=== PATIENT | female | born 1950 | race Caucasian/White ===

== ENCOUNTER 2016-10-07 15:02 | Inpatient (IN) | payer OTHER ==
[~2016-10-07] VITALS: Ht 144.8 cm; Wt 70.7 kg
[~2016-10-07 15:02] MED LIST: ACET-1256 PO; ASPI-589 PO; ATOR-26 PO; B-COCAP2 PO; B-COTAB18 PO; INSDGI SC; IPRA1AER2 INH; ISOS30TA35 PO; LACT10SO17 PO; METO25TA3 PO; NITR0.4S UT; NRN/300 PO; NVLG SC; OXGN; OXYC-57 PO; SNG10 PO; TRAM-10 PO; WARF2TAB8 PO; XOPENEX INH
--- NOTE | 2016-10-07 15:59 | DIAGNOSTIC IMAGING REPORT ---
CT SCAN OF THE BRAIN WITHOUT IV CONTRAST CLINICAL HISTORY: Fall with head injury. COMPARISON STUDY: CT of the brain dated 03/24/2016. TECHNIQUE: Unenhanced axial CT scan of the brain is performed from the vertex to the skull base. CT DOSE: 1074.96 mGy.cm FINDINGS: Brain parenchyma: There are age-related involutional changes noting [id number] patchy subcortical and periventricular microangiopathic change. Chronic lacunar infarcts are identified in the left coronal radiata in the left cerebellar hemisphere. There is no hemorrhage, mass effect, or evidence of acute territorial ischemia by CT criteria. Reardon-white matter is preserved. No extra-axial fluid collection is seen. Ventricles, sulci, cisterns: Prominent secondary to involutional change. Intracranial vasculature: There is atherosclerotic calcification of the cavernous carotid and vertebral arteries. Calvarium: The skeletal structures are osteopenic. No depressed calvarial fracture is seen. Sinuses and mastoids: The visualized paranasal sinuses are clear. The mastoid air cells are well pneumatized. Orbits: The bony orbits are grossly intact. There is evidence of bilateral ocular lens surgery. IMPRESSION: Chronic changes as above with no hemorrhage, mass effect, or evidence of acute territorial ischemia by CT criteria. Electronically signed by: Iván Browne M.D. 10/07/2016 3:57 PM Dictated Date/Time: 10/07/2016 3:54 PM
[2016-10-07] MEDS ORDERED: ESCI1TAB6 PO (16:10)
[2016-10-07] MEDS ORDERED: XPNINS125 INH (16:10)
[2016-10-07] MEDS ORDERED: OXYC-57 PO (16:10)
[2016-10-07] MEDS ORDERED: OMEP40CA41 PO (16:10)
[2016-10-07] MEDS ORDERED: AMOX500C3 PO (16:10)
[2016-10-07] MEDS ORDERED: ULT/50 PO (16:10)
[2016-10-07] MEDS ORDERED: BXN500 PO (16:10)
[2016-10-07] MEDS ORDERED: CMD/1 PO (16:10)
--- NOTE | 2016-10-07 16:21 | DIAGNOSTIC IMAGING REPORT ---
RIGHT SHOULDER 3 VIEWS CLINICAL HISTORY: Fall with right shoulder pain. FINDINGS: 3 views of the right shoulder are obtained. No prior studies are available for comparison at the time of dictation. The skeletal structures are osteopenic. No fracture or dislocation is seen. The glenohumeral and acromioclavicular joints are well-maintained. Minimal arthritic change is noted in the greater tuberosity of the humeral head. The overlying soft tissues are within normal limits. Midline sternotomy wires and pacemaker leads are observed. A right-sided central venous catheter is in place. The heart is enlarged. IMPRESSION: No acute bony abnormality is identified in the right shoulder. Electronically signed by: Iván Browne M.D. 10/07/2016 4:19 PM Dictated Date/Time: 10/07/2016 4:19 PM
--- NOTE | 2016-10-07 16:40 | EMERGENCY ROOM VISIT NOTE ---
ED Visit Note First contact with patient: 15:19 The patient was seen and examined with John Nolasco PA-C. I agree with the history, physical and findings. Please see the note for disposition and details. The patient had a syncopal episode in the emergency department. She did not suffer any trauma. I did evaluate her probably after this occurred. She had some mild confusion but came around quite quickly. She was answering questions in about 1 minute from the event. The patient did not bite her tongue. There is no incontinence. ECG showed a paced rhythm. The patient was not orthostatic. Her blood work was rather unremarkable. Her urinalysis appeared to be dirty and a catheter specimen was ordered after consultation with internal medicine. Consultation was made with the hospitalist service patient was evaluated in the Emergency Room for further treatment.
[2016-10-07] MEDS ORDERED: OXYCODONE HCL IR 5 MG TAB (IMMEDIATE RELEASE) PO STA (16:49)
[2016-10-07 17:19] LABS: BASO % 0.2 %; BASO ABS # 0.02 K/uL (0-0.2); COMPLETE YES; EOS % 1.8 %; HEMATOCRIT 28.7 % (37-47); IG% 0.2 %; LYMPH % 9.9 %; LYMPH ABS # 0.81 K/uL (1.2-3.4); MEAN CELL VOLUME 98.6 fL (80-100); MEAN CORPUSCULAR HGB CONC 32.4 g/dl (32-36); MEAN PLATELET VOLUME 9.5 fL (7.4-10.4); NEUT % 78.9 %; PLATELET COUNT 204 K/uL (130-400); RED BLOOD COUNT 2.91 M/uL (4.2-5.4); WHITE BLOOD COUNT 8.18 K/uL (4.8-10.8)
[2016-10-07 17:28] LABS: INR 2.5 (0.9-1.1); PARTIAL THROMBOPLASTIN RATIO 1.4; PROTHROMBIN TIME (PATIENT) 28.1 SECONDS (9.0-12.0)
[2016-10-07 17:48] LABS: BUN/CREATININE RATIO 7.5 (10-20); CALCIUM 8.4 mg/dl (8.5-10.1); MAGNESIUM 2.8 mg/dl (1.8-2.4); POTASSIUM 5.6 mmol/L (3.5-5.1); THYROID STIMULATING HORMONE 1.44 uIu/ml (0.300-4.500)
--- NOTE | 2016-10-07 17:53 | DIAGNOSTIC IMAGING REPORT ---
CHEST ONE VIEW PORTABLE HISTORY: EVALUATE ALTERED MENTAL STATUS/WEAKNESS COMPARISON: Chest 03/31/2016. FINDINGS: No pneumothorax. Mild interstitial pulmonary edema has improved. Trace bilateral pleural effusions persists. The heart remains enlarged. There are poststernotomy changes with an aortic valve prosthesis. Left dual-chamber pacemaker. Right jugular catheter terminates in the right atrium. IMPRESSION: Improvement in the mild interstitial pulmonary edema and trace bilateral pleural effusions. Cardiomegaly persists. The right jugular catheter terminates in the right atrium. This has advanced in the interval. Electronically signed by: Julio César Huggins M.D. 10/07/2016 5:51 PM Dictated Date/Time: 10/07/2016 5:49 PM
--- NOTE | 2016-10-07 18:12 | EMERGENCY ROOM VISIT NOTE ---
History First contact with patient: 15:19 Chief Complaint: FALL Stated Complaint: FALL, HEAD INJURY History of Present Illness The patient is a 66 year old female who presents to the Emergency Room with complaints of injuries from a fall after tripping on a curb while walking into her doctor's office. The patient reports falling onto the back of her head. Staff reported that she had an approximate 1-2 minute loss of consciousness. She had vomiting 3 upon regaining consciousness. The patient reports a posterior headache. She denies any neck or back pain. She also complains of right shoulder pain that has been ongoing for some time. She does not know if she re-exacerbated her pain from this fall she does not know if she fell onto her shoulder.. She denies paresthesias or numbness of the right upper extremity. She rates her discomfort an 8 out of 10. The patient refuses any analgesics. Tetanus immunization is up-to-date. Review of Systems 10 system review was performed and was negative except for pertinent positives and negatives as indicated in history of present illness Past Medical/Surgical History Medical Problems: (1) Asthma (2) CAD (coronary artery disease) (3) CHF (congestive heart failure) (4) Cirrhosis of liver (5) CKD (chronic kidney disease), stage III (6) Depression (7) Diabetes mellitus (8) Dyslipidemia (9) History of stroke (10) HTN (hypertension) (11) Osteoarthritis (12) Pacemaker (13) Sleep apnea Surgical Problems: (1) Aortic valve replaced (2) S/P CABG x 2 (3) S/P placement of cardiac pacemaker (4) S/P tonsillectomy (5) Status post left heart catheterization Family History Asthma FATHER FH: cancer MOTHER (pancreatic) Heart disease BROTHER ( of [place] age 43) SISTER (CAD age 60) SISTER (CAD age 57) Social History Smoking Status: Never Smoker Alcohol Use: none Drug Use: none Marital Status: Housing Status: lives with family, lives with significant other Occupation Status: disabled Current/Historical Medications Scheduled Acetaminophen (Tylenol), 1,000 MG PO HS Amoxicillin (Amoxil), 1,000 MG PO BID Aspirin (Aspirin Adult Low Dose), 81 MG PO QPM Atorvastatin (Lipitor), 80 MG PO HS B-Complex Vitamins (Vitamin B Complex), 1 TAB PO QAM Clarithromycin (Clarithromycin), 500 MG PO BID Escitalopram Oxalate (Lexapro), 5 MG PO GMG Gabapentin (Neurontin), 300 MG PO HS Insulin Aspart (Novolog), SC UD Insulin Glargine (Lantus), 30 UNITS SC HS Isosorbide Mononitrate Ext Rel (Imdur Ext Rel), 1 TAB PO QAM Lactulose (Chronulac), 30 ML PO QID Levalbuterol (Levalbuterol HCl), 3 ML INH Q8 Metoprolol Succinate (Toprol Xl), 25 MG PO QAM Montelukast Sod (Montelukast Sodium), 10 MG PO HS Omeprazole (Prilosec), 40 MG PO DAILY Trazodone Hcl (Trazodone), 50 MG PO HS Vitamin B Cmplx/Vitc/Folic Ac (Nephrocaps), 1 CAP PO QPM Warfarin Sod (Warfarin Sodium), PO UD Scheduled PRN Ipratropium-Albuterol (Combivent Respimat), 1 PUFFS INH QID PRN for SOB,OR PRIOR TO EXERTION Nitroglycerin (Nitrostat), 0.4 MG UT PRN PRN for Chest Pain Oxycodone/Acetaminophen 5MG/325MG (Percocet 5MG/325MG), 1 TABLET PO Q4 PRN for Pain Tramadol Hcl (Ultram), 25 MG PO Q8 PRN for Pain Allergies Coded Allergies: Lisinopril (Verified Adverse Reaction, Unknown, COUGH, 09/18/16) Physical Exam Vital Signs Date Time Temp Pulse Resp B/P Pulse Ox O2 Delivery O2 Flow Rate FiO2 10/07/16 18:02 75 20 10/07/16 17:54 113/76 10/07/16 17:48 99 Nasal Cannula 2.0 10/07/16 17:47 76 100/64 73 99/69 70 109/63 10/07/16 17:44 109/63 10/07/16 17:42 100/64 10/07/16 17:32 69 19 10/07/16 17:11 95/59 10/07/16 15:32 72 19 10/07/16 15:20 73 10/07/16 15:04 36.5 75 18 94/56 99 Nasal Cannula 2.0 10/07/16 15:02 94/56 Physical Exam CONSTITUTIONAL: Healthy and well nourished. Alert and oriented X 3 with positive affect. GCS 15. HEENT: Normocephalic, atraumatic. No scalp laceration or hematoma formation. Pupils equal, round and reactive. No subconjunctival hemorrhage, epistaxis, hemotympanum, raccoon's eyes or Beard sign. NECK: Full active range of motion without discomfort. RESPIRATORY: Clear to auscultation bilaterally with no wheezing, crackles, rhonchi or stridor. CARDIOVASCULAR: Regular rate and rhythm with no murmurs, rubs or gallops. GASTROINTESTINAL: Bowel sounds present in all quadrants. Soft and nontender to palpation. MUSCULOSKELETAL: Examination shows generalized tenderness to palpation about the right shoulder. No obvious deformity. Distal pulses are intact. INTEGUMENTARY: No rash or other significant dermatologic conditions noted. NEUROLOGIC: No focal neurologic deficits noted. Right hand and fingers are sensory intact. Medical Decision & Procedures ER Provider Diagnostic Interpretation: My interpretation of right shoulder x-rays does not show any acute fractures or dislocations. Radiologist report is as follows: RIGHT SHOULDER 3 VIEWS CLINICAL HISTORY: Fall with right shoulder pain. FINDINGS: 3 views of the right shoulder are obtained. No prior studies are available for comparison at the time of dictation. The skeletal structures are osteopenic. No fracture or dislocation is seen. The glenohumeral and acromioclavicular joints are well-maintained. Minimal arthritic change is noted in the greater tuberosity of the humeral head. The overlying soft tissues are within normal limits. Midline sternotomy wires and pacemaker leads are observed. A right-sided central venous catheter is in place. The heart is enlarged. IMPRESSION: No acute bony abnormality is identified in the right shoulder. Noncontrast CT of the head does not show any evidence for fracture or intracranial bleed. Radiologist report is as follows: CT SCAN OF THE BRAIN WITHOUT IV CONTRAST CLINICAL HISTORY: Fall with head injury. COMPARISON STUDY: CT of the brain dated 03/24/2016. TECHNIQUE: Unenhanced axial CT scan of the brain is performed from the vertex to the skull base. CT DOSE: 1074.96 mGy.cm FINDINGS: Brain parenchyma: There are age-related involutional changes noting [id number] patchy subcortical and periventricular microangiopathic change. Chronic lacunar infarcts are identified in the left coronal radiata in the left cerebellar hemisphere. There is no hemorrhage, mass effect, or evidence of acute territorial ischemia by CT criteria. Reardon-white matter is preserved. No extra-axial fluid collection is seen. Ventricles, sulci, cisterns: Prominent secondary to involutional change. Intracranial vasculature: There is atherosclerotic calcification of the cavernous carotid and vertebral arteries. Calvarium: The skeletal structures are osteopenic. No depressed calvarial fracture is seen. Sinuses and mastoids: The visualized paranasal sinuses are clear. The mastoid air cells are well pneumatized. Orbits: The bony orbits are grossly intact. There is evidence of bilateral ocular lens surgery. IMPRESSION: Chronic changes as above with no hemorrhage, mass effect, or evidence of acute territorial ischemia by CT criteria. My interpretation of an ECG shows a ventricular paced rhythm of 70 bpm. My interpretation of a portable chest x-ray shows cardiomegaly without any significant consolidations. Radiologist report is as follows: CHEST ONE VIEW PORTABLE HISTORY: EVALUATE ALTERED MENTAL STATUS/WEAKNESS COMPARISON: Chest 03/31/2016. FINDINGS: No pneumothorax. Mild interstitial pulmonary edema has improved. Trace bilateral pleural effusions persists. The heart remains enlarged. There are poststernotomy changes with an aortic valve prosthesis. Left dual-chamber pacemaker. Right jugular catheter terminates in the right atrium. IMPRESSION: Improvement in the mild interstitial pulmonary edema and trace bilateral pleural effusions. Cardiomegaly persists. The right jugular catheter terminates in the right atrium. This has advanced in the interval. Laboratory Results 10/07/16 17:05 Red Blood Count 2.91, Mean Corpuscular Volume 98.6, Mean Corpuscular Hemoglobin 32.0, Mean Corpuscular Hemoglobin Concent 32.4, Mean Platelet Volume 9.5, Neutrophils (%) (Auto) 78.9, Lymphocytes (%) (Auto) 9.9, Monocytes (%) (Auto) 9.0, Eosinophils (%) (Auto) 1.8, Basophils (%) (Auto) 0.2, Neutrophils # (Auto) 6.44, Lymphocytes # (Auto) 0.81, Monocytes # (Auto) 0.74, Eosinophils # (Auto) 0.15, Basophils # (Auto) 0.02 10/07/16 17:05 Test 10/07/16 17:05 10/07/16 17:59 White Blood Count 8.18 K/uL (4.8-10.8) Red Blood Count 2.91 M/uL (4.2-5.4) Hemoglobin 9.3 g/dL (12.0-16.0) Hematocrit 28.7 % (37-47) Mean Corpuscular Volume 98.6 fL (80-100) Mean Corpuscular Hemoglobin 32.0 pg (25-34) Mean Corpuscular Hemoglobin Concent 32.4 g/dl (32-36) Platelet Count 204 K/uL (130-400) Mean Platelet Volume 9.5 fL (7.4-10.4) Neutrophils (%) (Auto) 78.9 % Lymphocytes (%) (Auto) 9.9 % Monocytes (%) (Auto) 9.0 % Eosinophils (%) (Auto) 1.8 % Basophils (%) (Auto) 0.2 % Neutrophils # (Auto) 6.44 K/uL (1.4-6.5) Lymphocytes # (Auto) 0.81 K/uL (1.2-3.4) Monocytes # (Auto) 0.74 K/uL (0.11-0.59) Eosinophils # (Auto) 0.15 K/uL (0-0.5) Basophils # (Auto) 0.02 K/uL (0-0.2) RDW Standard Deviation 57.5 fL (36.4-46.3) RDW Coefficient of Variation 15.9 % (11.5-14.5) Immature Granulocyte % (Auto) 0.2 % Immature Granulocyte # (Auto) 0.02 K/uL (0.00-0.02) Prothrombin Time 28.1 SECONDS (9.0-12.0) Prothromb Time International Ratio 2.5 (0.9-1.1) Activated Partial Thromboplast Time 36.8 SECONDS (21.0-31.0) Partial Thromboplastin Ratio 1.4 Anion Gap 9.0 mmol/L (3-11) Est Creatinine Clear Calc Drug Dose 7.6 ml/min Estimated GFR () 7.8 Estimated GFR (Non- 6.8 BUN/Creatinine Ratio 7.5 (10-20) Calcium Level 8.4 mg/dl (8.5-10.1) Phosphorus Level 6.0 mg/dl (2.5-4.9) Magnesium Level 2.8 mg/dl (1.8-2.4) Total Bilirubin 0.7 mg/dl (0.2-1) Direct Bilirubin 0.4 mg/dl (0-0.2) Aspartate Amino Transf (AST/SGOT) 34 U/L (15-37) Alanine Aminotransferase (ALT/SGPT) 22 U/L (12-78) Alkaline Phosphatase 115 U/L (45-117) Total Creatine Kinase 95 U/L (26-192) Total Protein 9.1 gm/dl (6.4-8.2) Albumin 3.1 gm/dl (3.4-5.0) Thyroid Stimulating Hormone (TSH) 1.440 uIu/ml (0.300-4.500) The above labs were reviewed. Hemoglobin 9.3, hematocrit 28.7. INR is 2.5. The patient is also hyponatremic. LFTs and TSH are normal. Glucose is 220. Medications Administered Medications (Trade) Dose Ordered Sig/Dalton Route Start Time Stop Time Status Last Admin Dose Admin Oxycodone HCl (Roxicodone Immediate Rel Tab) 5 mg NOW STAT PO 10/07/16 16:49 10/07/16 16:50 DC 10/07/16 16:49 5 MG ED Course Patient history and physical exam were performed. Nurse's notes were reviewed. The patient refused any analgesics on initial exam. Noncontrast CT of the head was normal. X-rays of the right shoulder also does not show any acute fractures. Upon return to discuss results with the patient, the was present. He reports that the patient has been feeling weak over the past few days. He also reports that she had a bloody nose yesterday, and had a syncopal episode yesterday and today while walking into her doctor's office. Last INR rechecked was approximately one week ago and was a little high. The reports that he only gave her half of her usual Coumadin dose today in case it was still high. The patient was also seen and examined by Dr. Blum, ED attending physician, who suggested performing some additional workup given this additional history that was not revealed on the patient. IV access was established, and labs were drawn. An ECG was normal. Chest x-ray shows cardiomegaly without any significant consolidations. Labs were reviewed to show multiple abnormalities. As nursing staff were attempting to perform an ECG and orthostatic vital signs, the patient requested to go to the bathroom. As she was ambulating to the bathroom, she had a syncopal episode. She was immediately carried back to the bed. She had quick resolution of her symptoms, therefore seizure activity was not suspected. The patient was also immediately reexamined by Dr. Blum. At this point, Dr. Blum took over care of the patient, and consultation was placed with the [facility] service for further admission. Please see their dictation for further treatment and final disposition. Medical Decision Patient presents to the emergency department for evaluation of injuries after she fell walking into her doctor's office today. reports that he is concerned that she is having syncopal episodes. The patient has multiple lab abnormalities today, and is a dialysis patient. The exact cause of the patient' s syncopal episode is uncertain. The patient will likely require cardiology and neurology consultation. Impression Primary Impression: Syncope Additional Impressions: Anemia, Hyponatremia, Dialysis patient Departure Information Referrals Nato Mayorga D.O. (PCP) Patient Instructions A Signature Page, My [facility]
[2016-10-07 18:24] LABS: URINE APPEARANCE TURBID (CLEAR); URINE COLOR DK YELLOW; URINE EPITHELIAL CELL AUTO >30 /lpf (0-5); URINE NITRITE NEG (NEG); URINE SPECIFIC GRAVITY 1.023 (1.000-1.030); UROBILINOGEN NEG (NEG)
[2016-10-07 18:37] LABS: MANUAL MICROSCOPIC REQUIRED? NO; REVIEW REQ? YES; URINE BILIRUBIN NEG (NEG)
[2016-10-07] MEDS ORDERED: POLYETHYLENE (MIRALAX) 17 GM PACK PO PRN (20:30)
[2016-10-07] MEDS ORDERED: MAGNESIUM HYDROXIDE SUSP 30 ML UDC PO PRN (20:30)
[2016-10-07] MEDS ORDERED: ONDANSETRON INJ 2 MG/ML 2 ML VIAL IV PRN (20:30)
[2016-10-07] MEDS ORDERED: ALUMINUM/MAGNESIUM/SIMETH (MAALOX MAX) 30 ML UDC PO PRN (20:30)
[2016-10-07] MEDS ORDERED: NITROGLYCERIN 0.4 MG SL PER TAB CHARGE SL PRN (20:30)
[2016-10-07] MEDS ORDERED: CEFTRIAXONE SOD INJ 1 GM in DEXTROSE 5% ADD-VANTAGE 50ML 50 ML IV STA (20:35)
[2016-10-07] MEDS ORDERED: IPRATROPIUM BROMIDE/ALBUTEROL respimat INH INH PRN (20:45)
[2016-10-07 20:50] LABS: MANUAL MICROSCOPIC REQUIRED? YES; URINE APPEARANCE CLOUDY (CLEAR); URINE COLOR YELLOW; URINE NITRITE NEG (NEG); URINE PH 5.5 (4.5-7.5); URINE SPECIFIC GRAVITY >= 1.030 (1.000-1.030); UROBILINOGEN NEG (NEG)
[2016-10-07 20:57] LABS: REVIEW REQ? NO; URINE BILIRUBIN NEG (NEG)
[2016-10-07 20:59] LABS: URINE BACTERIA 1+ (NEG); URINE WBC >30 /hpf (0-5)
[2016-10-07] MEDS ORDERED: CEFTRIAXONE SOD INJ 1 GM ADDVIAL ONE (21:04)
[2016-10-07] MEDS ORDERED: LORAZEPAM 2 MG/ML 1 ML VIAL IV PRN ×2 (22:15→23:00)
[2016-10-07 22:21] VITALS: PULSE 70; TEMP 37; O2SAT 94; BMI 33.7
[2016-10-07 22:37] VITALS: PULSE 79; O2SAT 98
[2016-10-07] MEDS: LEVALBUTEROL 1.25MG/3ML NEB INH SCH (22:37)
[2016-10-07 22:38] VITALS: BP 108/68; PULSE 72; TEMP 37; O2SAT 96
--- NOTE | 2016-10-07 22:42 | History and Physical ---
History & Physical Date & Time of Service: Oct 07, 2016 at 21:54 Chief Complaint: Fall, Head Injury Primary Care Physician: Nato Mayorga D.O. History of Present Illness This is a 66 year old female with a complex past medical history, which includes the following: CAD s/p CABG x 2, bioprosthetic aortic valve replacement on long-term anticoagulation, subsequent high-degree AV block s/p pacemaker implantation, paroxysmal atrial fibrillation, chronic systolic CHF with EF ~45%, hx. of post-operative CVA, ESRD on HD through tunneled catheter on Tuesdays, , Saturdays; persistent asthma and chronic respiratory failure on continuous oxygen therapy at home, obstructive sleep apnea with CPAP use nocturnally, non-alcoholic fatty liver disease with likely cirrhosis, with complications including hyperammonemia, insulin dependent DM2, HTN, HLD. She has a long-history of syncopal type episodes - usually cardiac related. She presented here today due to multiple falls and syncopal episodes - some of these were witnessed by her who states that they were on their way to Dr. Tenorio's office for a visit regarding AV fistula placement. As per , the patient lost consciousness and fell and hit the back of her head on the car tire in the parking lot; she was unresponsive for a short amount of time. There was concern by the due to possible tongue biting and eyes rolling in the back of her head. This episode repeated at least twice more, including once here in the ER - witnessed by a nurse, who stated that it looked possible like seizure-like activity. Patient cannot recall the events, currently resting comfortably in no distress. She has a history of confusion and mild altered mental status due to elevated ammonia - states that he thinks she has been more confused recently. Past Medical/Surgical History Medical Problems: (1) Asthma Status: Chronic (2) CAD (coronary artery disease) Status: Chronic (3) CHF (congestive heart failure) Status: Chronic (4) Cirrhosis of liver Status: Chronic (5) CKD (chronic kidney disease), stage III Status: Chronic (6) Depression Status: Chronic (7) Diabetes mellitus Status: Chronic (8) Dyslipidemia Status: Chronic (9) History of stroke Permanent Comment: 2004, no residual deficit Status: Chronic (10) HTN (hypertension) Status: Chronic (11) Osteoarthritis Status: Chronic (12) Pacemaker Status: Chronic (13) Sleep apnea Permanent Comment: on CPAP Status: Chronic Surgical Problems: (1) Aortic valve replaced Status: Chronic (2) S/P CABG x 2 Status: Chronic (3) S/P placement of cardiac pacemaker Permanent Comment: 2009 Status: Chronic (4) S/P tonsillectomy Status: Chronic (5) Status post left heart catheterization Permanent Comment: 10/21/2013 GM Status: Chronic Family History Asthma FATHER FH: cancer MOTHER (pancreatic) Heart disease BROTHER ( of [place] age 43) SISTER (CAD age 60) SISTER (CAD age 57) Social History Smoking Status: Never Smoker Drug Use: none Marital Status: Housing status: lives with family Occupational Status: disabled Immunizations History of Influenza Vaccine: Yes Influenza Vaccine Date: Jun 28, 2015 History of Tetanus Vaccine?: Yes Tetanus Immunization Date: Oct 15, 2010 History of Pneumococcal: Yes Pneumococcal Date: Dec 20, 2014 History of Hepatitis B Vaccine: Unknown Allergies Coded Allergies: Lisinopril (Verified Adverse Reaction, Unknown, COUGH, 09/18/16) Home Medications Scheduled Acetaminophen (Tylenol), 1,000 MG PO HS Amoxicillin (Amoxil), 1,000 MG PO BID Aspirin (Aspirin Adult Low Dose), 81 MG PO QPM Atorvastatin (Lipitor), 80 MG PO HS B-Complex Vitamins (Vitamin B Complex), 1 TAB PO QAM Clarithromycin (Clarithromycin), 500 MG PO BID Escitalopram Oxalate (Lexapro), 5 MG PO GMG Gabapentin (Neurontin), 300 MG PO HS Insulin Aspart (Novolog), SC UD Insulin Glargine (Lantus), 30 UNITS SC HS Isosorbide Mononitrate Ext Rel (Imdur Ext Rel), 1 TAB PO QAM Lactulose (Chronulac), 30 ML PO QID Levalbuterol (Levalbuterol HCl), 3 ML INH Q8 Metoprolol Succinate (Toprol Xl), 25 MG PO QAM Montelukast Sod (Montelukast Sodium), 10 MG PO HS Omeprazole (Prilosec), 40 MG PO DAILY Trazodone Hcl (Trazodone), 50 MG PO HS Vitamin B Cmplx/Vitc/Folic Ac (Nephrocaps), 1 CAP PO QPM Warfarin Sod (Warfarin Sodium), PO UD Scheduled PRN Ipratropium-Albuterol (Combivent Respimat), 1 PUFFS INH QID PRN for SOB,OR PRIOR TO EXERTION Nitroglycerin (Nitrostat), 0.4 MG UT PRN PRN for Chest Pain Oxycodone/Acetaminophen 5MG/325MG (Percocet 5MG/325MG), 1 TABLET PO Q4 PRN for Pain Tramadol Hcl (Ultram), 25 MG PO Q8 PRN for Pain Review of Systems Constitutional: No chills, No fever, No sweats, No weakness Respiratory: No cough, No dyspnea on exertion, No shortness of breath, No sputum Cardiovascular: No chest pain, No edema, No orthopnea, No palpitations Abdomen: + problem reported (distention noted by patient), No diarrhea, No nausea, No pain, No vomiting Genitourinary - Female: + problem reported (produces minimal urine at baseline) Neurologic: + balance problems, + memory loss (cannot recall events), + vertigo , + weakness, No numbness/tingling, No paralysis Psychiatric: No anxiety, No depression symptoms, No insomnia Endocrine: No fatigue Hematologic / Lymphatic: No abnormal bleeding/bruising Integumentary: No itch, No rash Allergic / Immunologic: No environmental allergies, No seasonal allergies Physical Exam Vital Signs Date Time Temp Pulse Resp B/P Pulse Ox O2 Delivery O2 Flow Rate FiO2 10/07/16 20:23 70 16 95/68 Room Air 10/07/16 19:30 70 10/07/16 18:02 75 20 10/07/16 17:54 113/76 10/07/16 17:48 99 Nasal Cannula 2.0 10/07/16 17:47 76 100/64 73 99/69 70 109/63 10/07/16 17:44 109/63 10/07/16 17:42 100/64 10/07/16 17:32 69 19 10/07/16 17:11 95/59 10/07/16 15:32 72 19 10/07/16 15:20 73 10/07/16 15:04 36.5 75 18 94/56 99 Nasal Cannula 2.0 10/07/16 15:02 94/56 General Appearance: no apparent distress, + obese Head: normocephalic, atraumatic Eyes: normal inspection ENT: normal ENT inspection, hearing grossly normal Neck: supple Respiratory/Chest: lungs clear, normal breath sounds, no respiratory distress, no accessory muscle use Cardiovascular: regular rate, rhythm, no edema (no lower extremity edema), no JVD, normal peripheral pulses, + systolic murmur Abdomen/GI: normal bowel sounds, non tender, soft, + distended (mild distention , though soft, non tender) Extremities/Musculoskelatal: normal inspection, no calf tenderness, normal capillary refill, no pedal edema 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, no motor/sensory deficits, alert, normal mood/affect, + pertinent finding (loss of consciousness during syncopal episode) Skin: normal color Lymphatic: no adenopathy Diagnostics Laboratory Results Results Past 24 Hours Test 10/07/16 17:05 10/07/16 18:07 10/07/16 19:05 10/07/16 20:30 Range/Units White Blood Count 8.18 4.8-10.8 K/uL Red Blood Count 2.91 4.2-5.4 M/uL Hemoglobin 9.3 12.0-16.0 g/dL Hematocrit 28.7 37-47 % Mean Corpuscular Volume 98.6 80-100 fL Mean Corpuscular Hemoglobin 32.0 25-34 pg Mean Corpuscular Hemoglobin Concent 32.4 32-36 g/dl Platelet Count 204 130-400 K/uL Mean Platelet Volume 9.5 7.4-10.4 fL Neutrophils (%) (Auto) 78.9 % Lymphocytes (%) (Auto) 9.9 % Monocytes (%) (Auto) 9.0 % Eosinophils (%) (Auto) 1.8 % Basophils (%) (Auto) 0.2 % Neutrophils # (Auto) 6.44 1.4-6.5 K/uL Lymphocytes # (Auto) 0.81 1.2-3.4 K/uL Monocytes # (Auto) 0.74 0.11-0.59 K/uL Eosinophils # (Auto) 0.15 0-0.5 K/uL Basophils # (Auto) 0.02 0-0.2 K/uL RDW Standard Deviation 57.5 36.4-46.3 fL RDW Coefficient of Variation 15.9 11.5-14.5 % Immature Granulocyte % (Auto) 0.2 % Immature Granulocyte # (Auto) 0.02 0.00-0.02 K/uL Prothrombin Time 28.1 9.0-12.0 SECONDS Prothromb Time International Ratio 2.5 0.9-1.1 Activated Partial Thromboplast Time 36.8 21.0-31.0 SECONDS Partial Thromboplastin Ratio 1.4 Sodium Level 127 136-145 mmol/L Potassium Level 5.6 3.5-5.1 mmol/L Chloride Level 90 98-107 mmol/L Carbon Dioxide Level 28 21-32 mmol/L Anion Gap 9.0 3-11 mmol/L Blood Urea Nitrogen 45 7-18 mg/dl Creatinine 6.00 0.60-1.20 mg/dl Est Creatinine Clear Calc Drug Dose 7.6 ml/min Estimated GFR () 7.8 Estimated GFR (Non- 6.8 BUN/Creatinine Ratio 7.5 10-20 Random Glucose 220 70-99 mg/dl Calcium Level 8.4 8.5-10.1 mg/dl Phosphorus Level 6.0 2.5-4.9 mg/dl Magnesium Level 2.8 1.8-2.4 mg/dl Total Bilirubin 0.7 0.2-1 mg/dl Direct Bilirubin 0.4 0-0.2 mg/dl Aspartate Amino Transf (AST/SGOT) 34 15-37 U/L Alanine Aminotransferase (ALT/SGPT) 22 12-78 U/L Alkaline Phosphatase 115 45-117 U/L Total Creatine Kinase 95 26-192 U/L Creatine Kinase MB 0.6 0.5-3.6 ng/ml Creatine Kinase MB Ratio 0-3.0 Troponin I < 0.015 0-0.045 ng/ml Total Protein 9.1 6.4-8.2 gm/dl Albumin 3.1 3.4-5.0 gm/dl Thyroid Stimulating Hormone (TSH) 1.440 0.300-4.500 uIu/ml Urine Color DK YELLOW YELLOW Urine Appearance TURBID CLOUDY CLEAR Urine pH 5.0 5.5 4.5-7.5 Urine Specific Paige 1.023 >= 1.030 1.000-1.030 Urine Protein 1+ 1+ NEG Urine Glucose (UA) NEG TRACE NEG Urine Ketones TRACE TRACE NEG Urine Occult Blood 3+ 2+ NEG Urine Nitrite NEG NEG NEG Urine Bilirubin NEG NEG NEG Urine Urobilinogen NEG NEG NEG Urine Leukocyte Esterase LARGE MODERATE NEG Urine WBC (Auto) >30 0-5 /hpf Urine RBC (Auto) >30 0-4 /hpf Urine Hyaline Casts (Auto) 1-5 0-5 /lpf Urine Epithelial Cells (Auto) >30 0-5 /lpf Urine Bacteria (Auto) NEG NEG Urine Pathogenic Casts 0 /lpf Urine Yeast (Auto) BUD W/ HYPHAE NONE PRSENT Ammonia 63.0 11-32 umol/L Urine RBC 5-10 0-4 /hpf Urine WBC >30 0-5 /hpf Urine Epithelial Cells >30 0-5 /lpf Urine Bacteria 1+ NEG Microbiology Results 10/07/16 Urine Culture, Received Pending Diagnostic Radiology CHEST ONE VIEW PORTABLE HISTORY: EVALUATE ALTERED MENTAL STATUS/WEAKNESS COMPARISON: Chest 03/31/2016. FINDINGS: No pneumothorax. Mild interstitial pulmonary edema has improved. Trace bilateral pleural effusions persists. The heart remains enlarged. There are poststernotomy changes with an aortic valve prosthesis. Left dual-chamber pacemaker. Right jugular catheter terminates in the right atrium. IMPRESSION: Improvement in the mild interstitial pulmonary edema and trace bilateral pleural effusions. Cardiomegaly persists. The right jugular catheter terminates in the right atrium. This has advanced in the interval. RIGHT SHOULDER 3 VIEWS CLINICAL HISTORY: Fall with right shoulder pain. FINDINGS: 3 views of the right shoulder are obtained. No prior studies are available for comparison at the time of dictation. The skeletal structures are osteopenic. No fracture or dislocation is seen. The glenohumeral and acromioclavicular joints are well-maintained. Minimal arthritic change is noted in the greater tuberosity of the humeral head. The overlying soft tissues are within normal limits. Midline sternotomy wires and pacemaker leads are observed. A right-sided central venous catheter is in place. The heart is enlarged. IMPRESSION: No acute bony abnormality is identified in the right shoulder. CT SCAN OF THE BRAIN WITHOUT IV CONTRAST CLINICAL HISTORY: Fall with head injury. COMPARISON STUDY: CT of the brain dated 03/24/2016. TECHNIQUE: Unenhanced axial CT scan of the brain is performed from the vertex to the skull base. CT DOSE: 1074.96 mGy.cm FINDINGS: Brain parenchyma: There are age-related involutional changes noting [id number] patchy subcortical and periventricular microangiopathic change. Chronic lacunar infarcts are identified in the left coronal radiata in the left cerebellar hemisphere. There is no hemorrhage, mass effect, or evidence of acute territorial ischemia by CT criteria. Reardon-white matter is preserved. No extra-axial fluid collection is seen. Ventricles, sulci, cisterns: Prominent secondary to involutional change. Intracranial vasculature: There is atherosclerotic calcification of the cavernous carotid and vertebral arteries. Calvarium: The skeletal structures are osteopenic. No depressed calvarial fracture is seen. Sinuses and mastoids: The visualized paranasal sinuses are clear. The mastoid air cells are well pneumatized. Orbits: The bony orbits are grossly intact. There is evidence of bilateral ocular lens surgery. IMPRESSION: Chronic changes as above with no hemorrhage, mass effect, or evidence of acute territorial ischemia by CT criteria. EKG Atrial-sensed ventricular-paced rhythm with prolonged AV conduction Impression Assessment and Plan PMH: This is a 66 year old female with a complex past medical history, which includes the following: CAD s/p CABG x 2, bioprosthetic aortic valve replacement on long-term anticoagulation, subsequent high-degree AV block s/p pacemaker implantation, paroxysmal atrial fibrillation, chronic systolic CHF with EF ~45%, hx. of post-operative CVA, ESRD on HD through tunneled catheter on Tuesdays, , Saturdays; persistent asthma and chronic respiratory failure on continuous oxygen therapy at home, obstructive sleep apnea with CPAP use nocturnally, non-alcoholic fatty liver disease with likely cirrhosis, with complications including hyperammonemia, insulin dependent DM2, HTN, HLD CC: Syncope vs. seizure activity Syncope/Fall -->patient presents with syncopal episode/fall -->as per , she hit the back of her head on the car tire, as well as her right shoulder -->Head CT = negative for acute issues -->right shoulder radiograph negative for fractures -->multiple issues may be causing this: bioprosthetic AVR, CAD, s/p PPM, infectious, electrolyte abnormality -->will monitor the patient in tele for any arrhythmias -->pacemaker interrogation in AM - This was done last month as per patient -->cycle cardiac enzymes -->repeat EKG in AM -->obtain echocardiogram -->repeat head CT in AM to rule out bleed -->obtain orthostatic vitals -->monitor blood sugars, monitor electrolytes (see below) -->EEG ordered and pending -->Ativan PRN for any seizure like activities -->neurology input -->cardiology input Hyponatremia/Hyperkalemia in the setting of ESRD on HD -->patient with hemodialysis on Friday, and Friday -->patient producing very little urine -->seems to have more of a weight gain as per -->likely dilutional hyponatremia - will hold off on Lasix since she does not produce much urine -->obtain nephrology consultation for dialysis in AM -->will give insulin tonight to correct potassium/sugars -->has a tunneled cath -->may need vascular input for AV fistula placement Urinary Tract Infection -->UA obtained, and a second urinalysis via cath obtained -->both seem dirty, possibly contributing to syncopal episode -->started Rocephin -->urine culture pending Liver cirrhosis secondary to ALLEN Elevated Ammonia Level -->as per , patient is more confused recently -->she is alert and oriented during my exam, but does not recall syncopal episodes -->ammonia level obtained here elevated > 60 -->recently seen by GI and were trying to wean off Lactulose -->will restart lactulose, check ammonia in AM; monitor BMs -->may need gastro eval if patient's mental status is altered Insulin Dependent DM2 -->last A1c = 6.4% in July 2016, well controlled -->insulin sliding scale -->Lantus 10 units BID -->glycemic control consult S/P aortic valve replacement -->currently on Coumadin -->INR = 2.5, stable, continue Coumadin and monitor INR CAD s/p CABG -->patient seems to be at baseline, with no acute issues -->will continue current cardiac medications -->cycle cardiac enzymes, EKG in AM, echo pending High Degree AV block s/p PPM -->patient with dual chamber pacemaker -->interrogation complete, possibly last month? as per patient's -->will obtain repeat pacemaker interrogation Mild Systolic CHF -->last EF ~ 45% -->repeat echo pending -->patient on dialysis Chronic Respiratory Failure Obstructive Sleep Apnea -->continue home O2, uses 3L continuously -->nocturnal CPAP for LIZZ -->denies SOB, O2 saturation > 90% HTN -->stable, monitor BP -->continue imdur and b-mauricio for now DVT ppx -->Coumadin, with INR = 2.5 FULL CODE VTE Prophylaxis VTE Risk Assessment Done? Y/N: Yes Risk Level: High
[2016-10-07] MEDS ORDERED: DEXTROSE 50% 50 ML SYR IV PRN (22:45)
[2016-10-07] MEDS ORDERED: GLUCAGON FOR INJ 1 MG VIAL SQ PRN (22:45)
[2016-10-07] MEDS ORDERED: GLUCOSE 40% GEL 15 GM TUBE PO PRN (22:45)
[2016-10-07] MEDS ORDERED: GLUCOSE 10 TABS/TUBE PO PRN (22:45)
[2016-10-07] MEDS ORDERED: LORAZEPAM IV PRN (23:00)
[2016-10-07] MEDS ORDERED: INSULIN GLARGINE SOLOSTAR 100 UNITS/ML 3 ML PEN SC STA (23:19)
[2016-10-07] MEDS ORDERED: TRAZ50TA35 PO (23:23)
[2016-10-07] MEDS ORDERED: INSULIN ASPART 100 UNITS/ML 3 ML PEN SC STA (23:24)
[2016-10-07] MEDS: LACTULOSE SYRUP 20 GM/30 ML UDC PO SCH (23:49)
[2016-10-07] MEDS: ESCITALOPRAM OXALATE 10 MG TAB PO SCH (23:50)
[2016-10-07] MEDS: MONTELUKAST SOD 10 MG TAB PO SCH (23:52)
[2016-10-07] MEDS: ATORVASTATIN 40 MG TAB PO SCH (23:53)
[2016-10-07] MEDS: GABAPENTIN 300 MG CAP PO SCH (23:53)
[2016-10-07] MEDS: ASPIRIN 81 MG ECTAB PO SCH (23:54)
[2016-10-07] MEDS: NEPHROCAPS PO SCH (23:54)
[2016-10-07] MEDS: TRAZODONE HCL 50 MG TAB PO SCH (23:54)
[2016-10-08] VITALS (27 sets, daily range): BP systolic 81–123; BP diastolic 48–77; PULSE 71–87; TEMP 36.5–37.7; O2SAT 90–98
[2016-10-08] MEDS ORDERED: INSULIN ASPART 100 UNITS/ML 3 ML PEN SC SCH (02:00)
[2016-10-08 03:57] LABS: CKMB/CK RATIO 0.6 (0-3.0)
[2016-10-08] MEDS: TRAMADOL HCL 50 MG TAB PO PRN ×3 (06:42→21:16)
[2016-10-08 06:53] LABS: HEMATOCRIT 28.5 % (37-47); MEAN CELL VOLUME 96.3 fL (80-100); MEAN CORPUSCULAR HEMOGLOBIN 31.1 pg (25-34); MEAN CORPUSCULAR HGB CONC 32.3 g/dl (32-36); MEAN PLATELET VOLUME 9.6 fL (7.4-10.4); PLATELET COUNT 192 K/uL (130-400); RED BLOOD COUNT 2.96 M/uL (4.2-5.4); WHITE BLOOD COUNT 8.43 K/uL (4.8-10.8)
[2016-10-08 07:00] LABS: INR 2.4 (0.9-1.1); PROTHROMBIN TIME (PATIENT) 26.8 SECONDS (9.0-12.0)
[2016-10-08] MEDS: LEVALBUTEROL 1.25MG/3ML NEB INH SCH ×3 (07:15→23:21)
[2016-10-08 07:33] LABS: BUN/CREATININE RATIO 8.7 (10-20); CALCIUM 8.9 mg/dl (8.5-10.1); CREATININE 6.3 mg/dl (0.60-1.20); POTASSIUM 5.6 mmol/L (3.5-5.1)
[2016-10-08] MEDS ORDERED: PERFLUTREN LIPID MICROSPHERE (DEFINITY) IV ONE (07:51)
[2016-10-08] MEDS: LACTULOSE SYRUP 20 GM/30 ML UDC PO SCH ×4 (08:29→20:03)
[2016-10-08] MEDS: METOPROLOL SUCC 25MG EXT REL TAB PO SCH (08:30)
[2016-10-08] MEDS: PANTOprazole SOD 40 MG TAB PO SCH (08:31)
[2016-10-08] MEDS: INSULIN ASPART 100 UNITS/ML 3 ML PEN SC SCH ×4 (08:39→20:48)
[2016-10-08] MEDS: INSULIN GLARGINE SOLOSTAR 100 UNITS/ML 3 ML PEN SC SCH ×2 (08:40→20:48)
[2016-10-08] MEDS ORDERED: CEFTRIAXONE SOD INJ 1 GM in DEXTROSE 5% ADD-VANTAGE 50ML 50 ML IV SCH (09:00)
[2016-10-08] MEDS ORDERED: WARFARIN SOD 1 MG TAB PO SCH (09:00)
[2016-10-08] MEDS ORDERED: ISOSORBIDE MONONITRATE 30 MG TABCR PO SCH (09:00)
[2016-10-08] MEDS ORDERED: PHARMACY GLYCEMIC MGMT CONSULT PRN (09:00)
--- NOTE | 2016-10-08 09:01 | DIAGNOSTIC IMAGING REPORT ---
CT HEAD WITHOUT CONTRAST (CT) CLINICAL HISTORY: Head pain. Trauma. COMPARISON STUDY: No previous studies for comparison. TECHNIQUE: Axial CT of the brain is performed from the vertex to the skull base. IV contrast was not administered for this examination. CT DOSE: 537.48 mGy.cm FINDINGS: No intra or extra-axial mass lesions are visualized. There is no CT evidence of acute cortical infarction. There is no evidence of midline shift. There is no acute hemorrhage. No calvarial fractures are visualized. There are patchy white matter hypodensities likely on a small vessel basis. There is a lacunar infarct in the left basal ganglia. There is an old lacunar infarct in the left cerebellar hemisphere. There is mild ventricular prominence in proportion to the degree of volume loss. There is no evidence of acute sinusitis IMPRESSION: No acute intracranial findings Electronically signed by: Evens Marinelli M.D. 10/08/2016 8:59 AM Dictated Date/Time: 10/08/2016 8:55 AM
[2016-10-08 09:05] LABS: ESTIMATED AVERAGE GLUCOSE 140 mg/dl; HA1C FLAG Normal (Normal)
--- NOTE | 2016-10-08 09:12 | Nephrology Consultation ---
Nephrology Consultation Date of Consultation: Oct 08, 2016. Attending Physician: Dr Dhaliwal Requesting Physician: Dr Cardoso Reason for Consultation: ESRD, hyponatremia History of Present Illness 66 year old female on HD TRSat admitted last evening after falling and hitting her head in a parking lot earlier in the day with transient loss of consciousness and at least 3 episodes of possible seizure activity w/ pt's eyes rolling back in her head and concern for tongue biting. One such episode happened in ER and described by nurse who witnessed it as seizure like per H&P. PMH includes CAD s/p 2V CABG and bioprosthetic aortic valve, systolic HF w/ EF 45%, post operative stroke, PAF on coumadin, AV block s/p pacer, recurrent syncope, asthma/chronic respiratory failure on home 02, LIZZ on CPAP, IDDM, NAFLD w/ liver cirrhosis, HTN, HL. Admission labs remarkable for K 5.6, Na 127 , creatinine 6, ammonia 63. K 5.6 again today w/ sNa 130. Head CT negative, urine specimen contaminated. For EEG today; no events on monitor overnight. she is still somewhat unreliable about details of her hx today. she states she has been on dialysis since about April and was started at "[facility]. " Dialyzes in [facility]. Past Medical/Surgical History Medical Problems: (1) Acute renal failure Status: Acute (2) Anemia Status: Acute (3) Change in mental status Status: Acute (4) CHF (congestive heart failure) Status: Acute (5) CHF (congestive heart failure) Status: Chronic (6) Chronic kidney disease Status: Acute (7) Congestive heart failure Status: Acute (8) Dehydration Status: Acute (9) Dialysis patient Status: Acute (10) Hyperglycemia Status: Acute (11) Hyperglycemia Status: Acute (12) Hypoglycemia Status: Acute (13) Hyponatremia Status: Acute (14) Hyponatremia Status: Acute (15) Noncompliance with medication regimen Status: Acute (16) Shortness of breath Status: Acute (17) Syncope Status: Acute (18) Traumatic hematoma of head Status: Acute Family History Asthma FATHER FH: cancer MOTHER (pancreatic) Heart disease BROTHER ( of [place] age 43) SISTER (CAD age 60) SISTER (CAD age 57) Social History Smoking Status: Never Smoker Alcohol Use: none Drug Use: none Marital Status: Housing Status: lives with family, lives with significant other Occupation Status: disabled Allergies Coded Allergies: Lisinopril (Verified Adverse Reaction, Unknown, COUGH, 09/18/16) Medications Current Inpatient Medications Medications (Trade) Dose Ordered Sig/Dalton Route Start Time Stop Time Status Last Admin Dose Admin Al Hydrox/Mg Hydrox/Simethicone (Maalox Max Susp) 15 ml Q4H PRN PO 10/07/16 20:30 11/06/16 20:29 Magnesium Hydroxide (Milk Of Magnesia Susp) 30 ml Q12H PRN PO 10/07/16 20:30 11/06/16 20:29 Ondansetron HCl (Zofran Inj) 4 mg Q6H PRN IV 10/07/16 20:30 11/06/16 20:29 Nitroglycerin (Nitrostat Tab) 0.4 mg UD PRN SL 10/07/16 20:30 11/06/16 20:29 Polyethylene 17 gm 17 gm DAILY PRN PO 10/07/16 20:30 11/06/16 20:29 Ceftriaxone Sodium/Dextrose (Rocephin Inj/ Dextrose Add-Hornell 50ML) 50 ml @ 100 mls/hr DAILY@0900 IV 10/08/16 09:00 10/18/16 08:59 Aspirin (Ecotrin Tab) 81 mg QPM PO 10/07/16 21:00 11/06/16 20:59 10/07/16 23:54 81 MG Atorvastatin Calcium (Lipitor Tab) 80 mg HS PO 10/07/16 21:00 11/06/16 20:59 10/07/16 23:53 80 MG Escitalopram Oxalate (Lexapro Tab) 5 mg HS PO 10/07/16 21:00 11/06/16 20:59 10/07/16 23:50 5 MG Gabapentin (Neurontin Cap) 300 mg HS PO 10/07/16 21:00 11/06/16 20:59 10/07/16 23:53 300 MG Albuterol/ Ipratropium (Combivent Respimat Inh) 1 puffs QID PRN INH 10/07/16 20:45 11/06/16 20:44 Isosorbide Mononitrate (Imdur Ext Rel Tab) 30 mg QAM PO 10/08/16 09:00 11/07/16 08:59 Lactulose (Chronulac Syrup) 20 gm QID PO 10/07/16 21:00 11/06/16 20:59 10/07/16 23:49 20 GM Levalbuterol (Xopenex 1.25MG/ 3ML Neb) 1.25 mg Q8R INH 10/08/16 00:00 11/07/16 00:00 10/08/16 07:15 1.25 MG Metoprolol Succinate (Toprol Xl Tab) 25 mg QAM PO 10/08/16 09:00 11/07/16 08:59 Montelukast Sodium (Singulair Tab) 10 mg HS PO 10/07/16 21:00 11/06/16 20:59 10/07/16 23:52 10 MG Tramadol HCl (Ultram Tab) 25 mg Q8 PRN PO 10/07/16 20:45 11/06/16 20:44 10/08/16 06:42 25 MG Trazodone HCl (Desyrel Tab) 50 mg HS PO 10/07/16 21:00 11/06/16 20:59 10/07/16 23:54 50 MG Vitamin B Complex/ Vit C/Folic Acid (Nephrocaps) 1 cap QPM PO 10/07/16 21:00 11/06/16 20:59 10/07/16 23:54 1 CAP Pantoprazole Sodium (Protonix Tab) 40 mg DAILY PO 10/08/16 09:00 11/07/16 08:59 Insulin Glargine (Lantus Solostar Pen) 10 unit Q12 SC 10/08/16 09:00 11/07/16 08:59 Insulin Aspart (novoLOG ASPART) SLIDING SCALE If C... ACHS SC 10/08/16 07:00 11/07/16 06:59 Glucose (Glucose 40% Gel) 15-30 GRAMS 15 GRAMS... UD PRN PO 10/07/16 22:45 11/06/16 22:44 Glucose (Glucose Chew Tab) 4-8 Tablets 4 Tabl... UD PRN PO 10/07/16 22:45 11/06/16 22:44 Dextrose (Dextrose 50% 50ML Syringe) 25-50ML OF 50% DW IV FOR... UD PRN IV 10/07/16 22:45 11/06/16 22:44 Glucagon (Glucagon Inj) 1 mg UD PRN SQ 10/07/16 22:45 11/06/16 22:44 Miscellaneous Information 1 ea 1 ea DAILY PRN N/A 10/08/16 09:00 11/07/16 08:59 Lorazepam/Syringe (Ativan Inj/ Syringe) 3 ml @ 1 mls/min ONE PRN IV 10/07/16 23:00 11/06/16 22:59 Lorazepam (Ativan Inj) 4 mg ONE PRN IV 10/07/16 23:00 11/06/16 22:59 Home Meds and Scripts Medications Dose Route/Sig Max Daily Dose Days Date Category Dose Instructions Percocet 5MG/325MG (Oxycodone/Acetaminophen) Tab 1 Tablet PO Q4 PRN 10/07/16 Reported PAIN Levalbuterol HCl (Levalbuterol) 1.25 Mg/3 Ml Nebu 3 Ml INH Q8 10/07/16 Reported Warfarin Sodium (Warfarin Sod) 1 Mg Tab PO UD 10/07/16 Reported UD BY [facility]ULATION [facility] Ultram (Tramadol Hcl) 50 Mg Tab 25 Mg PO Q8 PRN 10/07/16 Reported Lexapro (Escitalopram Oxalate) 5 Mg Tab 5 Mg PO GMG 10/07/16 Reported Clarithromycin 500 Mg Tab 500 Mg PO BID 10/07/16 Reported ORDERED 10/01/2016 Amoxil (Amoxicillin) 500 Mg Cap 1,000 Mg PO BID 10/07/16 Reported ORDERED 10/01/2016 Prilosec (Omeprazole) 40 Mg Cap 40 Mg PO DAILY 10/07/16 Reported Novolog (Insulin Aspart) 100 Units/Ml Inj SC UD 09/05/16 Reported PER SLIDING SCALE Nephrocaps (Vitamin B Complex/Vit C/Folic Acid) 1 Cap Cap 1 Cap PO QPM 09/05/16 Reported Tylenol (Acetaminophen) 500 Mg Tab 1,000 Mg PO HS 08/16/16 Reported Vitamin B Complex (B-Complex Vitamins) 1 Tab Tab 1 Tab PO QAM 08/16/16 Reported Lantus (Insulin Glargine) 100 Unit/Ml Inj 30 Units SC HS 08/15/16 Reported Toprol Xl (Metoprolol Succinate) 25 Mg Tabcr 25 Mg PO QAM 08/15/16 Reported Chronulac (Lactulose) 10 Gm/15 Ml Syrp 30 Ml PO QID 08/15/16 Reported Imdur Ext Rel (Isosorbide Mononitrate) 30 Mg Tabcr 1 Tab PO QAM 08/15/16 Reported Neurontin (Gabapentin) 300 Mg Cap 300 Mg PO HS 08/15/16 Reported Trazodone (Trazodone HCl) 50 Mg Tab 50 Mg PO HS 03/05/16 Reported Aspirin Adult Low Dose (Aspirin) 81 Mg Tab 81 Mg PO QPM 02/09/15 Reported Montelukast Sodium (Montelukast Sod) 10 Mg Tab 10 Mg PO HS 02/09/15 Reported Nitrostat (Nitroglycerin) 0.4 Mg Sub 0.4 Mg UT PRN PRN 02/09/15 Reported Combivent Respimat (Ipratropium-Albuterol) 1 Aer Aer 1 Puffs INH QID PRN 02/09/15 Reported Lipitor (Atorvastatin Calcium) 80 Mg Tab 80 Mg PO HS 02/09/15 Reported Review of Systems Constitutional: + fatigue, + weakness, No chills, No fever Eyes: No worsening of vision ENT: No hearing loss Respiratory: + shortness of breath (chronic/ stable), No cough Cardiac: No chest pain, No edema, No palpitations Abdomen: No constipation, No diarrhea, No nausea, No pain, No vomiting Musculoskeletal: + joint pain (R shoulder) Female : + problem reported (voids daily but small amount and w/ effort; no change in voiding habits; no dysuria/gross hematuria) Neuro: + balance problems, + memory loss, + weakness, No numbness/tingling Psych: No anxiety, No depression symptoms Heme: No abnormal bleeding/bruising Skin: + rash Physical Exam Date Time Temp Pulse Resp B/P Pulse Ox O2 Delivery O2 Flow Rate FiO2 10/08/16 07:35 36.5 75 18 123/72 90 Nasal Cannula 3.0 10/08/16 07:15 75 16 97 3.0 10/08/16 04:00 CPAP 10/08/16 03:55 36.5 73 20 103/72 96 CPAP 10/08/16 00:30 71 96 3.0 10/07/16 23:59 CPAP 10/07/16 22:38 37.0 72 16 108/68 96 Nasal Cannula 3.0 10/07/16 22:37 79 16 98 3.0 1/9/17 22:21 37.0 70 18 94 Nasal Cannula 3.0 10/07/16 22:09 72 16 103/59 98 10/07/16 20:23 70 16 95/68 Room Air 10/07/16 19:30 70 10/07/16 18:02 75 20 10/07/16 17:54 113/76 10/07/16 17:48 99 Nasal Cannula 2.0 10/07/16 17:47 76 100/64 73 99/69 70 109/63 10/07/16 17:44 109/63 10/07/16 17:42 100/64 10/07/16 17:32 69 19 10/07/16 17:11 95/59 10/07/16 15:32 72 19 10/07/16 15:20 73 10/07/16 15:04 36.5 75 18 94/56 99 Nasal Cannula 2.0 10/07/16 15:02 94/56 24-Hour Column 10/08/16 07:59 Intake Total 200 ml Balance 200 ml General Appearance: WD/WN, no apparent distress, + obese, + pertinent finding ( on 02nc 3L) Eyes: EOMI ENT: hearing grossly normal Neck: supple Respiratory/Chest: no respiratory distress, + decreased breath sounds Cardiovascular: regular rate, rhythm, + pertinent finding (at most trace edema) Abdomen: normal bowel sounds, non tender, soft (no terrazas) Extremities: + pertinent finding (AVF R a-c + t/b) Neurologic/Psych: alert, normal mood/affect, oriented x 3 Skin: no jaundice, warm/dry, no rash Diagnostics Last 24 Hours Test 10/07/16 17:05 10/07/16 18:07 10/07/16 19:05 10/07/16 20:30 White Blood Count 8.18 K/uL Red Blood Count 2.91 M/uL Hemoglobin 9.3 g/dL Hematocrit 28.7 % Mean Corpuscular Volume 98.6 fL Mean Corpuscular Hemoglobin 32.0 pg Mean Corpuscular Hemoglobin Concent 32.4 g/dl Platelet Count 204 K/uL Mean Platelet Volume 9.5 fL Neutrophils (%) (Auto) 78.9 % Lymphocytes (%) (Auto) 9.9 % Monocytes (%) (Auto) 9.0 % Eosinophils (%) (Auto) 1.8 % Basophils (%) (Auto) 0.2 % Neutrophils # (Auto) 6.44 K/uL Lymphocytes # (Auto) 0.81 K/uL Monocytes # (Auto) 0.74 K/uL Eosinophils # (Auto) 0.15 K/uL Basophils # (Auto) 0.02 K/uL RDW Standard Deviation 57.5 fL RDW Coefficient of Variation 15.9 % Immature Granulocyte % (Auto) 0.2 % Immature Granulocyte # (Auto) 0.02 K/uL Prothrombin Time 28.1 SECONDS Prothromb Time International Ratio 2.5 Activated Partial Thromboplast Time 36.8 SECONDS Partial Thromboplastin Ratio 1.4 Sodium Level 127 mmol/L Potassium Level 5.6 mmol/L Chloride Level 90 mmol/L Carbon Dioxide Level 28 mmol/L Anion Gap 9.0 mmol/L Blood Urea Nitrogen 45 mg/dl Creatinine 6.00 mg/dl Est Creatinine Clear Calc Drug Dose 7.6 ml/min Estimated GFR () 7.8 Estimated GFR (Non- 6.8 BUN/Creatinine Ratio 7.5 Random Glucose 220 mg/dl Calcium Level 8.4 mg/dl Phosphorus Level 6.0 mg/dl Magnesium Level 2.8 mg/dl Total Bilirubin 0.7 mg/dl Direct Bilirubin 0.4 mg/dl Aspartate Amino Transf (AST/SGOT) 34 U/L Alanine Aminotransferase (ALT/SGPT) 22 U/L Alkaline Phosphatase 115 U/L Total Creatine Kinase 95 U/L Creatine Kinase MB 0.6 ng/ml Creatine Kinase MB Ratio Troponin I < 0.015 ng/ml Total Protein 9.1 gm/dl Albumin 3.1 gm/dl Thyroid Stimulating Hormone (TSH) 1.440 uIu/ml Urine Color DK YELLOW YELLOW Urine Appearance TURBID CLOUDY Urine pH 5.0 5.5 Urine Specific [place] 1.023 >= 1.030 Urine Protein 1+ 1+ Urine Glucose (UA) NEG TRACE Urine Ketones TRACE TRACE Urine Occult Blood 3+ 2+ Urine Nitrite NEG NEG Urine Bilirubin NEG NEG Urine Urobilinogen NEG NEG Urine Leukocyte Esterase LARGE MODERATE Urine WBC (Auto) >30 /hpf Urine RBC (Auto) >30 /hpf Urine Hyaline Casts (Auto) 1-5 /lpf Urine Epithelial Cells (Auto) >30 /lpf Urine Bacteria (Auto) NEG Urine Pathogenic Casts /lpf Urine Yeast (Auto) BUD W/ HYPHAE Ammonia 63.0 umol/L Urine RBC 5-10 /hpf Urine WBC >30 /hpf Urine Epithelial Cells >30 /lpf Urine Bacteria 1+ Test 10/07/16 22:44 10/08/16 01:58 10/08/16 02:46 10/08/16 06:39 Bedside Glucose 261 mg/dl 242 mg/dl Total Creatine Kinase 97 U/L Creatine Kinase MB 0.6 ng/ml Creatine Kinase MB Ratio 0.6 Troponin I < 0.015 ng/ml White Blood Count 8.43 K/uL Red Blood Count 2.96 M/uL Hemoglobin 9.2 g/dL Hematocrit 28.5 % Mean Corpuscular Volume 96.3 fL Mean Corpuscular Hemoglobin 31.1 pg Mean Corpuscular Hemoglobin Concent 32.3 g/dl RDW Standard Deviation 55.4 fL RDW Coefficient of Variation 15.8 % Platelet Count 192 K/uL Mean Platelet Volume 9.6 fL Prothrombin Time 26.8 SECONDS Prothromb Time International Ratio 2.4 Sodium Level 130 mmol/L Potassium Level 5.6 mmol/L Chloride Level 92 mmol/L Carbon Dioxide Level 22 mmol/L Anion Gap 16.0 mmol/L Blood Urea Nitrogen 55 mg/dl Creatinine 6.30 mg/dl Est Creatinine Clear Calc Drug Dose 7.2 ml/min Estimated GFR () 7.4 Estimated GFR (Non- 6.4 BUN/Creatinine Ratio 8.7 Random Glucose 135 mg/dl Calcium Level 8.9 mg/dl Magnesium Level 3.0 mg/dl Ammonia 60.0 umol/L Lipase 494 U/L Test 10/08/16 06:40 10/08/16 08:35 Bedside Glucose 138 mg/dl Creatine Kinase MB Ratio Diagnostic Radiology: head CT no acute process CXR mild pulmonary edema shoulder XR no acute pathology Assessment & Plan 66 y/o F w/ ESRD, HF EF 45%, NAFLD/ cirrhosis, a fib/ pacer on coumadin, recurrent syncope admitted after syncope with a fall w/ concern for seizure like activity. No sequelae of fall seen so far. Had hyperammonemia on presentation-on lactulose. infectious work up pending. ESRD and hyperkalemia -for HD today bedside via TDC w/ gentle UF, no heparin, and 2K bath -next HD tentatively for 10/10 or as clinical course dictates Anemia of chronic disease -epo w/ HD syncope, cause unclear; concern for seizure v cardiac source no events on secured entrance monitor overnight -HD bedside today -ordered blood cultures for completeness, given that she had syncope and is dialyzing w/ TDC -on ceftriaxone; urine cx pending; admission urine specimens x 2 contaminated and w/ inflammation Appreciate consult; will follow with you
[2016-10-08] MEDS ORDERED: EPOETIN ALFA 10,000 UNITS/ML VIAL IV. ONE (10:00)
[2016-10-08 10:32] LABS: CKMB/CK RATIO 0.6 (0-3.0)
--- NOTE | 2016-10-08 10:56 | Cardiology Consultation ---
Cardiology Consultation Date of Consultation: Oct 08, 2016 Requesting Physician: Walker Attending Natural Resource Economist: Yousuf (Severiano Thomas PA-C) History of Present Illness Reason(s) for Consultation: Syncope. Hx AVR. Pacemaker. History of Present Illness: Mrs. Salcedo is a complex 66 year old female who presented to the [facility] ER with a chief complaint of fall. The patient has experienced multiple falls, most witnessed. She does not recollect most of the details regarding the episodes though notes dizziness with positional changes preceding some of the spells. Her noted possible tongue biting as well as her eyes rolling back in her head. Possible seizure type activity noted in the ER. She denies bowel or bladder incontinence associated with the syncope episodes. No new or worsening chest pain. Chronic stable chest discomfort, reproducible with palpation of the chest. No tachypalpitations. Increased abdominal bloating/distention. Stable peripheral edema, nonexistent in AM, accumulating throughout the day. No orthopnea or PND. Supplemental Oxygen therapy is used along with CPAP. No fevers. No rigors, always cold. No rash. ESRD on hemodialysis via a tunneled catheter in [place] on Friday's, 's , and Friday's. Pending AV fistula anticipating at [facility] with Dr. Tenorio NAFLD versus congestive hepatopathy versus cirrhosis. Lactulose discontinued by GI on 10/04/2016. Recent EGD with a gastric ulcer, + H pylori, on triple therapy. (Severiano Thomas PA-C) History Past Medical/Surgical History: Aortic valve disease s/p mechanical [employer] AVR with postoperative CVA circa 2004. Chest pain and increased dyspnea, NSTEMI. Catheterization revealed significant disease involving the LCX and the LAD diagonal as well as severe aortic valve stenosis/insufficiency and pulmonary hypertension. Stats post January 22, 2010 CABG x 2 (SVG to obtuse marginal and diagonal) and AVR with a #21 [place] II bioprosthesis. High degree heart block status post dual-chamber pacemaker ([employer] model Identity [id number]) Paroxysmal atrial fibrillation. CHADS2 Score 5/6 Prior CVA. Hypoxemia, using oxygen throughout the day. LIZZ, CPAP and supplemental oxygen QHS. Hypertension. Hyperlipidemia. Type II diabetes mellitus. Chart history of asthma. Hiatal hernia. Diverticulosis Colonic polyp Status post left cataract extraction. Family History: Strong family history of CAD. Mother with pancreatic cancer. Social History: Nonsmoker. No alcohol. No illegal drugs. . Lives with in [place]. (Severiano Thomas PA-C) Review Of Systems General: No fevers. Always cold. No rigors. Head: + Headache. + Head trauma. Cardiovascular: See above. Pulmonary: See above. No hemoptysis. On supplemental oxygen and CPAP Gastrointestinal: See above. Musculoskeletal: Arthritis. Neurological: History of CVA. ? Seizure Complete Review of Systems is as stated above, negative, or noncontributory. (Severiano Thomas PA-C) Allergies Coded Allergies: Lisinopril (Verified Adverse Reaction, Unknown, COUGH, 09/18/16) Medications Reported Home Medications Medications Dose Route/Sig Max Daily Dose Days Date Category Dose Instructions Percocet 5MG/325MG (Oxycodone/Acetaminophen) Tab 1 Tablet PO Q4 PRN 10/07/16 Reported PAIN Levalbuterol HCl (Levalbuterol) 1.25 Mg/3 Ml Nebu 3 Ml INH Q8 10/07/16 Reported Warfarin Sodium (Warfarin Sod) 1 Mg Tab PO UD 10/07/16 Reported UD BY [facility]ULATION [facility] Ultram (Tramadol Hcl) 50 Mg Tab 25 Mg PO Q8 PRN 10/07/16 Reported Lexapro (Escitalopram Oxalate) 5 Mg Tab 5 Mg PO GMG 10/07/16 Reported Clarithromycin 500 Mg Tab 500 Mg PO BID 10/07/16 Reported ORDERED 10/01/2016 Amoxil (Amoxicillin) 500 Mg Cap 1,000 Mg PO BID 10/07/16 Reported ORDERED 10/01/2016 Prilosec (Omeprazole) 40 Mg Cap 40 Mg PO DAILY 10/07/16 Reported Novolog (Insulin Aspart) 100 Units/Ml Inj SC UD 09/05/16 Reported PER SLIDING SCALE Nephrocaps (Vitamin B Complex/Vit C/Folic Acid) 1 Cap Cap 1 Cap PO QPM 09/05/16 Reported Tylenol (Acetaminophen) 500 Mg Tab 1,000 Mg PO HS 08/16/16 Reported Vitamin B Complex (B-Complex Vitamins) 1 Tab Tab 1 Tab PO QAM 08/16/16 Reported Lantus (Insulin Glargine) 100 Unit/Ml Inj 30 Units SC HS 08/15/16 Reported Toprol Xl (Metoprolol Succinate) 25 Mg Tabcr 25 Mg PO QAM 08/15/16 Reported Chronulac (Lactulose) 10 Gm/15 Ml Syrp 30 Ml PO QID 08/15/16 Reported Imdur Ext Rel (Isosorbide Mononitrate) 30 Mg Tabcr 1 Tab PO QAM 08/15/16 Reported Neurontin (Gabapentin) 300 Mg Cap 300 Mg PO HS 08/15/16 Reported Trazodone (Trazodone HCl) 50 Mg Tab 50 Mg PO HS 03/05/16 Reported Aspirin Adult Low Dose (Aspirin) 81 Mg Tab 81 Mg PO QPM 02/09/15 Reported Montelukast Sodium (Montelukast Sod) 10 Mg Tab 10 Mg PO HS 02/09/15 Reported Nitrostat (Nitroglycerin) 0.4 Mg Sub 0.4 Mg UT PRN PRN 02/09/15 Reported Combivent Respimat (Ipratropium-Albuterol) 1 Aer Aer 1 Puffs INH QID PRN 02/09/15 Reported Lipitor (Atorvastatin Calcium) 80 Mg Tab 80 Mg PO HS 02/09/15 Reported (Severiano Thomas PA-C) Physical Exam Vital Signs (Last 8hrs): Last 8 Hrs Date Time Temp Pulse Resp B/P Pulse Ox O2 Delivery O2 Flow Rate FiO2 10/08/16 08:00 Nasal Cannula 10/08/16 07:35 36.5 75 18 123/72 90 Nasal Cannula 3.0 10/08/16 07:15 75 16 97 3.0 10/08/16 04:00 CPAP 10/08/16 03:55 36.5 73 20 103/72 96 CPAP General: A&Ox3. NAD. HEENT: Normocephalic Atraumatic. PER. EOMI. Neck: No carotid bruits. Normal JVP Chest: There is reproducible left lateral sternal discomfort with palpation. Heart: Regular. Grade I-II/ systolic ejection murmur. No diastolic murmur appreciated. Lungs: Decreased breath sounds but clear to auscultation. Abdomen: Obese. +BS. Somewhat firm. Distended. No No masses. Extremities: Trace to 1+ chronic indurated edema. No clubbing. No cyanosis. Limited neurological examination is without focal deficits. Pulses: radial=2/4, dorsalis pedis pulses are 2/4. Psych: Normal affect Neuro: Grossly intact. (Severiano Thomas PA-C) Data Last 24 Hours Test 10/07/16 17:05 10/07/16 18:07 10/07/16 19:05 10/07/16 20:30 White Blood Count 8.18 K/uL Red Blood Count 2.91 M/uL Hemoglobin 9.3 g/dL Hematocrit 28.7 % Mean Corpuscular Volume 98.6 fL Mean Corpuscular Hemoglobin 32.0 pg Mean Corpuscular Hemoglobin Concent 32.4 g/dl Platelet Count 204 K/uL Mean Platelet Volume 9.5 fL Neutrophils (%) (Auto) 78.9 % Lymphocytes (%) (Auto) 9.9 % Monocytes (%) (Auto) 9.0 % Eosinophils (%) (Auto) 1.8 % Basophils (%) (Auto) 0.2 % Neutrophils # (Auto) 6.44 K/uL Lymphocytes # (Auto) 0.81 K/uL Monocytes # (Auto) 0.74 K/uL Eosinophils # (Auto) 0.15 K/uL Basophils # (Auto) 0.02 K/uL RDW Standard Deviation 57.5 fL RDW Coefficient of Variation 15.9 % Immature Granulocyte % (Auto) 0.2 % Immature Granulocyte # (Auto) 0.02 K/uL Prothrombin Time 28.1 SECONDS Prothromb Time International Ratio 2.5 Activated Partial Thromboplast Time 36.8 SECONDS Partial Thromboplastin Ratio 1.4 Sodium Level 127 mmol/L Potassium Level 5.6 mmol/L Chloride Level 90 mmol/L Carbon Dioxide Level 28 mmol/L Anion Gap 9.0 mmol/L Blood Urea Nitrogen 45 mg/dl Creatinine 6.00 mg/dl Est Creatinine Clear Calc Drug Dose 7.6 ml/min Estimated GFR () 7.8 Estimated GFR (Non- 6.8 BUN/Creatinine Ratio 7.5 Random Glucose 220 mg/dl Calcium Level 8.4 mg/dl Phosphorus Level 6.0 mg/dl Magnesium Level 2.8 mg/dl Total Bilirubin 0.7 mg/dl Direct Bilirubin 0.4 mg/dl Aspartate Amino Transf (AST/SGOT) 34 U/L Alanine Aminotransferase (ALT/SGPT) 22 U/L Alkaline Phosphatase 115 U/L Total Creatine Kinase 95 U/L Creatine Kinase MB 0.6 ng/ml Creatine Kinase MB Ratio Troponin I < 0.015 ng/ml Total Protein 9.1 gm/dl Albumin 3.1 gm/dl Thyroid Stimulating Hormone (TSH) 1.440 uIu/ml Urine Color DK YELLOW YELLOW Urine Appearance TURBID CLOUDY Urine pH 5.0 5.5 Urine Specific [place] 1.023 >= 1.030 Urine Protein 1+ 1+ Urine Glucose (UA) NEG TRACE Urine Ketones TRACE TRACE Urine Occult Blood 3+ 2+ Urine Nitrite NEG NEG Urine Bilirubin NEG NEG Urine Urobilinogen NEG NEG Urine Leukocyte Esterase LARGE MODERATE Urine WBC (Auto) >30 /hpf Urine RBC (Auto) >30 /hpf Urine Hyaline Casts (Auto) 1-5 /lpf Urine Epithelial Cells (Auto) >30 /lpf Urine Bacteria (Auto) NEG Urine Pathogenic Casts /lpf Urine Yeast (Auto) BUD W/ HYPHAE Ammonia 63.0 umol/L Urine RBC 5-10 /hpf Urine WBC >30 /hpf Urine Epithelial Cells >30 /lpf Urine Bacteria 1+ Test 10/07/16 22:44 10/08/16 01:58 10/08/16 02:46 10/08/16 06:39 Bedside Glucose 261 mg/dl 242 mg/dl Total Creatine Kinase 97 U/L Creatine Kinase MB 0.6 ng/ml Creatine Kinase MB Ratio 0.6 Troponin I < 0.015 ng/ml White Blood Count 8.43 K/uL Red Blood Count 2.96 M/uL Hemoglobin 9.2 g/dL Hematocrit 28.5 % Mean Corpuscular Volume 96.3 fL Mean Corpuscular Hemoglobin 31.1 pg Mean Corpuscular Hemoglobin Concent 32.3 g/dl RDW Standard Deviation 55.4 fL RDW Coefficient of Variation 15.8 % Platelet Count 192 K/uL Mean Platelet Volume 9.6 fL Prothrombin Time 26.8 SECONDS Prothromb Time International Ratio 2.4 Sodium Level 130 mmol/L Potassium Level 5.6 mmol/L Chloride Level 92 mmol/L Carbon Dioxide Level 22 mmol/L Anion Gap 16.0 mmol/L Blood Urea Nitrogen 55 mg/dl Creatinine 6.30 mg/dl Est Creatinine Clear Calc Drug Dose 7.2 ml/min Estimated GFR () 7.4 Estimated GFR (Non- 6.4 BUN/Creatinine Ratio 8.7 Random Glucose 135 mg/dl Estimated Average Glucose 140 mg/dl Hemoglobin A1c 6.5 % Calcium Level 8.9 mg/dl Magnesium Level 3.0 mg/dl Ammonia 60.0 umol/L Lipase 494 U/L Test 10/08/16 06:40 10/08/16 09:05 Bedside Glucose 138 mg/dl Total Creatine Kinase 109 U/L Creatine Kinase MB 0.6 ng/ml Creatine Kinase MB Ratio 0.6 Troponin I < 0.015 ng/ml Diagnostic cardiac catheterization performed at [facility] on October 21, 2013 demonstrated diffuse moderate irregularities of the coronary arteries (No LM disease. No disease in the LAD. Medium sized D2 with a 40% lesion in the superior branch. LCX with a 30% proximal lesion and a 70% OM1 lesion. Luminal irregularities of the RCA) and a totally occluded sequential SVG to the D1 and the OM1. Left ventricular and diastolic pressure was moderately elevated. Systemic blood pressure was normal. The aortic root appeared normal by aortography. August 06, 2016 TTE Interpretation Summary (as per Dr. Timmons): Compared to last available study, there has been no interval change. Normal LV chamber size with mild concentric LVH. Mildly reduced LV systolic function with abnormal septal wall motion consistent with RV pacing. Calculated LV ejection Fraction = 46% (bi-plane method of discs). There is an aortic valve bioprosthetic present. The aortic valve prosthesis systolic gradients are normal for this type prosthesis. Significant aortic valve prosthesis regurgitation is absent. There is moderate mitral annular calcification. The mitral valve leaflets thickness is mildly increased. Mitral stenosis is absent. Mild mitral regurgitation is present. Mild tricuspid regurgitation. Severe left atrial enlargement. Mild right atrial enlargement. Pulmonary hypertension is present. The PA systolic pressure is > 39 mm Hg. Indeterminate IVC size and collapsibility. Right atrial pressure estimated at 8 mmHg. The estimated pulmonary artery systolic pressure is 50mm Hg. Admission CXR Impression: Improvement (when compared to the film on 03/31/2016) in the mild interstitial pulmonary edema and trace bilateral pleural effusions. Cardiomegaly persists. The right jugular catheter terminates in the right atrium. This has advanced in the interval. As per Dr. Julio César Huggins M.D. Admission EKG with intermittent atrial pacing, predominately atrial sensed ventricular paced rhythm. EKG dated and timed at 06:48:22 reveals a ventricular paced rhythm at 74 bpm. Telemetry: Predominately ventricular paced. Occasional atrial pacing. No arrhythmias. Pacemaker interrogation today demonstrates appropriate function with adequate battery reserve. Mode was DDD. Lower rate 70 bpm. Minimal atrial fibrillation. No ventricular arrhythmias. Echo this admission is pending. Head CT x 2 with no acute intracranial findings as per radiological interpretation. (Severiano Thomas PA-C) Assessment & Plan Complex 66 year old female admitted post fall, for evaluation of syncope. History suggests episodes may be secondary to symptomatic hypotension though concern raised for seizure as well There are no historical or cardiac enzyme findings to suggest an acute coronary syndrome Auscultation does not suggest significant/acute valvular issues (Echo completed , pending interpretation) Device interrogation shows no pacemaker malfunction or ventricular arrhythmias RECOMMENDATIONS/PLAN: Serial cardiac enzymes Await TTE interpretation Discontinue Imdur Discontinue Coumadin. Risks/benefits discussed with patient. Despite the high CHADS2 Score (5/6) the risks appear to be greater than the benefit and she requests discontinuation. Continue ASA Continue low dose Toprol XL Evaluate for infectious etiology Evaluate for seizure DVT prophylaxis heparin when INR < 2.0 (Severiano Thomas PA-C) CARDIOLOGY ATTENDING ADDENDUM: The patient was seen and personally examined. Agree with Severiano Thomas PA-C's findings and plans as documented above. Questionable seizure activity. Could be orthostatic from dialysis. Autonomic dysfunction. Was on an antibiotic recently, consider arrhythmias. (Raghu To, DO)
--- NOTE | 2016-10-08 13:37 | ECHOCARDIOGRAM REPORT ---
*NOTICE TO RECEIVING REPUBLICAN AGENCY This information is strictly Confidential and protected under [place] law. [place] law prohibits you from making any further disclosure of this information unless further disclosure is expressly permitted by the written consent of the person to whom it pertains or is authorized by law. A general authorization for the release of medical or other information is not sufficient for this purpose. Hospital accepts no responsibility if the information is made available to any other person, INCLUDING THE PATIENT. Interpretation Summary * Name: YING HANSON Study Date: 10/08/2016 07:26 AM BP: 103/72 mmHg * Patient Location: C.2T\S\E217\S\1 HR: 75 * : 1950 (M/d/yyyy) Gender: Female Height: 57 in * Age: 66 yrs Ethnicity: CA Weight: 154 lb * Ordering Physician: Tanvir Cardoso * Referring Physician: Self, Referred * Performed By: Brice Beaver RCS * * Reason For Study: Syncope * BSA: 1.6 m2 * The study was technically limited. * -- Conclusions -- * The study was technically limited. * The left ventricle is grossly normal size. * Left ventricular systolic function is mildly reduced. * Ejection Fraction = 45-50%. * The right ventricle is not well visualized. * The prosthetic aortic valve is not well visualized. * The prosthetic aortic valve appears to open well. * The gradient is normal for this prosthetic aortic valve. * There is moderate mitral regurgitation. Procedure Details * A complete two-dimensional transthoracic echocardiogram was performed (2D, M-mode, Doppler and color flow Doppler). * A contrast injection of Definity was performed to improve assessment of LV function. * Contrast was injected into an intravenous site in the left arm. * One vial of Definity ultrasound contrast was diluted in normal saline to a total volume of 10 ml. A total of '2' ml of solution was administered during imaging. * Lot # [id number] of Definity utilized for procedure. * Expiration date . * The attending nurse who injected the contrast agent was Salvador Suarez RN. Left Ventricle * The left ventricle is grossly normal size. * Ejection Fraction = 45-50%. * Left ventricular systolic function is mildly reduced. Right Ventricle * The right ventricle is not well visualized. Atria * The left atrium is not well visualized. * Right atrium not well visualized. Mitral Valve * There is severe mitral annular calcification. * There is moderate mitral regurgitation. Tricuspid Valve * The tricuspid valve is not well visualized. Aortic Valve * The prosthetic aortic valve is not well visualized. * The prosthetic aortic valve appears to open well. * The gradient is normal for this prosthetic aortic valve. Pulmonic Valve * The pulmonic valve is not well visualized. Pericardium/Pleural * There is no pericardial effusion. MMode 2D Measurements and Calculations Ao root diam 3.2 cm Ao root area 7.9 cm\S\2 ACS 1.3 cm LA dimension 4.0 cm LA/Ao 1.3 LVAd ap4 28.5 cm\S\2 LVLd ap4 7.5 cm EDV(MOD-sp4) 89.0 ml LVAs ap4 19.3 cm\S\2 LVLs ap4 6.6 cm ESV(MOD-sp4) 47.0 ml EF(MOD-sp4) 47.2 % LVAd ap2 31.5 cm\S\2 LVLd ap2 7.6 cm EDV(MOD-sp2) 107.0 ml LVAs ap2 22.8 cm\S\2 LVLs ap2 7.1 cm ESV(MOD-sp2) 59.0 ml EF(MOD-sp2) 44.9 % CO(MOD-sp4) 3.2 l/min CI(MOD-sp4) 2.0 l/min/m\S\2 SV(MOD-sp4) 42.0 ml SI(MOD-sp4) 26.1 ml/m\S\2 CO(MOD-sp2) 3.6 l/min CI(MOD-sp2) 2.3 l/min/m\S\2 SV(MOD-sp2) 48.0 ml SI(MOD-sp2) 29.8 ml/m\S\2 Doppler Measurements and Calculations MV E max neptali 200.5 cm/sec MV A max neptali 168.9 cm/sec MV E/A 1.2 MV V2 max 243.4 cm/sec MV max PG 23.7 mmHg MV V2 mean 140.1 cm/sec MV mean PG 9.5 mmHg MV V2 VTI 45.1 cm MV P1/2t max neptali 228.8 cm/sec MV P1/2t 80.1 msec MVA(P1/2t) 2.7 cm\S\2 MV dec slope 837.0 cm/sec\S\2 MV dec time 0.28 sec Ao V2 max 194.8 cm/sec Ao max PG 15.2 mmHg Ao max PG (full) 12.0 mmHg Ao V2 mean 137.7 cm/sec Ao mean PG 8.5 mmHg Ao mean PG (full) 6.9 mmHg Ao V2 VTI 39.7 cm LV V1 max PG 3.2 mmHg LV V1 mean PG 1.6 mmHg LV V1 max 89.2 cm/sec LV V1 mean 58.3 cm/sec LV V1 VTI 15.8 cm SV(Ao) 313.5 ml SI(Ao) 194.8 ml/m\S\2 PA V2 max 57.2 cm/sec PA max PG 1.3 mmHg TR max neptali 219.8 cm/sec
--- NOTE | 2016-10-08 14:22 | Neurology Consultation ---
Neurology Consultation Date of Consultation: Oct 08, 2016. Attending Physician: Stefani Dhaliwal M.D. Primary Care Physician: Nato Mayorga D.O. Reason for Consultation: syncope vs seizure mild AMS History of Present Illness Source: patient, spouse Marcia is a 66 year old female with a PMH: CAD s/p CABG x 2, bioprosthetic aortic valve replacement on long-term anticoagulation, subsequent high-degree AV block s/p pacemaker implantation, paroxysmal atrial fibrillation, chronic systolic CHF with EF ~45%, hx. of post-operative CVA, ESRD on HD through tunneled catheter on Tuesdays, , Saturdays; persistent asthma and chronic respiratory failure on continuous oxygen therapy at home, obstructive sleep apnea with CPAP use nocturnally, non-alcoholic fatty liver disease with likely cirrhosis, with complications including hyperammonemia, insulin dependent DM2, HTN, HLD. According to her she has had 3 episodes of syncope in the past 3 days. She has an episode in sikh, one yesterday when walking to her doctors office and then one in the ED when walking to the bathroom. She doesn't really remember the episodes. Her states the episodes always occur when she is walking, she usually states she doesn't feel good, she gnaws on her tongue and has some abnormal movement and her tongue and lips turn blue. Once she is down she is aware 2-3 minutes after the episode. She has previous episodes that were attributed to cardiac issues. When she goes to dialysis she is told her blood pressure is always low. denies CP, SOB, abdominal pain, N, V, incontinence, vision changes, weight loss or gain +multiple falls, right shoulder pain. Past Medical/Surgical History Medical Problems: (1) Acute renal failure Status: Acute (2) Anemia Status: Acute (3) Change in mental status Status: Acute (4) CHF (congestive heart failure) Status: Acute (5) CHF (congestive heart failure) Status: Chronic (6) Chronic kidney disease Status: Acute (7) Congestive heart failure Status: Acute (8) Dehydration Status: Acute (9) Dialysis patient Status: Acute (10) Hyperglycemia Status: Acute (11) Hyperglycemia Status: Acute (12) Hypoglycemia Status: Acute (13) Hyponatremia Status: Acute (14) Hyponatremia Status: Acute (15) Noncompliance with medication regimen Status: Acute (16) Shortness of breath Status: Acute (17) Syncope Status: Acute (18) Traumatic hematoma of head Status: Acute Social History Smoking Status: Never smoker Drug Use: none Marital Status: Housing Status: lives with family, lives with significant other Occupation Status: disabled Allergies Coded Allergies: Lisinopril (Verified Adverse Reaction, Unknown, COUGH, 09/18/16) Current Inpatient Medications Current Inpatient Medications Medications (Trade) Dose Ordered Sig/Dalton Route Start Time Stop Time Status Last Admin Dose Admin Al Hydrox/Mg Hydrox/Simethicone (Maalox Max Susp) 15 ml Q4H PRN PO 10/07/16 20:30 11/06/16 20:29 Magnesium Hydroxide (Milk Of Magnesia Susp) 30 ml Q12H PRN PO 10/07/16 20:30 11/06/16 20:29 Ondansetron HCl (Zofran Inj) 4 mg Q6H PRN IV 10/07/16 20:30 11/06/16 20:29 Nitroglycerin (Nitrostat Tab) 0.4 mg UD PRN SL 10/07/16 20:30 11/06/16 20:29 Polyethylene 17 gm 17 gm DAILY PRN PO 10/07/16 20:30 11/06/16 20:29 Ceftriaxone Sodium/Dextrose (Rocephin Inj/ Dextrose Add-[place] 50ML) 50 ml @ 100 mls/hr DAILY@0900 IV 10/08/16 09:00 10/18/16 08:59 10/08/16 08:40 100 MLS/HR Aspirin (Ecotrin Tab) 81 mg QPM PO 10/07/16 21:00 11/06/16 20:59 10/07/16 23:54 81 MG Atorvastatin Calcium (Lipitor Tab) 80 mg HS PO 10/07/16 21:00 11/06/16 20:59 10/07/16 23:53 80 MG Escitalopram Oxalate (Lexapro Tab) 5 mg HS PO 10/07/16 21:00 11/06/16 20:59 10/07/16 23:50 5 MG Gabapentin (Neurontin Cap) 300 mg HS PO 10/07/16 21:00 11/06/16 20:59 10/07/16 23:53 300 MG Albuterol/ Ipratropium (Combivent Respimat Inh) 1 puffs QID PRN INH 10/07/16 20:45 11/06/16 20:44 Lactulose (Chronulac Syrup) 20 gm QID PO 10/07/16 21:00 11/06/16 20:59 10/08/16 08:29 20 GM Levalbuterol (Xopenex 1.25MG/ 3ML Neb) 1.25 mg Q8R INH 10/08/16 00:00 11/07/16 00:00 10/08/16 07:15 1.25 MG Metoprolol Succinate (Toprol Xl Tab) 25 mg QAM PO 10/08/16 09:00 11/07/16 08:59 10/08/16 08:30 25 MG Montelukast Sodium (Singulair Tab) 10 mg HS PO 10/07/16 21:00 11/06/16 20:59 10/07/16 23:52 10 MG Tramadol HCl (Ultram Tab) 25 mg Q8 PRN PO 10/07/16 20:45 11/06/16 20:44 10/08/16 06:42 25 MG Trazodone HCl (Desyrel Tab) 50 mg HS PO 10/07/16 21:00 11/06/16 20:59 10/07/16 23:54 50 MG Vitamin B Complex/ Vit C/Folic Acid (Nephrocaps) 1 cap QPM PO 10/07/16 21:00 11/06/16 20:59 10/07/16 23:54 1 CAP Pantoprazole Sodium (Protonix Tab) 40 mg DAILY PO 10/08/16 09:00 11/07/16 08:59 10/08/16 08:31 40 MG Insulin Glargine (Lantus Solostar Pen) 10 unit Q12 SC 10/08/16 09:00 11/07/16 08:59 10/08/16 08:40 10 UNIT Insulin Aspart (novoLOG ASPART) SLIDING SCALE If C... ACHS SC 10/08/16 07:00 11/07/16 06:59 10/08/16 08:39 4 UNITS Glucose (Glucose 40% Gel) 15-30 GRAMS 15 GRAMS... UD PRN PO 10/07/16 22:45 11/06/16 22:44 Glucose (Glucose Chew Tab) 4-8 Tablets 4 Tabl... UD PRN PO 10/07/16 22:45 11/06/16 22:44 Dextrose (Dextrose 50% 50ML Syringe) 25-50ML OF 50% DW IV FOR... UD PRN IV 10/07/16 22:45 11/06/16 22:44 Glucagon (Glucagon Inj) 1 mg UD PRN SQ 10/07/16 22:45 11/06/16 22:44 Miscellaneous Information 1 ea 1 ea DAILY PRN N/A 10/08/16 09:00 11/07/16 08:59 Lorazepam/Syringe (Ativan Inj/ Syringe) 3 ml @ 1 mls/min ONE PRN IV 10/07/16 23:00 11/06/16 22:59 Lorazepam (Ativan Inj) 4 mg ONE PRN IV 10/07/16 23:00 11/06/16 22:59 Physical Exam Vital Signs (Past 24 Hrs): Date Time Temp Pulse Resp B/P Pulse Ox O2 Delivery O2 Flow Rate FiO2 10/08/16 13:45 80 102/70 10/08/16 13:30 82 100/67 10/08/16 13:15 81 103/66 10/08/16 13:00 81 106/61 10/08/16 12:45 80 98/63 10/08/16 12:30 81 91/48 10/08/16 12:15 79 91/62 10/08/16 12:00 Nasal Cannula 10/08/16 12:00 77 91/59 10/08/16 11:45 75 94/53 10/08/16 11:34 36.7 79 18 104/76 94 3.0 10/08/16 11:30 79 99/59 10/08/16 11:15 80 91/61 10/08/16 11:00 77 104/76 10/08/16 10:45 77 99/67 10/08/16 10:30 75 103/70 10/08/16 10:22 36.6 76 81/60 10/08/16 08:00 Nasal Cannula 10/08/16 07:35 36.5 75 18 123/72 90 Nasal Cannula 3.0 10/08/16 07:15 75 16 97 3.0 10/08/16 04:00 CPAP 10/08/16 03:55 36.5 73 20 103/72 96 CPAP 10/08/16 00:30 71 96 3.0 10/07/16 23:59 CPAP 10/07/16 22:38 37.0 72 16 108/68 96 Nasal Cannula 3.0 10/07/16 22:37 79 16 98 3.0 10/07/16 22:21 37.0 70 18 94 Nasal Cannula 3.0 10/07/16 22:09 72 16 103/59 98 10/07/16 20:23 70 16 95/68 Room Air 10/07/16 19:30 70 10/07/16 18:02 75 20 10/07/16 17:54 113/76 10/07/16 17:48 99 Nasal Cannula 2.0 10/07/16 17:47 76 100/64 73 99/69 70 109/63 10/07/16 17:44 109/63 10/07/16 17:42 100/64 10/07/16 17:32 69 19 10/07/16 17:11 95/59 10/07/16 15:32 72 19 10/07/16 15:20 73 10/07/16 15:04 36.5 75 18 94/56 99 Nasal Cannula 2.0 10/07/16 15:02 94/56 Physical Exam: Constitutional: appearance nourished, ill appearing Ears, Nose, Mouth and Throat: mucous membranes moist, no injection and skin normal, eyes normal Cardiovascular: systolic murmur Respiratory: clear to auscultation (CTA) and no rales, ronchi or wheeze Musculoskeletal: no peripheral edema and good distal pulses Skin: no stigmata of neurocutaneous disease noted and normal and intact Eyes: extraocular muscles intact (EOMI) and pupils equal, round and reactive to light (PERRL) NEUROLOGIC EXAMINATION: Mental status: Alert and interactive Oriented to full date and location Oriented to person Speech fluent with no evidence of aphasia Cranial Nerves smile and eye brow raise symmetric Reflexes: Deep tendon reflexes were symmetrical and graded 2/5. Plantar responses were flexor. Sensory: vibration and cool touch in tact, GT proprioception decreased Gait/Stance: lying in bed currently receiving dialysis, right chest wall port Strength: hand client care manager biceps triceps 4/5 hip flex against gravity Laboratory Results Past 24 Hours: 10/08/16 06:39 10/08/16 06:39 Test 10/07/16 17:05 10/07/16 18:07 10/07/16 20:30 10/08/16 06:39 Immature Granulocyte % (Auto) 0.2 % White Blood Count 8.18 K/uL (4.8-10.8) Red Blood Count 2.91 M/uL (4.2-5.4) 2.96 M/uL (4.2-5.4) Hemoglobin 9.3 g/dL (12.0-16.0) Hematocrit 28.7 % (37-47) Mean Corpuscular Volume 98.6 fL (80-100) 96.3 fL (80-100) Mean Corpuscular Hemoglobin 32.0 pg (25-34) 31.1 pg (25-34) Mean Corpuscular Hemoglobin Concent 32.4 g/dl (32-36) 32.3 g/dl (32-36) Platelet Count 204 K/uL (130-400) Mean Platelet Volume 9.5 fL (7.4-10.4) 9.6 fL (7.4-10.4) Neutrophils (%) (Auto) 78.9 % Lymphocytes (%) (Auto) 9.9 % Monocytes (%) (Auto) 9.0 % Eosinophils (%) (Auto) 1.8 % Basophils (%) (Auto) 0.2 % Neutrophils # (Auto) 6.44 K/uL (1.4-6.5) Lymphocytes # (Auto) 0.81 K/uL (1.2-3.4) Monocytes # (Auto) 0.74 K/uL (0.11-0.59) Eosinophils # (Auto) 0.15 K/uL (0-0.5) Basophils # (Auto) 0.02 K/uL (0-0.2) Immature Granulocyte # (Auto) 0.02 K/uL (0.00-0.02) Activated Partial Thromboplast Time 36.8 SECONDS (21.0-31.0) Partial Thromboplastin Ratio 1.4 Phosphorus Level 6.0 mg/dl (2.5-4.9) Total Bilirubin 0.7 mg/dl (0.2-1) Direct Bilirubin 0.4 mg/dl (0-0.2) Aspartate Amino Transf (AST/SGOT) 34 U/L (15-37) Alanine Aminotransferase (ALT/SGPT) 22 U/L (12-78) Alkaline Phosphatase 115 U/L (45-117) Total Protein 9.1 gm/dl (6.4-8.2) Albumin 3.1 gm/dl (3.4-5.0) Thyroid Stimulating Hormone (TSH) 1.440 uIu/ml (0.300-4.500) Urine WBC (Auto) >30 /hpf (0-5) Urine RBC (Auto) >30 /hpf (0-4) Urine Hyaline Casts (Auto) 1-5 /lpf (0-5) Urine Epithelial Cells (Auto) >30 /lpf (0-5) Urine Bacteria (Auto) NEG (NEG) Urine Pathogenic Casts /lpf (0) Urine Yeast (Auto) BUD W/ HYPHAE (NONE PRSENT) Urine Color YELLOW Urine Appearance CLOUDY (CLEAR) Urine pH 5.5 (4.5-7.5) Urine Specific Peculiar >= 1.030 (1.000-1.030) Urine Protein 1+ (NEG) Urine Glucose (UA) TRACE (NEG) Urine Ketones TRACE (NEG) Urine Occult Blood 2+ (NEG) Urine Nitrite NEG (NEG) Urine Bilirubin NEG (NEG) Urine Urobilinogen NEG (NEG) Urine Leukocyte Esterase MODERATE (NEG) Urine RBC 5-10 /hpf (0-4) Urine WBC >30 /hpf (0-5) Urine Epithelial Cells >30 /lpf (0-5) Urine Bacteria 1+ (NEG) RDW Standard Deviation 55.4 fL (36.4-46.3) RDW Coefficient of Variation 15.8 % (11.5-14.5) Prothrombin Time 26.8 SECONDS (9.0-12.0) Prothromb Time International Ratio 2.4 (0.9-1.1) Anion Gap 16.0 mmol/L (3-11) Est Creatinine Clear Calc Drug Dose 7.2 ml/min Estimated GFR () 7.4 Estimated GFR (Non- 6.4 BUN/Creatinine Ratio 8.7 (10-20) Estimated Average Glucose 140 mg/dl Hemoglobin A1c 6.5 % (4.5-5.6) Calcium Level 8.9 mg/dl (8.5-10.1) Magnesium Level 3.0 mg/dl (1.8-2.4) Ammonia 60.0 umol/L (11-32) Lipase 494 U/L (73-393) Test 10/08/16 09:05 10/08/16 11:14 Total Creatine Kinase 109 U/L (26-192) Creatine Kinase MB 0.6 ng/ml (0.5-3.6) Creatine Kinase MB Ratio 0.6 (0-3.0) Troponin I < 0.015 ng/ml (0-0.045) Bedside Glucose 122 mg/dl (70-90) Imaging TTE The left ventricle is grossly normal size. * Left ventricular systolic function is mildly reduced. * Ejection Fraction = 45-50%. * The right ventricle is not well visualized. * The prosthetic aortic valve is not well visualized. * The prosthetic aortic valve appears to open well. * The gradient is normal for this prosthetic aortic valve. * There is moderate mitral regurgitation. CT head- Chronic changes as above with no hemorrhage, mass effect, or evidence of acute territorial ischemia by CT criteria. right shoulder x ray-no fracture Impression 66 year old female s/p syncope episodes x 3. Plan 1. EEG pending read 2. orthostatic blood pressures ordered 3. cardiology for recommendations and adjustments of medications 4. was on Coumadin but AMANDA score 5/6 risk benefit will likely d/c per patient request 5. currently on heparin prophy for DVT 6. episodes do not seem seizure like but would do outpatient EEG 72 hours to record events if needed 7. interrogate pace maker 8. electrolyte correction with dialysis Tues Thurs Sat 9. walking O2 monitor may be helpful with PT 10. PT/OT for discharge needs 11. further recommendations to follow. 12. MRI unable due to pace maker I have seen and discussed above patient with Dr Freddie aLra, neurology I have seen this woman and gone over her history and images and heave read her eeg ( normal ) The history to me suggests cerebral hypoperfusion likely due to intermittent hypotension and the event described in the er was likely convulsive syncope rather than a seizure Exam shows only a polyneuropathy and there are no focal signs to suggest a cortical lesion and imaging reveals only old changes so at this point the recommendations outlined above by Shyla Parker will remain and I have nothing to add we will sign off the case but can see her again obviously if seizure like activity not correlating with bp changes or arrythmias occurs. Again an outpatient ambulatory eeg may be ovf value as well if the events continue Freddie Lara MD
--- NOTE | 2016-10-08 15:11 | Pharmacy Progress Note ---
Glycemic Control Intl Consult Date of Service Oct 08, 2016. Scope Glycemic Pharmacist consulted by Dr Cardoso on 10/07/16 for glycemic control and to write orders per [facility] inpatient glycemic control protocol Objective Weight (Kilograms): 71.200 Accuchecks BSG (last 24hrs): Test 10/07/16 17:05 10/07/16 22:44 10/08/16 01:58 10/08/16 06:39 Random Glucose 220 mg/dl (70-99) 135 mg/dl (70-99) Bedside Glucose 261 mg/dl (70-90) 242 mg/dl (70-90) Test 10/08/16 06:40 10/08/16 11:14 Bedside Glucose 138 mg/dl (70-90) 122 mg/dl (70-90) Laboratory Data (last 24hrs) Test 10/07/16 17:05 10/08/16 06:39 Anion Gap 9.0 mmol/L 16.0 mmol/L BUN/Creatinine Ratio 7.5 8.7 Blood Urea Nitrogen 45 mg/dl 55 mg/dl Creatinine 6.00 mg/dl 6.30 mg/dl Potassium Level 5.6 mmol/L 5.6 mmol/L Sodium Level 127 mmol/L 130 mmol/L White Blood Count 8.18 K/uL 8.43 K/uL Red Blood Count 2.91 M/uL Hemoglobin 9.3 g/dL Hematocrit 28.7 % Mean Corpuscular Volume 98.6 fL Mean Corpuscular Hemoglobin 32.0 pg Mean Corpuscular Hemoglobin Concent 32.4 g/dl Platelet Count 204 K/uL Mean Platelet Volume 9.5 fL Neutrophils (%) (Auto) 78.9 % Lymphocytes (%) (Auto) 9.9 % Monocytes (%) (Auto) 9.0 % Eosinophils (%) (Auto) 1.8 % Basophils (%) (Auto) 0.2 % Neutrophils # (Auto) 6.44 K/uL Lymphocytes # (Auto) 0.81 K/uL Monocytes # (Auto) 0.74 K/uL Eosinophils # (Auto) 0.15 K/uL Basophils # (Auto) 0.02 K/uL Hemoglobin A1c 6.5 % HbA1c Test 10/08/16 06:39 Hemoglobin A1c 6.5 % (4.5-5.6) H Recent Pertinent Medications Outpatient Anti-diabetic Regimen: * Lantus 30 units hs, Novolog SSI * A1c = unlikely to be reliable in ESRD/dialysis The patient is currently receiving: * Basal insulin: Lantus 10 units every 12 hours * Correctional Insulin: Novolog Correction per scale ACHS Goal Range: Low 100 mg/dL - High 160 mg/dL Correction Factor: 20 mg/dL/unit * Prandial insulin: Per carb ratio of 1 unit per 10 grams CHO consumed * Oral Agents: none Risk Factors for Insulin Resistance: * Steroids: no * Infection: possible UTI, on Rocephin * Pressors: no * IVF: no * Recent Surgery: no * Diet: renal AHA * Mechanical Ventilation: no Assessment & Plan ASSESSMENT: * ADA & AACE recommend a goal blood sugar range 140-180 mg/dl for the majority of critically ill & non-critically ill patients. However, more stringent targets may be selected in individual cases. * 66 yo type 2 diabetic with ESRD. Hemodialysis today. Received Lantus 12 units last evening, then decreased home basal insulin by 30% and used Novolog correction from previous admission. Will reassess in am. PLAN FOR INPATIENT GLYCEMIC CONTROL: * Continuing Lantus 10 units SQ BID, give 1/2 dose if BSG is less than 120 * Changing correction factor to 25 mg/dl/unit * Changing carb ratio to 1 unit per 8 grams CHO consumed * Changing goal range to Low 120 mg/dL - High 160 mg/dL, a bit higher in patient with history of hypoglycemic episodes * Please note that the plan above was derived based on current level of insulin resistance and hospital stress. These recommendations are appropriate for inpatient admission only. Plan of care upon discharge will need to be reassessed to avoid potential outpatient hypo/hyperglycemia. Thank you.
--- NOTE | 2016-10-08 15:32 | ELECTROENCEPHALOGRAPH REPORT ---
REFERRING PHYSICIAN: Dr. Cardoso. CLINICAL DIAGNOSES: Recurrent syncope, question seizures. EEG DIAGNOSIS: Essentially normal during wakefulness. DESCRIPTION OF TRACING: This EEG was done as a bedside recording with simultaneous video analysis of patient movement and behavior. Photic stimulation was performed. Hyperventilation was not done and drowsiness and light sleep are not clearly recorded. Under these conditions, there were initially some muscle movement artifacts that straightened out later in the tracing and at this point, there is clear evidence for normal background rhythm in the alpha range of up to 10 Hz of maximum frequency and of up to 30 microvolts of maximum amplitude. This is maximum posterior head regions bilaterally symmetrical. Polymorphic mid to slightly lower frequency theta activity is seen overall head regions without clear focal or regional predominance. Anterior head region maximum bilaterally symmetrical low voltage fast activity in the beta range is present. Photic stimulation provoked some modest driving response in posterior head regions without photomyogenic or photoparoxysmal component. At no time during the waking tracing is there evidence for potentially epileptogenic activity in the form of polyspike or spike wave bursts, focal sharp waves or focal spikes. INTERPRETATION: This EEG is essentially normal during wakefulness without evidence for focal or generalized encephalopathy or potentially epileptogenic activity. [facility]
--- NOTE | 2016-10-08 16:34 | Progress Note ---
Internal Med Progress Note Date of Service: Oct 08, 2016. Provider Documentation: SUBJECTIVE: feels much better now, no complain of dizzy spell or lightheadedness does not recall the event lead to the fall no complain of headache or blurred vision tele shows paced rhythm no arrhythmia OBJECTIVE: Vital Signs-as noted below Exam: General-no sign of distress Eyes-sclera non icteric , PERRLA/EOMI ENT-dry oral mucosa, no congestion or erythema noted in Pharynx Neck-trachea midline, no thyromegaly Lungs-CTA, no wheeze or rales Heart-regular S1/S2.no lower ext edema Abdomen-soft, non tender Extremities-no rash or deformity Neuro-no focal neurological deficit Lab data as noted below. 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 of post-operative CVA, ESRD on HD through tunneled catheter on Tuesdays, , Saturdays; persistent asthma and chronic respiratory failure on continuous oxygen therapy at home, obstructive sleep apnea with CPAP use nocturnally, non-alcoholic fatty liver disease with likely cirrhosis, with complications including hyperammonemia, insulin dependent DM2, HTN, HLD presented with syncope Syncope/Fall -->patient presents with syncopal episode/fall -->as per , she hit the back of her head on the car tire, as well as her right shoulder -->Head CT = negative for acute issues -->right shoulder radiograph negative for fractures -->Tele monitor shows no arrhythmias - -->Echocardiogram : Left ventricular systolic function is mildly reduced. Ejection Fraction = 45-50%. The right ventricle is not well visualized. The prosthetic aortic valve is not well visualized. The prosthetic aortic valve appears to open well. The gradient is normal for this prosthetic aortic valve. There is moderate mitral regurgitation. PACE MAKER INTERROGATION -normal function , no adjustment required -->repeat head CT in AM : IMPRESSION: No acute intracranial findings -->EEG -shows no Seizure activity -->Ativan PRN for any seizure like activities -->neurology input-appreciated -syncope possible due to low perfusion / hypotension , no Seizure activity no neurological cause of syncope identified MRI of brain could not be done due to Pacemaker -->cardiology consulted appreciate input recommend : Discontinue Imdur to prevent hypotension on chronic anticoagulation for paroxysmal Afib /Has Bioprosthetic AVR Discontinue Coumadin -repeated fall /hitting head while on Coumadin with therapeutic INR Risks/benefits discussed with patient by Cardiology . Despite the high CHADS2 Score (5/6) the risks appear to be greater than the benefit and pt requests discontinuation. Pt will continue ASA Continue low dose Toprol XL for BP control Hyponatremia/Hyperkalemia in the setting of ESRD on HD -->on hemodialysis on Friday, and Friday by tunnel catheter -appreciate input form Nephrology -pt will be continued with schedule HD -->out pt follow up with vascular surgery for AV fistula placement Recent H Pylori infection : EGD on 09/06/[address] Rivera 1.chronic active gastritis , moderate to marked 2.moderate acute activity 3. Immunohistochemical stain for H pylori positive no intestinal metaplasia seen Negative for dysplasia and malignancy Pt started on treatment for H Pylori -Amoxicillin 1 gm PO BID ( started on 10/01 ) /Clarithromycin 500 mg PO BID ( started on 10/01/16 ) will need total 10 days of tx ( last day of treatment 10/11/16 ) cont PPI Urinary Tract Infection -->UA obtained, and a second urinalysis via cath obtained -->both seem dirty, possibly contributing to syncopal episode -->started Rocephin -->urine culture -valentin species -ordered for Diflucan 50mg X1 dose -D/c Rocephin Liver cirrhosis secondary to ALLEN Elevated Ammonia Level -mental status at baseline , no confusion noted -->ammonia level obtained here elevated > 60 --started on Lactulose -- check ammonia in AM; Insulin Dependent DM2 -->last A1c = 6.4% in July 2016, well controlled -->insulin sliding scale -->Lantus 10 units BID -->pharmacy glycemic control consult requested S/P Bioprosthetic aortic valve replacement --ECHO -shows normal gradient at Bioprosthetic valve CAD s/p CABG --no active issue --ECHO as above High Degree AV block s/p PPM -->patient with dual chamber pacemaker Mild Systolic CHF -->last EF ~ 45% -->patient on dialysisX3 week Chronic Respiratory Failure Obstructive Sleep Apnea -respiratory status at baseline -->continue home O2, uses 3L continuously -->nocturnal CPAP for LIZZ -->denies SOB, O2 saturation > 90% HTN -->stable, monitor BP -->Imdur D/dionte for hypotension cont Beta mauricio DVT ppx -->Coumadin D/dionte Sub q heparin , when INr < 2 FULL CODE DISPOSITION PT /OT EVAL REQUESTED -recurrent fall Social service consulted for discharge planning Medicine follow up with Dr Nato Mayorga Vital Signs: Date Time Temp Pulse Resp B/P Pulse Ox O2 Delivery O2 Flow Rate FiO2 10/09/16 15:43 36.6 79 18 91/67 97 Nasal Cannula 3.0 10/09/16 12:00 Nasal Cannula 3.0 10/09/16 11:50 36.4 80 20 95/63 100 Nasal Cannula 3.0 10/09/16 08:09 36.5 86 20 108/72 98 Nasal Cannula 3.0 10/09/16 08:00 Nasal Cannula 3.0 10/09/16 06:55 78 16 98 Nasal Cannula 3.0 10/09/16 04:00 97 CPAP 10/09/16 03:19 36.9 85 18 98/63 97 CPAP 3.5 10/09/16 00:01 95 CPAP 10/08/16 23:28 37.1 85 18 94/59 95 CPAP 10/08/16 23:21 75 16 98 3.0 10/08/16 20:00 98 Nasal Cannula 3.0 10/08/16 19:55 37.7 87 20 112/65 98 Nasal Cannula 2.0 10/08/16 16:10 37.0 86 18 98/57 97 Nasal Cannula 2.0 10/08/16 16:00 Nasal Cannula Lab Results: Results Past 24 Hours Test 10/08/16 15:53 10/08/16 20:17 10/09/16 06:15 10/09/16 06:37 Range/Units Bedside Glucose 158 159 84 70-90 mg/dl White Blood Count 8.25 4.8-10.8 K/uL Red Blood Count 2.71 4.2-5.4 M/uL Hemoglobin 8.5 12.0-16.0 g/dL Hematocrit 26.7 37-47 % Mean Corpuscular Volume 98.5 80-100 fL Mean Corpuscular Hemoglobin 31.4 25-34 pg Mean Corpuscular Hemoglobin Concent 31.8 32-36 g/dl RDW Standard Deviation 58.6 36.4-46.3 fL RDW Coefficient of Variation 16.3 11.5-14.5 % Platelet Count 171 130-400 K/uL Mean Platelet Volume 9.5 7.4-10.4 fL Prothrombin Time 21.4 9.0-12.0 SECONDS Prothromb Time International Ratio 1.9 0.9-1.1 Sodium Level 134 136-145 mmol/L Potassium Level 4.2 3.5-5.1 mmol/L Chloride Level 95 98-107 mmol/L Carbon Dioxide Level 31 21-32 mmol/L Anion Gap 8.0 3-11 mmol/L Blood Urea Nitrogen 22 7-18 mg/dl Creatinine 4.20 0.60-1.20 mg/dl Est Creatinine Clear Calc Drug Dose 10.8 ml/min Estimated GFR () 12.1 Estimated GFR (Non- 10.4 BUN/Creatinine Ratio 5.2 10-20 Random Glucose 81 70-99 mg/dl Calcium Level 8.5 8.5-10.1 mg/dl Magnesium Level 2.6 1.8-2.4 mg/dl Ammonia 34.0 11-32 umol/L Hepatitis B Surface Antigen NEG NEG Hepatitis B Surface Antibody NEG Test 10/09/16 11:24 Range/Units Bedside Glucose 211 70-90 mg/dl
[2016-10-08 16:38] LABS: CKMB/CK RATIO 0.6 (0-3.0)
[2016-10-08] MEDS ORDERED: FLUCONAZOLE 50 MG TAB PO ONE (17:00)
[2016-10-08] MEDS ORDERED: PATIENT'S ALLERGY INFO NEEDS ENTERED SCH (17:00)
[2016-10-08] MEDS: NEPHROCAPS PO SCH (20:01)
[2016-10-08] MEDS: ASPIRIN 81 MG ECTAB PO SCH (20:01)
[2016-10-08] MEDS: MONTELUKAST SOD 10 MG TAB PO SCH (20:01)
[2016-10-08] MEDS: TRAZODONE HCL 50 MG TAB PO SCH (20:01)
[2016-10-08] MEDS: GABAPENTIN 300 MG CAP PO SCH (20:01)
[2016-10-08] MEDS: ATORVASTATIN 40 MG TAB PO SCH (20:01)
[2016-10-08] MEDS: ESCITALOPRAM OXALATE 10 MG TAB PO SCH (20:01)
[2016-10-08] MEDS: MICONAZOLE NITRATE POWDER 43 GM EXT SCH (20:02)
[2016-10-08] MEDS ORDERED: NURSING VERBAL MED ORDER ONE (21:00)
[2016-10-09] VITALS (9 sets, daily range): BP systolic 91–108; BP diastolic 63–72; PULSE 70–86; TEMP 36.4–36.9; O2SAT 95–100
[2016-10-09 06:45] LABS: HEMATOCRIT 26.7 % (37-47); MEAN CELL VOLUME 98.5 fL (80-100); MEAN CORPUSCULAR HEMOGLOBIN 31.4 pg (25-34); MEAN CORPUSCULAR HGB CONC 31.8 g/dl (32-36); MEAN PLATELET VOLUME 9.5 fL (7.4-10.4); PLATELET COUNT 171 K/uL (130-400); RED BLOOD COUNT 2.71 M/uL (4.2-5.4); WHITE BLOOD COUNT 8.25 K/uL (4.8-10.8)
[2016-10-09 06:49] LABS: INR 1.9 (0.9-1.1); PROTHROMBIN TIME (PATIENT) 21.4 SECONDS (9.0-12.0)
[2016-10-09] MEDS: LEVALBUTEROL 1.25MG/3ML NEB INH SCH ×3 (06:55→23:16)
[2016-10-09 07:13] LABS: BUN/CREATININE RATIO 5.2 (10-20); CALCIUM 8.5 mg/dl (8.5-10.1); CREATININE 4.2 mg/dl (0.60-1.20); MAGNESIUM 2.6 mg/dl (1.8-2.4); POTASSIUM 4.2 mmol/L (3.5-5.1)
[2016-10-09] MEDS: MICONAZOLE NITRATE POWDER 43 GM EXT SCH ×3 (07:58→20:15)
[2016-10-09] MEDS: LACTULOSE SYRUP 20 GM/30 ML UDC PO SCH ×3 (07:58→20:09)
[2016-10-09] MEDS: PANTOprazole SOD 40 MG TAB PO SCH (07:59)
[2016-10-09] MEDS: METOPROLOL SUCC 25MG EXT REL TAB PO SCH (07:59)
[2016-10-09] MEDS: INSULIN GLARGINE SOLOSTAR 100 UNITS/ML 3 ML PEN SC SCH (08:06)
[2016-10-09] MEDS: INSULIN ASPART 100 UNITS/ML 3 ML PEN SC SCH ×4 (08:06→20:11)
[2016-10-09 08:52] LABS: HEPATITIS B AB NEG
--- NOTE | 2016-10-09 10:49 | Cardiology Follow-Up ---
Subjective General Date of Service: Oct 09, 2016. Chief Complaint: Syncope Pt evaluation today including: conversation w/ patient, physical exam, chart review, lab review, review of studies, review of inpatient medication list History of Present Illness Seen and examined. Feels and looks considerably better. No chest pain, dyspnea, palpitations, orthopnea, or PND. Overnight telemetry benign, ventricular paced predominately. No ventricular arrhythmias. October 08, 2016 TTE Interpretation Summary ([facility], Dr. To): The study was technically limited. The left ventricle is grossly normal size. Left ventricular systolic function is mildly reduced. Ejection Fraction = 45-50%. The right ventricle is not well visualized. The prosthetic aortic valve is not well visualized. The prosthetic aortic valve appears to open well. The gradient is normal for this prosthetic aortic valve. There is moderate mitral regurgitation. October 08, 2016 device interrogation revealed appropriate function with adequate battery reserve. Mode: DDD. Base rate 70 bpm. Estimated remaining longevity was 4.75 to 6.50 years. Mode Switch: < 1% of the time. AMS Episodes: 5. Rhythm -CLOTH SPONGER 55%, -VS 1.8%, AP-CLOTH SPONGER 42%, and AP-VS <1%. Allergies Coded Allergies: Lisinopril (Verified Adverse Reaction, Unknown, COUGH, 09/18/16) Social History Smoking Status: Never Smoker Hx Tobacco Use In Past Year?: No Hx Alcohol Use - Type And Amou: No Hx Substance Use - Type And Am: No Problem List Medical Problems: (1) Acute renal failure Status: Acute (2) Anemia Status: Acute (3) Change in mental status Status: Acute (4) CHF (congestive heart failure) Status: Acute (5) CHF (congestive heart failure) Status: Chronic (6) Chronic kidney disease Status: Acute (7) Congestive heart failure Status: Acute (8) Dehydration Status: Acute (9) Dialysis patient Status: Acute (10) Hyperglycemia Status: Acute (11) Hyperglycemia Status: Acute (12) Hypoglycemia Status: Acute (13) Hyponatremia Status: Acute (14) Hyponatremia Status: Acute (15) Noncompliance with medication regimen Status: Acute (16) Shortness of breath Status: Acute (17) Syncope Status: Acute (18) Traumatic hematoma of head Status: Acute Physical Exam Vital Signs Last Vital Signs Documentation Date Time Temp Pulse Resp B/P Pulse Ox O2 Delivery O2 Flow Rate FiO2 10/09/16 08:09 36.5 86 20 108/72 98 Nasal Cannula 3.0 Physical Exam Constitutional: Level of Distress: NAD, chronically ill Psychiatric: Mental Status: active & alert Orientation: to time, to place, to person Memory: recent memory normal, remote memory normal Head: normocephalic, atraumatic Eyes: Pupils: PERRLA Neck: pertinent finding (Normal JVP) Lungs: Respiratory effort: no dyspnea Auscultation: breath sounds normal, no wheezing, no rales/crackles, no rhonchi Cardiovascular: Heart Auscultation: RRR, no rubs, II/ PETER Abdomen: Bowel Sounds: normal Extremities: no cyanosis, no clubbing, edema Neurologic: Cranial Nerves: grossly intact Assessment and Plan Assessment and Plan Complex 66 year old female admitted post fall, for evaluation of syncope likely secondary to hypotension, decreased cerebral perfusion. No historical or cardiac enzyme findings to suggest an acute coronary syndrome Auscultation and limited TTE without significant/acute valvular issues Device interrogation benign. RECOMMENDATIONS/PLAN: Imdur discontinued secondary to hypotension. Coumadin anticoagulation discontinued; current risks felt to be greater than the benefit despite the high CHADS2 Score (5/6) Continue ASA Attempt to continue evidence based beta-mauricio therapy, Toprol XL DVT prophylaxis with subcutaneous heparin Increase activity as tolerated. Outpatient cardiology follow-up. CARDIOLOGY ATTENDING ADDENDUM: The patient was seen and personally examined. Agree with Severiano Thomas PA-C's findings and plans as documented above. At this point I believe the patient may be followed up as outpatient. Syncope most likely due to hypotension following dialysis Laboratory Results Last 24 Hours Test 10/08/16 11:14 10/08/16 15:25 10/08/16 15:53 10/08/16 20:17 Bedside Glucose 122 mg/dl 158 mg/dl 159 mg/dl Total Creatine Kinase 97 U/L Creatine Kinase MB 0.6 ng/ml Creatine Kinase MB Ratio 0.6 Troponin I 0.017 ng/ml Test 10/09/16 06:15 10/09/16 06:37 White Blood Count 8.25 K/uL Red Blood Count 2.71 M/uL Hemoglobin 8.5 g/dL Hematocrit 26.7 % Mean Corpuscular Volume 98.5 fL Mean Corpuscular Hemoglobin 31.4 pg Mean Corpuscular Hemoglobin Concent 31.8 g/dl RDW Standard Deviation 58.6 fL RDW Coefficient of Variation 16.3 % Platelet Count 171 K/uL Mean Platelet Volume 9.5 fL Prothrombin Time 21.4 SECONDS Prothromb Time International Ratio 1.9 Sodium Level 134 mmol/L Potassium Level 4.2 mmol/L Chloride Level 95 mmol/L Carbon Dioxide Level 31 mmol/L Anion Gap 8.0 mmol/L Blood Urea Nitrogen 22 mg/dl Creatinine 4.20 mg/dl Est Creatinine Clear Calc Drug Dose 10.8 ml/min Estimated GFR () 12.1 Estimated GFR (Non- 10.4 BUN/Creatinine Ratio 5.2 Random Glucose 81 mg/dl Calcium Level 8.5 mg/dl Magnesium Level 2.6 mg/dl Ammonia 34.0 umol/L Hepatitis B Surface Antigen NEG Hepatitis B Surface Antibody NEG Bedside Glucose 84 mg/dl
[2016-10-09] MEDS: TRAMADOL HCL 50 MG TAB PO PRN (14:02)
--- NOTE | 2016-10-09 14:24 | Neurology Progress Notes ---
Neurology Progress Note Date of Service Oct 09, 2016. 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 of post-operative CVA, ESRD on HD through tunneled catheter on Tuesdays, , Saturdays; persistent asthma and chronic respiratory failure on continuous oxygen therapy at home, obstructive sleep apnea with CPAP use nocturnally, non-alcoholic fatty liver disease with likely cirrhosis, with complications including hyperammonemia, insulin dependent DM2, HTN, HLD. According to her she has had 3 episodes of syncope in the past 3 days. She has an episode in [facility], one yesterday when walking to her doctors office and then one in the ED when walking to the bathroom. She doesn't really remember the episodes. Her states the episodes always occur when she is walking, she usually states she doesn't feel good, she gnaws on her tongue and has some abnormal movement and her tongue and lips turn blue. Once she is down she is aware 2-3 minutes after the episode. She has previous episodes that were attributed to cardiac issues. When she goes to dialysis she is told her blood pressure is always low. Today she states she is doing well other than the spasms in her hands and feet. She states she gets these a lot after dialysis. She states she was up walking with PT and did well no recommendations for out patient physical therapy. denies CP, SOB, abdominal pain, weakness, numbness tingling, N, V. Objective Date Time Temp Pulse Resp B/P Pulse Ox O2 Delivery O2 Flow Rate FiO2 10/09/16 11:50 36.4 80 20 95/63 100 Nasal Cannula 3.0 10/09/16 08:09 36.5 86 20 108/72 98 Nasal Cannula 3.0 10/09/16 08:00 Nasal Cannula 3.0 10/09/16 06:55 78 16 98 Nasal Cannula 3.0 10/09/16 04:00 97 CPAP 10/09/16 03:19 36.9 85 18 98/63 97 CPAP 3.5 10/09/16 00:01 95 CPAP 10/08/16 23:28 37.1 85 18 94/59 95 CPAP 10/08/16 23:21 75 16 98 3.0 10/08/16 20:00 98 Nasal Cannula 3.0 10/08/16 19:55 37.7 87 20 112/65 98 Nasal Cannula 2.0 10/08/16 16:10 37.0 86 18 98/57 97 Nasal Cannula 2.0 10/08/16 16:00 Nasal Cannula 10/08/16 15:35 80 16 94 3.0 10/08/16 14:32 36.7 81 114/77 Last 24 Hours Test 10/08/16 15:25 10/08/16 15:53 10/08/16 20:17 10/09/16 06:15 Total Creatine Kinase 97 U/L Creatine Kinase MB 0.6 ng/ml Creatine Kinase MB Ratio 0.6 Troponin I 0.017 ng/ml Bedside Glucose 158 mg/dl 159 mg/dl White Blood Count 8.25 K/uL Red Blood Count 2.71 M/uL Hemoglobin 8.5 g/dL Hematocrit 26.7 % Mean Corpuscular Volume 98.5 fL Mean Corpuscular Hemoglobin 31.4 pg Mean Corpuscular Hemoglobin Concent 31.8 g/dl RDW Standard Deviation 58.6 fL RDW Coefficient of Variation 16.3 % Platelet Count 171 K/uL Mean Platelet Volume 9.5 fL Prothrombin Time 21.4 SECONDS Prothromb Time International Ratio 1.9 Sodium Level 134 mmol/L Potassium Level 4.2 mmol/L Chloride Level 95 mmol/L Carbon Dioxide Level 31 mmol/L Anion Gap 8.0 mmol/L Blood Urea Nitrogen 22 mg/dl Creatinine 4.20 mg/dl Est Creatinine Clear Calc Drug Dose 10.8 ml/min Estimated GFR () 12.1 Estimated GFR (Non- 10.4 BUN/Creatinine Ratio 5.2 Random Glucose 81 mg/dl Calcium Level 8.5 mg/dl Magnesium Level 2.6 mg/dl Ammonia 34.0 umol/L Hepatitis B Surface Antigen NEG Hepatitis B Surface Antibody NEG Test 10/09/16 06:37 10/09/16 11:24 Bedside Glucose 84 mg/dl 211 mg/dl Imaging: EEG- This EEG is essentially normal during wakefulness without evidence for focal or generalized encephalopathy or potentially epileptogenic activity. Exam: Physical Exam: Constitutional: appearance nourished, healthy, obese Ears, Nose, Mouth and Throat: mucous membranes moist, no injection and skin normal, eyes normal Cardiovascular: normal S-1 and S-2 and regular rate and rhythm Respiratory: clear to auscultation (CTA) and no rales, rhonchi or wheeze Musculoskeletal: no peripheral edema, spontaneous muscle contraction in fingers , no stiffening of fingers Skin: no stigmata of neurocutaneous disease noted and normal and intact Eyes: extraocular muscles intact (EOMI) and pupils equal, round and reactive to light (PERRL) NEUROLOGIC EXAMINATION: Mental status: Alert and interactive Oriented to full date and location Oriented to person Speech fluent with no evidence of aphasia Cranial Nerves smile eye brow raise symmetric, tongue midline Reflexes: Deep tendon reflexes were symmetrical and graded 2/5. Plantar responses were flexor. Sensory: to light touch Gait/Stance: Posture normal. sitting in bed, walked with PT and did well per report Strength: biceps triceps hand as400 administrator 5/5 bilaterally Current Inpatient Medications Medications (Trade) Dose Ordered Sig/Dalton Route Start Time Stop Time Status Last Admin Dose Admin Al Hydrox/Mg Hydrox/Simethicone (Maalox Max Susp) 15 ml Q4H PRN PO 10/07/16 20:30 11/06/16 20:29 Magnesium Hydroxide (Milk Of Magnesia Susp) 30 ml Q12H PRN PO 10/07/16 20:30 11/06/16 20:29 Ondansetron HCl (Zofran Inj) 4 mg Q6H PRN IV 10/07/16 20:30 11/06/16 20:29 Nitroglycerin (Nitrostat Tab) 0.4 mg UD PRN SL 10/07/16 20:30 11/06/16 20:29 Polyethylene (Miralax Powder Packet) 17 gm DAILY PRN PO 10/07/16 20:30 11/06/16 20:29 Aspirin (Ecotrin Tab) 81 mg QPM PO 10/07/16 21:00 11/06/16 20:59 10/08/16 20:01 81 MG Atorvastatin Calcium (Lipitor Tab) 80 mg HS PO 10/07/16 21:00 11/06/16 20:59 10/08/16 20:01 80 MG Escitalopram Oxalate (Lexapro Tab) 5 mg HS PO 10/07/16 21:00 11/06/16 20:59 10/08/16 20:01 5 MG Gabapentin (Neurontin Cap) 300 mg HS PO 10/07/16 21:00 11/06/16 20:59 10/08/16 20:01 300 MG Albuterol/ Ipratropium (Combivent Respimat Inh) 1 puffs QID PRN INH 10/07/16 20:45 11/06/16 20:44 Levalbuterol (Xopenex 1.25MG/ 3ML Neb) 1.25 mg Q8R INH 10/08/16 00:00 11/07/16 00:00 10/09/16 06:55 1.25 MG Metoprolol Succinate (Toprol Xl Tab) 25 mg QAM PO 10/08/16 09:00 11/07/16 08:59 10/09/16 07:59 25 MG Montelukast Sodium (Singulair Tab) 10 mg HS PO 10/07/16 21:00 11/06/16 20:59 10/08/16 20:01 10 MG Trazodone HCl (Desyrel Tab) 50 mg HS PO 10/07/16 21:00 11/06/16 20:59 10/08/16 20:01 50 MG Vitamin B Complex/ Vit C/Folic Acid (Nephrocaps) 1 cap QPM PO 10/07/16 21:00 11/06/16 20:59 10/08/16 20:01 1 CAP Pantoprazole Sodium (Protonix Tab) 40 mg DAILY PO 10/08/16 09:00 11/07/16 08:59 10/09/16 07:59 40 MG Insulin Glargine (Lantus Solostar Pen) 10 unit Q12 SC 10/08/16 09:00 11/07/16 08:59 Future Hold 10/09/16 08:06 10 UNIT Insulin Aspart (novoLOG ASPART) SLIDING SCALE If C... ACHS SC 10/08/16 07:00 11/07/16 06:59 10/09/16 12:36 14 UNITS Glucose (Glucose 40% Gel) 15-30 GRAMS 15 GRAMS... UD PRN PO 10/07/16 22:45 11/06/16 22:44 Glucose (Glucose Chew Tab) 4-8 Tablets 4 Tabl... UD PRN PO 10/07/16 22:45 11/06/16 22:44 Dextrose (Dextrose 50% 50ML Syringe) 25-50ML OF 50% DW IV FOR... UD PRN IV 10/07/16 22:45 11/06/16 22:44 Glucagon (Glucagon Inj) 1 mg UD PRN SQ 10/07/16 22:45 11/06/16 22:44 Miscellaneous Information 1 ea 1 ea DAILY PRN N/A 10/08/16 09:00 11/07/16 08:59 Lorazepam/Syringe (Ativan Inj/ Syringe) 3 ml @ 1 mls/min ONE PRN IV 10/07/16 23:00 11/06/16 22:59 Lorazepam (Ativan Inj) 4 mg ONE PRN IV 10/07/16 23:00 11/06/16 22:59 Miconazole Nitrate (Desenex Powder) 1 appln TID EXT 10/08/16 21:00 11/07/16 20:59 10/09/16 14:03 1 APPLN Lactulose (Chronulac Syrup) 20 gm TID PO 10/08/16 21:00 11/07/16 20:59 10/09/16 14:02 20 GM Tramadol HCl (Ultram Tab) 50 mg Q6H PRN PO 10/08/16 21:15 11/07/16 21:14 10/09/16 14:02 50 MG Heparin Sodium (Porcine) (Heparin Iv Bolus) 1,000 unit TODAY@0800 IV 10/10/16 08:00 10/10/16 18:00 Heparin Sodium (Porcine) (Heparin Iv Bolus) 400 unit Q1H IV 10/10/16 09:00 10/10/16 18:00 Albumin Human 12.5 gm 12.5 gm TODAY@0800,0930 IV 10/10/16 08:00 10/10/16 18:00 Epoetin Renato/ Syringe (Procrit Inj/ Syringe) 0.6 ml @ 1 mls/min TODAY@0800 IV. 10/10/16 08:00 10/10/16 18:00 Impression 66 year old female s/p syncope episodes x 3. Plan 1. EEG no spikes seen 2. orthostatic blood pressures 3. cardiology for recommendations and adjustments of medications 4. was on Coumadin but AMANDA score 5/6 risk benefit will likely d/c per patient request 5. currently on heparin prophy for DVT 6. episodes do not seem seizure like but would do outpatient EEG 72 hours to record events if needed or continued 7. interrogate pace maker- no adjustments in settings 8. electrolyte correction with dialysis Tues Thurs Sat - may be cause of spasms in hands -defer to primary team 9. walking O2 monitor may be helpful with PT would continue O2 10. PT/OT for discharge needs 11. MRI unable due to pace maker I have seen and discussed above patient with Dr Freddie Lara, neurology No further events bp a bit low but no orthostatic changes or symptoms recorded BP meds being adjusted Neurology will sign off for now as events really would be odd for seizure activity If they do recur then an ambulatory 38 hour eeg recording may be of value We can see in return on as as needed basis Hve reviewed the above note with Shyla Parker and agree Freddie Lara MD
--- NOTE | 2016-10-09 15:41 | Discharge Instructions ---
Discharge Instructions Admission Reason for Admission: Dialysis Patient, Syncope Discharge Discharge Diagnosis / Problem: SYNCOPE /HYPOTENSION /ESRD ON DIALYSIS Discharge Goals Goal(s): Improve disease control, Therapeutic intervention Activity Recommendations Activity Limitations: resume your previous activity . Instructions / Follow-Up Instructions / Follow-Up HOSPITAL FOLLOW UP WITH DR Nato Mayorga, ON 10/16/2016 @ 1:30 PM General Internal Medicine [facility] CARDIOLOGY FOLLOW UP ON 11/14/2016 @ 3:00 PM Pacer Clinic [facility] , [facility] COMPLETE ANTIBIOTIC AMOXICILLIN /CLARITHROMYCIN TOTAL 10 DAYS -FOR H PYLORI INFECTION LAST DAY OF TREATMENT 10/11/16 TAKE DIFLUCAN 1/2 TAB ( 100 MG ) BY MOUTH TOMORROW 10/11/15 THEN 1 TABLET ( 100 MG ) BY MOUTH ON Friday10/12/15 AFTER DIALYSIS DO NOT TAKE COUMADIN CARDIOLOGY TEAM WILL EVALUATE IN FUTURE -IF YOUR BALANCE CONTINUES TO IMPROVE, NO FURTHER FALL HAPPENS IN NEXT FEW MONTHS -CARDIOLOGY MAY CONSIDER RE STARTING COUMADIN FOR STOKE PROPHYLAXIS PLEASE FOLLOW WITH CARDIOLOGY FOR FURTHER RECOMMENDATION Current Hospital Diet Patient's current hospital diet: AHA Diet (Heart Healthy), Renal Diet Discharge Diet Recommended Diet: AHA Diet (Heart Healthy), Renal Diet Pending Studies Studies pending at discharge: no Laboratory Results Hemoglobin A1c Test 10/08/16 06:39 Range/Units Estimated Average Glucose 140 mg/dl Hemoglobin A1c 6.5 H 4.5-5.6 % Medical Emergencies . Who to Call and When: Medical Emergencies: If at any time you feel your situation is an emergency, please call 911 immediately. . Non-Emergent Contact Non-Emergency issues call your: Primary Care Provider . . "Provider Documentation" section prepared by Stefani Dhaliwal. VTE Core Measure Inpt VTE Proph given/why not?: Unfractionated heparin SQ
[2016-10-09] MEDS ORDERED: TROLAMINE SALICYLATE 10% CRM 255 APPLN/85 GM TUBE EXT PRN (15:45)
[2016-10-09] MEDS ORDERED: LCTL30 PO (15:46)
[2016-10-09] MEDS ORDERED: CONSULT PHARMACY PRN (16:15)
[2016-10-09] MEDS ORDERED: FLUCONAZOLE CONSULT ACTIVE PRN (16:30)
--- NOTE | 2016-10-09 17:20 | Progress Note ---
Internal Med Progress Note Date of Service: Oct 09, 2016. Provider Documentation: SUBJECTIVE: no episode of dizzy spell or lightheadedness participated in PT eval -able to ambulate with minimum LOB no sob or cough no fever or chills pt found sitting on chair , appears to be more alert , conversing present at bedside OBJECTIVE: Vital Signs-as noted below Exam: General-no sign of distress Eyes-sclera non icteric , PERRLA/EOMI ENT-dry oral mucosa, no congestion or erythema noted in Pharynx Neck-trachea midline, no thyromegaly Lungs-CTA, no wheeze or rales Heart-regular S1/S2.no lower ext edema Abdomen-soft, non tender Extremities-no rash or deformity Neuro-no focal neurological deficit Lab data as noted below. 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 of post-operative CVA, ESRD on HD through tunneled catheter on Tuesdays, , Saturdays; persistent asthma and chronic respiratory failure on continuous oxygen therapy at home, obstructive sleep apnea with CPAP use nocturnally, non-alcoholic fatty liver disease with likely cirrhosis, with complications including hyperammonemia, insulin dependent DM2, HTN, HLD presented with syncope Syncope/Fall -->no further episode since arrival to floor -->Tele monitor shows no arrhythmias - -->Head CT = negative for acute issues -->right shoulder radiograph negative for fractures -->Echocardiogram : Left ventricular systolic function is mildly reduced. Ejection Fraction = 45-50%. The right ventricle is not well visualized. The prosthetic aortic valve is not well visualized. The prosthetic aortic valve appears to open well. The gradient is normal for this prosthetic aortic valve. There is moderate mitral regurgitation. P[employer] INTERROGATION -normal function , no adjustment required -->repeat head CT in AM : IMPRESSION: No acute intracranial findings -->EEG -shows no Seizure activity -->neurology input-appreciated -syncope possible due to low perfusion / hypotension , no Seizure activity no neurological cause of syncope identified MRI of brain could not be done due to Pacemaker -->cardiology consulted appreciate input Imdur to discontinued to prevent hypotension Coumadin D/dionte --repeated fall /hitting head while on Coumadin with therapeutic INR on chronic anticoagulation for paroxysmal Afib /Has Bioprosthetic AVR Risks/benefits discussed with patient by Cardiology . Despite the high CHADS2 Score (5/6) the risks appear to be greater than the benefit and pt requests discontinuation. continue on ASA Continue low dose Toprol XL for BP control Hyponatremia/Hyperkalemia in the setting of ESRD on HD -->on hemodialysis on Friday, and Friday by tunnel catheter in [facility] in [place] -appreciate input form Nephrology -pt will be continued with schedule HD -->out pt follow up with vascular surgery for AV fistula placement Recent H Pylori infection : EGD on 09/06/[address] Rivera 1.chronic active gastritis , moderate to marked 2.moderate acute activity 3. Immunohistochemical stain for H pylori positive no intestinal metaplasia seen Negative for dysplasia and malignancy Pt started on treatment for H Pylori -Amoxicillin 1 gm PO BID ( started on 10/01 ) /Clarithromycin 500 mg PO BID ( started on 10/01/16 ) will need total 10 days of tx ( last day of treatment 10/11/16 ) cont PPI Urinary Tract Infection -->UA obtained, and a second urinalysis via cath obtained -->both seem dirty, possibly contributing to syncopal episode -->started Rocephin -->urine culture -valentin species -ordered for Diflucan 50mg X1 dose -further dosing per Pharmacy -needs to be renally dosed -D/c Rocephin Liver cirrhosis secondary to ALLEN Elevated Ammonia Level -mental status at baseline , no confusion noted -->ammonia level obtained here elevated > 60 --started on Lactulose -- ammonia level 34 , Lactulose dose decreased to 20 gm BID Insulin Dependent DM2 -->last A1c = 6.4% in July 2016, well controlled -->insulin sliding scale -->Lantus 10 units BID -->pharmacy glycemic control consult requested S/P Bioprosthetic aortic valve replacement --ECHO -shows normal gradient at Bioprosthetic valve CAD s/p CABG --no active issue --ECHO as above High Degree AV block s/p PPM -->patient with dual chamber pacemaker Mild Systolic CHF -->last EF ~ 45% -->patient on dialysisX3 week Chronic Respiratory Failure Obstructive Sleep Apnea -respiratory status at baseline -->continue home O2, uses 3L continuously -->nocturnal CPAP for LIZZ -->denies SOB, O2 saturation > 90% HTN -->stable, monitor BP -->Imdur D/dionte for hypotension cont Beta mauricio DVT ppx -->Coumadin D/dionte Sub q heparin , as INR < 2 FULL CODE DISPOSITION stable to transfer to Medical floor D/c home tomorrow -will need home Health , home PT given update at bedside Medicine follow up with Dr Nato Mayorga Vital Signs: Date Time Temp Pulse Resp B/P Pulse Ox O2 Delivery O2 Flow Rate FiO2 10/09/16 16:22 75 16 99 Nasal Cannula 3.0 10/09/16 16:00 Nasal Cannula 3.0 10/09/16 15:43 36.6 79 18 91/67 97 Nasal Cannula 3.0 10/09/16 12:00 Nasal Cannula 3.0 10/09/16 11:50 36.4 80 20 95/63 100 Nasal Cannula 3.0 10/09/16 08:09 36.5 86 20 108/72 98 Nasal Cannula 3.0 10/09/16 08:00 Nasal Cannula 3.0 10/09/16 06:55 78 16 98 Nasal Cannula 3.0 10/09/16 04:00 97 CPAP 10/09/16 03:19 36.9 85 18 98/63 97 CPAP 3.5 10/09/16 00:01 95 CPAP 10/08/16 23:28 37.1 85 18 94/59 95 CPAP 10/08/16 23:21 75 16 98 3.0 10/08/16 20:00 98 Nasal Cannula 3.0 10/08/16 19:55 37.7 87 20 112/65 98 Nasal Cannula 2.0 Lab Results: Results Past 24 Hours Test 10/08/16 20:17 10/09/16 06:15 10/09/16 06:37 10/09/16 11:24 Range/Units Bedside Glucose 159 84 211 70-90 mg/dl White Blood Count 8.25 4.8-10.8 K/uL Red Blood Count 2.71 4.2-5.4 M/uL Hemoglobin 8.5 12.0-16.0 g/dL Hematocrit 26.7 37-47 % Mean Corpuscular Volume 98.5 80-100 fL Mean Corpuscular Hemoglobin 31.4 25-34 pg Mean Corpuscular Hemoglobin Concent 31.8 32-36 g/dl RDW Standard Deviation 58.6 36.4-46.3 fL RDW Coefficient of Variation 16.3 11.5-14.5 % Platelet Count 171 130-400 K/uL Mean Platelet Volume 9.5 7.4-10.4 fL Prothrombin Time 21.4 9.0-12.0 SECONDS Prothromb Time International Ratio 1.9 0.9-1.1 Sodium Level 134 136-145 mmol/L Potassium Level 4.2 3.5-5.1 mmol/L Chloride Level 95 98-107 mmol/L Carbon Dioxide Level 31 21-32 mmol/L Anion Gap 8.0 3-11 mmol/L Blood Urea Nitrogen 22 7-18 mg/dl Creatinine 4.20 0.60-1.20 mg/dl Est Creatinine Clear Calc Drug Dose 10.8 ml/min Estimated GFR () 12.1 Estimated GFR (Non- 10.4 BUN/Creatinine Ratio 5.2 10-20 Random Glucose 81 70-99 mg/dl Calcium Level 8.5 8.5-10.1 mg/dl Magnesium Level 2.6 1.8-2.4 mg/dl Ammonia 34.0 11-32 umol/L Hepatitis B Surface Antigen NEG NEG Hepatitis B Surface Antibody NEG Test 10/09/16 16:18 Range/Units Bedside Glucose 131 70-90 mg/dl
[2016-10-09] MEDS: ASPIRIN 81 MG ECTAB PO SCH (20:10)
[2016-10-09] MEDS: ATORVASTATIN 40 MG TAB PO SCH (20:10)
[2016-10-09] MEDS: NEPHROCAPS PO SCH (20:10)
[2016-10-09] MEDS: ESCITALOPRAM OXALATE 10 MG TAB PO SCH (20:10)
[2016-10-09] MEDS: GABAPENTIN 300 MG CAP PO SCH (20:11)
[2016-10-09] MEDS: MONTELUKAST SOD 10 MG TAB PO SCH (20:11)
[2016-10-09] MEDS: TRAZODONE HCL 50 MG TAB PO SCH (20:13)
[2016-10-09] MEDS: CLARITHROMYCIN 500 MG TAB PO SCH (20:14)
[2016-10-09] MEDS ORDERED: FLUCONAZOLE 50 MG TAB PO SCH (21:00)
[2016-10-09] MEDS ORDERED: INSULIN GLARGINE SOLOSTAR 100 UNITS/ML 3 ML PEN SC SCH (21:00)
[2016-10-09] MEDS ORDERED: CLARITHROMYCIN 250 MG TAB PO SCH (21:00)
[2016-10-09] MEDS ORDERED: AMOXICILLIN 500 MG CAP PO SCH (21:00)
[2016-10-10] VITALS (23 sets, daily range): BP systolic 95–131; BP diastolic 54–76; PULSE 72–88; TEMP 36.4–36.9; O2SAT 92–99; Ht 144.8 cm; Wt 70.7 kg
[2016-10-10] MEDS: LEVALBUTEROL 1.25MG/3ML NEB INH SCH ×2 (07:10→16:03)
[2016-10-10] MEDS: MICONAZOLE NITRATE POWDER 43 GM EXT SCH ×2 (07:47→14:11)
[2016-10-10] MEDS: PANTOprazole SOD 40 MG TAB PO SCH (07:48)
[2016-10-10] MEDS ORDERED: EPOETIN ALFA INJ 12,000 UNITS in SYRINGE 0 ML IV. SCH (08:00)
[2016-10-10] MEDS ORDERED: HEPARIN SOD (PORCINE) 1000 UNIT/ML 10 ML VIAL IV SCH (08:00)
[2016-10-10] MEDS ORDERED: EPOETIN ALFA 10,000 UNITS/ML VIAL IV. ONE (08:00)
[2016-10-10 08:07] LABS: HEMATOCRIT 27.2 % (37-47); MEAN CELL VOLUME 98.6 fL (80-100); MEAN CORPUSCULAR HEMOGLOBIN 31.9 pg (25-34); MEAN CORPUSCULAR HGB CONC 32.4 g/dl (32-36); MEAN PLATELET VOLUME 10.1 fL (7.4-10.4); PLATELET COUNT 174 K/uL (130-400); RED BLOOD COUNT 2.76 M/uL (4.2-5.4); WHITE BLOOD COUNT 8.33 K/uL (4.8-10.8)
[2016-10-10 08:14] LABS: INR 1.6 (0.9-1.1); PROTHROMBIN TIME (PATIENT) 17.9 SECONDS (9.0-12.0)
[2016-10-10] MEDS: CLARITHROMYCIN 500 MG TAB PO SCH (08:29)
[2016-10-10] MEDS: INSULIN ASPART 100 UNITS/ML 3 ML PEN SC SCH ×2 (08:32→14:44)
[2016-10-10 08:49] LABS: BUN/CREATININE RATIO 5.8 (10-20); CALCIUM 9.2 mg/dl (8.5-10.1); CREATININE 5.2 mg/dl (0.60-1.20); MAGNESIUM 2.6 mg/dl (1.8-2.4); POTASSIUM 4.6 mmol/L (3.5-5.1)
[2016-10-10] MEDS: LACTULOSE SYRUP 20 GM/30 ML UDC PO SCH ×2 (09:00→14:27)
[2016-10-10] MEDS ORDERED: AMOXICILLIN 500 MG CAP PO SCH (09:00)
[2016-10-10] MEDS: HEPARIN SOD (PORCINE) 1000 UNIT/ML 10 ML VIAL IV SCH ×7 (09:00→14:23)
--- NOTE | 2016-10-10 09:08 | Nephrology Progress Note ---
Nephrology Progress Note Date of Service: Oct 10, 2016. Subjective moved out of tele yesterday; no concerns about seizure on EEG but for outpt repeat; syncope attributed currently to lower BP>cardiology has adjusted multiple meds; coumadin stopped; no pain this am except w/ BLE w/ palpation; not dyspneic and on baseline 02NC; no n/v and tolerating po; states she ambulated yesterday w/ asst and w/o issue Objective Date Time Temp Pulse Resp B/P Pulse Ox O2 Delivery O2 Flow Rate FiO2 10/10/16 07:51 36.8 86 18 116/75 10/10/16 07:05 88 16 92 Nasal Cannula 3.0 10/10/16 00:19 36.9 83 20 106/65 95 3.0 10/10/16 00:00 Nasal Cannula 3.0 10/09/16 23:16 70 16 98 Nasal Cannula 3.0 10/09/16 16:22 75 16 99 Nasal Cannula 3.0 10/09/16 16:00 Nasal Cannula 3.0 10/09/16 15:43 36.6 79 18 91/67 97 Nasal Cannula 3.0 10/09/16 12:00 Nasal Cannula 3.0 10/09/16 11:50 36.4 80 20 95/63 100 Nasal Cannula 3.0 Physical Exam: General Appearance: WD/WN, no apparent distress, + obese, + pertinent finding ( on 02nc 3L) sitting on side of bed doing sodoku Eyes: EOMI ENT: hearing grossly normal Neck: supple Respiratory/Chest: no respiratory distress, + decreased breath sounds, some R post field crackles Cardiovascular: regular rate, rhythm, + pertinent finding (at most trace edema) Abdomen: normal bowel sounds, non tender, soft (no terrazas) Extremities: + pertinent finding (AVF R a-c + t/b) Neurologic/Psych: alert, normal mood/affect, oriented x 3 Skin: no jaundice, warm/dry, no rash Current Inpatient Medications Medications (Trade) Dose Ordered Sig/Dalton Route Start Time Stop Time Status Last Admin Dose Admin Al Hydrox/Mg Hydrox/Simethicone (Maalox Max Susp) 15 ml Q4H PRN PO 10/07/16 20:30 11/06/16 20:29 Magnesium Hydroxide (Milk Of Magnesia Susp) 30 ml Q12H PRN PO 10/07/16 20:30 11/06/16 20:29 Ondansetron HCl (Zofran Inj) 4 mg Q6H PRN IV 10/07/16 20:30 11/06/16 20:29 Nitroglycerin (Nitrostat Tab) 0.4 mg UD PRN SL 10/07/16 20:30 11/06/16 20:29 Polyethylene (Miralax Powder Packet) 17 gm DAILY PRN PO 10/07/16 20:30 11/06/16 20:29 Aspirin (Ecotrin Tab) 81 mg QPM PO 10/07/16 21:00 11/06/16 20:59 10/09/16 20:10 81 MG Atorvastatin Calcium (Lipitor Tab) 80 mg HS PO 10/07/16 21:00 11/06/16 20:59 10/09/16 20:10 80 MG Escitalopram Oxalate (Lexapro Tab) 5 mg HS PO 10/07/16 21:00 11/06/16 20:59 10/09/16 20:10 5 MG Gabapentin (Neurontin Cap) 300 mg HS PO 10/07/16 21:00 11/06/16 20:59 10/09/16 20:11 300 MG Albuterol/ Ipratropium (Combivent Respimat Inh) 1 puffs QID PRN INH 10/07/16 20:45 11/06/16 20:44 Levalbuterol (Xopenex 1.25MG/ 3ML Neb) 1.25 mg Q8R INH 10/08/16 00:00 11/07/16 00:00 10/10/16 07:10 1.25 MG Metoprolol Succinate (Toprol Xl Tab) 25 mg QAM PO 10/08/16 09:00 11/07/16 08:59 10/09/16 07:59 25 MG Montelukast Sodium (Singulair Tab) 10 mg HS PO 10/07/16 21:00 11/06/16 20:59 10/09/16 20:11 10 MG Trazodone HCl (Desyrel Tab) 50 mg HS PO 10/07/16 21:00 11/06/16 20:59 10/09/16 20:13 50 MG Vitamin B Complex/ Vit C/Folic Acid (Nephrocaps) 1 cap QPM PO 10/07/16 21:00 11/06/16 20:59 10/09/16 20:10 1 CAP Pantoprazole Sodium (Protonix Tab) 40 mg DAILY PO 10/08/16 09:00 11/07/16 08:59 10/10/16 07:48 40 MG Insulin Aspart (novoLOG ASPART) SLIDING SCALE If C... ACHS SC 10/08/16 07:00 11/07/16 06:59 10/10/16 08:32 5 UNITS Glucose (Glucose 40% Gel) 15-30 GRAMS 15 GRAMS... UD PRN PO 10/07/16 22:45 11/06/16 22:44 Glucose (Glucose Chew Tab) 4-8 Tablets 4 Tabl... UD PRN PO 10/07/16 22:45 11/06/16 22:44 Dextrose (Dextrose 50% 50ML Syringe) 25-50ML OF 50% DW IV FOR... UD PRN IV 10/07/16 22:45 11/06/16 22:44 Glucagon (Glucagon Inj) 1 mg UD PRN SQ 10/07/16 22:45 11/06/16 22:44 Miscellaneous Information 1 ea 1 ea DAILY PRN N/A 10/08/16 09:00 11/07/16 08:59 Lorazepam/Syringe (Ativan Inj/ Syringe) 3 ml @ 1 mls/min ONE PRN IV 10/07/16 23:00 11/06/16 22:59 Lorazepam (Ativan Inj) 4 mg ONE PRN IV 10/07/16 23:00 11/06/16 22:59 Miconazole Nitrate (Desenex Powder) 1 appln TID EXT 10/08/16 21:00 11/07/16 20:59 10/10/16 07:47 1 APPLN Tramadol HCl (Ultram Tab) 50 mg Q6H PRN PO 10/08/16 21:15 11/07/16 21:14 10/09/16 14:02 50 MG Heparin Sodium (Porcine) (Heparin Iv Bolus) 1,000 unit TODAY@0800 IV 10/10/16 08:00 10/10/16 18:00 Heparin Sodium (Porcine) (Heparin Iv Bolus) 400 unit Q1H IV 10/10/16 09:00 10/10/16 18:00 Albumin Human 12.5 gm 12.5 gm TODAY@0800,0930 IV 10/10/16 08:00 10/10/16 18:00 Epoetin Renato/ Syringe (Procrit Inj/ Syringe) 0.6 ml @ 1 mls/min TODAY@0800 IV. 10/10/16 08:00 10/10/16 18:00 Trolamine Salicylate (Myoflex Cream) 1 appln Q4 PRN EXT 10/09/16 15:45 11/08/16 15:44 Insulin Glargine (Lantus Solostar Pen) 10 unit HS SC 10/09/16 21:00 11/08/16 20:59 Amoxicillin (Amoxil Cap) 500 mg DAILY@2100 PO 10/09/16 21:00 10/12/16 20:59 10/09/16 20:13 500 MG Lactulose (Chronulac Syrup) 20 gm BID PO 10/09/16 21:00 11/08/16 20:59 Miscellaneous Information (Pharmacy Consult) 1 ea UD PRN N/A 10/09/16 16:15 11/08/16 16:14 Amoxicillin (Amoxil Cap) 500 mg TODAY@0900 PO 10/10/16 09:00 10/10/16 09:01 10/10/16 07:47 500 MG Fluconazole (Consult) 1 ea UD PRN N/A 10/09/16 16:30 11/08/16 16:29 Fluconazole (Diflucan Tab) 50 mg SuWeFr@2100 PO 10/09/16 21:00 10/13/16 21:01 10/09/16 20:14 50 MG Fluconazole (Diflucan Tab) 100 mg ThSa@2100 PO 10/10/16 21:00 10/12/16 21:01 Clarithromycin (Biaxin Tab) 250 mg BID PO 10/09/16 21:00 10/12/16 09:01 10/10/16 08:29 250 MG Last 24 Hours Test 10/09/16 11:24 10/09/16 16:18 10/09/16 20:11 10/09/16 21:38 Bedside Glucose 211 mg/dl 131 mg/dl 57 mg/dl 164 mg/dl Test 10/10/16 03:51 10/10/16 07:19 10/10/16 07:33 Bedside Glucose 95 mg/dl 121 mg/dl White Blood Count 8.33 K/uL Red Blood Count 2.76 M/uL Hemoglobin 8.8 g/dL Hematocrit 27.2 % Mean Corpuscular Volume 98.6 fL Mean Corpuscular Hemoglobin 31.9 pg Mean Corpuscular Hemoglobin Concent 32.4 g/dl RDW Standard Deviation 58.6 fL RDW Coefficient of Variation 16.4 % Platelet Count 174 K/uL Mean Platelet Volume 10.1 fL Prothrombin Time 17.9 SECONDS Prothromb Time International Ratio 1.6 Sodium Level 131 mmol/L Potassium Level 4.6 mmol/L Chloride Level 92 mmol/L Carbon Dioxide Level 25 mmol/L Anion Gap 14.0 mmol/L Blood Urea Nitrogen 30 mg/dl Creatinine 5.20 mg/dl Est Creatinine Clear Calc Drug Dose 8.8 ml/min Estimated GFR () 9.3 Estimated GFR (Non- 8.0 BUN/Creatinine Ratio 5.8 Random Glucose 110 mg/dl Calcium Level 9.2 mg/dl Magnesium Level 2.6 mg/dl Iron Level 48 mcg/dl Total Iron Binding Capacity 223 mcg/dl Transferrin 197 mg/dl Transferrin % Saturation 17 % Assessment & Plan 66 y/o F w/ ESRD, HF EF 45%, NAFLD/ cirrhosis, a fib/ pacer on coumadin, recurrent syncope admitted after syncope with a fall w/ concern for seizure like activity. No sequelae of fall seen so far. Had hyperammonemia on presentation-on lactulose. infectious work up negative to date. ESRD and hyperkalemia -for HD today via TDC w/ albumin and a bit more UF, w/ mini heparin, and 2K bath -next HD tentatively for 10/12 or as clinical course dictates -has maturing AVF -hyponatremia in this dialysis pt reflects chronic mild vol OL > will try to remove a bit more fluid today w/ albumin to optimize vol status but maintain bp Anemia of chronic disease -epo w/ HD syncope, suspect hypotension at this point -imdur stopped; coumadin as well d/t frequent falls -ordered blood cultures for completeness, given that she had syncope and is dialyzing w/ TDC >doubt bacteremia however at this point -no UTI Appreciate consult; will follow with you; will coordinate care w/ Dr. Dhaliwal
[2016-10-10] MEDS: ALBUMIN HUMAN 25% 12.5 GM/50 ML VIAL IV SCH ×2 (09:30→10:00)
[2016-10-10] MEDS: TRAMADOL HCL 50 MG TAB PO PRN ×2 (09:36→15:59)
--- NOTE | 2016-10-10 13:44 | Pharmacy Progress Note ---
Glycemic Control: Progress Nt Date of Service Oct 10, 2016. Scope Glycemic Pharmacist consulted by Dr Cardoso on 10/07/16 for glycemic control and to write orders per [facility] inpatient glycemic control protocol. Objective Accuchecks BSG (last 24hrs): Test 10/09/16 16:18 10/09/16 20:11 10/09/16 21:38 10/10/16 03:51 Bedside Glucose 131 mg/dl (70-90) 57 mg/dl (70-90) 164 mg/dl (70-90) 95 mg/dl (70-90) Test 10/10/16 07:19 10/10/16 07:33 10/10/16 12:04 Bedside Glucose 121 mg/dl (70-90) 148 mg/dl (70-90) Random Glucose 110 mg/dl (70-99) Laboratory Data (last 24hrs) Test 10/10/16 07:33 Anion Gap 14.0 mmol/L BUN/Creatinine Ratio 5.8 Blood Urea Nitrogen 30 mg/dl Creatinine 5.20 mg/dl Potassium Level 4.6 mmol/L Sodium Level 131 mmol/L White Blood Count 8.33 K/uL HbA1c: Test 10/08/16 06:39 Hemoglobin A1c 6.5 % (4.5-5.6) H Unlikely to accurately reflect glycemic control in ESRD. Recent Pertinent Medications Outpatient Anti-diabetic Regimen: * Lantus 30 units hs, Novolog SSI * A1c = unlikely to be reliable in ESRD/dialysis The patient is currently receiving: * Basal insulin: Lantus 10 units every 12 hours * Correctional Insulin: Novolog Correction per scale ACHS Goal Range: Low 120 mg/dL - High 160 mg/dL Correction Factor: 25 mg/dL/unit * Prandial insulin: Per carb ratio of 1 unit per 8 grams CHO consumed * Oral Agents: none Risk Factors for Insulin Resistance: * Infection: possible UTI, on fluconazole po * Diet: renal AHA, variable appetite Assessment & Plan ASSESSMENT: * ADA & AACE recommend a goal blood sugar range 140-180 mg/dl for the majority of critically ill & non-critically ill patients. However, more stringent targets may be selected in individual cases. 10/08/16 * 66 yo type 2 diabetic with ESRD. Hemodialysis today. Received Lantus 12 units last evening, then decreased home basal insulin by 30% and used Novolog correction from previous admission. Will reassess in am. 10/10/16 * Patient received 29 units of insulin on 10/08, 35 units on 10/09. BSG's ranged 57-164 over past 24 hr. Hypoglycemia last evening possibly due to full dose Lantus in am rather than partial dose. Evening Lantus was held. eKren bradford'd yesterday-she is on oral antibiotics now for H. pylori and candiduria. Receiving hemodialysis today. Decreased Lantus to hs only and loosened correction and carb ratio. Will reassess in am. PLAN FOR INPATIENT GLYCEMIC CONTROL: * Changing Lantus to 10 units SQ hs, give 1/2 dose if BSG is less than 120 * Changing correction factor to 30 mg/dl/unit * Changing carb ratio to 1 unit per 10 grams CHO consumed * Continuing goal range Low 120 mg/dL - High 160 mg/dL, a bit higher in patient with history of hypoglycemic episodes * Please note that the plan above was derived based on current level of insulin resistance and hospital stress. These recommendations are appropriate for inpatient admission only. Plan of care upon discharge will need to be reassessed to avoid potential outpatient hypo/hyperglycemia. Thank you.
[2016-10-10] MEDS: METOPROLOL SUCC 25MG EXT REL TAB PO SCH (14:15)
[2016-10-10] MEDS ORDERED: FLUC100T4 PO (16:11)
--- NOTE | 2016-10-10 17:23 | Progress Note ---
Internal Med Progress Note Date of Service: Oct 10, 2016. Provider Documentation: SUBJECTIVE: had dialysis earlier feels much better now , no dizzy spell or lightheadedness did well with Physical therapy today evaluated by Nephrology earlier BP remains stable post dialysis stable to be discharged home today OBJECTIVE: Vital Signs-as noted below Exam: General-no sign of distress Eyes-sclera non icteric , PERRLA/EOMI ENT-dry oral mucosa, no congestion or erythema noted in Pharynx Neck-trachea midline, no thyromegaly Lungs-CTA, no wheeze or rales Heart-regular S1/S2.no lower ext edema Abdomen-soft, non tender Extremities-no rash or deformity Neuro-no focal neurological deficit Lab data as noted below. 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 of post-operative CVA, ESRD on HD through tunneled catheter on Tuesdays, , Saturdays; persistent asthma and chronic respiratory failure on continuous oxygen therapy at home, obstructive sleep apnea with CPAP use nocturnally, non-alcoholic fatty liver disease with likely cirrhosis, with complications including hyperammonemia, insulin dependent DM2, HTN, HLD presented with syncope Syncope/Fall -->no further episode since admission -->Tele monitor shows no arrhythmias -->Head CT = negative for acute issues -->right shoulder radiograph negative for fractures -->Echocardiogram : Left ventricular systolic function is mildly reduced. Ejection Fraction = 45-50%. The right ventricle is not well visualized. The prosthetic aortic valve is not well visualized. The prosthetic aortic valve appears to open well. The gradient is normal for this prosthetic aortic valve. There is moderate mitral regurgitation. PACE MAKER INTERROGATION -normal function , no adjustment required -->repeat head CT in AM : IMPRESSION: No acute intracranial findings -->EEG -shows no Seizure activity -->neurology input-appreciated -syncope possible due to low perfusion / hypotension , no Seizure activity no neurological cause of syncope identified MRI of brain could not be done due to Pacemaker -->cardiology consulted appreciate input Imdur to discontinued to prevent hypotension Coumadin D/dionte --repeated fall /hitting head while on Coumadin with therapeutic INR on chronic anticoagulation for paroxysmal Afib /Has Bioprosthetic AVR Risks/benefits discussed with patient by Cardiology . Despite the high CHADS2 Score (5/6) the risks appear to be greater than the benefit and pt requests discontinuation. continue on ASA Continue low dose Toprol XL BP remains well controlled stable to be discharged home today Hyponatremia/Hyperkalemia in the setting of ESRD on HD electrolyte imbalance resolved after HD -->on hemodialysis on Friday, and Friday by tunnel catheter in [facility] in [place] -appreciate input form Nephrology -pt will be continued with schedule HD -->out pt follow up with vascular surgery for AV fistula placement Recent H Pylori infection : EGD on 09/06/[address] Rivera 1.chronic active gastritis , moderate to marked 2.moderate acute activity 3. Immunohistochemical stain for H pylori positive no intestinal metaplasia seen Negative for dysplasia and malignancy Pt started on treatment for H Pylori -Amoxicillin 1 gm PO BID ( started on 10/01 ) /Clarithromycin 500 mg PO BID ( started on 10/01/16 ) complete total 10 days of tx ( last day of treatment 10/11/16 ) cont PPI Urinary Tract Infection -->UA obtained, and a second urinalysis via cath obtained -->both seem dirty, possibly contributing to syncopal episode -->started Rocephin -->urine culture -valentin species -ordered for Diflucan 50mg X1 dose - appreciate Pharmacy consult for renal dosing pt was given Diflucan 50mg on non dialysis days /100 mg on dialysis days after treatment received # 3 dose so far prescription sent to her Pharmacy for 2 more dose of Diflucan Liver cirrhosis secondary to ALLEN Elevated Ammonia Level -mental status at baseline , no confusion noted -->ammonia level obtained here elevated > 60 --started on Lactulose -- ammonia level 34 , Lactulose dose reduced pt will continue to follow up with GI as out patient Insulin Dependent DM2 -->last A1c = 6.4% in July 2016, well controlled -->insulin sliding scale -->Lantus 10 units BID -->appreciate pharmacy glycemic control consult S/P Bioprosthetic aortic valve replacement --ECHO -shows normal gradient at Bioprosthetic valve CAD s/p CABG --no active issue --ECHO as above High Degree AV block s/p PPM -->patient with dual chamber pacemaker pacemaker interrogation shows appropriate function Mild Systolic CHF -->last EF ~ 45% -->patient on dialysisX3 week Chronic Respiratory Failure Obstructive Sleep Apnea -respiratory status at baseline -->continue home O2, uses 3L continuously -->nocturnal CPAP for LIZZ -->denies SOB, O2 saturation > 90% HTN -->stable, monitor BP -->Imdur D/dionte for hypotension cont Beta mauricio DVT ppx -->Coumadin D/dionte Sub q heparin , as INR < 2 FULL CODE DISPOSITION Had PT/OT eval recommend stable to return home with family support Discharge home today arrangements made for need home Health , home PT Medicine follow up with Dr Nato Mayorga Vital Signs: Date Time Temp Pulse Resp B/P Pulse Ox O2 Delivery O2 Flow Rate FiO2 10/10/16 16:28 36.8 86 16 92 Nasal Cannula 10/10/16 15:30 86 16 92 Nasal Cannula 3.0 10/10/16 15:06 36.8 88 22 114/76 99 Nasal Cannula 3.0 10/10/16 13:52 36.5 82 124/61 10/10/16 13:30 82 109/65 10/10/16 13:15 80 126/59 10/10/16 13:00 76 119/66 10/10/16 12:45 72 125/63 10/10/16 12:30 77 131/65 10/10/16 12:15 77 125/59 10/10/16 12:00 72 118/65 10/10/16 11:45 78 123/57 10/10/16 11:30 81 112/61 10/10/16 11:15 78 122/60 10/10/16 11:00 77 112/56 10/10/16 10:45 79 116/56 10/10/16 10:30 80 110/60 10/10/16 10:15 80 100/57 10/10/16 10:00 81 95/54 10/10/16 09:45 36.4 80 106/61 10/10/16 08:00 Nasal Cannula 3.0 10/10/16 07:51 36.8 86 18 116/75 10/10/16 07:05 88 16 92 Nasal Cannula 3.0 10/10/16 00:19 36.9 83 20 106/65 95 3.0 10/10/16 00:00 Nasal Cannula 3.0 10/09/16 23:16 70 16 98 Nasal Cannula 3.0 Lab Results: Results Past 24 Hours Test 10/09/16 20:11 10/09/16 21:38 10/10/16 03:51 10/10/16 07:19 Range/Units Bedside Glucose 57 164 95 121 70-90 mg/dl Test 10/10/16 07:33 10/10/16 12:04 Range/Units White Blood Count 8.33 4.8-10.8 K/uL Red Blood Count 2.76 4.2-5.4 M/uL Hemoglobin 8.8 12.0-16.0 g/dL Hematocrit 27.2 37-47 % Mean Corpuscular Volume 98.6 80-100 fL Mean Corpuscular Hemoglobin 31.9 25-34 pg Mean Corpuscular Hemoglobin Concent 32.4 32-36 g/dl RDW Standard Deviation 58.6 36.4-46.3 fL RDW Coefficient of Variation 16.4 11.5-14.5 % Platelet Count 174 130-400 K/uL Mean Platelet Volume 10.1 7.4-10.4 fL Prothrombin Time 17.9 9.0-12.0 SECONDS Prothromb Time International Ratio 1.6 0.9-1.1 Sodium Level 131 136-145 mmol/L Potassium Level 4.6 3.5-5.1 mmol/L Chloride Level 92 98-107 mmol/L Carbon Dioxide Level 25 21-32 mmol/L Anion Gap 14.0 3-11 mmol/L Blood Urea Nitrogen 30 7-18 mg/dl Creatinine 5.20 0.60-1.20 mg/dl Est Creatinine Clear Calc Drug Dose 8.8 ml/min Estimated GFR () 9.3 Estimated GFR (Non- 8.0 BUN/Creatinine Ratio 5.8 10-20 Random Glucose 110 70-99 mg/dl Calcium Level 9.2 8.5-10.1 mg/dl Magnesium Level 2.6 1.8-2.4 mg/dl Iron Level 48 35-150 mcg/dl Total Iron Binding Capacity 223 250-450 mcg/dl Transferrin 197 200-360 mg/dl Transferrin % Saturation 17 15-50 % Bedside Glucose 148 70-90 mg/dl
--- NOTE | 2016-10-10 17:25 | Discharge Summary ---
Discharge Summary Admission Date: Oct 07, 2016 at 20:35 Discharge Date: Oct 10, 2016 Discharge Disposition: Home with services Principal Diagnosis: SYNCOPE /HYPOTENSION /ESRD ON DIALYSIS Procedures: Instructions / Follow-Up HOSPITAL FOLLOW UP WITH DR Nato Mayorga, ON 10/16/2016 @ 1:30 PM General Internal Medicine [facility] CARDIOLOGY FOLLOW UP ON 11/14/2016 @ 3:00 PM Pacer Clinic [facility] Cardiology , [facility] COMPLETE ANTIBIOTIC AMOXICILLIN /CLARITHROMYCIN TOTAL 10 DAYS -FOR H PYLORI INFECTION LAST DAY OF TREATMENT 10/11/16 TAKE DIFLUCAN 1/2 TAB ( 100 MG ) BY MOUTH TOMORROW 10/11/15 THEN 1 TABLET ( 100 MG ) BY MOUTH ON Friday10/12/15 AFTER DIALYSIS DO NOT TAKE COUMADIN CARDIOLOGY TEAM WILL EVALUATE IN FUTURE -IF YOUR BALANCE CONTINUES TO IMPROVE, NO FURTHER FALL HAPPENS IN NEXT FEW MONTHS -CARDIOLOGY MAY CONSIDER RE STARTING COUMADIN FOR STOKE PROPHYLAXIS PLEASE FOLLOW WITH CARDIOLOGY FOR FURTHER RECOMMENDATION Consultations: NEPHROLOGY CARDIOLOGY Medication Reconciliation New Medications: Fluconazole (Diflucan) 100 Mg Tab 100 MG PO UD, #2 TAB take 1/2 tab ( 50 mg ) PO tomorrow 10/11/16 then 1 tab ( 100 mg ) PO on sat 10/12/16 after dialysis Lactulose (Lactulose) 20 Gm/30 Ml Syrp 20 GM PO BID for 30 Days, #1800 ML 4 Refills Continued Medications: Acetaminophen (Tylenol) 500 Mg Tab 1000 MG PO HS, TAB Amoxicillin (Amoxil) 500 Mg Cap 1000 MG PO BID ORDERED 10/01/2016 Aspirin (Aspirin Adult Low Dose) 81 Mg Tab 81 MG PO QPM Atorvastatin (Lipitor) 80 Mg Tab 80 MG PO HS, TAB B-Complex Vitamins (Vitamin B Complex) 1 Tab Tab 1 TAB PO QAM Clarithromycin (Clarithromycin) 500 Mg Tab 500 MG PO BID, #20 ORDERED 10/01/2016 Escitalopram Oxalate (Lexapro) 5 Mg Tab 5 MG PO GMG, #90 Gabapentin (Neurontin) 300 Mg Cap 300 MG PO HS Insulin Aspart (Novolog) 100 Units/Ml Inj SC UD PER SLIDING SCALE Insulin Glargine (Lantus) 100 Unit/Ml Inj 30 UNITS SC HS Ipratropium-Albuterol (Combivent Respimat) 1 Aer Aer 1 PUFFS INH QID PRN for SOB,OR PRIOR TO EXERTION Levalbuterol (Levalbuterol HCl) 1.25 Mg/3 Ml Nebu 3 ML INH Q8, #150 Metoprolol Succinate (Toprol Xl) 25 Mg Tabcr 25 MG PO QAM Montelukast Sod (Montelukast Sodium) 10 Mg Tab 10 MG PO HS Nitroglycerin (Nitrostat) 0.4 Mg Sub 0.4 MG UT PRN PRN for Chest Pain, BTL Omeprazole (Prilosec) 40 Mg Cap 40 MG PO DAILY, #60 Oxycodone/Acetaminophen 5MG/325MG (Percocet 5MG/325MG) Tab 1 TABLET PO Q4 PRN for Pain, TAB PAIN Tramadol Hcl (Ultram) 50 Mg Tab 25 MG PO Q8 PRN for Pain, #60 Trazodone Hcl (Trazodone) 50 Mg Tab 50 MG PO HS, TAB Vitamin B Cmplx/Vitc/Folic Ac (Nephrocaps) 1 Cap Cap 1 CAP PO QPM Discontinued Medications: Isosorbide Mononitrate Ext Rel (Imdur Ext Rel) 30 Mg Tabcr 1 TAB PO QAM Lactulose (Chronulac) 10 Gm/15 Ml Syrp 30 ML PO QID Warfarin Sod (Warfarin Sodium) 1 Mg Tab PO UD, #130 UD BY [facility]OAGULATION CLINIC Referrals At Discharge Follow up Referrals: Physician Referral - 10/16/16 with Nato Mayorga D.O. 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 of post-operative CVA, ESRD on HD through tunneled catheter on Tuesdays, , Saturdays; persistent asthma and chronic respiratory failure on continuous oxygen therapy at home, obstructive sleep apnea with CPAP use nocturnally, non-alcoholic fatty liver disease with likely cirrhosis, with complications including hyperammonemia, insulin dependent DM2, HTN, HLD. She has a long-history of syncopal type episodes - usually cardiac related. She presented here today due to multiple falls and syncopal episodes - some of these were witnessed by her who states that they were on their way to Dr. Tenorio's office for a visit regarding AV fistula placement. As per , the patient lost consciousness and fell and hit the back of her head on the car tire in the parking lot; she was unresponsive for a short amount of time. There was concern by the due to possible tongue biting and eyes rolling in the back of her head. This episode repeated at least twice more, including once here in the ER - witnessed by a nurse, who stated that it looked possible like seizure-like activity. Patient cannot recall the events, currently resting comfortably in no distress. She has a history of confusion and mild altered mental status due to elevated ammonia - states that he thinks she has been more confused recently. Physical Exam (per Admitting): General Appearance: no apparent distress, + obese Head: normocephalic, atraumatic Eyes: normal inspection ENT: normal ENT inspection, hearing grossly normal Neck: supple Respiratory/Chest: lungs clear, normal breath sounds, no respiratory distress, no accessory muscle use Cardiovascular: regular rate, rhythm, no edema (no lower extremity edema), no JVD, normal peripheral pulses, + systolic murmur Abdomen/GI: normal bowel sounds, non tender, soft, + distended (mild distention, though soft, non tender) Extremities/Musculoskelatal: normal inspection, no calf tenderness, normal capillary refill, no pedal edema Neurologic/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 of post-operative CVA, ESRD on HD through tunneled catheter on Tuesdays, , Saturdays; persistent asthma and chronic respiratory failure on continuous oxygen therapy at home, obstructive sleep apnea with CPAP use nocturnally, non-alcoholic fatty liver disease with likely cirrhosis, with complications including hyperammonemia, insulin dependent DM2, HTN, HLD presented with syncope Syncope/Fall -->no further episode since admission -->Tele monitor shows no arrhythmias -->Head CT = negative for acute issues -->right shoulder radiograph negative for fractures -->Echocardiogram : Left ventricular systolic function is mildly reduced. Ejection Fraction = 45-50%. The right ventricle is not well visualized. The prosthetic aortic valve is not well visualized. The prosthetic aortic valve appears to open well. The gradient is normal for this prosthetic aortic valve. There is moderate mitral regurgitation. PACE MAKER INTERROGATION -normal function , no adjustment required -->repeat head CT in AM : IMPRESSION: No acute intracranial findings -->EEG -shows no Seizure activity -->neurology input-appreciated -syncope possible due to low perfusion / hypotension , no Seizure activity no neurological cause of syncope identified MRI of brain could not be done due to Pacemaker -->cardiology consulted appreciate input Imdur to discontinued to prevent hypotension Coumadin D/dionte --repeated fall /hitting head while on Coumadin with therapeutic INR on chronic anticoagulation for paroxysmal Afib /Has Bioprosthetic AVR Risks/benefits discussed with patient by Cardiology . Despite the high CHADS2 Score (5/6) the risks appear to be greater than the benefit and pt requests discontinuation. continue on ASA Continue low dose Toprol XL BP remains well controlled stable to be discharged home today Hyponatremia/Hyperkalemia in the setting of ESRD on HD electrolyte imbalance resolved after HD -->on hemodialysis on Friday, and Friday by tunnel catheter in [facility] in [place] -appreciate input form Nephrology -pt will be continued with schedule HD -->out pt follow up with vascular surgery for AV fistula placement Recent H Pylori infection : EGD on 09/06/[address] Rivera 1.chronic active gastritis , moderate to marked 2.moderate acute activity 3. Immunohistochemical stain for H pylori positive no intestinal metaplasia seen Negative for dysplasia and malignancy Pt started on treatment for H Pylori -Amoxicillin 1 gm PO BID ( started on 10/01 ) /Clarithromycin 500 mg PO BID ( started on 10/01/16 ) complete total 10 days of tx ( last day of treatment 10/11/16 ) cont PPI Urinary Tract Infection -->UA obtained, and a second urinalysis via cath obtained -->both seem dirty, possibly contributing to syncopal episode -->started Rocephin -->urine culture -valentin species -ordered for Diflucan 50mg X1 dose - appreciate Pharmacy consult for renal dosing pt was given Diflucan 50mg on non dialysis days /100 mg on dialysis days after treatment received # 3 dose so far prescription sent to her Pharmacy for 2 more dose of Diflucan Liver cirrhosis secondary to ALLEN Elevated Ammonia Level -mental status at baseline , no confusion noted -->ammonia level obtained here elevated > 60 --started on Lactulose -- ammonia level 34 , Lactulose dose reduced pt will continue to follow up with GI as out patient Insulin Dependent DM2 -->last A1c = 6.4% in July 2016, well controlled -->insulin sliding scale -->Lantus 10 units BID -->appreciate pharmacy glycemic control consult S/P Bioprosthetic aortic valve replacement --ECHO -shows normal gradient at Bioprosthetic valve CAD s/p CABG --no active issue --ECHO as above High Degree AV block s/p PPM -->patient with dual chamber pacemaker pacemaker interrogation shows appropriate function Mild Systolic CHF -->last EF ~ 45% -->patient on dialysisX3 week Chronic Respiratory Failure Obstructive Sleep Apnea -respiratory status at baseline -->continue home O2, uses 3L continuously -->nocturnal CPAP for LIZZ -->denies SOB, O2 saturation > 90% HTN -->stable, monitor BP -->Imdur D/dionte for hypotension cont Beta mauricio DVT ppx -->Coumadin D/dionte Sub q heparin , as INR < 2 FULL CODE DISPOSITION Had PT/OT eval recommend stable to return home with family support Discharge home today arrangements made for need home Health , home PT Medicine follow up with Dr Nato Mayorga Total time spent on discharge = 40 MINS This includes examination of the patient, discharge planning, medication reconciliation, and communication with other providers. Discharge Instructions DI: Medical v4 Discharge Instructions Admission Reason for Admission: Dialysis Patient, Syncope Discharge Discharge Diagnosis / Problem: SYNCOPE /HYPOTENSION /ESRD ON DIALYSIS Discharge Goals Goal(s): Improve disease control, Therapeutic intervention Activity Recommendations Activity Limitations: resume your previous activity . Instructions / Follow-Up Instructions / Follow-Up HOSPITAL FOLLOW UP WITH DR Nato Mayorga, ON 10/16/2016 @ 1:30 PM General Internal Medicine [facility] CARDIOLOGY FOLLOW UP ON 11/14/2016 @ 3:00 PM Pacer Clinic [facility] COMPLETE ANTIBIOTIC AMOXICILLIN /CLARITHROMYCIN TOTAL 10 DAYS -FOR H PYLORI INFECTION LAST DAY OF TREATMENT 10/11/16 TAKE DIFLUCAN 1/2 TAB ( 100 MG ) BY MOUTH TOMORROW 10/11/15 THEN 1 TABLET ( 100 MG ) BY MOUTH ON Friday10/12/15 AFTER DIALYSIS DO NOT TAKE COUMADIN CARDIOLOGY TEAM WILL EVALUATE IN FUTURE -IF YOUR BALANCE CONTINUES TO IMPROVE, NO FURTHER FALL HAPPENS IN NEXT FEW MONTHS -CARDIOLOGY MAY CONSIDER RE STARTING COUMADIN FOR STOKE PROPHYLAXIS PLEASE FOLLOW WITH CARDIOLOGY FOR FURTHER RECOMMENDATION Current Hospital Diet Patient's current hospital diet: AHA Diet (Heart Healthy), Renal Diet Discharge Diet Recommended Diet: AHA Diet (Heart Healthy), Renal Diet Pending Studies Studies pending at discharge: no Laboratory Results Hemoglobin A1c Test 10/08/16 06:39 Range/Units Estimated Average Glucose 140 mg/dl Hemoglobin A1c 6.5 H 4.5-5.6 % Medical Emergencies . Who to Call and When: Medical Emergencies: If at any time you feel your situation is an emergency, please call 911 immediately. . Non-Emergent Contact Non-Emergency issues call your: Primary Care Provider . . "Provider Documentation" section prepared by Stefani Dhaliwal. VTE Core Measure Inpt VTE Proph given/why not?: Unfractionated heparin SQ Additional Copies To Nato Mayorga D.O.
[2016-10-10] MEDS ORDERED: FLUCONAZOLE 100 MG TAB PO SCH (21:00)
[2016-10-10] MEDS ORDERED: INSULIN GLARGINE SOLOSTAR 100 UNITS/ML 3 ML PEN SC SCH (21:00)
[2016-10-23] MEDS ORDERED: DXY100 PO (13:44)
[2016-10-23] MEDS ORDERED: LCTX PO (13:44)
[2016-10-28] MEDS ORDERED: ASPCH81X PO (10:01)
[2016-10-28] MEDS ORDERED: LCTX PO (10:01)
[2016-10-28] MEDS ORDERED: INSDGI SC (10:01)
[2016-10-28] MEDS ORDERED: LACT10SO17 PO (10:01)
[2016-10-28] MEDS ORDERED: DOXY-300 PO (10:01)
[2016-10-28] MEDS ORDERED: ESCI5TAB PO (10:01)
[2016-10-28] MEDS ORDERED: NVLG SC (10:01)
[2016-10-28] MEDS ORDERED: B-CO1CAP17 PO (10:01)
[2016-10-28] MEDS ORDERED: TRAM-10 PO (10:02)
[2016-12-13] MEDS ORDERED: NVLGIPEN SC (14:36)
[2016-12-13] MEDS ORDERED: INSDGIPEN SC (14:36)
[2016-12-13] MEDS ORDERED: TRAM-10 PO (14:59)
== END 2016-10-10 16:00 | disposition home or self-care (01) | DRG 312 ==
LOC: ENRESERVTM → ENRESERVDT → EDBD 15:02 → C.EDC 15:04 → C.2T 20:35 → C.MS2W 10-09 19:43
PROVIDERS: ADMIT Family Medicine; ATTEND Hospitalist
DX: R55 Syncope and collapse (principal); N18.6 End stage renal disease; I13.2 Hypertensive heart and chronic kidney disease with heart failure and with stage 5 chronic kidney disease, or end stage renal disease; I50.22 Chronic systolic (congestive) heart failure; J96.10 Chronic respiratory failure, unspecified whether with hypoxia or hypercapnia; E87.1 Hypo-osmolality and hyponatremia; N39.0 Urinary tract infection, site not specified; E72.20 Disorder of urea cycle metabolism, unspecified; J45.909 Unspecified asthma, uncomplicated; E78.5 Hyperlipidemia, unspecified; Z86.73 Personal history of transient ischemic attack (TIA), and cerebral infarction without residual deficits; I48.0 Paroxysmal atrial fibrillation; Z79.01 Long term (current) use of anticoagulants; Z99.81 Dependence on supplemental oxygen; K74.60 Unspecified cirrhosis of liver; Z79.4 Long term (current) use of insulin; Z95.1 Presence of aortocoronary bypass graft; I25.10 Atherosclerotic heart disease of native coronary artery without angina pectoris; D63.8 Anemia in other chronic diseases classified elsewhere; I34.0 Nonrheumatic mitral (valve) insufficiency; E11.9 Type 2 diabetes mellitus without complications; E87.5 Hyperkalemia; K75.81 Nonalcoholic steatohepatitis (NASH); G47.33 Obstructive sleep apnea (adult) (pediatric); Z95.0 Presence of cardiac pacemaker; I95.9 Hypotension, unspecified; Z95.2 Presence of prosthetic heart valve

== ENCOUNTER 2016-10-21 17:30 | Inpatient (IN) | payer OTHER ==
[2016-10-21] VITALS (18 sets, daily range): BP systolic 107–138; BP diastolic 57–88; PULSE 66–93; TEMP 36.7–36.9; O2SAT 97; Ht 144.8 cm; Wt 67.5 kg
[~2016-10-21] VITALS: Ht 144.8 cm; Wt 67.5 kg
[~2016-10-21 17:30] MED LIST changes: +AMOX500C3 PO; +BXN500 PO; +ESCI1TAB6 PO; +FLUC100T4 PO; -ISOS30TA35 PO; -LACT10SO17 PO; +LCTL30 PO; +OMEP40CA41 PO; -OXGN; -TRAM-10 PO; +TRAZ50TA35 PO; +ULT/50 PO; -WARF2TAB8 PO; -XOPENEX INH; +XPNINS125 INH
--- NOTE | 2016-10-21 18:34 | DIAGNOSTIC IMAGING REPORT ---
SINGLE VIEW CHEST CLINICAL HISTORY: Cough. Dyspnea. FINDINGS: An AP, portable, upright chest radiograph is compared to study dated 10/07/2016. The examination is degraded by large body habitus, portable technique, and patient rotation. A 2-lead cardiac pacemaker and a right internal jugular central venous catheter are unchanged from previous. Midline sternotomy wires are again noted there is evidence of aortic valve replacement. The heart is enlarged and there is atherosclerotic calcification of the thoracic aorta. There is evidence of congestive failure with interstitial edema. There are layering pleural effusions with bibasilar consolidation. There is no pneumothorax. The skeletal structures are osteopenic. Degenerative change is noted in the thoracic spine. IMPRESSION: 1. Cardiomegaly and cardiac pacemaker. There is evidence of congestive failure and interstitial edema. 2. Layering pleural effusions and bibasilar consolidation. This likely represents atelectasis. Correlate clinically for evidence of a superimposed infectious or inflammatory pneumonitis. Electronically signed by: Iván Browne M.D. 10/21/2016 6:32 PM Dictated Date/Time: 10/21/2016 6:28 PM
[2016-10-21 18:48] LABS: HEMATOCRIT 30.4 % (37-47); MEAN CELL VOLUME 98.7 fL (80-100); MEAN CORPUSCULAR HEMOGLOBIN 31.8 pg (25-34); MEAN CORPUSCULAR HGB CONC 32.2 g/dl (32-36); MEAN PLATELET VOLUME 10.3 fL (7.4-10.4); PLATELET COUNT 214 K/uL (130-400); RED BLOOD COUNT 3.08 M/uL (4.2-5.4); WHITE BLOOD COUNT 10.13 K/uL (4.8-10.8)
[2016-10-21] MEDS ORDERED: ONDANSETRON INJ 2 MG/ML 2 ML VIAL IV PRN (19:15)
[2016-10-21] MEDS ORDERED: ACETAMINOPHEN 325 MG TAB PO PRN (19:15)
[2016-10-21] MEDS ORDERED: ATOR-26 PO (19:30)
[2016-10-21] MEDS ORDERED: CONSULT PHARMACY STA (19:30)
[2016-10-21 19:39] LABS: CALCIUM 9.1 mg/dl (8.5-10.1); CREATININE 4.6 mg/dl (0.60-1.20)
[2016-10-21] MEDS ORDERED: ALBUT/IPRATROP 3MG/0.5MG NEB 3 ML VIAL INH PRN (19:45)
[2016-10-21] MEDS ORDERED: DEXTROSE 50% 50 ML SYR IV PRN (19:45)
[2016-10-21] MEDS ORDERED: TRAMADOL HCL 50 MG TAB PO PRN (19:45)
[2016-10-21] MEDS ORDERED: GLUCOSE 40% GEL 15 GM TUBE PO PRN (19:45)
[2016-10-21] MEDS ORDERED: GLUCOSE 10 TABS/TUBE PO PRN (19:45)
[2016-10-21] MEDS ORDERED: GLUCAGON FOR INJ 1 MG VIAL SQ PRN (19:45)
[2016-10-21] MEDS ORDERED: PHARMACY GLYCEMIC MGMT CONSULT PRN (20:02)
--- NOTE | 2016-10-21 20:13 | History and Physical ---
History & Physical Date & Time of Service: Oct 21, 2016 at 19:41 Chief Complaint: Shortness of Breath Primary Care Physician: Nato Mayorga D.O. History of Present Illness 66 year old female who presents to the ER with shortness of breath. Patient was recently admitted to [facility] 10/07 - 10/10 for syncope felt to be due to orthostatic hypotension. She had an EEG completed that was negative. At discharge, Imdur was stopped. Coumadin was also stopped due to frequent falls and striking her head. At her hospital follow up, patient was still hypotensive in the 90s so her metoprolol was stopped. Patient reports increasing shortness of breath and cough for the past few days. Cough has been productive for a white sputum. Patient has gained 4 pounds since yesterday. She has increased abdominal distention. Patient is on dialysis [facility]. Last treatment was on Friday. Last evening while trying to get into bed, patient had taken her oxygen off and was exerting herself. reports patient passed out for a few seconds. He reapplied her oxygen and she came to. No further episodes since. Patient reports chronic lightheadedness and dizziness when she wakes up in the morning. Patient denies fever and chills. She reports intermittent nausea but denies abdominal pain, vomiting, or diarrhea. She continues to make a small amount of urine. She denies dysuria. Home health nursing saw the patient today and called her PCP for concerns of shortness of breath and weight gain. Outpatient CXR was obtained that showed pulmonary edema. Patient was referred to the ER for further evaluation. In the ER, patient had hypoxia with exertion on her chronic 3L O2. When resting in bed, she is saturating well. Past Medical/Surgical History Medical Problems: (1) Asthma Status: Chronic (2) CAD (coronary artery disease) Status: Chronic (3) CHF (congestive heart failure) Status: Chronic (4) Cirrhosis of liver Status: Chronic (5) CKD (chronic kidney disease), stage III Status: Chronic (6) Depression Status: Chronic (7) Diabetes mellitus Status: Chronic (8) Dyslipidemia Status: Chronic (9) History of stroke Permanent Comment: 2004, no residual deficit Status: Chronic (10) HTN (hypertension) Status: Chronic (11) Osteoarthritis Status: Chronic (12) Pacemaker Status: Chronic (13) PAF (paroxysmal atrial fibrillation) Status: Chronic (14) Sleep apnea Permanent Comment: on CPAP Status: Chronic Surgical Problems: (1) Aortic valve replaced Status: Chronic (2) S/P CABG x 2 Status: Chronic (3) S/P placement of cardiac pacemaker Permanent Comment: 2009 Status: Chronic (4) S/P tonsillectomy Status: Chronic (5) Status post left heart catheterization Permanent Comment: 10/21/2013 GM Status: Chronic Family History Asthma FATHER FH: cancer MOTHER (pancreatic) Heart disease BROTHER ( of [place] age 43) SISTER (CAD age 60) SISTER (CAD age 57) Social History Smoking Status: Never Smoker Alcohol Use: none Marital Status: Immunizations History of Influenza Vaccine: Yes Influenza Vaccine Date: Jul 06, 2016 History of Tetanus Vaccine?: Yes Tetanus Immunization Date: Oct 15, 2010 History of Pneumococcal: Yes Pneumococcal Date: May 09, 2016 Allergies Coded Allergies: Lisinopril (Verified Adverse Reaction, Unknown, COUGH, 09/18/16) Home Medications Scheduled Acetaminophen (Tylenol), 1,000 MG PO HS Aspirin (Aspirin Adult Low Dose), 81 MG PO QPM Atorvastatin (Lipitor), 1 TAB PO DAILY B-Complex Vitamins (Vitamin B Complex), 1 TAB PO QAM Escitalopram Oxalate (Lexapro), 5 MG PO DAILY Gabapentin (Neurontin), 300 MG PO HS Insulin Aspart (Novolog), SC UD Insulin Glargine (Lantus), 30 UNITS SC HS Lactulose (Lactulose), 20 GM PO BID Levalbuterol (Levalbuterol HCl), 3 ML INH Q8 Montelukast Sod (Montelukast Sodium), 10 MG PO HS Omeprazole (Prilosec), 40 MG PO DAILY Trazodone Hcl (Trazodone), 50 MG PO HS Vitamin B Cmplx/Vitc/Folic Ac (Nephrocaps), 1 CAP PO QPM Scheduled PRN Ipratropium-Albuterol (Combivent Respimat), 1 PUFFS INH QID PRN for SOB,OR PRIOR TO EXERTION Nitroglycerin (Nitrostat), 0.4 MG UT PRN PRN for Chest Pain Tramadol Hcl (Ultram), 25 MG PO Q8 PRN for Pain Review of Systems 10 point review of systems was completed with the pertinent positives and negatives noted per the HPI Physical Exam Vital Signs Date Time Temp Pulse Resp B/P Pulse Ox O2 Delivery O2 Flow Rate FiO2 10/21/16 19:32 82 21 135/81 94 Nasal Cannula 3.0 10/21/16 18:41 70 10/21/16 18:18 93 Nasal Cannula 3.0 10/21/16 17:33 36.4 74 20 113/72 87 Room Air 3.0 General Appearance: + mild distress Head: normocephalic Eyes: normal inspection ENT: hearing grossly normal Neck: supple, no JVD Respiratory/Chest: + decreased breath sounds, + crackles, + pertinent finding ( tachypnea) Cardiovascular: regular rate, rhythm, no edema, normal peripheral pulses Abdomen/GI: normal bowel sounds, non tender, + distended Extremities/Musculoskelatal: normal inspection, no calf tenderness Neurologic/Psych: no motor/sensory deficits, alert, normal mood/affect, oriented x 3 Skin: normal color, warm/dry Diagnostics Laboratory Results Results Past 24 Hours Test 10/21/16 18:36 10/21/16 19:16 Range/Units White Blood Count 10.13 4.8-10.8 K/uL Red Blood Count 3.08 4.2-5.4 M/uL Hemoglobin 9.8 12.0-16.0 g/dL Hematocrit 30.4 37-47 % Mean Corpuscular Volume 98.7 80-100 fL Mean Corpuscular Hemoglobin 31.8 25-34 pg Mean Corpuscular Hemoglobin Concent 32.2 32-36 g/dl RDW Standard Deviation 59.8 36.4-46.3 fL RDW Coefficient of Variation 17.1 11.5-14.5 % Platelet Count 214 130-400 K/uL Mean Platelet Volume 10.3 7.4-10.4 fL Sodium Level 123 136-145 mmol/L Chloride Level 88 98-107 mmol/L Carbon Dioxide Level 19 21-32 mmol/L Anion Gap 17.0 3-11 mmol/L Blood Urea Nitrogen 41 7-18 mg/dl Creatinine 4.60 0.60-1.20 mg/dl Est Creatinine Clear Calc Drug Dose 9.8 ml/min Estimated GFR () 10.8 Estimated GFR (Non- 9.3 Random Glucose 160 70-99 mg/dl Calcium Level 9.1 8.5-10.1 mg/dl Pro-B-Type Natriuretic Peptide 24414 0-900 pg/ml Microbiology Results 10/21/16 Blood Culture, Sarah Batch Pending 10/21/16 Blood Culture, Sarah Batch Pending Diagnostic Radiology CXR IMPRESSION: 1. Cardiomegaly and cardiac pacemaker. There is evidence of congestive failure and interstitial edema. 2. Layering pleural effusions and bibasilar consolidation. This likely represents atelectasis. Correlate clinically for evidence of a superimposed infectious or inflammatory pneumonitis. Impression Assessment and Plan ACUTE ON CHRONIC RESPIRATORY FAILURE DUE TO PULMONARY EDEMA FROM ACUTE ON CHRONIC SYSTOLIC/DIASTOLIC CHF IN THE SETTING OF ESRD ON HD, POSSIBLE PNEUMONIA , HX ASTHMA - admit to tele - patient presenting with increasing shortness of breath, weight gain, and productive cough - CXR showing pulmonary edema and bibasilar consolidations, possible pneumonia - patient with hx of CHF, typically fluid managed with dialysis - case discussed with Dr. Ayala - patient will received dialysis tonight - recent echo - EF 45-50%, moderate mitral regurgitation, functioning bioprosthetic aortic valve - check ABG - for pneumonia, will empirically place on Vanco and and Zosyn due to recent hospitalization; check MRSA nasal swab and if negative can d/c Vanco - blood and sputum cultures - do not suspect sepsis - no wheezing on exam, continue home inhalers for now, PRN nebs SYNCOPAL EVENT - likely due to hypoxia from not wearing oxygen - had recent admission for syncope with extensive work up HYPONATREMIA, HYPERKALEMIA - likely hypervolemic hyponatremia - hyperkalemia due to ESRD - should improve with dialysis - check EKG - follow up electrolytes after dialysis HX CVA - continue ASA PAROXYSMAL AFIB, HEART BLOCK S/P PACEMAKER - metoprolol recently d/c'd due to hypotension - Coumadin recently d/c'd due to fall risk - rate currently controlled HX BIOPROSTHETIC AORTIC VALVE REPLACEMENT DM - continue Lantus and SSI CAD - no reports of chest pain - metoprolol and Imdur recently d/c'd due to syncope from hypotension - continue ASA and beta mauricio LIZZ - CPAP as per home settings ALLEN - continue Lactulose DVT PROPHYLAXIS - SQ heparin CODE STATUS - Patient is a full code as per my discussion with her. DISPO - In my clinical judgment this beneficiary meets acute admission criteria, established by [facility], that includes being hospitalized through two midnights. Attending Note: Patient is a 66 yr old female with multiple comorbidities presents with history of worsening SOB, productive cough, weight gain and abdominal distention. She has ESRD and is on dialysis. CXR findings are suggestive of CHF, layering pleural effusion and bibasilar consolidation. She has oxygen dependency and is on 3L NC at baseline. She was found to be hyperkalemic and is planned for urgent dialysis at the time of admission. Physical Exam: Vitals signs as noted above General Appearance:Chronically ill appearing. mild resp. distress Head: normocephalic, Atraumatic Eyes: normal inspection, EOMI, PERRLA Neck: supple, Trachea midline Respiratory/Chest: Decreased breath sounds, + crackles, No accessory muscle use Cardiovascular: S1, S2, NSR, No murmur Abdomen/GI:Soft, Non tender, BS present, protuberant Extremities/Musculoskeletal:normal inspection, no calf tenderness Neurologic/Psych:AAOX3, grossly no focal neurological deficits Skin:normal color,warm Assessment and Plan: Volume overload: Secondary to CHF exacerbation, ESRD Hyponatremia secondary to volume overload Hyperkalemia secondary to ESRD, check EKG Needs urgent hemodialysis Nephrology consulted Last ECHO: EF:45-50% BNP:23,804 Acute on chronic respiratory failure with hypoxia: Secondary to volume overload as above and HCAP H/O LIZZ Broad spectrum IV antibiotics Blood/Sputum cultures Oxygen support, Bronchodilators PRN HD per Nephrology ABG pending I personally reviewed the record. Patient is interviewed and examined at bedside. Patient's care is coordinated with Joleen Costa [employer]INTENA[employer]. Please refer to the documentation above for details of patient's presentation and for discussion of other issues. VTE Prophylaxis VTE Risk Assessment Done? Y/N: Yes Risk Level: Moderate
[2016-10-21 20:19] LABS: BUN/CREATININE RATIO 8.9 (10-20); POTASSIUM 6.6 mmol/L (3.5-5.1)
[2016-10-21] MEDS ORDERED: VANCOMYCIN CONSULT ACTIVE PRN (20:45)
[2016-10-21] MEDS ORDERED: PIPERACILL/TAZOBAC CONSULT ACTIVE PRN (20:45)
--- NOTE | 2016-10-21 20:58 | Pharmacy Progress Note ---
Pharmacy Antibiotic Consult Date of Service: Oct 21, 2016. Pharmacy Dosing Scope Pharmacy is consulted to initiate VANCOMYCIN / ZOSYN IV dosing therapy, order appropriate labs and adjust drug dose/frequency. Subjective The patient is a 66 year old female admitted on . Objective Height (Feet): 4 Height (Inches): 9.00 Weight (Kilograms): 70.000 Lab Results (24hrs): Laboratory Tests Test 10/21/16 18:36 BUN/Creatinine Ratio 8.9 Blood Urea Nitrogen 41 mg/dl Creatinine 4.60 mg/dl White Blood Count 10.13 K/uL Micro Results: * 10/21/16 -- Blood Cx x 2 -- pending * 10/21/16 -- MRSA Nasal swab -- pending Assessment & Plan 66yo female with CKD on HD // as an outpatient. Ordered ZOSYN / VANCOMYCIN for pneumonia. VANCOMYCIN: * Loading dose: VANCOMYCIN 1250mg (~18mg/kg) IV X 1 dose. * Will check a random level with am labs on 10/22 and redose when appropriate. * Goal trough/random level estimate: between 15 - 20 mcg/mL. Pharmacy will continue to follow and will adjust dose/frequency as necessary. Thank you
[2016-10-21] MEDS ORDERED: PIPERACILL/TAZOBAC IV 2.25 GM in DEXTROSE 5% 100ML 100 ML IV SCH (21:00)
[2016-10-21] MEDS ORDERED: VANCOMYCIN INJ 1,250 MG in SODIUM CHLORIDE 0.9% 250ML 250 ML IV SCH (21:00)
[2016-10-21] MEDS ORDERED: INSULIN GLARGINE SOLOSTAR 100 UNITS/ML 3 ML PEN SC SCH (21:00)
--- NOTE | 2016-10-21 22:01 | Pharmacy Progress Note ---
Glycemic Control Intl Consult Date of Service Oct 21, 2016. Scope Glycemic Pharmacist consulted by Joleen Costa on 10/21/16 for glycemic control and to write orders per [facility] inpatient glycemic control protocol Objective Weight (Kilograms): 70.000 Accuchecks BSG (last 24hrs): Test 10/21/16 18:36 Random Glucose 160 mg/dl (70-99) Laboratory Data (last 24hrs) Test 10/21/16 18:36 Anion Gap 17.0 mmol/L BUN/Creatinine Ratio 8.9 Blood Urea Nitrogen 41 mg/dl Creatinine 4.60 mg/dl Potassium Level 6.6 mmol/L Sodium Level 123 mmol/L White Blood Count 10.13 K/uL Recent Pertinent Medications Outpatient Anti-diabetic Regimen: * NovoLog sliding scale * Lantus 30 units SQ HS The patient is currently receiving: * Basal insulin: Lantus 30 units every 24 hours * Correctional Insulin: NovoLog Correction per scale AC/HS Goal Range: Low 120 mg/dL - High 160 mg/dL Correction Factor: 60 mg/dL/unit * Prandial insulin: Per carb ratio of 1 unit per 21 grams CHO consumed Risk Factors for Insulin Resistance: * Infection: questionable pneumonia - current therapy includes vancomycin and piperacillin/tazobactam * Diet: AHA/RENAL Assessment & Plan ASSESSMENT: * ADA & AACE recommend a goal blood sugar range 140-180 mg/dl for the majority of critically ill & non-critically ill patients. However, more stringent targets may be selected in individual cases. 10/21/16 * Marcia is well known to the glycemic service from past admissions, her most recent being earlier this month. * Generally, Ms Salcedo requires less insulin while admitted compared to her home regimen * Lower blood sugars are sometimes seen the day following dialysis (pt is to dialyze tonight) * HD can make contribute to both insulin sensitivity and resistance * Empirically reduced dose of Lantus until further data is collected. * NovoLog parameters based on last admission. * ESRD makes A1c difficult to determine * opt to not add A1c to discharge instructions. PLAN FOR INPATIENT GLYCEMIC CONTROL: * Decrease Lantus to 10 units SQ q PM * Continue NovoLog AC and HS * Correction factor 30mg/dL/unit * Carb ratio: 1 unit per 10g of CHO consumed * Goal range: 140-180mg/dL per ADA recommendations * Please note that the plan above was derived based on current level of insulin resistance and hospital stress. These recommendations are appropriate for inpatient admission only. Plan of care upon discharge will need to be reassessed to avoid potential outpatient hypo/hyperglycemia. Thank you.
--- NOTE | 2016-10-21 22:30 | EMERGENCY ROOM VISIT NOTE ---
History Report prepared by Kayla: Morales Nelson Under the Supervision of: Dr. Satya Cancino M.D. First contact with patient: 17:40 Chief Complaint: EDEMA TO EXTREMITY Stated Complaint: EDEMA History of Present Illness The patient is a 66 year old female who presents to the Emergency Room with complaints of persistent fluid on her lungs beginning just prior to arrival. She currently rates her discomfort as an 8/10 in severity. The patient states she was seen by Dr. Mayorga, who referred her to the ED after seeing fluid around her lungs. She notes she receives dialysis every other day and has a PermCath on her right chest. The patient states she uses 3 L of oxygen at home. The patient associates a persistent cough, dizziness, nausea, and vomiting with today's symptoms. As per , the patient has seizure-like activity when she is not on oxygen, and was admitted to the hospital three weeks ago for the episode. The patient notes a history of two open heart surgeries. She denies chest pain. Source of History: patient Onset: just prior to arrival Position: other (global) Symptom Intensity: 8/10 Quality: other (fluid on lungs) Timing: other (persistent) Associated Symptoms: + cough, + nausea, + vomiting, No chest pain Note: Associated symptoms: dizziness. Review of Systems See HPI for pertinent positives & negatives. A total of 10 systems reviewed and were otherwise negative. Past Medical & Surgical Medical Problems: (1) Asthma (2) CAD (coronary artery disease) (3) CHF (congestive heart failure) (4) Cirrhosis of liver (5) CKD (chronic kidney disease), stage III (6) Depression (7) Diabetes mellitus (8) Dyslipidemia (9) History of stroke (10) HTN (hypertension) (11) Osteoarthritis (12) Pacemaker (13) PAF (paroxysmal atrial fibrillation) (14) Sleep apnea Surgical Problems: (1) Aortic valve replaced (2) S/P CABG x 2 (3) S/P placement of cardiac pacemaker (4) S/P tonsillectomy (5) Status post left heart catheterization Family History Asthma FATHER FH: cancer MOTHER (pancreatic) Heart disease BROTHER ( of [place] age 43) SISTER (CAD age 60) SISTER (CAD age 57) Social History Smoking Status: Never Smoker Alcohol Use: none Drug Use: none Marital Status: Housing Status: lives with family, lives with significant other Occupation Status: disabled Current/Historical Medications Scheduled Acetaminophen (Tylenol), 1,000 MG PO HS Aspirin (Aspirin Adult Low Dose), 81 MG PO QPM Atorvastatin (Lipitor), 1 TAB PO DAILY B-Complex Vitamins (Vitamin B Complex), 1 TAB PO QAM Escitalopram Oxalate (Lexapro), 5 MG PO DAILY Gabapentin (Neurontin), 300 MG PO HS Insulin Aspart (Novolog), SC UD Insulin Glargine (Lantus), 30 UNITS SC HS Lactulose (Lactulose), 20 GM PO BID Levalbuterol (Levalbuterol HCl), 3 ML INH Q8 Montelukast Sod (Montelukast Sodium), 10 MG PO HS Omeprazole (Prilosec), 40 MG PO DAILY Trazodone Hcl (Trazodone), 50 MG PO HS Vitamin B Cmplx/Vitc/Folic Ac (Nephrocaps), 1 CAP PO QPM Scheduled PRN Ipratropium-Albuterol (Combivent Respimat), 1 PUFFS INH QID PRN for SOB,OR PRIOR TO EXERTION Nitroglycerin (Nitrostat), 0.4 MG UT PRN PRN for Chest Pain Tramadol Hcl (Ultram), 25 MG PO Q8 PRN for Pain Allergies Coded Allergies: Lisinopril (Verified Adverse Reaction, Unknown, COUGH, 09/18/16) Physical Exam Vital Signs Date Time Temp Pulse Resp B/P Pulse Ox O2 Delivery O2 Flow Rate FiO2 10/21/16 22:15 76 124/73 10/21/16 22:00 83 118/72 10/21/16 21:45 84 120/72 10/21/16 21:30 74 118/66 10/21/16 21:15 75 123/75 10/21/16 21:00 82 119/67 10/21/16 20:45 82 119/83 10/21/16 20:30 70 126/88 10/21/16 20:15 70 125/77 10/21/16 20:00 73 138/78 10/21/16 19:40 36.9 68 107/68 10/21/16 19:32 82 21 135/81 94 Nasal Cannula 3.0 10/21/16 18:41 70 10/21/16 18:18 93 Nasal Cannula 3.0 10/21/16 17:33 36.4 74 20 113/72 87 Room Air 3.0 Physical Exam GENERAL: Patient is chronically unwell appearing and in minimal distress. HEENT: No acute trauma, normocephalic atraumatic, mucous membranes moist, no nasal congestion, no scleral icterus. NECK: No stridor, no adenopathy, no meningismus, trachea is midline. LUNGS: Mildly dyspneic. Decreased breath sounds over much of the right lung and left lower lung. No wheeze, no rhonchi. PermCath in right upper chest. HEART: Regular rate and rhythm. No murmurs, rubs, gallops appreciated. ABDOMEN: Soft, nontender, bowel sounds positive, no masses appreciated, no peritonitis. BACK: No midline tenderness, no CVA tenderness EXTREMITIES: Trace edema in bilateral lower extremities. Normal motion all extremities, no cyanosis. NEUROLOGIC: Alert and oriented, no acute motor or sensory deficits, no focal weakness, cranial nerves grossly intact. SKIN: No rash, no jaundice, no diaphoresis. Medical Decision & Procedures ER Provider Diagnostic Interpretation: X ray results are stated below per my interpretation and the radiologist's interpretation. SINGLE VIEW CHEST CLINICAL HISTORY: Cough. Dyspnea. FINDINGS: An AP, portable, upright chest radiograph is compared to study dated 10/07/2016. The examination is degraded by large body habitus, portable technique, and patient rotation. A 2-lead cardiac pacemaker and a right internal jugular central venous catheter are unchanged from previous. Midline sternotomy wires are again noted there is evidence of aortic valve replacement. The heart is enlarged and there is atherosclerotic calcification of the thoracic aorta. There is evidence of congestive failure with interstitial edema. There are layering pleural effusions with bibasilar consolidation. There is no pneumothorax. The skeletal structures are osteopenic. Degenerative change is noted in the thoracic spine. IMPRESSION: 1. Cardiomegaly and cardiac pacemaker. There is evidence of congestive failure and interstitial edema. 2. Layering pleural effusions and bibasilar consolidation. This likely represents atelectasis. Correlate clinically for evidence of a superimposed infectious or inflammatory pneumonitis. Electronically signed by: Iván Browne M.D. 10/21/2016 6:32 PM Laboratory Results 10/21/16 18:36 10/21/16 18:36 Test 10/21/16 18:36 1/23/17 19:16 Red Blood Count 3.08 M/uL (4.2-5.4) Mean Corpuscular Volume 98.7 fL (80-100) Mean Corpuscular Hemoglobin 31.8 pg (25-34) Mean Corpuscular Hemoglobin Concent 32.2 g/dl (32-36) RDW Standard Deviation 59.8 fL (36.4-46.3) RDW Coefficient of Variation 17.1 % (11.5-14.5) Mean Platelet Volume 10.3 fL (7.4-10.4) Anion Gap 17.0 mmol/L (3-11) Est Creatinine Clear Calc Drug Dose 9.8 ml/min Estimated GFR () 10.8 Estimated GFR (Non- 9.3 BUN/Creatinine Ratio 8.9 (10-20) Calcium Level 9.1 mg/dl (8.5-10.1) Pro-B-Type Natriuretic Peptide 27890 pg/ml (0-900) Laboratory results as reviewed by me. ED Course 1740: The patient was evaluated in room C11A. A complete history and physical exam was performed. 1821: I spoke to Joleen Costa PA-C, [facility] (Hospitalist) about the patient's case, and she will follow the patient for further evaluation. Medical Decision 66 yr old female arrives with from home after being contacted by PCP to come to ED for admission. She has new right pleural effusion with worsening SHOB. Chronically unwell on dialysis. She denies other symptoms than her worsening shortness of breath. Hospitalist team contacted on arrival as sent for effusion. She was noted to have abnormal electrolytes though as she is stable will defer treatment to hospitalist team. Consults Time Called: 1819 Consulting Physician: Joleen Costa PA-C, [facility] (Hospitalist) Returned Call: 1821 I spoke to Joleen Costa PA-C, [facility] (Hospitalist) about the patient's case, and she will follow the patient for further evaluation. Impression Primary Impression: Pleural effusion Additional Impression: Hypoxia Scribe Attestation The scribe's documentation has been prepared under my direction and personally reviewed by me in its entirety. I confirm that the note above accurately reflects all work, treatment, procedures, and medical decision making performed by me. Departure Information Dispostion Being Evaluated By Hospitalist (Joleen Costa PA-C, [facility] (Hospitalist)) Referrals Nato Mayorga D.O. (PCP) Problem Qualifiers
[2016-10-22] VITALS (25 sets, daily range): BP systolic 90–117; BP diastolic 55–92; PULSE 72–104; TEMP 36.1–37.3; O2SAT 93–100
[2016-10-22] MEDS: INSULIN ASPART 100 UNITS/ML 3 ML PEN SC SCH ×5 (00:31→20:43)
[2016-10-22] MEDS ORDERED: PIPERACILL/TAZOBAC IV 3.375 GM in DEXTROSE 5% 100ML IV STA (00:44)
[2016-10-22] MEDS: TRAZODONE HCL 50 MG TAB PO SCH ×2 (00:58→20:55)
[2016-10-22] MEDS: ASPIRIN 81 MG ECTAB PO SCH ×2 (00:59→20:54)
[2016-10-22] MEDS: LACTULOSE SYRUP 20 GM/30 ML UDC PO SCH ×3 (00:59→20:54)
[2016-10-22] MEDS: MONTELUKAST SOD 10 MG TAB PO SCH ×2 (00:59→20:54)
[2016-10-22] MEDS: GABAPENTIN 300 MG CAP PO SCH ×2 (01:00→20:54)
[2016-10-22] MEDS: NEPHROCAPS PO SCH ×2 (01:00→20:54)
[2016-10-22 05:41] LABS: ALLEN TEST POS (POS); ARTERIAL BLD GAS O2 SATURATION 97.1 % (90-95); ARTERIAL BLOOD GAS BASE EXCESS 0.4 mEq/L (-9-1.8); ARTERIAL BLOOD GAS HCO3 25 mmol/L (19-24); ARTERIAL BLOOD GAS PO2 141 mm/Hg (80-95); ARTERIAL BLOOD GAS pH 7.43 (7.35-7.45); O2 ADMINISTRATION 3L
[2016-10-22 06:06] LABS: HEMATOCRIT 27.2 % (37-47); MEAN CELL VOLUME 96.5 fL (80-100); MEAN CORPUSCULAR HEMOGLOBIN 30.9 pg (25-34); MEAN PLATELET VOLUME 9.9 fL (7.4-10.4); PLATELET COUNT 161 K/uL (130-400); RED BLOOD COUNT 2.82 M/uL (4.2-5.4); WHITE BLOOD COUNT 7.88 K/uL (4.8-10.8)
[2016-10-22 06:41] LABS: BUN/CREATININE RATIO 7.1 (10-20); CALCIUM 8.5 mg/dl (8.5-10.1)
[2016-10-22 06:59] LABS: POTASSIUM 4.2 mmol/L (3.5-5.1)
[2016-10-22] MEDS ORDERED: EPOETIN ALFA 10,000 UNITS/ML VIAL IV. SCH (07:15)
[2016-10-22] MEDS ORDERED: ALBUMIN HUMAN 25% 12.5 GM/50 ML VIAL IV SCH (07:15)
[2016-10-22] MEDS: LEVALBUTEROL 1.25MG/3ML NEB INH SCH ×2 (07:29→15:21)
[2016-10-22 07:43] LABS: INR 1.2 (0.9-1.1)
[2016-10-22] MEDS: PIPERACILL/TAZOBAC IV 3.375 GM in DEXTROSE 5% 100ML IV SCH ×2 (07:48→20:54)
[2016-10-22] MEDS: ESCITALOPRAM OXALATE 10 MG TAB PO SCH (07:48)
[2016-10-22] MEDS: PANTOprazole SOD 40 MG TAB PO SCH (07:49)
[2016-10-22] MEDS: ATORVASTATIN 40 MG TAB PO SCH (07:49)
[2016-10-22] MEDS ORDERED: NON-FORMULARY MEDICATION (B-Complex Vitamins (Vitamin B Complex) 1 TAB) PO SCH (09:00)
[2016-10-22] MEDS: INSULIN GLARGINE SOLOSTAR 100 UNITS/ML 3 ML PEN SC SCH ×2 (09:00→11:57)
--- NOTE | 2016-10-22 10:00 | NEPHROLOGY CONSULTATION ---
DATE OF CONSULTATION: 10/22/2016 DATE OF CONSULTATION: 10/22/2016. ATTENDING OF RECORD: Dr. Suarez. REASON FOR CONSULTATION: ESRD, hyperkalemia. HISTORY OF PRESENT ILLNESS: This is a 66-year-old female who dialyzes at the [facility] on Tuesdays, , and Saturdays. Last dialysis treatment was Friday. The patient was recently at [facility] from 10/07/2016 to 10/10/2016 with syncope secondary to orthostatic hypotension. The patient has had worsening shortness of breath and cough for the past few days, dry cough with worsening abdominal distention. The patient did pass out for a few seconds off oxygen and does have chronic lightheadedness and dizziness mostly in the morning. Still urinates some. Has a maturing fistula and tunneled dialysis catheter and is on chronic 3 liters oxygen. The patient was found to have hyperkalemia with potassium level of 6.6, low sodium at 123. ProBNP of 23,804. The patient underwent dialysis last night for fluid removal and correction of the high potassium and low sodium. The patient this morning is feeling better, still with a cough. Chest x-ray on admission showed congestive heart failure with pleural effusions and bibasilar consolidation and was started on IV antibiotics as well. PAST MEDICAL HISTORY: Coronary artery disease status post 2 vessel CABG as well as bioprosthetic aortic valve with EF 45%. Has a history of postoperative stroke, paroxysmal Afib who was on Coumadin which was recently stopped on the secondary to orthostatic hypotension and frequent falls, AV block status post pacemaker, recurrent apnea, obstructive sleep apnea on CPAP, asthma/chronic respiratory failure on 3 liters home oxygen, nonalcoholic fatty liver disease with liver cirrhosis, hypertension and hyperlipidemia. PAST SURGICAL HISTORY: Bypass x2 of the heart, bioprosthetic aortic valve, pacemaker, tonsillectomy. FAMILY HISTORY: Mother with pancreatic cancer and sister and brother's all with heart disease. SOCIAL HISTORY: No smoking, no alcohol, no drugs. and lives with family. REVIEW OF SYSTEMS: Positive fatigue, positive weakness, positive chronic shortness of breath, positive abdominal distention. No chest pain. Memory is poor, positive lightheadedness, mostly in the morning with episodes of syncope. No rash or itching. No blurry vision. No dysphagia. All other review of systems otherwise negative. CURRENT MEDICATIONS: Lipitor 80 mg daily, Lexapro 5 mg daily, Protonix 40 mg daily, Zosyn 3.375 IV q. 12, heparin 5000 units subcutaneous q. 12 hours, aspirin 81 mg daily, Neurontin 300 mg at night, Lantus 10 units at night, lactulose 20 grams p.o. b.i.d., Singulair 10 mg p.o. bedtime, trazodone 50 mg at night, Nephrocaps daily, sliding scale insulin. PHYSICAL EXAMINATION: VITAL SIGNS: Temperature 36.7, pulse 90, respiratory rate 18, blood pressure 107/73, satting 100% on 3 liters. GENERAL: Awake, alert, and oriented x3, however memory is not too great. EYES: No scleral icterus. EARS, NOSE, THROAT: Moist mucous membranes. NECK: Supple. PULMONARY: Decreased breath sounds at the bases. CARDIAC: Regular rate and rhythm. ABDOMEN: Bowel sounds positive, soft, mildly distended. EXTREMITIES: Tender legs with mild edema. NEUROLOGICALLY: Does have some neuropathic pain but otherwise nonfocal. DERM: No rash or ulcers noted. LABORATORY DATA: White count 7.8, H\T\H 8.7 and 27.2, platelet count is 161. Sodium level 131, potassium is pending, was 6.6 on admission, chloride 95, bicarbonate is 26, BUN is 21, creatinine is 3, glucose 153, calcium 8.5, ProBNP was close to 25,000 on admission. ABG this morning shows pH of 7.43, pCO2 38, pO2 141, bicarbonate 25. Random vancomycin level 33.8. Blood cultures are pending. Chest x-ray showed the layering pleural effusions and basilar consolidation with atelectasis as well as cardiomegaly and cardiac pacemaker. ASSESSMENT AND PLAN: 1. End stage renal disease. The patient presented with volume overload and hyperkalemia requiring emergent dialysis last night to help remove fluid and correct electrolyte abnormalities. Will plan on dialysis again today because patient likely with potassium rebound and today is also her regularly scheduled day. Will use tunneled dialysis catheter, fistula in right arm is still maturing although feels good. 2. Anemia of renal failure. Hemoglobin levels are decreased and will dose Procrit to help keep the hemoglobin levels up. 3. Renal osteodystrophy. The patient currently not on any phosphate binders. Will follow up with her regarding phosphate binders and restart if appropriate. Appreciate consultation.
--- NOTE | 2016-10-22 11:52 | Pharmacy Progress Note ---
Glycemic: Assessment & Plan Date of Service Oct 22, 2016. Assessment & Plan Assessment * BSG's increased from 100 to 153 mg/dL overnight - OK to schedule further Lantus. Patient received 8 units at ~1200 today (post-HD) * Patient dialyzed today and BSG decreased to 86 mg/dL. Will only provide further Lantus this PM for BSG > 140 mg/dL. * Will loosen carb ratio of Novolog slightly as it is currently slightly tighter than weight-based and patient had a lower BSG at lunch today Plan * Basal insulin: Add Lantus 8 units qAM (1/2 for BSG < 120 mg/dL) and 5 units qPM (hold for BSG < 140 mg/dL) * Correctional Insulin: Novolog Correction per scale ACHS Goal Range: Low 140 mg/dL - High 180 mg/dL Correction Factor: 30 mg/dL/unit * Prandial insulin: Loosen Per carb ratio of 1 unit per 12 grams CHO consumed * Please note that the plan above was derived based on current level of insulin resistance and hospital stress. These recommendations are appropriate for inpatient admission only. Plan of care upon discharge will need to be reassessed to avoid potential outpatient hypo/hyperglycemia.
[2016-10-22] MEDS: HEPARIN SOD 5000 UNIT/0.5 ML CARP SQ SCH ×2 (11:58→20:44)
--- NOTE | 2016-10-22 17:40 | Progress Note ---
Internal Med Progress Note Date of Service: Oct 22, 2016. Provider Documentation: SUBJECTIVE: The patient was seen and examined Admitted with SOB S/P Dialysis and feels better Asking when can she go home OBJECTIVE: Vital Signs-as noted below Exam: General-No distress at rest Eyes-normal ENT-normal Neck-Supple Lungs-Decreased breath sound bilaterally Minimal crackles at the bases Heart-Regular,no murmur appreciated Abdomen-Benifn,no masses,bowel sound present Extremities-No edema Neuro-AAOx3 Lab data as noted below. ASSESSMENT & PLAN: ACUTE ON CHRONIC RESPIRATORY FAILURE Secondary to PULMONARY EDEMA ACUTE ON CHRONIC SYSTOLIC/DIASTOLIC CHF IN THE SETTING OF ESRD ON HD, - patient presenting with increasing shortness of breath, weight gain, and productive cough - CXR showing pulmonary edema and bibasilar consolidations, possible pneumonia - recent echo - EF 45-50%, moderate mitral regurgitation, functioning bioprosthetic aortic valve - check ABG-unremarkable POSSIBLE PNEUMONIA, H/O Asthma CXR showing pulmonary edema and bibasilar consolidations, possible pneumonia Started on IV Vanco and Zosyn D/C Vanco and continue Zosyn Blood and sputum cultures Do not suspect sepsis No wheezing on exam, continue home inhalers for now, PRN nebs SYNCOPAL EVENT - likely due to hypoxia from not wearing oxygen - had recent admission for syncope with extensive work up -no more episodes HYPONATREMIA, HYPERKALEMIA - likely hypervolemic hyponatremia - hyperkalemia due to ESRD - should improve with dialysis - follow up electrolytes after dialysis-improved HX CVA - continue ASA PAROXYSMAL AFIB, HEART BLOCK S/P PACEMAKER HX BIOPROSTHETIC AORTIC VALVE REPLACEMENT CAD - metoprolol recently d/c'd due to hypotension - Coumadin recently d/c'd due to fall risk - rate currently controlled -continue Aspirin and BB DM - continue Lantus and SSI LIZZ - CPAP as per home settings ALLEN - continue Lactulose DVT PROPHYLAXIS - SQ heparin CODE STATUS - Patient is a full code as per my discussion with her. DISPO Awaited Vital Signs: Date Time Temp Pulse Resp B/P Pulse Ox O2 Delivery O2 Flow Rate FiO2 10/22/16 16:00 Nasal Cannula 3.0 10/22/16 15:39 37.3 88 16 101/66 98 Nasal Cannula 3.0 10/22/16 15:21 90 18 98 Nasal Cannula 3.0 10/22/16 12:03 36.4 97 20 117/68 100 Nasal Cannula 3.0 10/22/16 12:00 99 Nasal Cannula 3.0 10/22/16 11:44 36.6 87 103/64 10/22/16 11:30 87 91/57 10/22/16 11:15 87 94/55 10/22/16 11:00 87 93/61 10/22/16 10:45 72 116/92 10/22/16 10:30 88 93/65 10/22/16 10:15 89 102/58 10/22/16 10:00 90 97/58 10/22/16 09:45 104 97/66 10/22/16 09:30 85 90/57 10/22/16 09:15 86 94/64 10/22/16 09:00 87 94/55 10/22/16 08:45 86 109/77 10/22/16 08:42 86 95/63 10/22/16 08:34 36.9 88 102/65 10/22/16 08:00 99 Nasal Cannula 3.0 10/22/16 07:43 36.9 85 18 102/69 99 Nasal Cannula 3.0 10/22/16 07:32 80 18 94 Nasal Cannula 3.0 10/22/16 04:00 36.7 90 18 107/73 100 Nasal Cannula 3.0 10/22/16 04:00 Nasal Cannula 10/22/16 01:54 Nasal Cannula 10/21/16 23:37 36.7 66 121/75 10/21/16 23:30 78 110/57 10/21/16 23:15 79 115/67 10/21/16 23:00 81 109/75 10/21/16 22:45 84 115/78 10/21/16 22:30 81 117/74 10/21/16 22:15 76 124/73 10/21/16 22:09 36.7 93 18 118/77 97 Nasal Cannula 3.0 10/21/16 22:00 83 118/72 10/21/16 21:45 84 120/72 10/21/16 21:30 74 118/66 10/21/16 21:15 75 123/75 10/21/16 21:00 82 119/67 10/21/16 20:45 82 119/83 10/21/16 20:30 70 126/88 10/21/16 20:15 70 125/77 10/21/16 20:00 73 138/78 10/21/16 19:40 36.9 68 107/68 10/21/16 19:32 82 21 135/81 94 Nasal Cannula 3.0 10/21/16 18:41 70 10/21/16 18:18 93 Nasal Cannula 3.0 10/21/16 17:33 36.4 74 20 113/72 87 Room Air 3.0 Lab Results: Results Past 24 Hours Test 10/21/16 18:36 10/22/16 00:12 10/22/16 05:27 10/22/16 05:40 Range/Units White Blood Count 10.13 7.88 4.8-10.8 K/uL Red Blood Count 3.08 2.82 4.2-5.4 M/uL Hemoglobin 9.8 8.7 12.0-16.0 g/dL Hematocrit 30.4 27.2 37-47 % Mean Corpuscular Volume 98.7 96.5 80-100 fL Mean Corpuscular Hemoglobin 31.8 30.9 25-34 pg Mean Corpuscular Hemoglobin Concent 32.2 32.0 32-36 g/dl RDW Standard Deviation 59.8 59.3 36.4-46.3 fL RDW Coefficient of Variation 17.1 17.0 11.5-14.5 % Platelet Count 214 161 130-400 K/uL Mean Platelet Volume 10.3 9.9 7.4-10.4 fL Sodium Level 123 131 136-145 mmol/L Potassium Level 6.6 4.2 3.5-5.1 mmol/L Chloride Level 88 95 98-107 mmol/L Carbon Dioxide Level 19 26 21-32 mmol/L Anion Gap 17.0 10.0 3-11 mmol/L Blood Urea Nitrogen 41 21 7-18 mg/dl Creatinine 4.60 3.00 0.60-1.20 mg/dl Est Creatinine Clear Calc Drug Dose 9.8 15.0 ml/min Estimated GFR () 10.8 18.1 Estimated GFR (Non- 9.3 15.7 BUN/Creatinine Ratio 8.9 7.1 10-20 Random Glucose 160 171 70-99 mg/dl Calcium Level 9.1 8.5 8.5-10.1 mg/dl Pro-B-Type Natriuretic Peptide 79060 0-900 pg/ml Bedside Glucose 100 70-90 mg/dl Arterial Blood pH 7.43 7.35-7.45 Arterial Blood Partial Pressure CO2 38 35-46 mmHg Arterial Blood Partial Pressure O2 141 80-95 mm/Hg Arterial Blood HCO3 25 19-24 mmol/L Arterial Blood Oxygen Saturation 97.1 90-95 % Arterial Blood Base Excess 0.4 -9-1.8 mEq/L Arterial Blood Gas Delivery 3L Conrad Test POS POS Prothrombin Time 13.0 9.0-12.0 SECONDS Prothromb Time International Ratio 1.2 0.9-1.1 Random Vancomycin Level 33.8 mcg/ml Test 10/22/16 06:39 10/22/16 11:54 Range/Units Bedside Glucose 153 86 70-90 mg/dl Microbiology Results 10/22/16 Blood Culture, Received Pending 10/22/16 Blood Culture, Received Pending 10/22/16 MRSA DNA Surveillance Screen - Final, Complete Specimen Negative for MRSA by DNA Probe
[2016-10-22] MEDS ORDERED: INSULIN GLARGINE SOLOSTAR 100 UNITS/ML 3 ML PEN SC SCH (21:00)
--- NOTE | 2016-10-22 21:35 | DIAGNOSTIC IMAGING REPORT ---
CHEST 2 VIEWS ROUTINE CLINICAL HISTORY: Follow-up congestive heart failure. COMPARISON STUDY: Chest radiograph October 21, 2016. FINDINGS: Note is made of a dual lumen right internal jugular catheter, dual lead left subclavian pacemaker, median sternotomy wires and prosthetic aortic valve. Cardiomegaly is unchanged. There are small bilateral pleural effusions. Interstitial thickening persists. There is hazy right lower lung opacity. There is no pneumothorax. IMPRESSION: 1. No significant change in pulmonary edema and small bilateral pleural effusions. 2. Hazy right lower lung opacity. Atelectasis is favored although consolidation could appear similar. Electronically signed by: Javier Ruiz M.D. 10/22/2016 9:33 PM Dictated Date/Time: 10/22/2016 9:31 PM
[2016-10-23] VITALS (8 sets, daily range): BP systolic 94–105; BP diastolic 62–69; PULSE 89–95; TEMP 36.5–36.8; O2SAT 96–99
[2016-10-23] MEDS: LEVALBUTEROL 1.25MG/3ML NEB INH SCH (06:56)
[2016-10-23] MEDS: INSULIN ASPART 100 UNITS/ML 3 ML PEN SC SCH ×2 (07:00→11:00)
[2016-10-23] MEDS: LACTULOSE SYRUP 20 GM/30 ML UDC PO SCH (08:11)
[2016-10-23] MEDS: ATORVASTATIN 40 MG TAB PO SCH (08:11)
[2016-10-23] MEDS: ESCITALOPRAM OXALATE 10 MG TAB PO SCH (08:11)
[2016-10-23] MEDS: PANTOprazole SOD 40 MG TAB PO SCH (08:12)
[2016-10-23] MEDS: PIPERACILL/TAZOBAC IV 3.375 GM in DEXTROSE 5% 100ML IV SCH (08:13)
[2016-10-23] MEDS: HEPARIN SOD 5000 UNIT/0.5 ML CARP SQ SCH (08:25)
[2016-10-23] MEDS ORDERED: INSULIN GLARGINE SOLOSTAR 100 UNITS/ML 3 ML PEN SC SCH (09:00)
--- NOTE | 2016-10-23 09:19 | Progress Note ---
Internal Med Progress Note Date of Service: Oct 23, 2016. Provider Documentation: SUBJECTIVE: The patient was seen and examined Admitted with SOB S/P Dialysis and feels better Asking when can she go home Wants to go home Denies any symptoms Says back to her baseline OBJECTIVE: Vital Signs-as noted below Exam: General-Minimal distress at rest Eyes-normal ENT-normal Neck-Supple Lungs-Decreased breath sound bilaterally Minimal crackles at the bases Heart-Regular,no murmur appreciated Abdomen-Benign,no masses,bowel sound present Extremities-No edema Neuro-AAOx3 Lab data as noted below. ASSESSMENT & PLAN: ACUTE ON CHRONIC RESPIRATORY FAILURE Secondary to PULMONARY EDEMA ACUTE ON CHRONIC SYSTOLIC/DIASTOLIC CHF IN THE SETTING OF ESRD ON HD, - patient presenting with increasing shortness of breath, weight gain, and productive cough - CXR showing pulmonary edema and bibasilar consolidations, possible pneumonia - recent echo - EF 45-50%, moderate mitral regurgitation, functioning bioprosthetic aortic valve - check ABG-unremarkable -clinically much better -says she back to her baseline and wants to go home today POSSIBLE PNEUMONIA, H/O Asthma CXR showing pulmonary edema and bibasilar consolidations, possible pneumonia Started on IV Vanco and Zosyn D/C Vanco and continue Zosyn Blood and sputum cultures Do not suspect sepsis No wheezing on exam, continue home inhalers for now, PRN nebs Repeat CXR- atelectasis /infiltration No increase in WCC/no fever oral Doxy on discharge SYNCOPAL EVENT - likely due to hypoxia from not wearing oxygen - had recent admission for syncope with extensive work up -no more episodes HYPONATREMIA, HYPERKALEMIA - likely hypervolemic hyponatremia - hyperkalemia due to ESRD - should improve with dialysis - follow up electrolytes after dialysis-improved HX CVA - continue ASA PAROXYSMAL AFIB, HEART BLOCK S/P PACEMAKER HX BIOPROSTHETIC AORTIC VALVE REPLACEMENT CAD - metoprolol recently d/c'd due to hypotension - Coumadin recently d/c'd due to fall risk - rate currently controlled -continue Aspirin and BB DM - continue Lantus and SSI LIZZ - CPAP as per home settings ALLEN - continue Lactulose DVT PROPHYLAXIS - SQ heparin CODE STATUS - Patient is a full code as per my discussion with her. DISPO likely discharge today Vital Signs: Date Time Temp Pulse Resp B/P Pulse Ox O2 Delivery O2 Flow Rate FiO2 1/25/17 09:02 99 Nasal Cannula 3.0 10/23/16 08:00 99 Nasal Cannula 3.0 10/23/16 07:43 36.6 94 16 105/69 99 Nasal Cannula 3.0 10/23/16 06:57 93 18 97 Nasal Cannula 3.0 10/23/16 04:00 Nasal Cannula 3.0 10/23/16 03:45 36.8 89 18 94/63 96 Nasal Cannula 3.0 10/23/16 00:01 Nasal Cannula 3.0 10/22/16 23:35 36.1 96 20 105/69 93 Nasal Cannula 3.0 10/22/16 20:00 36.6 95 22 113/74 95 Nasal Cannula 3.0 10/22/16 20:00 Nasal Cannula 3.0 10/22/16 16:00 Nasal Cannula 3.0 10/22/16 15:39 37.3 88 16 101/66 98 Nasal Cannula 3.0 10/22/16 15:21 90 18 98 Nasal Cannula 3.0 10/22/16 12:03 36.4 97 20 117/68 100 Nasal Cannula 3.0 10/22/16 12:00 99 Nasal Cannula 3.0 10/22/16 11:44 36.6 87 103/64 10/22/16 11:30 87 91/57 10/22/16 11:15 87 94/55 10/22/16 11:00 87 93/61 10/22/16 10:45 72 116/92 10/22/16 10:30 88 93/65 10/22/16 10:15 89 102/58 10/22/16 10:00 90 97/58 10/22/16 09:45 104 97/66 10/22/16 09:30 85 90/57 Lab Results: Results Past 24 Hours Test 10/22/16 11:54 10/22/16 16:27 10/22/16 20:14 10/23/16 05:05 Range/Units Bedside Glucose 86 145 127 70-90 mg/dl Pro-B-Type Natriuretic Peptide 80896 0-900 pg/ml Test 10/23/16 08:21 Range/Units Bedside Glucose 161 70-90 mg/dl
[2016-10-23 10:46] LABS: HEMATOCRIT 25.8 % (37-47); MEAN CELL VOLUME 98.5 fL (80-100); MEAN CORPUSCULAR HEMOGLOBIN 31.7 pg (25-34); MEAN CORPUSCULAR HGB CONC 32.2 g/dl (32-36); MEAN PLATELET VOLUME 9.1 fL (7.4-10.4); PLATELET COUNT 160 K/uL (130-400); RED BLOOD COUNT 2.62 M/uL (4.2-5.4); WHITE BLOOD COUNT 5.94 K/uL (4.8-10.8)
[2016-10-23 11:21] LABS: BUN/CREATININE RATIO 6.2 (10-20); CALCIUM 8.9 mg/dl (8.5-10.1); POTASSIUM 3.3 mmol/L (3.5-5.1)
[2016-10-23] MEDS ORDERED: DOXYCYCLINE HYCLATE 100 MG CAP PO STA (13:39)
[2016-10-23] MEDS ORDERED: DXY100 PO (13:44)
[2016-10-23] MEDS ORDERED: LCTX PO (13:44)
--- NOTE | 2016-10-23 13:47 | Discharge Instructions ---
Discharge Instructions Admission Reason for Admission: Pulmonary Edema Discharge Discharge Diagnosis / Problem: Fluid Overload,Pulmonary Edema,Pneumonia,ESRD on HD Discharge Goals Goal(s): Prevent Disease Progression Activity Recommendations Activity Limitations: resume your previous activity . Instructions / Follow-Up Instructions / Follow-Up DR Mayorga on 10/28/16 at 2:50PM.Continue Hemodialysis as an out patient Current Hospital Diet Patient's current hospital diet: Renal Diet, Diabetes Type 2 Diet, AHA Diet ( Heart Healthy) Discharge Diet Recommended Diet: Low Sodium Diet (2gm Na), Diabetes Type 2 Diet, Renal Diet Fluid Restriction: 1500 ml (6 cups) Pending Studies Studies pending at discharge: no Laboratory Results Hemoglobin A1c Test 10/08/16 06:39 Range/Units Estimated Average Glucose 140 mg/dl Hemoglobin A1c 6.5 H 4.5-5.6 % Medical Emergencies . Who to Call and When: Medical Emergencies: If at any time you feel your situation is an emergency, please call 911 immediately. . Non-Emergent Contact Non-Emergency issues call your: Primary Care Provider . . "Provider Documentation" section prepared by Pardeep Suarez. VTE Core Measure Inpt VTE Proph given/why not?: Unfractionated heparin SQ
--- NOTE | 2016-10-23 18:34 | Discharge Summary ---
Discharge Summary Admission Date: Oct 21, 2016 at 19:05 Discharge Date: Oct 23, 2016 Discharge Disposition: Home Principal Diagnosis: Fluid Overload,Pulmonary Edema,Pneumonia,ESRD on HD Secondary Diagnoses/Problems: Please see H&P Consultations: Nephrology Medication Reconciliation New Medications: Lactobacillus Acidophilus (Lactinex) Tab 2 TAB PO BID, #20 TAB Doxycycline Hyclate (Doxycycline Hyclate) 100 Mg Cap 100 MG PO BID for 5 Days, #10 CAP Continued Medications: Acetaminophen (Tylenol) 500 Mg Tab 1000 MG PO HS, TAB Aspirin (Aspirin Adult Low Dose) 81 Mg Tab 81 MG PO QPM Atorvastatin (Lipitor) 80 Mg Tab 1 TAB PO DAILY for 30 Days, #30 TAB 5 Refills B-Complex Vitamins (Vitamin B Complex) 1 Tab Tab 1 TAB PO QAM Escitalopram Oxalate (Lexapro) 5 Mg Tab 5 MG PO DAILY, #90 Gabapentin (Neurontin) 300 Mg Cap 300 MG PO HS Insulin Aspart (Novolog) 100 Units/Ml Inj SC UD PER SLIDING SCALE Insulin Glargine (Lantus) 100 Unit/Ml Inj 30 UNITS SC HS Ipratropium-Albuterol (Combivent Respimat) 1 Aer Aer 1 PUFFS INH QID PRN for SOB,OR PRIOR TO EXERTION Lactulose (Lactulose) 20 Gm/30 Ml Syrp 20 GM PO BID for 30 Days, #1800 ML 4 Refills Levalbuterol (Levalbuterol HCl) 1.25 Mg/3 Ml Nebu 3 ML INH Q8, #150 Montelukast Sod (Montelukast Sodium) 10 Mg Tab 10 MG PO HS Nitroglycerin (Nitrostat) 0.4 Mg Sub 0.4 MG UT PRN PRN for Chest Pain, BTL Omeprazole (Prilosec) 40 Mg Cap 40 MG PO DAILY, #60 Tramadol Hcl (Ultram) 50 Mg Tab 25 MG PO Q8 PRN for Pain, #60 Trazodone Hcl (Trazodone) 50 Mg Tab 50 MG PO HS, TAB Vitamin B Cmplx/Vitc/Folic Ac (Nephrocaps) 1 Cap Cap 1 CAP PO QPM Admission Information HPI (per Admitting provider): 66 year old female who presents to the ER with shortness of breath. Patient was recently admitted to [facility] 10/07 - 10/10 for syncope felt to be due to orthostatic hypotension. She had an EEG completed that was negative. At discharge, Imdur was stopped. Coumadin was also stopped due to frequent falls and striking her head. At her hospital follow up, patient was still hypotensive in the 90s so her metoprolol was stopped. Patient reports increasing shortness of breath and cough for the past few days. Cough has been productive for a white sputum. Patient has gained 4 pounds since yesterday. She has increased abdominal distention. [facility] Last treatment was on Friday. Last evening while trying to get into bed, patient had taken her oxygen off and was exerting herself. reports patient passed out for a few seconds. He reapplied her oxygen and she came to. No further episodes since. Patient reports chronic lightheadedness and dizziness when she wakes up in the morning. Patient denies fever and chills. She reports intermittent nausea but denies abdominal pain, vomiting, or diarrhea. She continues to make a small amount of urine. She denies dysuria. Home health nursing saw the patient today and called her PCP for concerns of shortness of breath and weight gain. Outpatient CXR was obtained that showed pulmonary edema. Patient was referred to the ER for further evaluation. In the ER, patient had hypoxia with exertion on her chronic 3L O2. When resting in bed, she is saturating well. Past Medical/Surgical History Medical Problems: (1) Asthma Status: Chronic (2) CAD (coronary artery disease) Status: Chronic (3) CHF (congestive heart failure) Status: Chronic (4) Cirrhosis of liver Status: Chronic (5) CKD (chronic kidney disease), stage III Status: Chronic (6) Depression Status: Chronic (7) Diabetes mellitus Status: Chronic (8) Dyslipidemia Status: Chronic (9) History of stroke Permanent Comment: 2004, no residual deficit Status: Chronic (10) HTN (hypertension) Status: Chronic (11) Osteoarthritis Status: Chronic (12) Pacemaker Status: Chronic (13) PAF (paroxysmal atrial fibrillation) Status: Chronic (14) Sleep apnea Permanent Comment: on CPAP Status: Chronic Surgical Problems: (1) Aortic valve replaced Status: Chronic (2) S/P CABG x 2 Status: Chronic (3) S/P placement of cardiac pacemaker Permanent Comment: 2009 Status: Chronic (4) S/P tonsillectomy Status: Chronic (5) Status post left heart catheterization Permanent Comment: 10/21/2013 [facility] [place] Status: Chronic Family History Asthma FATHER FH: cancer MOTHER (pancreatic) Heart disease BROTHER ( of [place] age 43) SISTER (CAD age 60) SISTER (CAD age 57) Social History Smoking Status: Never Smoker Alcohol Use: none Marital Status: Immunizations History of Influenza Vaccine: Yes Influenza Vaccine Date: Jul 06, 2016 History of Tetanus Vaccine?: Yes Tetanus Immunization Date: Oct 15, 2010 History of Pneumococcal: Yes Pneumococcal Date: May 09, 2016 Allergies Coded Allergies: Lisinopril (Verified Adverse Reaction, Unknown, COUGH, 09/18/16) Home Medications Scheduled Acetaminophen (Tylenol), 1,000 MG PO HS Aspirin (Aspirin Adult Low Dose), 81 MG PO QPM Atorvastatin (Lipitor), 1 TAB PO DAILY B-Complex Vitamins (Vitamin B Complex), 1 TAB PO QAM Escitalopram Oxalate (Lexapro), 5 MG PO DAILY Gabapentin (Neurontin), 300 MG PO HS Insulin Aspart (Novolog), SC UD Insulin Glargine (Lantus), 30 UNITS SC HS Lactulose (Lactulose), 20 GM PO BID Levalbuterol (Levalbuterol HCl), 3 ML INH Q8 Montelukast Sod (Montelukast Sodium), 10 MG PO HS Omeprazole (Prilosec), 40 MG PO DAILY Trazodone Hcl (Trazodone), 50 MG PO HS Vitamin B Cmplx/Vitc/Folic Ac (Nephrocaps), 1 CAP PO QPM Scheduled PRN Ipratropium-Albuterol (Combivent Respimat), 1 PUFFS INH QID PRN for SOB,OR PRIOR TO EXERTION Nitroglycerin (Nitrostat), 0.4 MG UT PRN PRN for Chest Pain Tramadol Hcl (Ultram), 25 MG PO Q8 PRN for Pain Review of Systems 10 point review of systems was completed with the pertinent positives and negatives noted per the HPI Physical Ex - H&P Physical Exam Vital Signs Date Time Temp Pulse Resp B/P Pulse Ox O2 Delivery O2 Flow Rate FiO2 10/21/16 19:32 82 21 135/81 94 Nasal Cannula 3.0 10/21/16 18:41 70 10/21/16 18:18 93 Nasal Cannula 3.0 10/21/16 17:33 36.4 74 20 113/72 87 Room Air 3.0 General Appearance: + mild distress Head: normocephalic Eyes: normal inspection ENT: hearing grossly normal Neck: supple, no JVD Respiratory/Chest: + decreased breath sounds, + crackles, + pertinent finding ( tachypnea) Cardiovascular: regular rate, rhythm, no edema, normal peripheral pulses Abdomen/GI: normal bowel sounds, non tender, + distended Extremities/Musculoskelatal: normal inspection, no calf tenderness Neurologic/Psych: no motor/sensory deficits, alert, normal mood/affect, oriented x 3 Skin: normal color, warm/dry Diagnostics - H&P Diagnostics Laboratory Results Results Past 24 Hours Test 10/21/16 18:36 10/21/16 19:16 Range/Units White Blood Count 10.13 4.8-10.8 K/uL Red Blood Count 3.08 4.2-5.4 M/uL Hemoglobin 9.8 12.0-16.0 g/dL Hematocrit 30.4 37-47 % Mean Corpuscular Volume 98.7 80-100 fL Mean Corpuscular Hemoglobin 31.8 25-34 pg Mean Corpuscular Hemoglobin Concent 32.2 32-36 g/dl RDW Standard Deviation 59.8 36.4-46.3 fL RDW Coefficient of Variation 17.1 11.5-14.5 % Platelet Count 214 130-400 K/uL Mean Platelet Volume 10.3 7.4-10.4 fL Sodium Level 123 136-145 mmol/L Chloride Level 88 98-107 mmol/L Carbon Dioxide Level 19 21-32 mmol/L Anion Gap 17.0 3-11 mmol/L Blood Urea Nitrogen 41 7-18 mg/dl Creatinine 4.60 0.60-1.20 mg/dl Est Creatinine Clear Calc Drug Dose 9.8 ml/min Estimated GFR () 10.8 Estimated GFR (Non- 9.3 Random Glucose 160 70-99 mg/dl Calcium Level 9.1 8.5-10.1 mg/dl Pro-B-Type Natriuretic Peptide 24067 0-900 pg/ml Microbiology Results 10/21/16 Blood Culture, Sarah Batch Pending 10/21/16 Blood Culture, Sarah Batch Pending Diagnostic Radiology CXR IMPRESSION: 1. Cardiomegaly and cardiac pacemaker. There is evidence of congestive failure and interstitial edema. 2. Layering pleural effusions and bibasilar consolidation. This likely represents atelectasis. Correlate clinically for evidence of a superimposed infectious or inflammatory pneumonitis. Impression - H&P Impression Assessment and Plan ACUTE ON CHRONIC RESPIRATORY FAILURE DUE TO PULMONARY EDEMA FROM ACUTE ON CHRONIC SYSTOLIC/DIASTOLIC CHF IN THE SETTING OF ESRD ON HD, POSSIBLE PNEUMONIA , HX ASTHMA - admit to tele - patient presenting with increasing shortness of breath, weight gain, and productive cough - CXR showing pulmonary edema and bibasilar consolidations, possible pneumonia - patient with hx of CHF, typically fluid managed with dialysis - case discussed with Dr. Ayala - patient will received dialysis tonight - recent echo - EF 45-50%, moderate mitral regurgitation, functioning bioprosthetic aortic valve - check ABG - for pneumonia, will empirically place on Vanco and and Zosyn due to recent hospitalization; check MRSA nasal swab and if negative can d/c Vanco - blood and sputum cultures - do not suspect sepsis - no wheezing on exam, continue home inhalers for now, PRN nebs SYNCOPAL EVENT - likely due to hypoxia from not wearing oxygen - had recent admission for syncope with extensive work up HYPONATREMIA, HYPERKALEMIA - likely hypervolemic hyponatremia - hyperkalemia due to ESRD - should improve with dialysis - check EKG - follow up electrolytes after dialysis HX CVA - continue ASA PAROXYSMAL AFIB, HEART BLOCK S/P PACEMAKER - metoprolol recently d/c'd due to hypotension - Coumadin recently d/c'd due to fall risk - rate currently controlled HX BIOPROSTHETIC AORTIC VALVE REPLACEMENT DM - continue Lantus and SSI CAD - no reports of chest pain - metoprolol and Imdur recently d/c'd due to syncope from hypotension - continue ASA and beta mauricio LIZZ - CPAP as per home settings ALLEN - continue Lactulose DVT PROPHYLAXIS - SQ heparin CODE STATUS - Patient is a full code as per my discussion with her. DISPO - In my clinical judgment this beneficiary meets acute admission criteria, established by [facility], that includes being hospitalized through two midnights. Attending Note: Patient is a 66 yr old female with multiple comorbidities presents with history of worsening SOB, productive cough, weight gain and abdominal distention. She has ESRD and is on dialysis. CXR findings are suggestive of CHF, layering pleural effusion and bibasilar consolidation. She has oxygen dependency and is on 3L NC at baseline. She was found to be hyperkalemic and is planned for urgent dialysis at the time of admission. Physical Exam: Vitals signs as noted above General Appearance:Chronically ill appearing. mild resp. distress Head: normocephalic, Atraumatic Eyes: normal inspection, EOMI, PERRLA Neck: supple, Trachea midline Respiratory/Chest: Decreased breath sounds, + crackles, No accessory muscle use Cardiovascular: S1, S2, NSR, No murmur Abdomen/GI:Soft, Non tender, BS present, protuberant Extremities/Musculoskeletal:normal inspection, no calf tenderness Neurologic/Psych:AAOX3, grossly no focal neurological deficits Skin:normal color,warm Assessment and Plan: Volume overload: Secondary to CHF exacerbation, ESRD Hyponatremia secondary to volume overload Hyperkalemia secondary to ESRD, check EKG Needs urgent hemodialysis Nephrology consulted Last ECHO: EF:45-50% BNP:23,804 Acute on chronic respiratory failure with hypoxia: Secondary to volume overload as above and HCAP H/O LIZZ Broad spectrum IV antibiotics Blood/Sputum cultures Oxygen support, Bronchodilators PRN HD per Nephrology ABG pending I personally reviewed the record. Patient is interviewed and examined at bedside. Patient's care is coordinated with Joleen Costa ELECTRICAL SERVICE TECHNICIAN. Please refer to the documentation above for details of patient's presentation and for discussion of other issues. VTE Prophylaxis VTE Risk Assessment Done? Y/N: Yes Risk Level: Moderate Physical Exam (per Admitting): General Appearance: + mild distress Head: normocephalic Eyes: normal inspection ENT: hearing grossly normal Neck: supple, no JVD Respiratory/Chest: + decreased breath sounds, + crackles, + pertinent finding (tachypnea) Cardiovascular: regular rate, rhythm, no edema, normal peripheral pulses Abdomen/GI: normal bowel sounds, non tender, + distended Extremities/Musculoskelatal: normal inspection, no calf tenderness Neurologic/Psych: no motor/sensory deficits, alert, normal mood/affect, oriented x 3 Skin: normal color, warm/dry Hospital Course ACUTE ON CHRONIC RESPIRATORY FAILURE Secondary to PULMONARY EDEMA ACUTE ON CHRONIC SYSTOLIC/DIASTOLIC CHF IN THE SETTING OF ESRD ON HD, - patient presenting with increasing shortness of breath, weight gain, and productive cough - CXR showing pulmonary edema and bibasilar consolidations, possible pneumonia - recent echo - EF 45-50%, moderate mitral regurgitation, functioning bioprosthetic aortic valve - check ABG-unremarkable -clinically much better -says she back to her baseline and wants to go home today POSSIBLE PNEUMONIA, H/O Asthma CXR showing pulmonary edema and bibasilar consolidations, possible pneumonia Started on IV Vanco and Zosyn D/C Vanco and continue Zosyn Blood and sputum cultures Do not suspect sepsis No wheezing on exam, continue home inhalers for now, PRN nebs Repeat CXR- atelectasis /infiltration No increase in WCC/no fever oral Doxy on discharge SYNCOPAL EVENT - likely due to hypoxia from not wearing oxygen - had recent admission for syncope with extensive work up -no more episodes HYPONATREMIA, HYPERKALEMIA - likely hypervolemic hyponatremia - hyperkalemia due to ESRD - should improve with dialysis - follow up electrolytes after dialysis-improved HX CVA - continue ASA PAROXYSMAL AFIB, HEART BLOCK S/P PACEMAKER HX BIOPROSTHETIC AORTIC VALVE REPLACEMENT CAD - metoprolol recently d/c'd due to hypotension - Coumadin recently d/c'd due to fall risk - rate currently controlled -continue Aspirin and BB DM - continue Lantus and SSI LIZZ - CPAP as per home settings ALLEN - continue Lactulose DVT PROPHYLAXIS - SQ heparin CODE STATUS - Patient is a full code as per my discussion with her. DISPO likely discharge today Total time spent on discharge = 35 minutes This includes examination of the patient, discharge planning, medication reconciliation, and communication with other providers. Discharge Instructions Admission Reason for Admission: Pulmonary Edema Discharge Discharge Diagnosis / Problem: Fluid Overload,Pulmonary Edema,Pneumonia,ESRD on HD Discharge Goals Goal(s): Prevent Disease Progression Activity Recommendations Activity Limitations: resume your previous activity . Instructions / Follow-Up Instructions / Follow-Up DR Mayorga on 10/28/16 at 2:50PM.Continue Hemodialysis as an out patient Current Hospital Diet Patient's current hospital diet: Renal Diet, Diabetes Type 2 Diet, AHA Diet ( Heart Healthy) Discharge Diet Recommended Diet: Low Sodium Diet (2gm Na), Diabetes Type 2 Diet, Renal Diet Fluid Restriction: 1500 ml (6 cups) Pending Studies Studies pending at discharge: no Laboratory Results Hemoglobin A1c Test 10/08/16 06:39 Range/Units Estimated Average Glucose 140 mg/dl Hemoglobin A1c 6.5 H 4.5-5.6 % Medical Emergencies . Who to Call and When: Medical Emergencies: If at any time you feel your situation is an emergency, please call 911 immediately. . Non-Emergent Contact Non-Emergency issues call your: Primary Care Provider . . "Provider Documentation" section prepared by Pardeep Suarez. VTE Core Measure Inpt VTE Proph given/why not?: Unfractionated heparin SQ <Electronically signed by Pardeep Suarez M.D.> Additional Copies To Nato Mayorga D.O.
[2016-10-23] MEDS ORDERED: DOXYCYCLINE HYCLATE 100 MG CAP PO SCH (21:00)
[2016-10-24] MEDS ORDERED: HEPARIN SOD (PORCINE) 1000 UNIT/ML 10 ML VIAL IV SCH ×2 (08:00)
[2016-10-24] MEDS ORDERED: ALBUMIN HUMAN 25% 12.5 GM/50 ML VIAL IV SCH (08:00)
[2016-10-24] MEDS ORDERED: EPOETIN ALFA 10,000 UNITS/ML VIAL IV. SCH (08:00)
[2016-10-28] MEDS ORDERED: INSDGI SC (10:01)
[2016-10-28] MEDS ORDERED: LCTX PO (10:01)
[2016-10-28] MEDS ORDERED: NVLG SC (10:01)
[2016-10-28] MEDS ORDERED: ASPCH81X PO (10:01)
[2016-10-28] MEDS ORDERED: B-CO1CAP17 PO (10:01)
[2016-10-28] MEDS ORDERED: ESCI5TAB PO (10:01)
[2016-10-28] MEDS ORDERED: DOXY-300 PO (10:01)
[2016-10-28] MEDS ORDERED: LACT10SO17 PO (10:01)
[2016-10-28] MEDS ORDERED: TRAM-10 PO (10:02)
[2016-12-13] MEDS ORDERED: INSDGIPEN SC (14:36)
[2016-12-13] MEDS ORDERED: NVLGIPEN SC (14:36)
[2016-12-13] MEDS ORDERED: TRAM-10 PO (14:59)
== END 2016-10-23 14:29 | disposition home health service (06) | DRG 291 ==
LOC: ENRESERVDT → ENRESERVTM → CANRESERV → C.EDB 17:31 → C.2T 19:05
PROVIDERS: ADMIT Internal Medicine; ATTEND Internal Medicine
DX: I13.2 Hypertensive heart and chronic kidney disease with heart failure and with stage 5 chronic kidney disease, or end stage renal disease (principal); J18.9 Pneumonia, unspecified organism; J96.21 Acute and chronic respiratory failure with hypoxia; I50.43 Acute on chronic combined systolic (congestive) and diastolic (congestive) heart failure; N18.6 End stage renal disease; E87.1 Hypo-osmolality and hyponatremia; R55 Syncope and collapse; I95.9 Hypotension, unspecified; E87.5 Hyperkalemia; D63.1 Anemia in chronic kidney disease; N25.0 Renal osteodystrophy; I25.10 Atherosclerotic heart disease of native coronary artery without angina pectoris; I48.0 Paroxysmal atrial fibrillation; I45.9 Conduction disorder, unspecified; J45.909 Unspecified asthma, uncomplicated; K74.60 Unspecified cirrhosis of liver; F32.9 Major depressive disorder, single episode, unspecified; E11.22 Type 2 diabetes mellitus with diabetic chronic kidney disease; E78.5 Hyperlipidemia, unspecified; M19.90 Unspecified osteoarthritis, unspecified site; I34.0 Nonrheumatic mitral (valve) insufficiency; K75.81 Nonalcoholic steatohepatitis (NASH); G47.33 Obstructive sleep apnea (adult) (pediatric); Z99.89 Dependence on other enabling machines and devices; Z99.81 Dependence on supplemental oxygen; Z99.2 Dependence on renal dialysis; Z95.1 Presence of aortocoronary bypass graft; Z95.3 Presence of xenogenic heart valve; Z95.0 Presence of cardiac pacemaker; Z91.81 History of falling; Z86.73 Personal history of transient ischemic attack (TIA), and cerebral infarction without residual deficits; Z79.82 Long term (current) use of aspirin; Z79.4 Long term (current) use of insulin; Z79.891 Long term (current) use of opiate analgesic; Z79.899 Other long term (current) drug therapy

== ENCOUNTER 2016-10-30 09:17 | Inpatient (IN) | payer OTHER ==
[2016-10-28 10:02] VITALS: BMI 32.0
[~2016-10-30] VITALS: Ht 144.8 cm; Wt 68.1 kg
[2016-10-30] VITALS (16 sets, daily range): BP systolic 95–121; BP diastolic 44–96; PULSE 67–97; TEMP 36.4–37.1; O2SAT 93–98; BMI 31.6
[~2016-10-30 09:17] MED LIST changes: -ACET-1256 PO; -AMOX500C3 PO; +ASPCH81X PO; -ASPI-589 PO; +B-CO1CAP17 PO; -B-COCAP2 PO; -B-COTAB18 PO; -BXN500 PO; +DOXY-300 PO; -ESCI1TAB6 PO; +ESCI5TAB PO; -FLUC100T4 PO; +LACT10SO17 PO; -LCTL30 PO; +LCTX PO; -METO25TA3 PO; -OMEP40CA41 PO; -OXYC-57 PO; +TRAM-10 PO; -ULT/50 PO; -XPNINS125 INH
[2016-10-30] MEDS ORDERED: ONDANSETRON INJ 2 MG/ML 2 ML VIAL IV PRN (10:30)
[2016-10-30] MEDS ORDERED: ACETAMINOPHEN 325 MG TAB PO PRN (10:30)
[2016-10-30 10:46] LABS: HEMATOCRIT 30.1 % (37-47); MEAN CELL VOLUME 98.4 fL (80-100); MEAN CORPUSCULAR HEMOGLOBIN 31.4 pg (25-34); MEAN PLATELET VOLUME 9.6 fL (7.4-10.4); PLATELET COUNT 178 K/uL (130-400); RED BLOOD COUNT 3.06 M/uL (4.2-5.4); WHITE BLOOD COUNT 6.81 K/uL (4.8-10.8)
[2016-10-30 10:49] LABS: MEAN CORPUSCULAR HGB CONC 31.9 g/dl (32-36)
--- NOTE | 2016-10-30 11:01 | Anesthesiology Progress Note ---
Anesthesia Progress Note Date of Service Oct 30, 2016. Progress Notes The patient was scheduled for an EGD today by Dr. Rivera. She has a history of ESRD on dialysis as well as pulmonary disease requiring oxygen. She was last dialyzed yesterday. An istat potassium level was 6.[address] Rivera was made aware and Dr. Morales from nephrology came to evaluate the patient. The patient has also had a cough that has been worsening over the past several weeks. The hospitalist service will evaluate the patient and likely admit her for dialysis treatment and to work up her cough. Her EGD will be cancelled today and rescheduled when the patient is better optimized.
[2016-10-30 11:22] LABS: BUN/CREATININE RATIO 8.2 (10-20); CALCIUM 8.8 mg/dl (8.5-10.1); CREATININE 4.5 mg/dl (0.60-1.20); POTASSIUM 5.1 mmol/L (3.5-5.1)
[2016-10-30 12:11] LABS: ISTAT CREATININE 4.3 mg/dl (0.6-1.3); ISTAT HEMOGLOBIN 11.6 g/dl (12.0-16.0); ISTAT IONIZED CALCIUM 1.14 mmol/l (1.12-1.32)
[2016-10-30] MEDS ORDERED: OMEP40CA41 PO (13:00)
[2016-10-30] MEDS ORDERED: IPRATROPIUM BROMIDE/ALBUTEROL respimat INH INH PRN (13:00)
[2016-10-30] MEDS ORDERED: TRAMADOL HCL 50 MG TAB PO PRN (13:00)
[2016-10-30] MEDS ORDERED: DEXTROSE 50% 50 ML SYR IV PRN (13:15)
[2016-10-30] MEDS ORDERED: GLUCAGON FOR INJ 1 MG VIAL SQ PRN (13:15)
[2016-10-30] MEDS ORDERED: GLUCOSE 10 TABS/TUBE PO PRN (13:15)
[2016-10-30] MEDS ORDERED: GLUCOSE 40% GEL 15 GM TUBE PO PRN (13:15)
--- NOTE | 2016-10-30 13:24 | History and Physical ---
History & Physical Date & Time of Service: Oct 30, 2016 at 13:04 Chief Complaint: Hyperkalemia Primary Care Physician: Nato Mayorga D.O. History of Present Illness 66 year old female who is a direct admission from the outpatient GI lab for hyperkalemia. Patient was having a scheduled endoscopy today for follow up a gastric ulcer. Preop labs showed K+ 6.2. Therefore case was deferred until potassium has normalized. Patient has ESRD and is on HD. Dr. Lao from nephrology was contacted and patient will receive dialysis today. Patient had a recent admission to [facility] for volume overload. She reports she has been feeling well since being home. She has chronic shortness of breath on exertion which is unchanged. She has had a chronic cough productive for clear sputum for the past one month which is unchanged. She denies chest pain. No lightheadedness, dizziness, or syncopal events. She denies abdominal pain, nausea, vomiting, or diarrhea. At the time of my exam, patient is resting in bed in no acute distress. Past Medical/Surgical History Medical Problems: (1) Asthma Status: Chronic (2) CAD (coronary artery disease) Status: Chronic (3) CHF (congestive heart failure) Status: Chronic (4) Cirrhosis of liver Status: Chronic (5) CKD (chronic kidney disease), stage III Status: Chronic (6) Depression Status: Chronic (7) Diabetes mellitus Status: Chronic (8) Dyslipidemia Status: Chronic (9) History of stroke Permanent Comment: 2004, no residual deficit Status: Chronic (10) HTN (hypertension) Status: Chronic (11) Osteoarthritis Status: Chronic (12) Pacemaker Status: Chronic (13) PAF (paroxysmal atrial fibrillation) Status: Chronic (14) Sleep apnea Permanent Comment: on CPAP Status: Chronic Surgical Problems: (1) Aortic valve replaced Status: Chronic (2) S/P CABG x 2 Status: Chronic (3) S/P placement of cardiac pacemaker Permanent Comment: 2009 Status: Chronic (4) S/P tonsillectomy Status: Chronic (5) Status post left heart catheterization Permanent Comment: 10/21/2013 [facility] [place] Status: Chronic Family History Asthma FATHER FH: cancer MOTHER (pancreatic) Heart disease BROTHER ( of [place] age 43) SISTER (CAD age 60) SISTER (CAD age 57) Social History Smoking Status: Never Smoker Alcohol Use: none Marital Status: Housing status: lives with significant other Immunizations History of Influenza Vaccine: Yes Influenza Vaccine Date: Jul 06, 2016 History of Tetanus Vaccine?: Yes Tetanus Immunization Date: Oct 15, 2010 History of Pneumococcal: Yes Pneumococcal Date: May 09, 2016 Allergies Coded Allergies: Lisinopril (Verified Adverse Reaction, Unknown, COUGH, 10/28/16) Home Medications Scheduled Aspirin (Aspirin Chewable), 81 MG PO QAM Atorvastatin (Lipitor), 1 TAB PO HS Escitalopram Oxalate (Lexapro), 5 MG PO QAM Gabapentin (Neurontin), 300 MG PO HS Insulin Aspart (Novolog), 1 DOSE SC QID Insulin Glargine (Lantus), 30 UNITS SC QPM Lactobacillus Acidophilus (Lactinex), 2 TAB PO BID Lactulose (Chronulac), 20 ML PO BID Montelukast Sod (Montelukast Sodium), 10 MG PO HS Omeprazole (Prilosec), 1 CAP PO DAILY Trazodone Hcl (Trazodone), 50 MG PO HS Vitamin B Cmplx/Vitc/Folic Ac (Nephrocaps), 1 CAP PO QAM Scheduled PRN Ipratropium-Albuterol (Combivent Respimat), 1 PUFFS INH QID PRN for SOB,OR PRIOR TO EXERTION Nitroglycerin (Nitrostat), 0.4 MG UT PRN PRN for Chest Pain Tramadol (Ultram), 50 MG PO Q8H PRN for Pain Review of Systems 10 point review of systems was completed with the pertinent positives and negatives noted per the HPI Physical Exam Vital Signs Date Time Temp Pulse Resp B/P Pulse Ox O2 Delivery O2 Flow Rate FiO2 10/30/16 09:46 36.7 85 20 106/66 95 Nasal Cannula 3 General Appearance: no apparent distress Head: normocephalic Eyes: normal inspection ENT: hearing grossly normal Neck: supple, no JVD Respiratory/Chest: no respiratory distress, + decreased breath sounds, + crackles (faint, BL bases) Cardiovascular: regular rate, rhythm, no edema, normal peripheral pulses Abdomen/GI: normal bowel sounds, non tender, + distended (semi firm) Extremities/Musculoskelatal: normal inspection, no calf tenderness Neurologic/Psych: no motor/sensory deficits, alert, normal mood/affect, oriented x 3 Skin: normal color, warm/dry Diagnostics Laboratory Results Results Past 24 Hours Test 2/1/17 09:36 10/30/16 10:39 10/30/16 12:27 Range/Units Bedside Hemoglobin 11.6 12.0-16.0 g/dl Bedside Hematocrit 34 37-47 % Bedside Sodium 126 135-144 mEq/L Bedside Potassium 6.2 3.3-5.0 mEq/L Bedside Chloride 89 101-112 mEq/L Bedside Total CO2 28 24-31 mEq/l Anion Gap 16.0 12.0 3-11 mmol/L Bedside Blood Urea Nitrogen 54 7-18 mg/dl Bedside Creatinine 4.3 0.6-1.3 mg/dl Bedside Glucose (other) 105 70-99 mg/dl Bedside Ionized Calcium (Rashida) 1.14 1.12-1.32 mmol/l White Blood Count 6.81 4.8-10.8 K/uL Red Blood Count 3.06 4.2-5.4 M/uL Hemoglobin 9.6 12.0-16.0 g/dL Hematocrit 30.1 37-47 % Mean Corpuscular Volume 98.4 80-100 fL Mean Corpuscular Hemoglobin 31.4 25-34 pg Mean Corpuscular Hemoglobin Concent 31.9 32-36 g/dl RDW Standard Deviation 61.3 36.4-46.3 fL RDW Coefficient of Variation 17.2 11.5-14.5 % Platelet Count 178 130-400 K/uL Mean Platelet Volume 9.6 7.4-10.4 fL Sodium Level 126 136-145 mmol/L Potassium Level 5.1 3.5-5.1 mmol/L Chloride Level 89 98-107 mmol/L Carbon Dioxide Level 25 21-32 mmol/L Blood Urea Nitrogen 37 7-18 mg/dl Creatinine 4.50 0.60-1.20 mg/dl Est Creatinine Clear Calc Drug Dose 9.8 ml/min Estimated GFR () 11.1 Estimated GFR (Non- 9.6 BUN/Creatinine Ratio 8.2 10-20 Random Glucose 97 70-99 mg/dl Calcium Level 8.8 8.5-10.1 mg/dl Bedside Glucose 98 70-90 mg/dl Impression Assessment and Plan HYPERKALEMIA IN THE SETTING OF ESRD ON HD - admit to tele - initial POC K+ 6.2, 5.1 on recheck - will receive HD today - nephrology consult - Dr. Lao reports patient has been taking OTC potassium supplements - patient instructed to stop these HX GASTRIC ULCER - was scheduled for outpatient follow up EGD today however cancelled due to hyperkalemia - will keep NPO after midnight and have scope completed tomorrow - continue PPI HX CVA - continue ASA PAROXYSMAL AFIB, HEART BLOCK S/P PACEMAKER - currently not on any rate controlling meds due to hypotension - no Coumadin due to fall risk - rate currently controlled HX BIOPROSTHETIC AORTIC VALVE REPLACEMENT DM - continue Lantus and SSI CAD - no reports of chest pain - metoprolol and Imdur stopped due to syncope from hypotension - continue ASA and statin LIZZ - CPAP as per home settings ALLEN - continue Lactulose DVT PROPHYLAXIS - SCDs due to EGD tomorrow DISPO - In my clinical judgment this beneficiary meets acute admission criteria, established by [facility], that includes being hospitalized through two midnights. ATTENDING ADDENDUM care coordinated with DANIEL Costa please refer to her notes for full details, I agree with her notes patient seen and examined, records reviewed by myself as well on exam, patient seen sitting up in bed, has occasional cough, otherwise comfortable denies abdominal pain, shortness of breath no other symptoms VS noted and reviewed oriented x 3, not in distress, speaks in sentences with no effort nor accessory muscle use normal rate, regular rhythm, no murmurs clear breath sounds bilaterally non distended, soft, nontender no bipedal edema, erythema, warmth no neuro deficits K 5.1 CXR pending ASSESSMENT/PLAN> ESRD for HD today plan for EGD tomorrow DRY COUGH CXR pending, if unrevealing, may be upper airway cough syndrome trial of Flonase, increase Combivent to QID other diagnoses and plan of care as per FRANK Costa's notes Jeromy Javier MD VTE Prophylaxis VTE Risk Assessment Done? Y/N: Yes Risk Level: Moderate
--- NOTE | 2016-10-30 14:29 | DIAGNOSTIC IMAGING REPORT ---
CHEST ONE VIEW PORTABLE CLINICAL HISTORY: cough dyspnea COMPARISON STUDY: 10/22/2016 FINDINGS: Moderate stable cardiomegaly. Persistent prominence of pulmonary vasculature. Slight pleural fluid right base. Subtle improvement in visibility left hemidiaphragm. Permanent bipolar cardiac pacemaker in good position. PermCath in the right atrium. IMPRESSION: Congestive failure versus mild pulmonary edema. No major change compared to the prior study. Electronically signed by: Severiano Cross M.D. 10/30/2016 2:28 PM Dictated Date/Time: 10/30/2016 2:27 PM
[2016-10-30] MEDS: LACTOBACILLUS ACIDOPHILUS (FLORANEX) TAB PO SCH (15:52)
[2016-10-30] MEDS: IPRATROPIUM BROMIDE/ALBUTEROL respimat INH INH SCH ×2 (15:53→20:14)
[2016-10-30] MEDS ORDERED: HEPARIN SOD (PORCINE) 1000 UNIT/ML 10 ML VIAL IV SCH ×2 (16:15)
[2016-10-30] MEDS: INSULIN ASPART 100 UNITS/ML 3 ML PEN SC SCH ×2 (16:57→20:26)
--- NOTE | 2016-10-30 17:22 | Nephrology Consultation ---
Nephrology Consultation Date of Consultation: Oct 30, 2016. Attending Physician: Dr. Rivera Requesting Physician: Dr. Javier Reason for Consultation: ESRD, hyperkalemia History of Present Illness 66 year old female w/ complex cardiopulmonary hx and ESRD as below admitted today after iSTAT labs showed k 6.2 before elective/ outpt EGD to follow up gastric ulcer noted on study last month. Pt dialyzes TRSat at [facility]; last done yesterday per her report for full treatment. Also c/o bothersome cough new x 3 wks w/ clear phlegm. No change in chronic 02 use. Serum labs showed K 5.1; however in interest of optimizing her for GI study, admitted for further mgt. No pain, no f/c, no change in chronic dyspnea. Pt d/c from here on 10/25 after 3 day admission for hyperkalemia and volume overload; presenting K on that day was 6.6. Had antibiotics for pneumonia presenting w/ cough that admission as well. Pt states that "some doctor," not sure which doctor or what institution, had told him his 's K was low and that he gives her K periodically, "but not every day." he cannot give many more details on this but states was giving it to her recently. Note that recent admission/discharge summary each had no K supplements on med list. Past Medical/Surgical History Medical Problems: (1) Acute renal failure Status: Acute (2) Anemia Status: Acute (3) Change in mental status Status: Acute (4) CHF (congestive heart failure) Status: Chronic (5) CHF (congestive heart failure) Status: Acute (6) Chronic kidney disease Status: Acute (7) Congestive heart failure Status: Acute (8) Dehydration Status: Acute (9) Dialysis patient Status: Acute (10) Hyperglycemia Status: Acute (11) Hyperglycemia Status: Acute (12) Hypoglycemia Status: Acute (13) Hyponatremia Status: Acute (14) Hyponatremia Status: Acute (15) Hypoxia Status: Acute (16) Noncompliance with medication regimen Status: Acute (17) Pleural effusion Status: Acute (18) Shortness of breath Status: Acute (19) Syncope Status: Acute (20) Traumatic hematoma of head Status: Acute -CAD s/p CABG -s/p bioprosthetic aortic valve -postoperative stroke -paroxysmal atrial fibrillation w/ coumadin stopped 09/2016 d/t hypotension and frequent falls -EF 45% -s/p pacemaker -chronic hypoxic respiratory failure on 02NC3L -LIZZ on CPAP -asthma -NAFLD w/ liver cirrhosis and gastric ulcer/varices -HTN -HL -ESRD on TRSat HD via TDC w/ maturing AVF at [facility] -gastric ulcer/varices Family History Asthma FATHER FH: cancer MOTHER (pancreatic) Heart disease BROTHER ( of [place] age 43) SISTER (CAD age 60) SISTER (CAD age 57) Social History Smoking Status: Never Smoker Alcohol Use: none Drug Use: none Marital Status: Housing Status: lives with family, lives with significant other Occupation Status: disabled Allergies Coded Allergies: Lisinopril (Verified Adverse Reaction, Unknown, COUGH, 10/28/16) Medications Current Inpatient Medications Medications (Trade) Dose Ordered Sig/Dalton Route Start Time Stop Time Status Last Admin Dose Admin Acetaminophen (Tylenol Tab) 650 mg Q4H PRN PO 10/30/16 10:30 11/29/16 10:29 Ondansetron HCl (Zofran Inj) 4 mg Q6H PRN IV 10/30/16 10:30 11/29/16 10:29 Aspirin (Aspirin Chew) 81 mg QAM PO 10/31/16 09:00 11/30/16 08:59 Atorvastatin Calcium (Lipitor Tab) 80 mg HS PO 10/30/16 21:00 11/29/16 20:59 Escitalopram Oxalate (Lexapro Tab) 5 mg QAM PO 10/31/16 09:00 11/30/16 08:59 Gabapentin (Neurontin Cap) 300 mg HS PO 10/30/16 21:00 11/29/16 20:59 Albuterol/ Ipratropium (Combivent Respimat Inh) 1 puffs QIDR PRN INH 10/30/16 13:00 10/30/16 17:00 Lactobacillus Acidophilus (Floranex Tab) 2 tab BIDM PO 10/30/16 17:00 11/29/16 16:59 10/30/16 15:52 2 TAB Lactulose (Chronulac Syrup) 15 gm BID PO 10/30/16 21:00 11/29/16 20:59 Montelukast Sodium (Singulair Tab) 10 mg HS PO 10/30/16 21:00 11/29/16 20:59 Tramadol HCl (Ultram Tab) 50 mg Q8H PRN PO 10/30/16 13:00 11/29/16 12:59 Trazodone HCl (Desyrel Tab) 50 mg HS PO 10/30/16 21:00 11/29/16 20:59 Vitamin B Complex/ Vit C/Folic Acid (Nephrocaps) 1 cap QAM PO 10/31/16 09:00 11/30/16 08:59 Pantoprazole Sodium (Protonix Tab) 40 mg QAM PO 10/31/16 09:00 11/30/16 08:59 Insulin Glargine (Lantus Solostar Pen) 15 unit HS SC 10/30/16 21:00 11/29/16 20:59 Insulin Aspart (novoLOG ASPART) SLIDING SCALE If C... ACHS SC 10/30/16 16:30 11/29/16 16:29 Glucose (Glucose 40% Gel) 15-30 GRAMS 15 GRAMS... UD PRN PO 10/30/16 13:15 11/29/16 13:14 Glucose (Glucose Chew Tab) 4-8 Tablets 4 Tabl... UD PRN PO 10/30/16 13:15 11/29/16 13:14 Dextrose (Dextrose 50% 50ML Syringe) 25-50ML OF 50% DW IV FOR... UD PRN IV 10/30/16 13:15 11/29/16 13:14 Glucagon (Glucagon Inj) 1 mg UD PRN SQ 10/30/16 13:15 11/29/16 13:14 Albuterol/ Ipratropium (Combivent Respimat Inh) 1 puffs QID INH 10/30/16 15:00 11/29/16 14:59 10/30/16 15:53 1 PUFFS Fluticasone Propionate (Flonase Nasal [place]) 2 sprays DAILY NA 10/31/16 09:00 11/30/16 08:59 Heparin Sodium (Porcine) (Heparin Iv Bolus) 1,000 unit ONE IV 10/30/16 16:15 10/30/16 23:00 Heparin Sodium (Porcine) (Heparin Iv Bolus) 400 unit TODAY@1700,1800 IV 10/30/16 16:15 11/29/16 23:00 Home Meds and Scripts Medications Dose Route/Sig Max Daily Dose Days Date Category Dose Instructions Prilosec (Omeprazole) 40 Mg Cap 1 Cap PO DAILY 30 10/30/16 Reported Ultram (Tramadol HCl) 50 Mg Tab 50 Mg PO Q8H PRN 10/28/16 Reported Novolog (Insulin Aspart) 100 Units/Ml Inj 1 Dose SC QID 10/28/16 Reported PER SLIDING SCALE. Lantus (Insulin Glargine) 100 Unit/Ml Inj 30 Units SC QPM 10/28/16 Reported Lexapro (Escitalopram Oxalate) 5 Mg Tab 5 Mg PO QAM 10/28/16 Reported Lactinex (Lactobacillus Acidophilus) Tab 2 Tab PO BID 10/28/16 Reported Nephrocaps (Vitamin B Complex/Vit C/Folic Acid) Cap 1 Cap PO QAM 10/28/16 Reported Chronulac (Lactulose) 10 Gm/15 Ml Syrp 20 Ml PO BID 10/28/16 Reported Aspirin Chewable (Aspirin) 81 Mg Chew 81 Mg PO QAM 10/28/16 Reported Lipitor (Atorvastatin Calcium) 80 Mg Tab 1 Tab PO HS 30 10/21/16 Reported Neurontin (Gabapentin) 300 Mg Cap 300 Mg PO HS 08/15/16 Reported Trazodone (Trazodone HCl) 50 Mg Tab 50 Mg PO HS 03/05/16 Reported Montelukast Sodium (Montelukast Sod) 10 Mg Tab 10 Mg PO HS 02/09/15 Reported Nitrostat (Nitroglycerin) 0.4 Mg Sub 0.4 Mg UT PRN PRN 02/09/15 Reported Combivent Respimat (Ipratropium-Albuterol) 1 Aer Aer 1 Puffs INH QID PRN 02/09/15 Reported Review of Systems Constitutional: + weakness, No fatigue, No fever Eyes: No worsening of vision ENT: No hearing loss Respiratory: + cough, + dyspnea on exertion (stable/crhronic) Cardiac: No chest pain, No claudication, No edema, No palpitations Abdomen: No GI bleeding, No constipation, No diarrhea, No nausea, No pain, No vomiting Musculoskeletal: No joint pain, No muscle pain Female : + problem reported (makes scant urine daily; no change in voiding habits recently) Neuro: + balance problems, + weakness, No memory loss Psych: + anxiety, No depression symptoms Heme: No abnormal bleeding/bruising Endo: No fatigue Skin: + itch, No rash Physical Exam Date Time Temp Pulse Resp B/P Pulse Ox O2 Delivery O2 Flow Rate FiO2 10/30/16 16:10 36.5 87 20 121/83 98 Nasal Cannula 3.0 10/30/16 16:01 Nasal Cannula 3.0 10/30/16 13:18 36.9 93 18 107/69 93 Nasal Cannula 3.0 10/30/16 09:46 36.7 85 20 106/66 95 Nasal Cannula 3 General Appearance: WD/WN, + mild distress (w/ anxiety / cough), + obese (on stable outpt 3L NC) Eyes: EOMI ENT: hearing grossly normal Neck: supple Respiratory/Chest: + decreased breath sounds, + crackles (bibasilar / fine) Cardiovascular: regular rate, rhythm, no edema, + systolic murmur Abdomen: normal bowel sounds, non tender, soft Extremities: no pedal edema, + pertinent finding (avf + t/b) Neurologic/Psych: alert, normal mood/affect (poor historian), oriented x 3 Skin: no jaundice, warm/dry, no rash Diagnostics Last 24 Hours Test 10/30/16 09:36 10/30/16 10:39 10/30/16 12:27 10/30/16 16:20 Bedside Hemoglobin 11.6 g/dl Bedside Hematocrit 34 % Bedside Sodium 126 mEq/L Bedside Potassium 6.2 mEq/L Bedside Chloride 89 mEq/L Bedside Total CO2 28 mEq/l Anion Gap 16.0 mmol/L 12.0 mmol/L Bedside Blood Urea Nitrogen 54 mg/dl Bedside Creatinine 4.3 mg/dl Bedside Glucose (other) 105 mg/dl Bedside Ionized Calcium (Rashida) 1.14 mmol/l White Blood Count 6.81 K/uL Red Blood Count 3.06 M/uL Hemoglobin 9.6 g/dL Hematocrit 30.1 % Mean Corpuscular Volume 98.4 fL Mean Corpuscular Hemoglobin 31.4 pg Mean Corpuscular Hemoglobin Concent 31.9 g/dl RDW Standard Deviation 61.3 fL RDW Coefficient of Variation 17.2 % Platelet Count 178 K/uL Mean Platelet Volume 9.6 fL Sodium Level 126 mmol/L Potassium Level 5.1 mmol/L Chloride Level 89 mmol/L Carbon Dioxide Level 25 mmol/L Blood Urea Nitrogen 37 mg/dl Creatinine 4.50 mg/dl Est Creatinine Clear Calc Drug Dose 9.8 ml/min Estimated GFR () 11.1 Estimated GFR (Non- 9.6 BUN/Creatinine Ratio 8.2 Random Glucose 97 mg/dl Calcium Level 8.8 mg/dl Bedside Glucose 98 mg/dl 150 mg/dl Diagnostic Radiology: cxr > mild congestive failure Assessment & Plan 66 y/o F w/ ESRD on HD and complex cardiopulmonary disease often w/ volume overload and recurrent hyperkalemia admitted for optimization prior to EGD, including assurance K corrected. Hyperkalemia/ ESRD/ cardiorenal syndrome -for 2.5 hr HD today on 2 K bath w/ 500 mL fluid off to prepare for am procedure -next HD tomorrow also 2.5 hrs working around endo schedule -pt and educated about K in esrd; med list from last d/c reviewed with them and importance of adherence to medication recommendations, of asking questions if wondering about meds not on list was discussed anemia of chronic disease multifactorial in setting of past gi bleeding, esrd > epo on hd appreciate consultation; will follow with you. care coordinated w/ Dr Rivera and MARTINEZ Costa.
[2016-10-30] MEDS: LACTULOSE SYRUP 10 GM/15 ML BTL 473 ML PO SCH (20:15)
[2016-10-30] MEDS ORDERED: MONTELUKAST SOD 10 MG TAB PO SCH (21:00)
[2016-10-30] MEDS ORDERED: INSULIN GLARGINE SOLOSTAR 100 UNITS/ML 3 ML PEN SC SCH (21:00)
[2016-10-30] MEDS ORDERED: TRAZODONE HCL 50 MG TAB PO SCH (21:00)
[2016-10-30] MEDS ORDERED: GABAPENTIN 300 MG CAP PO SCH (21:00)
[2016-10-30] MEDS ORDERED: ATORVASTATIN 40 MG TAB PO SCH (21:00)
[2016-10-31] VITALS (19 sets, daily range): BP systolic 75–112; BP diastolic 41–76; PULSE 76–108; TEMP 36.6–37; O2SAT 96–100; Ht 144.8 cm; Wt 68.1 kg
[2016-10-31] MEDS ORDERED: LORAZEPAM 0.5 MG TAB PO ONE (01:15)
[2016-10-31] MEDS: INSULIN ASPART 100 UNITS/ML 3 ML PEN SC SCH ×3 (06:30→16:28)
[2016-10-31 07:25] LABS: HEMATOCRIT 27.5 % (37-47); MEAN CELL VOLUME 97.5 fL (80-100); MEAN CORPUSCULAR HEMOGLOBIN 30.1 pg (25-34); MEAN CORPUSCULAR HGB CONC 30.9 g/dl (32-36); MEAN PLATELET VOLUME 9.7 fL (7.4-10.4); PLATELET COUNT 162 K/uL (130-400); RED BLOOD COUNT 2.82 M/uL (4.2-5.4); WHITE BLOOD COUNT 5.18 K/uL (4.8-10.8)
[2016-10-31] MEDS ORDERED: EPOETIN ALFA 10,000 UNITS/ML VIAL IV. ONE (07:30)
[2016-10-31 08:09] LABS: CALCIUM 8.4 mg/dl (8.5-10.1); CREATININE 3.1 mg/dl (0.60-1.20); POTASSIUM 3.8 mmol/L (3.5-5.1)
[2016-10-31] MEDS: LACTOBACILLUS ACIDOPHILUS (FLORANEX) TAB PO SCH ×2 (08:16→16:27)
[2016-10-31] MEDS: IPRATROPIUM BROMIDE/ALBUTEROL respimat INH INH SCH ×2 (08:16→16:27)
[2016-10-31] MEDS: LACTULOSE SYRUP 10 GM/15 ML BTL 473 ML PO SCH (08:18)
[2016-10-31] MEDS ORDERED: PANTOprazole SOD 40 MG TAB PO SCH (09:00)
[2016-10-31] MEDS ORDERED: ESCITALOPRAM OXALATE 10 MG TAB PO SCH (09:00)
[2016-10-31] MEDS ORDERED: ASPIRIN 81 MG CHEW PO SCH (09:00)
[2016-10-31] MEDS ORDERED: FLUTICASONE PROPIONATE NA SPR 16 GM BTL SCH (09:00)
[2016-10-31] MEDS ORDERED: NEPHROCAPS PO SCH (09:00)
--- NOTE | 2016-10-31 10:23 | Nephrology Progress Note ---
Nephrology Progress Note Date of Service: Oct 31, 2016. Subjective no c/o pain; cough unchanged; EGD deferred d/t po intake this am; uneventful HD yesterday Objective Date Time Temp Pulse Resp B/P Pulse Ox O2 Delivery O2 Flow Rate FiO2 10/31/16 09:26 36.7 90 18 112/61 97 Nasal Cannula 3 10/31/16 08:00 96 Nasal Cannula 10/31/16 07:39 36.6 82 18 106/70 96 Nasal Cannula 3.0 10/31/16 04:00 37.0 108 20 94/61 97 Nasal Cannula 3.0 10/31/16 04:00 97 Nasal Cannula 3.0 10/31/16 00:00 96 Nasal Cannula 3.0 10/30/16 23:32 37.1 88 19 95/61 96 Nasal Cannula 3.0 10/30/16 20:15 Nasal Cannula 3.0 10/30/16 20:00 36.8 88 110/68 10/30/16 19:45 67 103/44 10/30/16 19:30 87 105/71 10/30/16 19:15 85 95/60 10/30/16 19:00 97 107/91 10/30/16 18:45 85 109/89 10/30/16 18:30 90 103/71 10/30/16 18:15 91 100/64 10/30/16 18:00 87 107/69 10/30/16 17:45 87 110/72 10/30/16 17:31 69 111/96 10/30/16 17:17 87 110/70 10/30/16 17:05 36.4 86 105/67 10/30/16 16:10 36.5 87 20 121/83 98 Nasal Cannula 3.0 10/30/16 16:01 Nasal Cannula 3.0 10/30/16 13:18 36.9 93 18 107/69 93 Nasal Cannula 3.0 Physical Exam: General Appearance: WD/WN, + mild distress (less cough), + obese (on stable outpt 3L NC), limited insight as in previous exam Eyes: EOMI ENT: hearing grossly normal Neck: supple Respiratory/Chest: + decreased breath sounds, + crackles (bibasilar / fine) Cardiovascular: regular rate, rhythm, trace BLE edema Abdomen: normal bowel sounds, non tender, soft Extremities: no pedal edema, + pertinent finding (avf + t/b) Neurologic/Psych: alert, normal mood/affect (poor historian), oriented x 3 Skin: no jaundice, warm/dry, no rash Current Inpatient Medications Medications (Trade) Dose Ordered Sig/Dalton Route Start Time Stop Time Status Last Admin Dose Admin Acetaminophen (Tylenol Tab) 650 mg Q4H PRN PO 10/30/16 10:30 11/29/16 10:29 Ondansetron HCl (Zofran Inj) 4 mg Q6H PRN IV 10/30/16 10:30 11/29/16 10:29 Aspirin (Aspirin Chew) 81 mg QAM PO 10/31/16 09:00 11/30/16 08:59 10/31/16 08:17 81 MG Atorvastatin Calcium (Lipitor Tab) 80 mg HS PO 10/30/16 21:00 11/29/16 20:59 10/30/16 20:14 80 MG Escitalopram Oxalate (Lexapro Tab) 5 mg QAM PO 10/31/16 09:00 11/30/16 08:59 10/31/16 08:17 5 MG Gabapentin (Neurontin Cap) 300 mg HS PO 10/30/16 21:00 11/29/16 20:59 10/30/16 20:14 300 MG Lactobacillus Acidophilus (Floranex Tab) 2 tab BIDM PO 10/30/16 17:00 11/29/16 16:59 10/31/16 08:16 2 TAB Lactulose (Chronulac Syrup) 15 gm BID PO 10/30/16 21:00 11/29/16 20:59 10/31/16 08:18 15 GM Montelukast Sodium (Singulair Tab) 10 mg HS PO 10/30/16 21:00 11/29/16 20:59 10/30/16 20:14 10 MG Tramadol HCl (Ultram Tab) 50 mg Q8H PRN PO 10/30/16 13:00 11/29/16 12:59 10/30/16 17:00 50 MG Trazodone HCl (Desyrel Tab) 50 mg HS PO 10/30/16 21:00 11/29/16 20:59 10/30/16 20:19 50 MG Vitamin B Complex/ Vit C/Folic Acid (Nephrocaps) 1 cap QAM PO 10/31/16 09:00 11/30/16 08:59 10/31/16 08:17 1 CAP Pantoprazole Sodium (Protonix Tab) 40 mg QAM PO 10/31/16 09:00 11/30/16 08:59 10/31/16 08:18 40 MG Insulin Glargine (Lantus Solostar Pen) 15 unit HS SC 10/30/16 21:00 11/29/16 20:59 Insulin Aspart (novoLOG ASPART) SLIDING SCALE If C... ACHS SC 10/30/16 16:30 11/29/16 16:29 10/30/16 16:57 2 UNITS Glucose (Glucose 40% Gel) 15-30 GRAMS 15 GRAMS... UD PRN PO 10/30/16 13:15 11/29/16 13:14 Glucose (Glucose Chew Tab) 4-8 Tablets 4 Tabl... UD PRN PO 10/30/16 13:15 11/29/16 13:14 Dextrose (Dextrose 50% 50ML Syringe) 25-50ML OF 50% DW IV FOR... UD PRN IV 10/30/16 13:15 11/29/16 13:14 Glucagon (Glucagon Inj) 1 mg UD PRN SQ 10/30/16 13:15 11/29/16 13:14 Albuterol/ Ipratropium (Combivent Respimat Inh) 1 puffs QID INH 10/30/16 15:00 11/29/16 14:59 10/31/16 08:16 1 PUFFS Fluticasone Propionate (Flonase Nasal [place]) 2 sprays DAILY NA 10/31/16 09:00 11/30/16 08:59 10/31/16 08:16 2 SPRAYS Heparin Sodium (Porcine) (Heparin Iv Bolus) 400 unit TODAY@1700,1800 IV 10/30/16 16:15 11/29/16 23:00 Last 24 Hours Test 10/30/16 10:39 10/30/16 12:27 10/30/16 16:20 10/30/16 20:25 White Blood Count 6.81 K/uL Red Blood Count 3.06 M/uL Hemoglobin 9.6 g/dL Hematocrit 30.1 % Mean Corpuscular Volume 98.4 fL Mean Corpuscular Hemoglobin 31.4 pg Mean Corpuscular Hemoglobin Concent 31.9 g/dl RDW Standard Deviation 61.3 fL RDW Coefficient of Variation 17.2 % Platelet Count 178 K/uL Mean Platelet Volume 9.6 fL Sodium Level 126 mmol/L Potassium Level 5.1 mmol/L Chloride Level 89 mmol/L Carbon Dioxide Level 25 mmol/L Anion Gap 12.0 mmol/L Blood Urea Nitrogen 37 mg/dl Creatinine 4.50 mg/dl Est Creatinine Clear Calc Drug Dose 9.8 ml/min Estimated GFR () 11.1 Estimated GFR (Non- 9.6 BUN/Creatinine Ratio 8.2 Random Glucose 97 mg/dl Calcium Level 8.8 mg/dl Bedside Glucose 98 mg/dl 150 mg/dl 85 mg/dl Test 10/31/16 06:59 10/31/16 07:49 10/31/16 09:45 White Blood Count 5.18 K/uL Red Blood Count 2.82 M/uL Hemoglobin 8.5 g/dL Hematocrit 27.5 % Mean Corpuscular Volume 97.5 fL Mean Corpuscular Hemoglobin 30.1 pg Mean Corpuscular Hemoglobin Concent 30.9 g/dl RDW Standard Deviation 61.7 fL RDW Coefficient of Variation 17.4 % Platelet Count 162 K/uL Mean Platelet Volume 9.7 fL Sodium Level 132 mmol/L Potassium Level 3.8 mmol/L Chloride Level 93 mmol/L Carbon Dioxide Level 30 mmol/L Anion Gap 9.0 mmol/L Blood Urea Nitrogen 19 mg/dl Creatinine 3.10 mg/dl Est Creatinine Clear Calc Drug Dose 14.4 ml/min Estimated GFR () 17.4 Estimated GFR (Non- 15.0 BUN/Creatinine Ratio 6.0 Random Glucose 62 mg/dl Calcium Level 8.4 mg/dl Bedside Glucose 72 mg/dl 102 mg/dl Assessment & Plan 66 y/o F w/ ESRD on HD and complex cardiopulmonary disease often w/ volume overload and recurrent hyperkalemia admitted for optimization prior to EGD, including assurance K corrected. Hyperkalemia improved w/ HD / ESRD/ cardiorenal syndrome -for HD today 2.5 hrs working around endo schedule anemia of chronic disease multifactorial in setting of past gi bleeding, esrd > epo on hd appreciate consultation; will follow with you.
--- NOTE | 2016-10-31 14:06 | GI REPORT ---
Procedure Date: 10/31/2016 1:56 PM Procedure: Upper GI endoscopy Indications: Follow-up of acute gastric ulcer Medicines: General Anesthesia Complications: No immediate complications. Estimated blood loss: None. Estimated Blood Loss: Estimated blood loss: none. Procedure: Pre-Anesthesia Assessment: - Pre-Anesthesia Assessment: - Prior to the procedure, a History and Physical was performed, and patient medications, allergies and sensitivities were reviewed. The patient's tolerance of previous anesthesia was reviewed. Please see Descomplica for complete details. - The risks and benefits of the procedure and the sedation options and risks were discussed with the patient. All questions were answered and informed consent was obtained. - Patient identification and proposed procedure were verified prior to the procedure by the physician and the nurse. The procedure was verified in the pre-procedure area in the procedure room. After obtaining informed consent, the endoscope was passed carefully and meticuously under direct vision and only advanced when the lumen was clearly identified, C02 insuflation was utilized throughout the entirity of the procedure. Throughout the procedure, the patient's blood pressure, pulse, and oxygen saturations were monitored continuously. After obtaining informed consent, the endoscope was passed under direct vision. Throughout the procedure, the patient's blood pressure, pulse, and oxygen saturations were monitored continuously. The scope was introduced through the mouth, and advanced to the second part of duodenum. The upper GI endoscopy was accomplished without difficulty. The patient tolerated the procedure well. Findings: The examined esophagus was normal. The entire examined stomach was normal. Prior ulcer site had healed. The examined duodenum was normal. Impression: - Normal esophagus. - Normal stomach. - Normal examined duodenum. - No specimens collected. Recommendation: - Discharge patient to home (with escort). - [facility] to [facility] for possible discharge same day. - Once daily PPI Taiwo Rivera MD 10/31/2016 2:06:59 PM This report has been signed electronically. Note Initiated On: 10/31/2016 1:56 PM
[2016-10-31] MEDS ORDERED: LIDOCAINE HCL 2% 2 ML VIAL (20MG/ML) ONE (14:12)
[2016-10-31] MEDS ORDERED: PROPOFOL IV EMULSION 10 MG/ML 20 ML VIAL IV ONE (14:12)
[2016-10-31] MEDS ORDERED: PHENYLEPHRINE 100MCG/ML 5ML SYR ONE (14:12)
--- NOTE | 2016-10-31 14:28 | Anesthesiology Progress Note ---
Anesthesia Post Op Note Date & Time Oct 31, 2016 at 14:29 Vital Signs Pain Intensity: 0 Vital Signs Past 12 Hours Date Time Temp Pulse Resp B/P Pulse Ox O2 Delivery O2 Flow Rate FiO2 10/31/16 14:24 82 18 94/54 99 Nasal Cannula 3 10/31/16 14:09 83 14 104/55 100 Nasal Cannula 3 10/31/16 13:42 36.9 93 18 105/58 100 Nasal Cannula 3 10/31/16 13:00 84 83/64 10/31/16 12:45 83 75/41 10/31/16 12:30 83 75/50 10/31/16 12:15 76 80/47 10/31/16 12:00 85 92/59 10/31/16 11:45 82 81/53 10/31/16 11:30 80 83/50 10/31/16 11:15 80 77/51 10/31/16 11:00 82 83/57 10/31/16 10:45 82 103/66 10/31/16 10:36 82 101/63 10/31/16 10:28 36.7 85 105/67 10/31/16 09:26 36.7 90 18 112/61 97 Nasal Cannula 3 10/31/16 08:00 96 Nasal Cannula 10/31/16 07:39 36.6 82 18 106/70 96 Nasal Cannula 3.0 10/31/16 04:00 37.0 108 20 94/61 97 Nasal Cannula 3.0 10/31/16 04:00 97 Nasal Cannula 3.0 Notes Mental Status: alert / awake / arousable, participated in evaluation Pt Amnestic to Procedure: Yes Nausea / Vomiting: adequately controlled Pain: adequately controlled Airway Patency, RR, SpO2: stable & adequate BP & HR: stable & adequate Hydration State: stable & adequate Anesthetic Complications: no major complications apparent
--- NOTE | 2016-10-31 16:22 | Discharge Instructions ---
Discharge Instructions Admission Reason for Admission: High Potassium Discharge Discharge Diagnosis / Problem: High Potassium Discharge Goals Goal(s): Decrease discomfort, Improve function Activity Recommendations Activity Limitations: resume your previous activity . Instructions / Follow-Up Instructions / Follow-Up Follow up with Dr. Mayorga on FridayNovember 06 at 11:10AM You were admitted to the hospital for high potassium - this was fixed with dialysis. You had your scheduled EGD completed as well - it showed that your stomach ulcer has healed Continue with your routine dialysis schedule DO NOT TAKE ANY POTASSIUM SUPPLEMENTS OR EAT FOODS HIGH IN POTASSIUM Continue to take your other medications as prescribed Current Hospital Diet Patient's current hospital diet: Low Sodium Diet (2gm Na), Diabetes Type 2 Diet , Renal Diet Discharge Diet Recommended Diet: AHA Diet (Heart Healthy), Low Sodium Diet (2gm Na), Diabetes Type 2 Diet, Renal Diet, Low Potassium Diet (2g K) Procedures Procedures Performed: EGD Pending Studies Studies pending at discharge: no Laboratory Results Hemoglobin A1c Test 10/08/16 06:39 Range/Units Estimated Average Glucose 140 mg/dl Hemoglobin A1c 6.5 H 4.5-5.6 % Medical Emergencies . Who to Call and When: Medical Emergencies: If at any time you feel your situation is an emergency, please call 911 immediately. . Non-Emergent Contact Non-Emergency issues call your: Primary Care Provider . . "Provider Documentation" section prepared by Joleen Costa. VTE Core Measure Inpt VTE Proph given/why not?: SCD's
--- NOTE | 2016-10-31 16:30 | Hospitalist Progress Note ---
Hospitalist Progress Note Date of Service Oct 31, 2016. (Joleen Costa ., STOPE MINER) Subjective Patient seen and examined. Eager to be discharged. Had dialysis and EGD today - uneventful No chest pain or shortness of breath. Denies lightheadedness and dizziness. No abdominal pain or nausea. (Joleen Costa ., STOPE MINER) Objective Vital Signs Date Time Temp Pulse Resp B/P Pulse Ox O2 Delivery O2 Flow Rate FiO2 10/31/16 15:57 36.9 89 20 100 Nasal Cannula 10/31/16 15:26 36.9 89 20 112/76 100 Nasal Cannula 3.0 10/31/16 14:39 82 18 99/54 9 Nasal Cannula 3 10/31/16 14:24 82 18 94/54 99 Nasal Cannula 3 10/31/16 14:09 83 14 104/55 100 Nasal Cannula 3 10/31/16 13:45 36.6 76 109/68 10/31/16 13:42 36.9 93 18 105/58 100 Nasal Cannula 3 10/31/16 13:00 84 83/64 10/31/16 12:45 83 75/41 10/31/16 12:30 83 75/50 10/31/16 12:15 76 80/47 10/31/16 12:00 85 92/59 10/31/16 11:45 82 81/53 10/31/16 11:30 80 83/50 10/31/16 11:15 80 77/51 10/31/16 11:00 82 83/57 10/31/16 10:45 82 103/66 10/31/16 10:36 82 101/63 10/31/16 10:28 36.7 85 105/67 10/31/16 09:26 36.7 90 18 112/61 97 Nasal Cannula 3 10/31/16 08:00 96 Nasal Cannula 10/31/16 07:39 36.6 82 18 106/70 96 Nasal Cannula 3.0 10/31/16 04:00 37.0 108 20 94/61 97 Nasal Cannula 3.0 10/31/16 04:00 97 Nasal Cannula 3.0 10/31/16 00:00 96 Nasal Cannula 3.0 10/30/16 23:32 37.1 88 19 95/61 96 Nasal Cannula 3.0 10/30/16 20:15 Nasal Cannula 3.0 10/30/16 20:00 36.8 88 110/68 10/30/16 19:45 67 103/44 10/30/16 19:30 87 105/71 10/30/16 19:15 85 95/60 10/30/16 19:00 97 107/91 10/30/16 18:45 85 109/89 10/30/16 18:30 90 103/71 10/30/16 18:15 91 100/64 10/30/16 18:00 87 107/69 10/30/16 17:45 87 110/72 10/30/16 17:31 69 111/96 10/30/16 17:17 87 110/70 10/30/16 17:05 36.4 86 105/67 (Joleen Costa CRNP) Physical Exam General Appearance: no apparent distress Eyes: normal inspection ENT: hearing grossly normal Neck: supple, no JVD Respiratory/Chest: no respiratory distress, + decreased breath sounds Cardiovascular: regular rate, rhythm, no edema Abdomen: normal bowel sounds, non tender, soft Neurologic/Psychiatric: no motor/sensory deficits, alert, normal mood/affect, oriented x 3 Skin: normal color, warm/dry (Joleen Costa CRNP) Laboratory Results Last 24 Hours Test 10/30/16 20:25 10/31/16 06:59 10/31/16 07:49 10/31/16 09:45 Bedside Glucose 85 mg/dl 72 mg/dl 102 mg/dl White Blood Count 5.18 K/uL Red Blood Count 2.82 M/uL Hemoglobin 8.5 g/dL Hematocrit 27.5 % Mean Corpuscular Volume 97.5 fL Mean Corpuscular Hemoglobin 30.1 pg Mean Corpuscular Hemoglobin Concent 30.9 g/dl RDW Standard Deviation 61.7 fL RDW Coefficient of Variation 17.4 % Platelet Count 162 K/uL Mean Platelet Volume 9.7 fL Sodium Level 132 mmol/L Potassium Level 3.8 mmol/L Chloride Level 93 mmol/L Carbon Dioxide Level 30 mmol/L Anion Gap 9.0 mmol/L Blood Urea Nitrogen 19 mg/dl Creatinine 3.10 mg/dl Est Creatinine Clear Calc Drug Dose 14.4 ml/min Estimated GFR () 17.4 Estimated GFR (Non- 15.0 BUN/Creatinine Ratio 6.0 Random Glucose 62 mg/dl Calcium Level 8.4 mg/dl Test 10/31/16 15:42 Bedside Glucose 78 mg/dl (Joleen Costa ., FRANK) Assessment and Plan HYPERKALEMIA IN THE SETTING OF ESRD ON HD - admitted to tele - K+ normalized with dialysis - patient has been taking OTC potassium supplements at home - patient instructed to stop HX GASTRIC ULCER - had EGD today - ulcer has healed - continue PPI HX CVA - continue ASA PAROXYSMAL AFIB, HEART BLOCK S/P PACEMAKER - currently not on any rate controlling meds due to hypotension - no Coumadin due to fall risk - rate currently controlled HX BIOPROSTHETIC AORTIC VALVE REPLACEMENT DM - continue Lantus and SSI CAD - no reports of chest pain - metoprolol and Imdur stopped due to syncope from hypotension - continue ASA and statin LIZZ - CPAP as per home settings ALLEN - continue Lactulose DVT PROPHYLAXIS - SCDs due to EGD DISPO - d/c today (Joleen Costa ., FRANK) Pt was seen and examined. Agreed with Joleen MARIE exam, assessment and plan. Pt had EGD done that was normal. GI recommended to continue PPI. She had HD done. Pt said that she feels fine. she is very anxious to go home today. Pt is stable to discharge home today. (Tara Dwyer M.D.)
--- NOTE | 2016-10-31 16:34 | Discharge Summary ---
Discharge Summary Admission Date: Oct 30, 2016 at 12:40 Discharge Date: Oct 31, 2016 Discharge Disposition: Home Principal Diagnosis: Hyperkalemia Secondary Diagnoses/Problems: HX GASTRIC ULCER HX CVA PAROXYSMAL AFIB, HEART BLOCK S/P PACEMAKER HX BIOPROSTHETIC AORTIC VALVE REPLACEMENT DM CAD LIZZ ALLEN Procedures: EGD - normal exam, gastric ulcer has healed Consultations: Dr. Loa, nephrology Medication Reconciliation Continued Medications: Aspirin (Aspirin Chewable) 81 Mg Chew 81 MG PO QAM Atorvastatin (Lipitor) 80 Mg Tab 1 TAB PO HS for 30 Days, TAB 5 Refills Escitalopram Oxalate (Lexapro) 5 Mg Tab 5 MG PO QAM, TAB Gabapentin (Neurontin) 300 Mg Cap 300 MG PO HS Insulin Aspart (Novolog) 100 Units/Ml Inj 1 DOSE SC QID PER SLIDING SCALE. Insulin Glargine (Lantus) 100 Unit/Ml Inj 30 UNITS SC QPM, VIAL Ipratropium-Albuterol (Combivent Respimat) 1 Aer Aer 1 PUFFS INH QID PRN for SOB,OR PRIOR TO EXERTION Lactobacillus Acidophilus (Lactinex) Tab 2 TAB PO BID, TAB Lactulose (Chronulac) 10 Gm/15 Ml Syrp 20 ML PO BID Montelukast Sod (Montelukast Sodium) 10 Mg Tab 10 MG PO HS Nitroglycerin (Nitrostat) 0.4 Mg Sub 0.4 MG UT PRN PRN for Chest Pain, BTL Omeprazole (Prilosec) 40 Mg Cap 1 CAP PO DAILY for 30 Days, #30 CAP 3 Refills Tramadol (Ultram) 50 Mg Tab 50 MG PO Q8H PRN for Pain, TAB Trazodone Hcl (Trazodone) 50 Mg Tab 50 MG PO HS, TAB Vitamin B Cmplx/Vitc/Folic Ac (Nephrocaps) Cap 1 CAP PO QAM, CAP Admission Information HPI (per Admitting provider): 66 year old female who is a direct admission from the outpatient GI lab for hyperkalemia. Patient was having a scheduled endoscopy today for follow up a gastric ulcer. Preop labs showed K+ 6.2. Therefore case was deferred until potassium has normalized. Patient has ESRD and is on HD. Dr. Lao from nephrology was contacted and patient will receive dialysis today. Patient had a recent admission to [facility] for volume overload. She reports she has been feeling well since being home. She has chronic shortness of breath on exertion which is unchanged. She has had a chronic cough productive for clear sputum for the past one month which is unchanged. She denies chest pain. No lightheadedness, dizziness, or syncopal events. She denies abdominal pain, nausea, vomiting, or diarrhea. At the time of my exam, patient is resting in bed in no acute distress. Physical Exam (per Admitting): General Appearance: no apparent distress Head: normocephalic Eyes: normal inspection ENT: hearing grossly normal Neck: supple, no JVD Respiratory/Chest: no respiratory distress, + decreased breath sounds, + crackles (faint, BL bases) Cardiovascular: regular rate, rhythm, no edema, normal peripheral pulses Abdomen/GI: normal bowel sounds, non tender, + distended (semi firm) Extremities/Musculoskelatal: normal inspection, no calf tenderness Neurologic/Psych: no motor/sensory deficits, alert, normal mood/affect, oriented x 3 Skin: normal color, warm/dry Hospital Course HYPERKALEMIA IN THE SETTING OF ESRD ON HD - admitted to tele - K+ normalized with dialysis - patient has been taking OTC potassium supplements at home - patient instructed to stop HX GASTRIC ULCER - had EGD - normal exam, ulcer healed - continue PPI HX CVA - continue ASA PAROXYSMAL AFIB, HEART BLOCK S/P PACEMAKER - currently not on any rate controlling meds due to hypotension - no Coumadin due to fall risk - rate currently controlled HX BIOPROSTHETIC AORTIC VALVE REPLACEMENT DM - continue Lantus and SSI CAD - no reports of chest pain - metoprolol and Imdur recently stopped due to syncope from hypotension - continue ASA and statin LIZZ - CPAP as per home settings ALLEN - continue Lactulose Total time spent on discharge = 25 minutes This includes examination of the patient, discharge planning, medication reconciliation, and communication with other providers. Discharge Instructions Admission Reason for Admission: High Potassium Discharge Discharge Diagnosis / Problem: High Potassium Discharge Goals Goal(s): Decrease discomfort, Improve function Activity Recommendations Activity Limitations: resume your previous activity . Instructions / Follow-Up Instructions / Follow-Up Follow up with Dr. Mayorga as previously scheduled You were admitted to the hospital for high potassium - this was fixed with dialysis. You had your scheduled EGD completed as well - it showed that your stomach ulcer has healed Continue with your routine dialysis schedule DO NOT TAKE ANY POTASSIUM SUPPLEMENTS OR EAT FOODS HIGH IN POTASSIUM Continue to take your other medications as prescribed Current Hospital Diet Patient's current hospital diet: Low Sodium Diet (2gm Na), Diabetes Type 2 Diet , Renal Diet Discharge Diet Recommended Diet: AHA Diet (Heart Healthy), Low Sodium Diet (2gm Na), Diabetes Type 2 Diet, Renal Diet, Low Potassium Diet (2g K) Procedures Procedures Performed: EGD Pending Studies Studies pending at discharge: no Laboratory Results Hemoglobin A1c Test 10/08/16 06:39 Range/Units Estimated Average Glucose 140 mg/dl Hemoglobin A1c 6.5 H 4.5-5.6 % Medical Emergencies . Who to Call and When: Medical Emergencies: If at any time you feel your situation is an emergency, please call 911 immediately. . Non-Emergent Contact Non-Emergency issues call your: Primary Care Provider . . "Provider Documentation" section prepared by Joleen Costa. VTE Core Measure Inpt VTE Proph given/why not?: SCD's Additional Copies To Nato Mayorga D.O.
[2016-10-31] MEDS ORDERED: LACTULOSE SYRUP 10 GM/15 ML BTL 473 ML PO SCH (21:00)
[2016-12-13] MEDS ORDERED: INSDGIPEN SC (14:36)
[2016-12-13] MEDS ORDERED: NVLGIPEN SC (14:36)
[2016-12-13] MEDS ORDERED: TRAM-10 PO (14:59)
== END 2016-10-31 17:51 | disposition home health service (06) | DRG 640 ==
LOC: ENRESERVTM → ENRESERVDT → C.GI 09:17 → C.MED 12:40 → UNDOADMIN 12:40
PROVIDERS: ADMIT Internal Medicine; ATTEND Internal Medicine
PROC: 0DJ08ZZ Inspection of Upper Intestinal Tract, Via Natural or Artificial Opening Endoscopic (ICD-10-PCS; principal; 2016-10-31 09:22)
DX: E87.5 Hyperkalemia (principal); N18.6 End stage renal disease; J96.11 Chronic respiratory failure with hypoxia; I13.11 Hypertensive heart and chronic kidney disease without heart failure, with stage 5 chronic kidney disease, or end stage renal disease; I95.9 Hypotension, unspecified; I48.0 Paroxysmal atrial fibrillation; I25.10 Atherosclerotic heart disease of native coronary artery without angina pectoris; E11.22 Type 2 diabetes mellitus with diabetic chronic kidney disease; D63.8 Anemia in other chronic diseases classified elsewhere; K75.81 Nonalcoholic steatohepatitis (NASH); K74.60 Unspecified cirrhosis of liver; J45.909 Unspecified asthma, uncomplicated; G47.33 Obstructive sleep apnea (adult) (pediatric); Z99.2 Dependence on renal dialysis; Z99.89 Dependence on other enabling machines and devices; Z95.0 Presence of cardiac pacemaker; Z95.3 Presence of xenogenic heart valve; Z95.1 Presence of aortocoronary bypass graft; Z87.11 Personal history of peptic ulcer disease; Z91.81 History of falling; Z86.73 Personal history of transient ischemic attack (TIA), and cerebral infarction without residual deficits; Z79.4 Long term (current) use of insulin; Z79.891 Long term (current) use of opiate analgesic; Z79.899 Other long term (current) drug therapy

== ENCOUNTER 2016-12-04 11:04 | Inpatient (IN) | payer OTHER ==
[2016-12-04] VITALS (9 sets, daily range): BP systolic 100–127; BP diastolic 54–76; PULSE 86–95; TEMP 36.6–37; O2SAT 92–96; Ht 144.8 cm; Wt 70.3 kg
[~2016-12-04] VITALS: Ht 144.8 cm; Wt 70.3 kg
[~2016-12-04 11:04] MED LIST changes: -DOXY-300 PO; +OMEP40CA41 PO
[2016-12-04] MEDS ORDERED: ONDANSETRON INJ 2 MG/ML 2 ML VIAL IV PRN (14:00)
[2016-12-04] MEDS: HEPARIN SOD 5000 UNIT/0.5 ML CARP SQ SCH ×2 (14:35→20:51)
[2016-12-04 14:53] LABS: BASO % 0.5 %; BASO ABS # 0.05 K/uL (0-0.2); EOS % 1.2 %; HEMATOCRIT 31.8 % (37-47); IG% 0.4 %; LYMPH % 8.2 %; LYMPH ABS # 0.77 K/uL (1.2-3.4); MEAN CELL VOLUME 98.8 fL (80-100); MEAN CORPUSCULAR HEMOGLOBIN 30.7 pg (25-34); MEAN PLATELET VOLUME 9.3 fL (7.4-10.4); MONO % 11.2 %; NEUT % 78.5 %; PLATELET COUNT 199 K/uL (130-400); RED BLOOD COUNT 3.22 M/uL (4.2-5.4); WHITE BLOOD COUNT 9.34 K/uL (4.8-10.8)
[2016-12-04 14:56] LABS: COMPLETE YES; MEAN CORPUSCULAR HGB CONC 31.1 g/dl (32-36)
[2016-12-04] MEDS ORDERED: ESCI1TAB6 PO (14:58)
[2016-12-04] MEDS ORDERED: TRAZ50TA35 PO (14:58)
[2016-12-04] MEDS ORDERED: ACET300T2 PO (14:59)
[2016-12-04] MEDS ORDERED: PHARMACY GLYCEMIC MGMT CONSULT SCH (14:59)
[2016-12-04] MEDS ORDERED: GLUCOSE 40% GEL 15 GM TUBE PO PRN (15:00)
[2016-12-04] MEDS ORDERED: GLUCAGON FOR INJ 1 MG VIAL SQ PRN (15:00)
[2016-12-04] MEDS ORDERED: GLUCOSE 10 TABS/TUBE PO PRN (15:00)
[2016-12-04] MEDS ORDERED: NITROGLYCERIN 0.4 MG SL PER TAB CHARGE UT PRN (15:00)
[2016-12-04] MEDS ORDERED: DEXTROSE 50% 50 ML SYR IV PRN (15:00)
[2016-12-04] MEDS ORDERED: IPRATROPIUM BROMIDE/ALBUTEROL respimat INH INH PRN (15:00)
--- NOTE | 2016-12-04 15:18 | Pharmacy Progress Note ---
Glycemic Control Intl Consult Date of Service Dec 04, 2016. Scope Glycemic Pharmacist consulted by Aurora Laureano PA-C on 12/04/16 for glycemic control and to write orders per [facility] inpatient glycemic control protocol Objective Weight (Kilograms): 68.200 Laboratory Data (last 24hrs) Test 12/04/16 14:41 White Blood Count 9.34 K/uL Red Blood Count 3.22 M/uL Hemoglobin 9.9 g/dL Hematocrit 31.8 % Mean Corpuscular Volume 98.8 fL Mean Corpuscular Hemoglobin 30.7 pg Mean Corpuscular Hemoglobin Concent 31.1 g/dl Platelet Count 199 K/uL Mean Platelet Volume 9.3 fL Neutrophils (%) (Auto) 78.5 % Lymphocytes (%) (Auto) 8.2 % Monocytes (%) (Auto) 11.2 % Eosinophils (%) (Auto) 1.2 % Basophils (%) (Auto) 0.5 % Neutrophils # (Auto) 7.32 K/uL Lymphocytes # (Auto) 0.77 K/uL Monocytes # (Auto) 1.05 K/uL Eosinophils # (Auto) 0.11 K/uL Basophils # (Auto) 0.05 K/uL Recent Pertinent Medications Outpatient Anti-diabetic Regimen: * Lantus 30 units HS * Novolog - 25 units with breakfast and dinner; 20 units with lunch (if eaten) * A1c - not accurate, HD pt Risk Factors for Insulin Resistance: * Diet: Type 2 DM/renal/AHA Assessment & Plan ASSESSMENT: * 66 year old type 2 diabetic known to pharmacy glycemic service admitted with hip fracture, pt on HD. * I will begin patient on similar CF and CR from past admission and a much smaller Lantus dose than home dose, as patient does not require near as much insulin when inpatient vs her outpatient regimen. * ADA & AACE recommend a goal blood sugar range 140-180 mg/dl for the majority of critically ill & non-critically ill patients. However, more stringent targets may be selected in individual cases. I will begin with this range for patient on HD. PLAN FOR INPATIENT GLYCEMIC CONTROL: * Basal insulin with LANTUS SQ BID - based on BSG * BSG < 120mg/dL - 0 units * BSG 120-180mg/dL - 8 units * BSG > 180mg/dL - 12 units * Correctional Insulin with NOVOLOG per scale ACHS or Q6hrs while NPO * Goal Range: Low 140 mg/dL - High 180 mg/dL * Correction Factor: 30 mg/dL/unit * Nutritional / Prandial insulin per carb ratio of 1 unit per 12 grams CHO consumed * Please note that the plan above was derived based on current level of insulin resistance and hospital stress. These recommendations are appropriate for inpatient admission only. Plan of care upon discharge will need to be reassessed to avoid potential outpatient hypo/hyperglycemia. Thank you.
--- NOTE | 2016-12-04 15:39 | History and Physical ---
History & Physical Date & Time of Service: Dec 04, 2016 at 15:04 Chief Complaint: Hip Fracture Primary Care Physician: Nato Mayorga D.O. History of Present Illness Source: patient, spouse, clinic records, hospital records This is a 66 y/o female with PMH of ESRD on dialysis, systolic CHF, PAF, complete heart block s/p pacemaker, asthma on chronic oxygen, hx CVA, hx bioprosthetic aortic valve replacement, CAD, DM type 2, LIZZ, ALLEN cirrhosis, hx gastric ulcer, and other problems listed below who presents as a direct admission from [place] [facility] for right hip fracture. She was sent to [facility] because [facility] does not have dialysis capability. Pt follows with Dr. Mayorga for primary care. She dialysis Qdut-Eofry-O[facility] at [facility] in [place] and f/w Dr. Flannery for nephro. Last dialysis tx yesterday. Hx supplemented from at bedside due to patient's lethargy. Pt was recently admitted to [facility] Oct 30- for hyperkalemia. After that she was at baseline except for generalized weakness x 1 week. As per patient fell 2 days ago in the bathroom after tripping on a scale while he was in the next room. He found her lying on her side with an abrasion to her right knee and was c/o right hip pain after that time. Then this morning in the bathroom she fell again around 7 am due to her legs giving out (witnessed by ) and landed on her buttocks. He was unable to get her up so called 911 and was brought to ER by ambulance. denies head trauma or LOC. X-ray of right hip showed intertrochanteric fracture of right hip. Pt received Fentanyl 50 mcg and Dilaudid 0.5 mg at [place] [facility]. states pt's mental status was normal/ oriented x 3 this morning but became lethargic/ confused after the pain meds were administered. Pt falls asleep easily during conversation. She is oriented to person (recognizes ) and to hospital at [place] but is unable to tell the date. She admits to pain and points to right hip. Pain rated 10/10. She denies dizziness, chest pain, SOB, abdominal pain. reports chronic FONESCA and states pt is only able to walk 10 feet before becoming SOB. He reports recent cough attributed to GERD which has improved. Past Medical/Surgical History Medical Problems: (1) Asthma Status: Chronic (2) CAD (coronary artery disease) Status: Chronic (3) CHF (congestive heart failure) Status: Chronic (4) Cirrhosis of liver Status: Chronic (5) CKD (chronic kidney disease), stage III Status: Chronic (6) Depression Status: Chronic (7) Diabetes mellitus Status: Chronic (8) Dyslipidemia Status: Chronic (9) History of stroke Permanent Comment: 2004, no residual deficit Status: Chronic (10) HTN (hypertension) Status: Chronic (11) Osteoarthritis Status: Chronic (12) Pacemaker Status: Chronic (13) PAF (paroxysmal atrial fibrillation) Status: Chronic (14) Sleep apnea Permanent Comment: on CPAP Status: Chronic Surgical Problems: (1) Aortic valve replaced Status: Chronic (2) S/P CABG x 2 Status: Chronic (3) S/P placement of cardiac pacemaker Permanent Comment: 2009 Status: Chronic (4) S/P tonsillectomy Status: Chronic (5) Status post left heart catheterization Permanent Comment: 10/21/2013 [facility] Status: Chronic Family History Asthma FATHER FH: cancer MOTHER (pancreatic) Heart disease BROTHER ( of [place] age 43) SISTER (CAD age 60) SISTER (CAD age 57) Social History Smoking Status: Never Smoker Alcohol Use: none Drug Use: none Marital Status: Housing status: lives with significant other Occupational Status: disabled Immunizations History of Influenza Vaccine: Yes Influenza Vaccine Date: Jul 06, 2016 History of Tetanus Vaccine?: Yes Tetanus Immunization Date: Oct 15, 2010 History of Pneumococcal: Yes Pneumococcal Date: May 09, 2016 Allergies Coded Allergies: Lisinopril (Verified Adverse Reaction, Unknown, COUGH, 10/28/16) Home Medications Scheduled Acetaminophen W/ Codeine (Tylenol W/Codeine #3), 1 TAB PO HS Aspirin (Aspirin Chewable), 81 MG PO QAM Atorvastatin (Lipitor), 1 TAB PO HS Escitalopram Oxalate (Lexapro), 5 MG PO DAILY Gabapentin (Neurontin), 300 MG PO BID Insulin Aspart (Novolog), 1 DOSE SC UD Insulin Glargine (Lantus), 30 UNITS SC QPM Lactobacillus Acidophilus (Lactinex), 2 TAB PO BID Lactulose (Chronulac), 20 ML PO BID Montelukast Sod (Montelukast Sodium), 10 MG PO HS Omeprazole (Prilosec), 1 CAP PO DAILY Trazodone Hcl (Trazodone), 50 MG PO HS Vitamin B Cmplx/Vitc/Folic Ac (Nephrocaps), 1 CAP PO QAM Scheduled PRN Ipratropium-Albuterol (Combivent Respimat), 1 PUFFS INH QID PRN for SOB,OR PRIOR TO EXERTION Nitroglycerin (Nitrostat), 0.4 MG UT PRN PRN for Chest Pain Tramadol (Ultram), 50 MG PO Q8H PRN for Pain Review of Systems Constitutional: + problem reported (lethargy after pain meds given), + weakness (generalized), No chills, No fever Eyes: No worsening of vision ENT: No nasal symptoms, No sore throat Respiratory: + cough (with occasional clear sputum, attributed to GERD, has been improving), + dyspnea on exertion Cardiovascular: No edema, No orthopnea Abdomen: + diarrhea (chronic loos BM 4x per day while on lactulose), + problem reported (abdominal girth no worse than usual. improves with dialysis. ), No GI bleeding, No nausea, No pain, No vomiting Musculoskeletal: + problem reported (right hip pain see HPI) Genitourinary - Female: + problem reported (produces small amount of urine. no dysuria complaints, foul odor, cloudiness per ) Neurologic: No problem reported (no dizziness) Hematologic / Lymphatic: + problem reported (epistaxis approx once per week. 1- 2 drops up to 1 hour) Physical Exam Vital Signs Date Time Temp Pulse Resp B/P Pulse Ox O2 Delivery O2 Flow Rate FiO2 12/04/16 13:12 36.6 93 18 109/72 93 Nasal Cannula 4.0 General Appearance: + obese, + pertinent finding (lethargic chronically ill 66 year old female, awakens to verbal stimulation) Head: normocephalic, atraumatic Eyes: normal inspection, PERRL, EOMI ENT: hearing grossly normal, pharynx normal Neck: supple, trachea midline Respiratory/Chest: lungs clear (on anterior exam), normal breath sounds, no respiratory distress, + pertinent finding (tunneled dialysis catheter right chest) Cardiovascular: regular rate, rhythm, no murmur Abdomen/GI: normal bowel sounds, non tender, + pertinent finding (slightly distended/ firm. nontender. ) Extremities/Musculoskelatal: no calf tenderness, no pedal edema, + pertinent finding (bilateral feet dusky and cool to touch with hair loss on the BLLE. DP pulses 1+ bilaterally.) Neurologic/Psych: + pertinent finding (lethargic, falls asleep during exam, difficult to keep her attention, oriented to person and place only, brazing machine tender strenth 5/5 bilat. right hip tender to palpation. right hip ROM limited by pain. able to lift LLE off the bed and move the toes bilaterally. sensation to light touch intact bilateral feet. ) Skin: warm/dry, + pertinent finding (dusky discoloration to bilateral feet.) Diagnostics Laboratory Results Results Past 24 Hours Test 12/04/16 14:03 12/04/16 14:41 12/04/16 14:46 Range/Units White Blood Count 9.34 4.8-10.8 K/uL Red Blood Count 3.22 4.2-5.4 M/uL Hemoglobin 9.9 12.0-16.0 g/dL Hematocrit 31.8 37-47 % Mean Corpuscular Volume 98.8 80-100 fL Mean Corpuscular Hemoglobin 30.7 25-34 pg Mean Corpuscular Hemoglobin Concent 31.1 32-36 g/dl Platelet Count 199 130-400 K/uL Mean Platelet Volume 9.3 7.4-10.4 fL Neutrophils (%) (Auto) 78.5 % Lymphocytes (%) (Auto) 8.2 % Monocytes (%) (Auto) 11.2 % Eosinophils (%) (Auto) 1.2 % Basophils (%) (Auto) 0.5 % Neutrophils # (Auto) 7.32 1.4-6.5 K/uL Lymphocytes # (Auto) 0.77 1.2-3.4 K/uL Monocytes # (Auto) 1.05 0.11-0.59 K/uL Eosinophils # (Auto) 0.11 0-0.5 K/uL Basophils # (Auto) 0.05 0-0.2 K/uL RDW Standard Deviation 67.6 36.4-46.3 fL RDW Coefficient of Variation 18.9 11.5-14.5 % Immature Granulocyte % (Auto) 0.4 % Immature Granulocyte # (Auto) 0.04 0.00-0.02 K/uL Nucleated RBC Absolute Count (auto) 0.02 0-0 K/uL Nucleated Red Blood Cells % 0.2 % Diagnostic Radiology attempting to obtain CXR and right hip xrays from [facility] EKG pending Impression Assessment and Plan RIGHT HIP INTERTROCHANTERIC FRACTURE S/p mechanical fall Obtain R hip xray and CXR report from [place] EKG- V paced rhythm Multiple medical comorbidities, poor functional status Consult orthopedic surgery; discussed with Dr. Santoyo- patient will be an add on for tomorrow afternoon if considered medically optimized/ stable for surgery Consult cardiology for preop evaluation (known to [facility] cardiology) NPO after midnight ALTERED MENTAL STATUS Likely due to Fentanyl and Dilaudid administration at [place] [facility]- states was alert/oriented x 3 prior to pain meds Check ammonia level Hold narcotic pain medications Hold diet until awake/ alert Ammonia elevated to 50- will give dose of lactulose now HYPERKALEMIA K= 5.6 No peaked T wave on EKG Consult nephrology- discussed with Dr. Vieira- appreciate input; pt will have short session of dialysis tonight ESRD ON DIALYSIS Dialysis [id number]; last dialysis 12/[address] Flannery Nephrology consulted CHRONIC HYPONATREMIA Check serum osmolality, urine sodium, urine creatinine CHRONIC ANEMIA Hg 9.9; stable from baseline ASTHMA/ CHRONIC HYPOXIC RESPIRATORY FAILURE On 3 liters NC continuous at home Not in exacerbation Continue home inhalers, supplemental O2 PAROXYSMAL AFIB, HEART BLOCK S/P PACEMAKER Not on rate controlling meds due to hx of hypotension Not on Coumadin due to fall risk CHRONIC SYSTOLIC CHF HX BIOPROSTHETIC AORTIC VALVE REPLACEMENT Appears compensated Echo 09/2016- The study was technically limited. The left ventricle is grossly normal size. Left ventricular systolic function is mildly reduced. Ejection Fraction = 45-50%. The right ventricle is not well visualized. The prosthetic aortic valve is not well visualized. The prosthetic aortic valve appears to open well. The gradient is normal for this prosthetic aortic valve. There is moderate mitral regurgitation. CAD S/P CABG X 2 Denies chest pain Metoprolol and imdur d/c in the past due to syncope from hypotension Hold aspirin for possible surgical intervention Continue statin DM TYPE 2 On Lantus 30 units HS and novolog sliding scale at home Consult pharmacy for glycemic control HISTORY OF CVA Hold aspirin for possible surgical intervention ALLEN CIRRHOSIS Check ammonia level Continue Lactulose LIZZ Continue CPAP HX GASTRIC ULCER EGD Oct 2016 showed ulcer healed Continue PPI DVT PROPHYLAXIS Heparin SQ q8h- hold at 0600 on 3/9 am for possible surgical intervention in the afternoon Patient seen in collaboration with Dr. Villeda. Please see her addendum. 66 yo F with multiple chronic comorbidities presents with R hip fracture s/p mechanical fall at home. I have seen and examined the patient and discussed the case with the provider above. I agree with the assessment and plan with the following exceptions. She appears volume overloaded to me on exam with some crackles in the right lung field on auscultation. She reports her weight stays around 145-150 depending on if it is a dialysis day or not, but that this hasnt changed much recently. She is very sedentary at home but is not bedbound , limited by her breathing. She reports being on oxygen for the past year and states that she is very dependent on it throughout the day. She has also developed a chronic dry cough in the last two months of unknown etiology at this time. Her pain in her hip is making her clearly uncomfortable, and although she was somewhat lethargic after receiving pain medications at the outside ER, she appears to have perked up and is clearly in pain. Therefore, I will add some Salix PRN and give a shot of morphine at this time. Discussed the case with Nephro who plans for HD tonight with the hope to optimize her volume status and chemistry prior to any procedure. I have discussed the case with Cardiology who does not feel that further workup is necessary from a cardiac standpoint prior to surgery with the acknowledgement that she has multiple chronic comorbidities that are not ideal. With her current chronic hypoxia and reports of dependency on the oxygen, I will consult pulm for pre-op clearance, as well. She otherwise appears compensated from a liver and heart standpoint. As above, EGD in Oct 2016 revealed a healed gastric ulcer and there are no reports of blood per rectum, so will give heparin for DVT prophylaxis. Will keep NPO overnight for possible hip repair tomorrow. Brittani Villeda, Hospitalist Level of Care Telemetry Advanced Directives Existing Living Will: No Existing Power of Medical Orderly: No Resuscitation Status FULL RESUSCITATION VTE Prophylaxis VTE Risk Assessment Done? Y/N: Yes Risk Level: High Given or contraindicated: Unfractionated heparin SQ
[2016-12-04 15:41] LABS: ALB/GLOB RATIO 0.5 (0.9-2); BUN/CREATININE RATIO 6.2 (10-20); MAGNESIUM 2.5 mg/dl (1.8-2.4); POTASSIUM 5.6 mmol/L (3.5-5.1)
[2016-12-04] MEDS: INSULIN ASPART 100 UNITS/ML 3 ML PEN SC SCH ×2 (16:15→20:52)
[2016-12-04] MEDS ORDERED: LACTULOSE SYRUP 20 GM/30 ML UDC PO STA (16:18)
--- NOTE | 2016-12-04 16:24 | DIAGNOSTIC IMAGING REPORT ---
SINGLE VIEW PELVIS; 2 VIEWS RIGHT HIP CLINICAL HISTORY: Right hip injury. Fracture. FINDINGS: 2 AP pelvic radiographs with AP and crosstable lateral views of the right hip are obtained. No prior studies are available for comparison at the time of dictation. The skeletal structures are osteopenic. There is an angulated and minimally distracted intertrochanteric fracture of the right femur. No additional fracture is identified in the left hip or the bony pelvis. The right femoral head remains within the acetabulum. Mild arthritic change is seen in both hips. Sclerotic change is identified in the sacroiliac joints. Soft tissue edema overlies the right hip. There is a nonobstructed abdominal bowel gas pattern. Pelvic phleboliths are observed. Lumbosacral spondylosis is partially visualized. IMPRESSION: 1. There is a minimally distracted and angulated intertrochanteric fracture of the right femur. 2. No additional fracture is identified. 3. Osteopenia and degenerative change as above. Electronically signed by: Iván Browne M.D. 12/04/2016 4:23 PM Dictated Date/Time: 12/04/2016 4:21 PM
--- NOTE | 2016-12-04 17:05 | CARDIOLOGY CONSULTATION ---
DATE OF CONSULTATION: 12/04/2016 DATE OF CONSULTATION: 12/04/2016. REFERRING: Aurora Laureano. INDICATIONS: Preoperative evaluation, hip fracture. PRIMARY CARE PHYSICIAN: Dr. Mayorga. HISTORY OF PRESENT ILLNESS: The patient is a complex 66-year-old female whose past history is notable for valvular heart disease, status post aortic valve replacement initially receiving mechanical prosthesis in 2004, course complicated by postoperative stroke. She underwent repeat cardiac surgery in 2009, receiving a bioprosthetic in the aortic valve position with a 21 mm Sabillon II as well as 2-vessel coronary bypass grafting with saphenous vein graft to the obtuse marginal and diagonal. She carries a history of postoperative high degree AV block and underwent [facility] dual chamber pacemaker insertion in 2009. Underlying issues include history of paroxysmal atrial fibrillation, chronic obstructive lung disease with obstructive sleep apnea on CPAP, and supplemental oxygen, end-stage renal disease with chronic dialysis, maturing fistula, hypertension, hyperlipidemia, diabetes mellitus. The patient has been hospitalized at [facility] twice in September and once in October. Most recent hospitalization was with possible gastric ulcer. She has had difficulties in the past with past orthostasis, syncope and near syncope. Notes no recent angina or congestive heart failure though is on chronic dialysis. Historically patient is minimally active but will walk in her room. Notes twitching contraction type muscle spasms at times her . Presents now 2 days ago was walking in her bathroom and tripped over a bathroom scale resulting in floor to the floor. Pain persisted today, was severe enough that limit her ability to move in the bathroom and she presented to [facility] where per report x-ray revealed a right hip fracture. The patient received Dilaudid for pain and fentanyl. She presents now for ongoing management of hip fracture. Continue dialysis while in hospital. She is referred to cardiology for preoperative assessment. At time of examination, the patient will arouse, but falls asleep, is oriented to person and hospital with mild confusion likely due to pain medications. does note occasional she becomes confused during dialysis. Notes no recent fevers or chills. Notes no chest pains per description. Does have a chronic cough. Has not been aware of any melena or hematochezia. Appetite has been only fair. Has been able to take medications. Notes no syncopal spells and notes purely that episodes resulting in fall were mechanical in nature. ALLERGIES: LISINOPRIL. MEDICATIONS: Prior to hospitalization were aspirin 81 mg per day, atorvastatin, Lexapro 5 mg at bedtime, gabapentin 300 mg b.i.d., insulin, Lactinex, Chronulac, Singulair, omeprazole, trazodone, vitamin D complex. PAST SURGICAL HISTORY: From a cardiac standpoint is as noted in HPI, prior aortic valve replacement x2, most recent in 2009 with 2-vessel bypass grafting, history of prior dual chamber pacemaker insertion in 2009, history of fistula implantation, cataract extraction. SOCIAL HISTORY: The patient resides with her . She is a nonsmoker, nondrinker. FAMILY HISTORY: Positive for heart disease, mother with history of pancreatic carcinoma. PHYSICAL EXAMINATION: VITAL SIGNS: Heart rate is 80-90, blood pressure is 100/54. NECK: Thick. There is no distinct jugular venous distention. LUNGS: Reveal diminished breath sounds diffusely. CARDIOVASCULAR EXAMINATION: Irregular with paced rhythm. There is a grade 2/6 systolic murmur. There is no diastolic murmur. ABDOMEN: Obese, distended with moderate fluid wave. EXTREMITIES: Revealed no edema. [place] induration both lower extremities. There are intact distal pulses. The patient has pain in the right hip on palpation. REVIEW OF SYSTEMS: As per HPI. The patient is a poor historian currently. LABORATORY DATA: White cell count 9.3, hemoglobin 9.9. Sodium is 129, potassium is 5.6, chloride 93, BUN 25, creatinine is 4.0. Albumin level is 3.1. Ammonia level is 50. Hip and chest x-rays are pending. EKG reveals ventricular paced rhythm with sinus tracking at a rate of 90. Pacemaker interrogation last performed 11/15/2016 revealed estimated battery life greater than 5 years. No atrial fibrillation and appropriate device function. IMPRESSION: Very complex 66-year-old female with end-stage renal disease, underlying valvular heart disease and coronary artery disease, admitted after a mechanical fall. She has had progressive decline over the past several months due to renal disease, diabetic retinopathy and orthostasis. She has a history of chronic anemia. No signs or symptoms of overt angina or worsening congestive heart failure, though currently appears mildly volume overloaded by palpation and auscultation. She is due for dialysis in a.m. She is on minimal cardiac medications. Overall, operative risk will be significantly elevated due to multiple morbidities, but no cardiac contraindications to proceeding. The patient has normally functioning pacemaker. Last echocardiogram in September 2016 demonstrated mildly depressed LV dysfunction, LV function EF 50% with normally functioning bioprosthesis in the aortic valve position. RECOMMENDATIONS: I recommended the patient be reevaluated closely from a pulmonary standpoint given respiratory decline and history of underlying obstructive sleep apnea. Would be cautious regarding pain medications and sedation. I have already written to hold Lexapro and trazodone as previously ordered. If you have any further questions, please feel free to contact me. Thank you very much.
--- NOTE | 2016-12-04 17:14 | ORTHOPEDIC CONSULTATION ---
DATE OF CONSULTATION: 12/04/2016 DATE OF CONSULTATION: 12/04/2016. CHIEF COMPLAINT: Right hip pain from a orthopedic standpoint. HISTORY OF PRESENT ILLNESS: Ms. Salcedo to a compromised 66-year-old female. She fell 3 days ago, suffered acute injury to her right lower extremity. The family felt that it was just a bruise or contusion, wasn't overly alarmed, brought here in today for evaluation and treatment and it was discovered she had an intratrochanteric fracture of the right hip. It has probably progressed over the last few days. PAST MEDICAL HISTORY: Positive for heart failure, pacemaker, asthma, CVA, coronary artery disease, diabetes mellitus, end-stage renal disease on dialysis, cirrhosis, gastric ulcer. FAMILY HISTORY: Surgical history as with father, mother with carcinoma pancreatic. SOCIAL HISTORY: Nonsmoker, nonalcohol user. , lives with , disabled. ALLERGIES: LISINOPRIL. MEDICATIONS: From home are numerous they are reviewed. They are not dictated upon. OBJECTIVE: VITAL SIGNS: Stable, blood pressure 109/72, temperature 36.6, pulse 93. GENERAL: She is alert, oriented communicates appropriately. HEAD, EYES, EARS, NOSE, AND THROAT: Pupils react to light and accommodation. Ear, nose and throat clear. NECK: Supple, midline trachea. LUNGS: Relatively clear. CARDIAC: Normal rate, rhythm, no murmurs. ABDOMEN: Soft, nontender. EXTREMITIES: Her right lower extremity was shortened and externally rotated. Images from [facility] and from our hospital demonstrate intertrochanteric fracture of the hip. IMPRESSION: Intertrochanteric fracture hip status post mechanical fall, also many comorbidities including heart failure and renal failure, cirrhosis, diabetes mellitus. DISPOSITION: She will be admitted to the medical service and has been admitted to the medical service. We will hopefully get her medically optimized today and tomorrow which will be the 05 of December. Later on in the afternoon tomorrow on the I hope to take her to surgery for an IM rodding of her right femur. I estimate the blood loss to be in the neighborhood of 100-200 mL, nothing more. The surgery should take roughly 1 hour and she should be back on her feet and hopefully get her up on her feet 24 hours after her operation.
[2016-12-04] MEDS ORDERED: MoRPHine SULFATE 2 MG/ML CARP IV STA (17:50)
[2016-12-04] MEDS ORDERED: ALBUMIN HUMAN 25% 12.5 GM/50 ML VIAL IV SCH (18:00)
[2016-12-04] MEDS: LACTOBACILLUS ACIDOPHILUS (FLORANEX) TAB PO SCH (20:44)
[2016-12-04] MEDS: ATORVASTATIN 20 MG TAB PO SCH (20:44)
[2016-12-04] MEDS: LACTULOSE SYRUP 20 GM/30 ML UDC PO SCH (20:44)
[2016-12-04] MEDS: GABAPENTIN 300 MG CAP PO SCH (20:46)
[2016-12-04] MEDS: MONTELUKAST SOD 10 MG TAB PO SCH (20:47)
[2016-12-04] MEDS: INSULIN GLARGINE SOLOSTAR 100 UNITS/ML 3 ML PEN SC SCH (20:51)
[2016-12-04] MEDS ORDERED: TRAZODONE HCL 50 MG TAB PO SCH (21:00)
[2016-12-05] VITALS (30 sets, daily range): BP systolic 82–132; BP diastolic 46–96; PULSE 72–103; TEMP 36.5–37.3; O2SAT 94–100
[2016-12-05] MEDS: HYDROCODONE/ACETAMOPHEN 5/325MG TAB PO PRN (02:40)
[2016-12-05 06:00] LABS: HEMATOCRIT 31.2 % (37-47); MEAN CELL VOLUME 99.7 fL (80-100); MEAN CORPUSCULAR HGB CONC 31.1 g/dl (32-36); MEAN PLATELET VOLUME 9.2 fL (7.4-10.4); PLATELET COUNT 205 K/uL (130-400); RED BLOOD COUNT 3.13 M/uL (4.2-5.4); WHITE BLOOD COUNT 8.45 K/uL (4.8-10.8)
[2016-12-05 06:09] LABS: INR 1.2 (0.9-1.1); PROTHROMBIN TIME (PATIENT) 12.5 SECONDS (9.0-12.0)
[2016-12-05 06:30] LABS: BUN/CREATININE RATIO 5.5 (10-20); CALCIUM 8.7 mg/dl (8.5-10.1); MAGNESIUM 2.3 mg/dl (1.8-2.4); POTASSIUM 4.9 mmol/L (3.5-5.1)
[2016-12-05] MEDS: INSULIN ASPART 100 UNITS/ML 3 ML PEN SC SCH ×3 (06:35→21:00)
[2016-12-05] MEDS: HEPARIN SOD 5000 UNIT/0.5 ML CARP SQ SCH (06:35)
[2016-12-05 06:40] LABS: THYROID STIMULATING HORMONE 1.97 uIu/ml (0.300-4.500)
[2016-12-05] MEDS ORDERED: NURSING VERBAL MED ORDER ONE ×2 (06:45→15:45)
--- NOTE | 2016-12-05 07:06 | NEPHROLOGY CONSULTATION ---
DATE OF CONSULTATION: 12/04/2016 ATTENDING OF RECORD: Dr. Villeda. REASON FOR CONSULTATION: End-stage renal disease. HISTORY OF PRESENT ILLNESS: This is a 66-year-old female who dialyzes in [place] on Tuesdays, , and Saturdays, tolerated her treatment on Friday. The patient had a fall several days ago and has been having worsening hip pain and then this morning the patient fell again and found to have a hip fracture. The patient's potassium level is 5.6 and sodium level was low at 129. The patient is sleepy, but when she wakes up, she is complaining of significant pain in her hip. The patient does have significant comorbidities including AV block status post pacemaker, history of a postoperative stroke, has paroxysmal Afib, two-vessel bypass surgery with bioprosthetic aortic valve, chronic respiratory failure, on home oxygen, obstructive sleep apnea, on CPAP, nonalcoholic fatty liver disease with liver cirrhosis, recurrent syncope. The patient has had a progressive decline over the last several months while on dialysis, dealing with orthostatic hypotension. The patient's volume status appears appropriate today. Cardiology evaluated her operative risk and it is significantly elevated secondary to multiple comorbidities. However, pacemaker has been normally functioning. We have an EF of 50% with the last echo with bioprosthetic aortic valve working well. The patient was evaluated by orthopedics and was found to have an intertrochanteric fracture of the hip status post mechanical fall with underlying comorbidities including heart failure, end-stage renal disease, cirrhosis and diabetes. Orthopedics was hoping to take her to surgery in the afternoon on 12/05/2016 for a 1 hour surgery and be ambulating 24 hours after her operation. PAST MEDICAL HISTORY: Heart disease, end-stage renal disease, diabetes, history of postoperative stroke in 2004 with no residual deficits, hypertension, orthostatic hypotension, paroxysmal Afib, nonalcoholic fatty liver disease with underlying cirrhosis of the liver, obstructive sleep apnea, on CPAP, chronic respiratory failure, on oxygen chronically. PAST SURGICAL HISTORY: Tonsillectomy, pacemaker, bypass x2, aortic valve replacement, dialysis access placement. FAMILY HISTORY: Significant for mother with pancreatic cancer, brothers and sisters with heart disease. SOCIAL HISTORY: No smoking, no alcohol, no drugs. and lives with her . CURRENT MEDICATIONS: Nephrocaps daily, Protonix 40 mg daily, Lipitor 80 mg at night, Neurontin 300 mg p.o. b.i.d., Floranex 2 tabs p.o. b.i.d., lactulose 20 grams p.o. b.i.d., Singulair 10 mg at night, Lantus subcu b.i.d., sliding scale insulin, heparin 5000 units subcu q. 8. REVIEW OF SYSTEMS: Main complaint is hip pain. Positive fatigue. Positive decreased appetite. Positive shortness of breath when not on oxygen. No headaches, no blurry vision, no dysphagia. No rash or itching. No diarrhea or constipation. No dysuria or hematuria. All other review of systems otherwise negative. PHYSICAL EXAMINATION: VITAL SIGNS: Temperature 37, pulse 90, respiratory rate 16, blood pressure is 100/54, satting 95% on room air. GENERAL: Awake, alert, oriented x3, however, lethargic but appears to be in pain. HEENT: Moist mucous membranes. NECK: Supple. PULMONARY: Clear to auscultation. CARDIAC: Regular rate and rhythm. ABDOMEN: Mild distention. Bowel sounds positive. Soft, nontender. EXTREMITIES: Right hip tender to palpation. NEUROLOGIC: Lethargic. DERMATOLOGIC: No rash or ulcers noted. LABORATORY DATA: White count is 9, H\T\H 9.9 and 31.8, platelet count is 199. Sodium level is 129, potassium is 5.6, chloride is 93, bicarbonate is 26, BUN is 25, creatinine is 4, glucose is 125. Magnesium is 2.5. Alkaline phosphatase 135. Ammonia level is 50. Albumin level is 3.1. IMAGING DATA: Hip/pelvis x-ray shows minimally distracted and angulated intertrochanteric fracture of the right femur. ASSESSMENT AND PLAN: 1. End-stage renal disease with underlying hyponatremia and hyperkalemia. I would like to do a short 2-hour dialysis treatment to try to remove 1 liter as blood pressure tolerates to help optimize the sodium and lower the potassium levels. We will also plan on a longer 3-hour treatment tomorrow to help optimize the patient for any possible surgeries later in the afternoon or the following day depending on pulmonary clearance. 2. Anemia of renal failure. H\T\H is 9.9 and 31.8. We will go ahead and dose Procrit again tomorrow. 3. Renal osteodystrophy. Does not appear the patient is on any phosphate binders. We will inquire about dosage; however, appetite is poor, so we will hold on phosphate binders either way. Overall, unfortunate 66-year-old female with multiple comorbidities including significant heart disease, bioprosthetic aortic valve, paroxysmal atrial fibrillation, history of postoperative stroke several years ago, obstructive sleep apnea, diastolic heart failure, end-stage renal disease, who has had ongoing worsening decline with issues with orthostatic hypotension, who now has unfortunately fallen and broken her hip and that requires surgery if she wants to walk again. I appreciate the consultation. BRANDYN
--- NOTE | 2016-12-05 07:18 | DIAGNOSTIC IMAGING REPORT ---
CHEST ONE VIEW PORTABLE CLINICAL HISTORY: ASTHMA, RIB FX BY HX dyspnea COMPARISON STUDY: 10/30/2016 FINDINGS: Moderate cardiomegaly. Permanent bipolar cardiac pacemaker. PermCath in the right atrium. Pulmonary vascular congestion IMPRESSION: Pulmonary vascular congestion versus mild congestive failure. Findings are slightly progressive as compared to the prior study. Electronically signed by: Severiano Cross M.D. 12/05/2016 7:17 AM Dictated Date/Time: 12/05/2016 7:15 AM
[2016-12-05] MEDS ORDERED: LEVALBUTEROL/IPRATROPIUM NEB INH SCH (09:00)
[2016-12-05] MEDS: NEPHROCAPS PO SCH (09:00)
[2016-12-05] MEDS ORDERED: ESCITALOPRAM OXALATE 10 MG TAB PO SCH (09:00)
[2016-12-05] MEDS: GABAPENTIN 300 MG CAP PO SCH ×2 (09:00→20:45)
[2016-12-05] MEDS: PANTOprazole SOD 40 MG TAB PO SCH (09:00)
[2016-12-05] MEDS: LACTOBACILLUS ACIDOPHILUS (FLORANEX) TAB PO SCH ×2 (09:00→20:46)
[2016-12-05] MEDS: LACTULOSE SYRUP 20 GM/30 ML UDC PO SCH ×2 (09:00→20:45)
--- NOTE | 2016-12-05 09:04 | PULMONARY CONSULTATION ---
DATE OF CONSULTATION: 12/05/2016 DATE OF CONSULTATION: 12/05/2016. TIME: 8:20 a.m. REPORT OF CONSULTATION: The patient was seen in 211. She is a 66-year-old female who was admitted yesterday because of right hip fracture. The history is that on 12/02/2016 she tripped on a bathroom scale and fell at home. Reportedly her found her with an abrasion to the right knee and having some right hip pain. Then on the morning of December 04 she fell again around 7:00 a.m. due to her legs giving out and she could not get up. Her called 911. The patient was found to have a hip fracture. She is scheduled for surgery later today if cleared. The patient was noted to have some confusion after receiving fentanyl and Dilaudid at the [facility] where she was initially taken. She was transferred here reportedly because [facility] does not have in-hospital dialysis. The patient does have a history of end-stage renal disease and has been on dialysis for about 3 years. The patient has a history of asthma and sleep apnea according to the chart. She is not the best historian. She does tell me she uses oxygen at home. She also has both a nebulizer and an inhaler. She could not tell me specifically what the nebulizer solution was. She does take Combivent inhaler. She states she is short of breath at home walking from room to room. She does not get out and go to the grocery store any longer, her does that. I am not certain if that is because of breathing issues or if it might be because of generalized weakness. She does not have much of a cough. She does wheeze on a regular basis she states. She has not had any recent colds. She denies chills, fevers or sweats. The patient wears CPAP nightly. She states she does well with it. Apparently her CPAP was not put on last night, even though she had her machine in the room. This was according to the patient. I did not yet confirm that with nursing staff. The patient had previously been admitted to the hospital from October 21 until October 23. Reportedly, she had fluid overload and pulmonary edema at that time. She also had been admitted from October 07 to October 10 for a syncopal episode that was felt to be orthostatic hypotension. She also was admitted October 30 until October 31 with what was thought to be gastric ulcer. She had at least 2 hospital stays in 2016 for what was reportedly congestive heart failure. I did find a prior blood gas which was done 03/24/2016 that showed a pH of 7.32, pCO2 of 44 and pO2 of 86. The patient's oxygenation has been good since admission. She actually had been on room air for a while. During the nighttime her saturations decreased and she was put back on 2-3 liters. She denies having shortness of breath at present. PAST SURGICAL HISTORY: 1. Tonsillectomy. 2. Aortic valve replacement in 2004 and she suffered a stroke postoperatively. That was a mechanical prosthesis. Repeat aortic valve surgery was done in 2009 with a bioprosthetic aortic valve and she also had 2-vessel coronary artery bypass graft done at that time. 3. Pacemaker insertion 2009. 4. Cataract surgery bilaterally. PAST MEDICAL HISTORY: 1. End-stage renal disease. 2. CHF. 3. CAD. 4. Paroxysmal atrial fibrillation. 5. Hypertension. 6. Diabetes type 2. 7. Hyperlipidemia. 8. CVA as noted. 9. Asthma as noted. 10. Sleep apnea as noted. 11. 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 12. DJD. SOCIAL HISTORY: Tobacco never. ETOH -- none. ALLERGIES: LISINOPRIL. OCCUPATIONAL HISTORY: The patient did not have any occupations where she was exposed to dust, fumes or chemicals. 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 FAMILY HISTORY: Father reportedly had asthma. Mother had heart disease and pancreatic cancer. One brother age 43 [place]. Two sisters living with coronary artery disease. REVIEW OF SYSTEMS: The patient's energy level is low. She is not the best historian. She denies having any nausea at present. She states, however, she has not eaten hardly anything since coming to the hospital. She denies other complaints except as noted above. Ten systems were reviewed. PHYSICAL EXAMINATION: GENERAL: The patient is a pleasant 66-year-old female who was cooperative, alert and oriented. She was able to answer questions for the most part pretty well and seemingly accurately. She appears chronically ill. HEAD, EYES, EARS, NOSE, AND THROAT: Pupils were reactive. Implants were noted. Nares were clear. Mouth exam showed dentures on top and an absence of teeth on the bottom. NECK: Palpation of the neck reveals no lymph nodes. CHEST: Of normal development. She has a sternal scar from prior surgery. HEART: The heart rate is 90. The rhythm is irregular. There appears to be pacemaker rhythm. When I listen to her it seemed to be a bigeminal rhythm. Neck veins were mildly distended. VITAL SIGNS: Blood pressure 116/73. Oxygen saturation is 95% on 2 liters. LUNGS: Hurt revealed no wheezing. She had a few rales on the left lateral and posterior chest. These were mild. Respiratory rate was 18 breaths per minute and not labored. ABDOMEN: Soft. Bowel sounds were present. There was no tenderness to palpation or definite mass. The right leg is externally rotated. It appears slightly edematous. The left leg showed no cyanosis, clubbing or edema. The peripheral pulse on the left leg was adequate. LABORATORY DATA: Chest x-ray was done this morning. This reported cardiomegaly. A pacemaker was in place with bipolar leads. There was evidence of aortic valve surgery. A Perm-A-Cath was on the right side. Could not entirely exclude some degree of pulmonary vascular congestion. Film was limited because it was portable. White count today is 8.45. Hemoglobin 9.7. Platelets 205,000. INR was 1.2. Electrolytes show sodium 133, potassium 4.9, chloride 97, bicarbonate 25. BUN 16 with a creatinine of 3.0. Blood sugar this morning 131. Ammonia level yesterday was elevated at 50 and today is 35. IMPRESSIONS: 1. Status post right hip fracture. 2. Asthma by history. 3. Obstructive sleep apnea by history. 4. Coronary artery disease and valvular heart disease. 5. End-stage renal disease. COMMENTS AND RECOMMENDATIONS: The patient seems to be stable at present from a pulmonary perspective. However, it is difficult to evaluate her. She is totally at bed rest. Her oxygenation status is adequate. She does not appear winded. She has mild rales, but no wheezes on exam. There is no suggestion that she has a history of carbon dioxide retention. I would suggest giving her nebulizer treatments on a 4 times per day basis. We would like to give her some before the OR obviously. We will order her own CPAP for at night time. Hopefully she will not need to be maintained on a ventilator postoperatively. She is at moderate risk because of her multiple medical problems. We will order incentive spirometry for her. Caution needs to be taken with sedation. I suspect she is very sensitive to it both with her elevated ammonia level and the renal disease. She is cleared from a pulmonary perspective. Thank you for asking me to assist in her care. BRANDYN
[2016-12-05] MEDS ORDERED: ALBUMIN HUMAN 25% 12.5 GM/50 ML VIAL IV SCH (09:15)
--- NOTE | 2016-12-05 09:17 | Nephrology Progress Note ---
Nephrology Progress Note Date of Service: Dec 05, 2016. Subjective 66 yo female with esrd with right hip fracture. evaluated by pulmonary and cardiology. had two hour treatment last night and for dialysis again this morning. tentatively for the OR this afternoon. pt more comfortable this morning. pain appears better controlled. pt alert. Objective Date Time Temp Pulse Resp B/P Pulse Ox O2 Delivery O2 Flow Rate FiO2 12/05/16 08:05 95 Nasal Cannula 2.0 12/05/16 07:44 36.8 92 18 116/73 95 Nasal Cannula 2.0 12/05/16 04:00 Nasal Cannula 2.0 12/05/16 02:52 37.1 98 18 108/69 94 Nasal Cannula 3.0 12/05/16 01:54 36.7 101 17 119/75 97 Nasal Cannula 3.0 12/05/16 01:30 37.2 98 100/64 12/05/16 01:15 89 104/64 12/05/16 01:04 99 106/65 12/05/16 00:45 89 104/64 12/05/16 00:30 89 104/64 12/05/16 00:23 36.5 88 103/77 12/05/16 00:15 72 90/72 12/05/16 00:01 82 123/82 12/04/16 23:45 95 104/69 12/04/16 23:30 95 108/76 12/04/16 23:20 86 113/68 12/04/16 23:15 Nasal Cannula 2.0 12/04/16 23:03 36.8 95 18 118/58 93 Nasal Cannula 3.0 12/04/16 20:00 96 Room Air 2.0 12/04/16 19:52 36.7 89 18 127/70 96 12/04/16 16:00 95 Room Air 12/04/16 15:45 37.0 90 16 100/54 92 12/04/16 13:12 36.6 93 18 109/72 93 Nasal Cannula 4.0 Physical Exam: General-aaox3 Eyes-no scleral icterus ENT-mmm Neck-supple Lungs-cta Heart-rrr Abdomen-bs+ s/nt/nd Extremities-right hip on ice, no edema Neuro-nonfocal Current Inpatient Medications Medications (Trade) Dose Ordered Sig/Dalton Route Start Time Stop Time Status Last Admin Dose Admin Ondansetron HCl (Zofran Inj) 4 mg Q6H PRN IV 12/04/16 14:00 01/03/17 13:59 12/05/16 02:40 4 MG Glucose (Glucose 40% Gel) 15-30 GRAMS 15 GRAMS... UD PRN PO 12/04/16 15:00 01/03/17 14:59 Glucose (Glucose Chew Tab) 4-8 Tablets 4 Tabl... UD PRN PO 12/04/16 15:00 01/03/17 14:59 Dextrose (Dextrose 50% 50ML Syringe) 25-50ML OF 50% DW IV FOR... UD PRN IV 12/04/16 15:00 01/03/17 14:59 Glucagon (Glucagon Inj) 1 mg UD PRN SQ 12/04/16 15:00 01/03/17 14:59 Miscellaneous Information (Consult Glycemic Management Pharmacy) 1 ea UD N/A 12/04/16 14:59 01/03/17 14:58 Atorvastatin Calcium (Lipitor Tab) 80 mg HS PO 12/04/16 21:00 01/03/17 20:59 Gabapentin (Neurontin Cap) 300 mg BID PO 12/04/16 21:00 01/03/17 20:59 Albuterol/ Ipratropium (Combivent Respimat Inh) 1 puffs QID PRN INH 12/04/16 15:00 01/03/17 14:59 Lactobacillus Acidophilus (Floranex Tab) 2 tab BID PO 12/04/16 21:00 01/03/17 20:59 Lactulose (Chronulac Syrup) 20 gm BID PO 12/04/16 21:00 01/03/17 20:59 Montelukast Sodium (Singulair Tab) 10 mg HS PO 12/04/16 21:00 01/03/17 20:59 Nitroglycerin (Nitrostat Tab) 0.4 mg PRN PRN UT 12/04/16 15:00 01/03/17 14:59 Vitamin B Complex/ Vit C/Folic Acid (Nephrocaps) 1 cap QAM PO 12/05/16 09:00 01/04/17 08:59 Pantoprazole Sodium (Protonix Tab) 40 mg QAM PO 12/05/16 09:00 01/04/17 08:59 Insulin Glargine (Lantus Solostar Pen) PER SCALE BID SC 12/04/16 21:00 01/03/17 20:59 Future hold 12/04/16 20:51 8 UNIT Insulin Aspart (novoLOG ASPART) SLIDING SCALE ACHS SC 12/04/16 16:15 01/03/17 16:14 Acetaminophen/ Hydrocodone Bitart ([place] 5/325 Tab) 1 tab Q4H PRN PO 12/04/16 18:00 12/18/16 17:59 12/05/16 02:40 1 TAB Ipratropium [place] (Atrovent 0.02% 0.5MG/2.5ML Neb) 0.5 mg Q6R INH 12/05/16 09:00 01/04/17 08:59 Levalbuterol (Xopenex 0.63 Mg/ 3 Ml Neb) 0.63 mg Q6R INH 12/05/16 09:00 01/04/17 08:59 Last 24 Hours Test 12/04/16 14:41 12/04/16 15:09 12/04/16 17:00 12/04/16 17:46 White Blood Count 9.34 K/uL Red Blood Count 3.22 M/uL Hemoglobin 9.9 g/dL Hematocrit 31.8 % Mean Corpuscular Volume 98.8 fL Mean Corpuscular Hemoglobin 30.7 pg Mean Corpuscular Hemoglobin Concent 31.1 g/dl Platelet Count 199 K/uL Mean Platelet Volume 9.3 fL Neutrophils (%) (Auto) 78.5 % Lymphocytes (%) (Auto) 8.2 % Monocytes (%) (Auto) 11.2 % Eosinophils (%) (Auto) 1.2 % Basophils (%) (Auto) 0.5 % Neutrophils # (Auto) 7.32 K/uL Lymphocytes # (Auto) 0.77 K/uL Monocytes # (Auto) 1.05 K/uL Eosinophils # (Auto) 0.11 K/uL Basophils # (Auto) 0.05 K/uL RDW Standard Deviation 67.6 fL RDW Coefficient of Variation 18.9 % Immature Granulocyte % (Auto) 0.4 % Immature Granulocyte # (Auto) 0.04 K/uL Nucleated RBC Absolute Count (auto) 0.02 K/uL Nucleated Red Blood Cells % 0.2 % Sodium Level 129 mmol/L Potassium Level 5.6 mmol/L Chloride Level 93 mmol/L Carbon Dioxide Level 26 mmol/L Anion Gap 10.0 mmol/L Blood Urea Nitrogen 25 mg/dl Creatinine 4.00 mg/dl Est Creatinine Clear Calc Drug Dose 11.2 ml/min Estimated GFR () 12.8 Estimated GFR (Non- 11.1 BUN/Creatinine Ratio 6.2 Random Glucose 125 mg/dl Calcium Level 9.0 mg/dl Magnesium Level 2.5 mg/dl Total Bilirubin 0.7 mg/dl Aspartate Amino Transf (AST/SGOT) 31 U/L Alanine Aminotransferase (ALT/SGPT) 20 U/L Alkaline Phosphatase 135 U/L Total Protein 9.6 gm/dl Albumin 3.1 gm/dl Globulin 6.5 gm/dl Albumin/Globulin Ratio 0.5 Ammonia 50.0 umol/L Osmolality 293 mOsm/kg Bedside Glucose 164 mg/dl Test 12/04/16 20:08 12/05/16 05:50 12/05/16 06:11 Bedside Glucose 171 mg/dl 131 mg/dl White Blood Count 8.45 K/uL Red Blood Count 3.13 M/uL Hemoglobin 9.7 g/dL Hematocrit 31.2 % Mean Corpuscular Volume 99.7 fL Mean Corpuscular Hemoglobin 31.0 pg Mean Corpuscular Hemoglobin Concent 31.1 g/dl RDW Standard Deviation 68.8 fL RDW Coefficient of Variation 18.9 % Platelet Count 205 K/uL Mean Platelet Volume 9.2 fL Prothrombin Time 12.5 SECONDS Prothromb Time International Ratio 1.2 Sodium Level 133 mmol/L Potassium Level 4.9 mmol/L Chloride Level 97 mmol/L Carbon Dioxide Level 25 mmol/L Anion Gap 11.0 mmol/L Blood Urea Nitrogen 16 mg/dl Creatinine 3.00 mg/dl Est Creatinine Clear Calc Drug Dose 14.7 ml/min Estimated GFR () 18.1 Estimated GFR (Non- 15.7 BUN/Creatinine Ratio 5.5 Random Glucose 134 mg/dl Calcium Level 8.7 mg/dl Magnesium Level 2.3 mg/dl Ammonia 35.0 umol/L Thyroid Stimulating Hormone (TSH) 1.970 uIu/ml Assessment & Plan ESRD-pt had dialysis last night to help with hyponatremia and hyperkalemia. k has improved and sodium levels are stable. sodium up to 133. both improved with dialysis. for dialysis again this morning. last night took off 1.5 liters. will take off another liter today with albumin and continue on a 2k bath. Anemia of renal failure-hg under 10 and will redose procrit today. ok from renal perspective for surgery this afternoon.
[2016-12-05] MEDS ORDERED: EPOETIN ALFA 10,000 UNITS/ML VIAL IV. SCH (09:30)
--- NOTE | 2016-12-05 12:28 | Pharmacy Progress Note ---
Glycemic Control: Progress Nt Date of Service Dec 05, 2016. Scope Glycemic Pharmacist consulted by Aurora Laureano PA-C on 12/04/16 for glycemic control and to write orders per [facility] inpatient glycemic control protocol. Objective Accuchecks BSG (last 24hrs): Test 12/04/16 14:41 12/04/16 17:46 12/04/16 20:08 12/05/16 05:50 Random Glucose 125 mg/dl (70-99) 134 mg/dl (70-99) Bedside Glucose 164 mg/dl (70-90) 171 mg/dl (70-90) Test 12/05/16 06:11 Bedside Glucose 131 mg/dl (70-90) Laboratory Data (last 24hrs) Test 12/04/16 14:41 12/05/16 05:50 Anion Gap 10.0 mmol/L 11.0 mmol/L BUN/Creatinine Ratio 6.2 5.5 Blood Urea Nitrogen 25 mg/dl 16 mg/dl Creatinine 4.00 mg/dl 3.00 mg/dl Potassium Level 5.6 mmol/L 4.9 mmol/L Sodium Level 129 mmol/L 133 mmol/L White Blood Count 9.34 K/uL 8.45 K/uL Red Blood Count 3.22 M/uL Hemoglobin 9.9 g/dL Hematocrit 31.8 % Mean Corpuscular Volume 98.8 fL Mean Corpuscular Hemoglobin 30.7 pg Mean Corpuscular Hemoglobin Concent 31.1 g/dl Platelet Count 199 K/uL Mean Platelet Volume 9.3 fL Neutrophils (%) (Auto) 78.5 % Lymphocytes (%) (Auto) 8.2 % Monocytes (%) (Auto) 11.2 % Eosinophils (%) (Auto) 1.2 % Basophils (%) (Auto) 0.5 % Neutrophils # (Auto) 7.32 K/uL Lymphocytes # (Auto) 0.77 K/uL Monocytes # (Auto) 1.05 K/uL Eosinophils # (Auto) 0.11 K/uL Basophils # (Auto) 0.05 K/uL Recent Pertinent Medications Outpatient Anti-diabetic Regimen: * Lantus 30 units HS * Novolog - 25 units with breakfast and dinner; 20 units with lunch (if eaten) * A1c - not accurate, HD pt Risk Factors for Insulin Resistance: * Recent surgery: POD#0 - IM rodding Right Femur * Diet: NPO for surgery today Assessment & Plan ASSESSMENT: 12/04/16 * 66 year old type 2 diabetic known to pharmacy glycemic service admitted with hip fracture, pt on HD. * I will begin patient on similar CF and CR from past admission and a much smaller Lantus dose than home dose, as patient does not require near as much insulin when inpatient vs her outpatient regimen. * ADA & AACE recommend a goal blood sugar range 140-180 mg/dl for the majority of critically ill & non-critically ill patients. However, more stringent targets may be selected in individual cases. I will begin with this range for patient on HD. 12/05/16 * s/p IM rodding of R Femur today. * Blood sugars at goal, patient had 8 units of insulin yesterday, all Lantus, NPO after midnight last night. * Hold Lantus this morning for NPO status and resume with tonight's dose, based on BSG to prevent hypoglycemia. PLAN FOR INPATIENT GLYCEMIC CONTROL: * HOLD Lantus this AM, then resume tonight: * LANTUS SQ BID - based on BSG * BSG < 120mg/dL - 0 units * BSG 120-180mg/dL - 8 units * BSG > 180mg/dL - 12 units * Correctional Insulin with NOVOLOG per scale ACHS or Q6hrs while NPO * Goal Range: Low 140 mg/dL - High 180 mg/dL * Correction Factor: 30 mg/dL/unit * Nutritional / Prandial insulin per Carb ratio of 1 unit per 12 grams CHO consumed * Please note that the plan above was derived based on current level of insulin resistance and hospital stress. These recommendations are appropriate for inpatient admission only. Plan of care upon discharge will need to be reassessed to avoid potential outpatient hypo/hyperglycemia. Thank you.
[2016-12-05] MEDS ORDERED: BUPIVACAINE 0.5 % 5 MG/1 ML PF 10ML VIAL ONE (12:35)
--- NOTE | 2016-12-05 13:30 | Progress Note ---
Internal Med Progress Note Date of Service: Dec 05, 2016. Provider Documentation: SUBJECTIVE: Patient is receiving d ialysis today Does have chronic SOB, ambulatory dysfunction- wheel chair bound Denies any worsening of SOB, leg swelling, chest pain, cough, fever, chills, nausea, vomiting, diarrhea No recent sickness. OBJECTIVE: Vital Signs-as noted below Exam: General-AAOX3, no distress Eyes-No icterus Neck-Supple, No JVD Lungs-AEBE decreased, no wheezing, crackles Heart-S1, S2 normal, Murmur + Abdomen-Soft, non tender, non distended, BS present Extremities-No edema, cyanosis Neuro-No focal deficits Lab data as noted below. ASSESSMENT & PLAN: Assessment and Plan : RIGHT HIP INTERTROCHANTERIC FRACTURE S/p mechanical fall. Transferred from [facility] for further management -Risk factors : Multiple medical comorbidities, poor functional status. Chronic CHF with no signs of acute exacerbation, S/P Bioprosthetic aortic valve replacement, ESRD on HD, CAD S/P CABG, Atrial fibrillation, Chronic hypoxic respiratory failure on 3 L oxygen at home, Asthma with no signs of exacerbation , LIZZ, Hx of CVA, DM, ALLEN Cirrhosis Functional status- Mainly wheel chair bound, hardly goes out of home, capable of activities of daily living,. -Labs/Imaging- CXR- mild CHF, but clinically no signs of overt failure, EKG- v paced rhythm -Cardiology/Pulmonary evaluated patient- cleared for discharge and a high risk of cardiopulmonary complications which I agree. Caution with pain medications/ sedation. Would continue with Nebs q 6 hours, Received dialysis today -Orthopedics on board- for surgery today S/P METABOLIC ENCEPHALOPATHY Secondary to multiple pain medications received in ED -Resolved and back to baseline -Cautious about pain meds/sedation S/P HYPERKALEMIA- Resolved K= 5.6 on presentation without EKG changes S/P Dialysis today -Nephrology on board. ESRD ON DIALYSIS Dialysis [id number]; last dialysis 12/03 -S/P Dialysis today -Follows with Dr. Flannery -Nephrology consulted CHRONIC HYPONATREMIA, Mild -Near baseline CHRONIC ANEMIA -Hg stable from baseline -Monitor post op ASTHMA/ CHRONIC HYPOXIC RESPIRATORY FAILURE On 3 liters NC continuous at home -Not in exacerbation -Continue home inhalers-scheduled per pulmonary recommendations, supplemental O2 PAROXYSMAL AFIB, HEART BLOCK S/P PACEMAKER -Not on rate controlling meds due to hx of hypotension -Not on Coumadin due to fall risk CHRONIC SYSTOLIC CHF HX BIOPROSTHETIC AORTIC VALVE REPLACEMENT Appears compensated, no signs of exacerbation Echo 09/2016- EF 45-50%, Prosthetic aortic valve, Moderate MR CAD S/P CABG X 2 Denies chest pain; no signs of angina -Metoprolol and imdur d/c in the past due to syncope from hypotension -Hold aspirin for surgical intervention -Continue statin DM TYPE 2 -On Lantus 30 units HS and novolog sliding scale at home -Consult pharmacy for glycemic control HISTORY OF CVA -Hold aspirin for surgical intervention ALLEN CIRRHOSIS Ammonia - 35 -Continue Lactulose LIZZ -Continue CPAP HX GASTRIC ULCER -EGD Oct 2016 showed ulcer healed. No signs of active bleeding -Continue PPI DVT PROPHYLAXIS Heparin SQ DISPOSITION Continue with tele monitoring Vital Signs: Date Time Temp Pulse Resp B/P Pulse Ox O2 Delivery O2 Flow Rate FiO2 12/05/16 08:05 95 Nasal Cannula 2.0 12/05/16 07:44 36.8 92 18 116/73 95 Nasal Cannula 2.0 12/05/16 04:00 Nasal Cannula 2.0 12/05/16 02:52 37.1 98 18 108/69 94 Nasal Cannula 3.0 12/05/16 01:54 36.7 101 17 119/75 97 Nasal Cannula 3.0 12/05/16 01:30 37.2 98 100/64 12/05/16 01:15 89 104/64 12/05/16 01:04 99 106/65 12/05/16 00:45 89 104/64 12/05/16 00:30 89 104/64 12/05/16 00:23 36.5 88 103/77 12/05/16 00:15 72 90/72 12/05/16 00:01 82 123/82 12/04/16 23:45 95 104/69 12/04/16 23:30 95 108/76 12/04/16 23:20 86 113/68 12/04/16 23:15 Nasal Cannula 2.0 12/04/16 23:03 36.8 95 18 118/58 93 Nasal Cannula 3.0 12/04/16 20:00 96 Room Air 2.0 12/04/16 19:52 36.7 89 18 127/70 96 12/04/16 16:00 95 Room Air 12/04/16 15:45 37.0 90 16 100/54 92 Lab Results: Results Past 24 Hours Test 12/04/16 14:41 12/04/16 15:09 12/04/16 17:00 12/04/16 17:46 Range/Units White Blood Count 9.34 4.8-10.8 K/uL Red Blood Count 3.22 4.2-5.4 M/uL Hemoglobin 9.9 12.0-16.0 g/dL Hematocrit 31.8 37-47 % Mean Corpuscular Volume 98.8 80-100 fL Mean Corpuscular Hemoglobin 30.7 25-34 pg Mean Corpuscular Hemoglobin Concent 31.1 32-36 g/dl Platelet Count 199 130-400 K/uL Mean Platelet Volume 9.3 7.4-10.4 fL Neutrophils (%) (Auto) 78.5 % Lymphocytes (%) (Auto) 8.2 % Monocytes (%) (Auto) 11.2 % Eosinophils (%) (Auto) 1.2 % Basophils (%) (Auto) 0.5 % Neutrophils # (Auto) 7.32 1.4-6.5 K/uL Lymphocytes # (Auto) 0.77 1.2-3.4 K/uL Monocytes # (Auto) 1.05 0.11-0.59 K/uL Eosinophils # (Auto) 0.11 0-0.5 K/uL Basophils # (Auto) 0.05 0-0.2 K/uL RDW Standard Deviation 67.6 36.4-46.3 fL RDW Coefficient of Variation 18.9 11.5-14.5 % Immature Granulocyte % (Auto) 0.4 % Immature Granulocyte # (Auto) 0.04 0.00-0.02 K/uL Nucleated RBC Absolute Count (auto) 0.02 0-0 K/uL Nucleated Red Blood Cells % 0.2 % Sodium Level 129 136-145 mmol/L Potassium Level 5.6 3.5-5.1 mmol/L Chloride Level 93 98-107 mmol/L Carbon Dioxide Level 26 21-32 mmol/L Anion Gap 10.0 3-11 mmol/L Blood Urea Nitrogen 25 7-18 mg/dl Creatinine 4.00 0.60-1.20 mg/dl Est Creatinine Clear Calc Drug Dose 11.2 ml/min Estimated GFR () 12.8 Estimated GFR (Non- 11.1 BUN/Creatinine Ratio 6.2 10-20 Random Glucose 125 70-99 mg/dl Calcium Level 9.0 8.5-10.1 mg/dl Magnesium Level 2.5 1.8-2.4 mg/dl Total Bilirubin 0.7 0.2-1 mg/dl Aspartate Amino Transf (AST/SGOT) 31 15-37 U/L Alanine Aminotransferase (ALT/SGPT) 20 12-78 U/L Alkaline Phosphatase 135 45-117 U/L Total Protein 9.6 6.4-8.2 gm/dl Albumin 3.1 3.4-5.0 gm/dl Globulin 6.5 2.5-4.0 gm/dl Albumin/Globulin Ratio 0.5 0.9-2 Ammonia 50.0 11-32 umol/L Osmolality 293 280-300 mOsm/kg Bedside Glucose 164 70-90 mg/dl Test 12/04/16 20:08 12/05/16 05:50 12/05/16 06:11 Range/Units Bedside Glucose 171 131 70-90 mg/dl White Blood Count 8.45 4.8-10.8 K/uL Red Blood Count 3.13 4.2-5.4 M/uL Hemoglobin 9.7 12.0-16.0 g/dL Hematocrit 31.2 37-47 % Mean Corpuscular Volume 99.7 80-100 fL Mean Corpuscular Hemoglobin 31.0 25-34 pg Mean Corpuscular Hemoglobin Concent 31.1 32-36 g/dl RDW Standard Deviation 68.8 36.4-46.3 fL RDW Coefficient of Variation 18.9 11.5-14.5 % Platelet Count 205 130-400 K/uL Mean Platelet Volume 9.2 7.4-10.4 fL Prothrombin Time 12.5 9.0-12.0 SECONDS Prothromb Time International Ratio 1.2 0.9-1.1 Sodium Level 133 136-145 mmol/L Potassium Level 4.9 3.5-5.1 mmol/L Chloride Level 97 98-107 mmol/L Carbon Dioxide Level 25 21-32 mmol/L Anion Gap 11.0 3-11 mmol/L Blood Urea Nitrogen 16 7-18 mg/dl Creatinine 3.00 0.60-1.20 mg/dl Est Creatinine Clear Calc Drug Dose 14.7 ml/min Estimated GFR () 18.1 Estimated GFR (Non- 15.7 BUN/Creatinine Ratio 5.5 10-20 Random Glucose 134 70-99 mg/dl Calcium Level 8.7 8.5-10.1 mg/dl Magnesium Level 2.3 1.8-2.4 mg/dl Ammonia 35.0 11-32 umol/L Thyroid Stimulating Hormone (TSH) 1.970 0.300-4.500 uIu/ml
[2016-12-05] MEDS ORDERED: BUPIVACAINE/EPINEPHRINE 0.5% MPF 1:200,000 30 ML VIAL ONE (14:16)
[2016-12-05] MEDS ORDERED: VANCOMYCIN HCL 1000MG/20ML VIAL ONE (14:16)
[2016-12-05] MEDS ORDERED: PROPOFOL IV EMULSION 10 MG/ML 20 ML VIAL IV ONE (15:16)
[2016-12-05] MEDS ORDERED: LIDOCAINE HCL 2% 2 ML VIAL (20MG/ML) ONE (15:16)
[2016-12-05] MEDS ORDERED: SUCCINYLCHOLINE CHLORIDE 20 MG/ML 10 ML VIAL IV ONE (15:16)
[2016-12-05] MEDS ORDERED: FENTANYL CITRATE INJ 50 MCG/1 ML 2 ML VIAL ONE ×2 (15:20→17:03)
[2016-12-05] MEDS ORDERED: CEFAZOLIN IV 2,000 MG/60 ML D5W IV ONE (15:31)
--- NOTE | 2016-12-05 15:37 | History & Physical Bridge Note ---
H&P Re-Evaluation Bridge Note: I have examined the patient, reviewed the History & Physical and in the interval since the performance of the History & Physical I have noted the following changes of clinical significance: No changes noted
[2016-12-05] MEDS ORDERED: ONDANSETRON INJ 2 MG/ML 2 ML VIAL ONE (17:25)
[2016-12-05] MEDS ORDERED: SODIUM CHLORIDE 0.45% 1000ML 1,000 ML IV SCH (17:49)
--- NOTE | 2016-12-05 17:49 | [facility] Post Operative Brief Note ---
Immediate Operative Summary Operative Date Dec 05, 2016. Pre-Operative Diagnosis RIGHT HIP FRACTURE Post-Operative Diagnosis RIGHT HIP FRACTURE Procedure(s) Performed RIGHT INTRAMEDULLARY LONG THIERRY ORIF Surgeon DR SLOAN Collar Baster Jumpbasting Surgeon(s) PATRICIA TINOCO Estimated Blood Loss 350ml Specimens NONE Complication(s) None Disposition Recovery Room / PACU
--- NOTE | 2016-12-05 17:56 | DIAGNOSTIC IMAGING REPORT ---
INTRAOPERATIVE RIGHT HIP 3 VIEWS CLINICAL HISTORY: Intertrochanteric right hip fracture. COMPARISON STUDY: 12/04/2016 FLUOROSCOPY TIME: 96 seconds. 3 fluoroscopic spot images were acquired. FINDINGS: 3 intraoperative fluoroscopic spot images demonstrate placement of a trochanteric nail and interlocking intramedullary margarita. IMPRESSION: Intraoperative radiographs obtained during placement of a trochanteric nail and intramedullary margarita Electronically signed by: Evens Marinelli M.D. 12/05/2016 5:54 PM Dictated Date/Time: 12/05/2016 5:53 PM
[2016-12-05] MEDS ORDERED: MoRPHine SULFATE 4 MG/ML 1 ML CARP\\VIAL IV PRN (18:00)
[2016-12-05] MEDS ORDERED: MoRPHine SULFATE 2 MG/ML CARP IV PRN (18:00)
--- NOTE | 2016-12-05 18:20 | Anesthesiology Progress Note ---
Anesthesia Post Op Note Date & Time Dec 05, 2016 at 18:20 Vital Signs Pain Intensity: 0 Vital Signs Past 12 Hours Date Time Temp Pulse Resp B/P Pulse Ox O2 Delivery O2 Flow Rate FiO2 12/05/16 18:15 102 18 109/72 100 Nasal Cannula 3 12/05/16 18:05 98 18 109/65 100 Mask 10 12/05/16 17:55 96 20 105/68 92 Mask 10 12/05/16 17:51 36.9 97 20 111/69 100 Mask 10 12/05/16 10:31 89 100/76 12/05/16 10:23 37.0 90 105/69 12/05/16 08:05 95 Nasal Cannula 2.0 12/05/16 07:44 36.8 92 18 116/73 95 Nasal Cannula 2.0 Notes Mental Status: alert / awake / arousable, participated in evaluation Pt Amnestic to Procedure: Yes Nausea / Vomiting: adequately controlled Pain: adequately controlled Airway Patency, RR, SpO2: stable & adequate BP & HR: stable & adequate Hydration State: stable & adequate Anesthetic Complications: no major complications apparent
--- NOTE | 2016-12-05 18:26 | OPERATIVE REPORT ---
DATE OF OPERATION: 12/05/2016 PREOPERATIVE DIAGNOSIS: Intertrochanteric fracture of the right hip. POSTOPERATIVE DIAGNOSIS: Same. PROCEDURE: Included IM rodding, right hip long margarita, [employer]. COMPLICATIONS: Zero. BLOOD LOSS: 350 mL. DESCRIPTION OF PROCEDURE: The patient was taken to the operating room and general intubated anesthetic provided to the patient. Placed up on the fracture table. We translocated the bed to the right hand side, we scrubbed with DuraPrep. Draped her We provisionally reduced her hip fracture in near anatomic location. We entered the proximal portion, skin incision, fascial incision, we were able to run a guidewire down the femoral shaft. We reamed proximally first 10 cm, then placed a long guidewire over, reamed up to 12, placed a long margarita, locked proximally and distally. We were pleased with the reduction, and the locking mechanism. Everything was tightened down, we irrigated, closed in layers with #1 Vicryl suture, 2-0 and staple gun. Sterile dressings applied. The patient returned to PACU stable. No apparent interoperative medical or surgical complications. I attest to the content of the Intraoperative Record and any orders documented therein. Any exceptio ns are noted below.
[2016-12-05 18:56] LABS: HEMATOCRIT 28.7 % (37-47)
[2016-12-05] MEDS: ACETAMINOPHEN IV 650 MG in EMPTY BAG 0 ML IV PRN (19:25)
[2016-12-05] MEDS: LEVALBUTEROL 0.63MG/3 ML NEB INH SCH (19:59)
[2016-12-05] MEDS: IPRATROPIUM BROMIDE NEB SOLN 0.02% 2.5 ML VIAL INH SCH (19:59)
[2016-12-05] MEDS: ATORVASTATIN 20 MG TAB PO SCH (20:45)
[2016-12-05] MEDS: MONTELUKAST SOD 10 MG TAB PO SCH (20:45)
[2016-12-05] MEDS: INSULIN GLARGINE SOLOSTAR 100 UNITS/ML 3 ML PEN SC SCH (21:00)
[2016-12-06] VITALS (23 sets, daily range): BP systolic 84–101; BP diastolic 51–68; PULSE 78–113; TEMP 36.4–37.4; O2SAT 94–100
[2016-12-06] MEDS: IPRATROPIUM BROMIDE NEB SOLN 0.02% 2.5 ML VIAL INH SCH ×4 (02:00→19:30)
[2016-12-06] MEDS: LEVALBUTEROL 0.63MG/3 ML NEB INH SCH ×4 (02:00→19:30)
[2016-12-06] MEDS: INSULIN ASPART 100 UNITS/ML 3 ML PEN SC SCH ×4 (07:00→20:09)
--- NOTE | 2016-12-06 07:08 | Nephrology Progress Note ---
Nephrology Progress Note Date of Service: Dec 06, 2016. Subjective 66 yo female with esrd with right hip fracture. evaluated by pulmonary and cardiology preop and underwent operative procedure yesterday afternoon without complications. pt is comfortable on her cpap overnight as usual. pain under good control. had two hour treatment on the night of admission and had her regular dialysis yesterday morning. Objective Date Time Temp Pulse Resp B/P Pulse Ox O2 Delivery O2 Flow Rate FiO2 12/06/16 04:22 36.4 99 18 97/54 98 12/06/16 04:00 BiPAP 12/06/16 03:51 82 18 94 BiPAP/CPAP 3.0 12/06/16 00:05 37.1 102 18 86/51 95 12/05/16 23:59 BiPAP 12/05/16 21:00 99 92/54 12/05/16 19:59 81 16 94 Nasal Cannula 3.0 12/05/16 19:55 37.3 103 28 86/46 100 2.0 12/05/16 18:35 36.8 102 18 101/75 100 Nasal Cannula 3.0 12/05/16 18:30 Nasal Cannula 2.0 12/05/16 18:25 36.7 90 18 104/70 100 Nasal Cannula 3 12/05/16 18:15 102 18 109/72 100 Nasal Cannula 3 12/05/16 18:05 98 18 109/65 100 Mask 10 12/05/16 17:55 96 20 105/68 92 Mask 10 12/05/16 17:51 36.9 97 20 111/69 100 Mask 10 12/05/16 10:31 89 100/76 12/05/16 10:23 37.0 90 105/69 12/05/16 08:05 95 Nasal Cannula 2.0 12/05/16 07:44 36.8 92 18 116/73 95 Nasal Cannula 2.0 Physical Exam: General-aaox3 Eyes-no scleral icterus ENT-mmm Neck-supple Lungs-clear anteriorly Heart-regular with occasional ectopy Abdomen-bs+ s/nt/nd Extremities-right hip wrapped Neuro-nonfocal Current Inpatient Medications Medications (Trade) Dose Ordered Sig/Dalton Route Start Time Stop Time Status Last Admin Dose Admin Ondansetron HCl (Zofran Inj) 4 mg Q6H PRN IV 12/04/16 14:00 01/03/17 13:59 12/05/16 02:40 4 MG Glucose (Glucose 40% Gel) 15-30 GRAMS 15 GRAMS... UD PRN PO 12/04/16 15:00 01/03/17 14:59 Glucose (Glucose Chew Tab) 4-8 Tablets 4 Tabl... UD PRN PO 12/04/16 15:00 01/03/17 14:59 Dextrose (Dextrose 50% 50ML Syringe) 25-50ML OF 50% DW IV FOR... UD PRN IV 12/04/16 15:00 01/03/17 14:59 Glucagon (Glucagon Inj) 1 mg UD PRN SQ 12/04/16 15:00 01/03/17 14:59 Miscellaneous Information (Consult Glycemic Management Pharmacy) 1 ea UD N/A 12/04/16 14:59 01/03/17 14:58 Atorvastatin Calcium (Lipitor Tab) 80 mg HS PO 12/04/16 21:00 01/03/17 20:59 12/05/16 20:45 80 MG Gabapentin (Neurontin Cap) 300 mg BID PO 12/04/16 21:00 01/03/17 20:59 12/05/16 20:45 300 MG Albuterol/ Ipratropium (Combivent Respimat Inh) 1 puffs QID PRN INH 12/04/16 15:00 01/03/17 14:59 Lactobacillus Acidophilus (Floranex Tab) 2 tab BID PO 12/04/16 21:00 01/03/17 20:59 12/05/16 20:46 2 TAB Lactulose (Chronulac Syrup) 20 gm BID PO 12/04/16 21:00 01/03/17 20:59 12/05/16 20:45 20 GM Montelukast Sodium (Singulair Tab) 10 mg HS PO 12/04/16 21:00 01/03/17 20:59 12/05/16 20:45 10 MG Nitroglycerin (Nitrostat Tab) 0.4 mg PRN PRN UT 12/04/16 15:00 01/03/17 14:59 Vitamin B Complex/ Vit C/Folic Acid (Nephrocaps) 1 cap QAM PO 12/05/16 09:00 01/04/17 08:59 Pantoprazole Sodium (Protonix Tab) 40 mg QAM PO 12/05/16 09:00 01/04/17 08:59 Insulin Glargine (Lantus Solostar Pen) PER SCALE BID SC 12/04/16 21:00 01/03/17 20:59 Future hold 12/04/16 20:51 8 UNIT Insulin Aspart (novoLOG ASPART) SLIDING SCALE ACHS SC 12/04/16 16:15 01/03/17 16:14 Acetaminophen/ Hydrocodone Bitart ([place] 5/325 Tab) 1 tab Q4H PRN PO 12/04/16 18:00 12/18/16 17:59 12/05/16 02:40 1 TAB Ipratropium [place] (Atrovent 0.02% 0.5MG/2.5ML Neb) 0.5 mg Q6R INH 12/05/16 09:00 01/04/17 08:59 12/06/16 02:00 0.5 MG Levalbuterol 0.63 mg 0.63 mg Q6R INH 12/05/16 09:00 01/04/17 08:59 12/06/16 02:00 0.63 MG Sodium Chloride (1/2 Nss 1000ml) 1,000 ml @ 50 mls/hr Q20H IV 12/05/16 17:49 01/04/17 17:48 12/05/16 18:55 50 MLS/HR Morphine Sulfate (MoRPHine SULFATE INJ) 2 mg Q1H PRN IV 12/05/16 18:00 12/19/16 17:59 Morphine Sulfate 4 mg 4 mg Q1H PRN IV 12/05/16 18:00 12/19/16 17:59 Acetaminophen/ Empty Bag (Ofirmev IV/ Empty Iv Bag 100ml) 65 ml @ 260 mls/hr Q6H PRN IV 12/05/16 18:00 01/04/17 17:59 12/05/16 19:25 260 MLS/HR Oxycodone/ Acetaminophen (Percocet 5-325mg Tab) 1 tab Q4H PRN PO 12/05/16 18:00 12/19/16 17:59 Last 24 Hours Test 12/05/16 17:54 12/05/16 18:41 12/05/16 20:10 12/06/16 04:44 Bedside Glucose 106 mg/dl 107 mg/dl Hemoglobin 9.0 g/dL Hematocrit 28.7 % Assessment & Plan ESRD-pt usually dialyzes t-h-s. will stop the iv fluids, bp tends to run low on her. depending on electrolytes, will hold on dialysis today and plan on dialysis again tomorrow. Anemia of renal failure-goal hg of 10 to 11, dosing procrit accordingly
[2016-12-06 07:28] LABS: HEMATOCRIT 25.6 % (37-47); MEAN CELL VOLUME 98.1 fL (80-100); MEAN CORPUSCULAR HEMOGLOBIN 30.3 pg (25-34); MEAN CORPUSCULAR HGB CONC 30.9 g/dl (32-36); MEAN PLATELET VOLUME 8.8 fL (7.4-10.4); PLATELET COUNT 190 K/uL (130-400); RED BLOOD COUNT 2.61 M/uL (4.2-5.4); WHITE BLOOD COUNT 7.24 K/uL (4.8-10.8)
--- NOTE | 2016-12-06 07:37 | Anesthesiology Progress Note ---
Anesthesia Post Op Note Date & Time Dec 06, 2016 at 07:36 Vital Signs Pain Intensity: 6.0 Vital Signs Past 12 Hours Date Time Temp Pulse Resp B/P Pulse Ox O2 Delivery O2 Flow Rate FiO2 12/06/16 07:03 99 18 94 BiPAP/CPAP 3.0 12/06/16 04:22 36.4 99 18 97/54 98 12/06/16 04:00 BiPAP 12/06/16 03:51 82 18 94 BiPAP/CPAP 3.0 12/06/16 00:05 37.1 102 18 86/51 95 12/05/16 23:59 BiPAP 12/05/16 21:00 99 92/54 12/05/16 19:59 81 16 94 Nasal Cannula 3.0 12/05/16 19:55 37.3 103 28 86/46 100 2.0 Notes Mental Status: alert / awake / arousable, participated in evaluation Pt Amnestic to Procedure: Yes Nausea / Vomiting: adequately controlled Pain: adequately controlled Airway Patency, RR, SpO2: stable & adequate BP & HR: stable & adequate Hydration State: stable & adequate Anesthetic Complications: no major complications apparent
[2016-12-06] MEDS: ACETAMINOPHEN IV 650 MG in EMPTY BAG 0 ML IV PRN (07:47)
[2016-12-06 07:52] LABS: BUN/CREATININE RATIO 7.1 (10-20); CALCIUM 8.5 mg/dl (8.5-10.1); CREATININE 2.7 mg/dl (0.60-1.20); POTASSIUM 4.3 mmol/L (3.5-5.1)
[2016-12-06] MEDS: LACTULOSE SYRUP 20 GM/30 ML UDC PO SCH ×2 (08:03→20:10)
[2016-12-06] MEDS: PANTOprazole SOD 40 MG TAB PO SCH (08:04)
[2016-12-06] MEDS: NEPHROCAPS PO SCH (08:04)
[2016-12-06] MEDS: GABAPENTIN 300 MG CAP PO SCH ×2 (08:04→20:09)
[2016-12-06] MEDS: LACTOBACILLUS ACIDOPHILUS (FLORANEX) TAB PO SCH ×2 (08:04→20:09)
[2016-12-06] MEDS: INSULIN GLARGINE SOLOSTAR 100 UNITS/ML 3 ML PEN SC SCH ×2 (08:14→21:00)
--- NOTE | 2016-12-06 09:14 | PULMONARY PROGRESS NOTE ---
DATE: 12/06/2016 DATE: 12/06/2016. TIME: 8:50 a.m. SUBJECTIVE: The patient is feeling pretty well today. She tolerated surgery well. Nursing staff reports that she had a fairly good night. She has not been complaining of any surgical pain. She denies shortness of breath. She denies chest pains. OBJECTIVE: GENERAL: The patient appears comfortable. VITAL SIGNS: Temperature is 36.8. Heart rate is 100 per minute. Blood pressure is 96/65. Respiratory rate is 18 breaths per minute. LUNGS: Auscultation revealed just a few rales in the left lower lung field posteriorly but otherwise were clear. No wheezing was heard. Saturation was 100% on nasal cannula and this was checked by myself. ABDOMEN: Soft. My stethoscope did leave some akbar on her skin suggesting a little bit of edema. Bowel sounds were present and were normal. There was no peripheral edema noted. LABORATORY DATA: White count today was 7.24. Hemoglobin is 7.9. Platelets were 190,000. INR is 1.2 from yesterday. Electrolytes show sodium 132, potassium 4.3, chloride 97, bicarb 22. His BUN is 19 with a creatinine of 2.7. Blood sugar was 88. IMPRESSIONS: 1. Status post repair of right hip fracture. 2. Asthma by history. 3. Obstructive sleep apnea. 4. Coronary artery disease and valvular heart disease. 5. End-stage renal disease. COMMENTS AND RECOMMENDATIONS: The patient is currently on neb treatments every 6 hours. I would continue that. She has levalbuterol 0.63 and ipratropium 0.5. She is on montelukast as she had been taking at home. Respiratory status has been very stable thus far.
--- NOTE | 2016-12-06 10:48 | Progress Note ---
Internal Med Progress Note Date of Service: Dec 06, 2016. Provider Documentation: SUBJECTIVE: Patient is status post hip fracture repair. Pain is well controlled. Denies any worsening of SOB from baseline, leg swelling, chest pain, cough, fever, chills, nausea, vomiting, diarrhea No recent sickness. OBJECTIVE: Vital Signs-as noted below Exam: General-AAOX3, no distress Eyes-No icterus Neck-Supple, No JVD Lungs-AEBE decreased, no wheezing, crackles Heart-S1, S2 normal, Murmur + Abdomen-Soft, non tender, non distended, BS present Extremities-No edema, cyanosis Neuro-No focal deficits Lab data as noted below. ASSESSMENT & PLAN: Assessment and Plan : RIGHT HIP INTERTROCHANTERIC FRACTURE S/P MECHANICAL FALL Transferred from [facility] for further management s/p Hip fracture repair- IM [facility] on 12/05/16 -Risk factors : Multiple medical comorbidities, poor functional status. Chronic CHF with no signs of acute exacerbation, S/P Bioprosthetic aortic valve replacement, ESRD on HD, CAD S/P CABG, Atrial fibrillation, Chronic hypoxic respiratory failure on 3 L oxygen at home, Asthma with no signs of exacerbation , LIZZ, Hx of CVA, DM, ALLEN Cirrhosis Functional status- Mainly wheel chair bound, hardly goes out of home, capable of activities of daily living,. -Cardiology/Pulmonary evaluated patient- cleared for surgery with a high risk of cardiopulmonary complications. Caution with pain medications/sedation post operatively -Orthopedics on board. ESRD ON DIALYSIS Dialysis [id number] -Follows with Dr. Flannery -Nephrology consulted- receiving dialysis per schedule CHRONIC HYPONATREMIA, Mild- Resolved -Near baseline CHRONIC ANEMIA -Hg stable from baseline -Monitor post op ASTHMA/ CHRONIC HYPOXIC RESPIRATORY FAILURE On 3 liters NC continuous at home -Not in exacerbation -Continue home inhalers-scheduled per pulmonary recommendations, supplemental O2 PAROXYSMAL AFIB, HEART BLOCK S/P PACEMAKER -Not on rate controlling meds due to hx of hypotension -Not on Coumadin due to fall risk CHRONIC SYSTOLIC CHF HX BIOPROSTHETIC AORTIC VALVE REPLACEMENT Appears compensated, no signs of exacerbation Echo 09/2016- EF 45-50%, Prosthetic aortic valve, Moderate MR CAD S/P CABG X 2 Denies chest pain; no signs of angina -Metoprolol and imdur d/c in the past due to syncope from hypotension -Held ASA till okay with surgery -Continue statin DM TYPE 2 -On Lantus 30 units HS and novolog sliding scale at home -Consult pharmacy for glycemic control HISTORY OF CVA -Hold aspirin till okay with surgery ALLEN CIRRHOSIS Ammonia - 35 -Continue Lactulose LIZZ -Continue CPAP HX GASTRIC ULCER -EGD Oct 2016 showed ulcer healed. No signs of active bleeding -Continue PPI S/P METABOLIC ENCEPHALOPATHY- Resolved Secondary to multiple pain medications received in ED -Resolved and back to baseline -Cautious about pain meds/sedation S/P HYPERKALEMIA- Resolved K= 5.6 on presentation without EKG changes S/P Dialysis today -Nephrology on board. DVT PROPHYLAXIS Per ortho team DISPOSITION -Continue with tele monitoring Vital Signs: Date Time Temp Pulse Resp B/P Pulse Ox O2 Delivery O2 Flow Rate FiO2 12/06/16 07:03 99 18 94 BiPAP/CPAP 3.0 12/06/16 07:00 36.8 102 16 96/65 100 Nasal Cannula 2.0 12/06/16 04:22 36.4 99 18 97/54 98 12/06/16 04:00 BiPAP 12/06/16 03:51 82 18 94 BiPAP/CPAP 3.0 12/06/16 00:05 37.1 102 18 86/51 95 12/05/16 23:59 BiPAP 12/05/16 21:00 99 92/54 12/05/16 19:59 81 16 94 Nasal Cannula 3.0 12/05/16 19:55 37.3 103 28 86/46 100 2.0 12/05/16 18:35 36.8 102 18 101/75 100 Nasal Cannula 3.0 12/05/16 18:30 Nasal Cannula 2.0 12/05/16 18:25 36.7 90 18 104/70 100 Nasal Cannula 3 12/05/16 18:15 102 18 109/72 100 Nasal Cannula 3 12/05/16 18:05 98 18 109/65 100 Mask 10 12/05/16 17:55 96 20 105/68 92 Mask 10 12/05/16 17:51 36.9 97 20 111/69 100 Mask 10 Lab Results: Results Past 24 Hours Test 12/05/16 17:54 12/05/16 18:41 12/05/16 20:10 12/06/16 06:49 Range/Units Bedside Glucose 106 107 70-90 mg/dl Hemoglobin 9.0 7.9 12.0-16.0 g/dL Hematocrit 28.7 25.6 37-47 % White Blood Count 7.24 4.8-10.8 K/uL Red Blood Count 2.61 4.2-5.4 M/uL Mean Corpuscular Volume 98.1 80-100 fL Mean Corpuscular Hemoglobin 30.3 25-34 pg Mean Corpuscular Hemoglobin Concent 30.9 32-36 g/dl RDW Standard Deviation 66.0 36.4-46.3 fL RDW Coefficient of Variation 18.5 11.5-14.5 % Platelet Count 190 130-400 K/uL Mean Platelet Volume 8.8 7.4-10.4 fL Sodium Level 132 136-145 mmol/L Potassium Level 4.3 3.5-5.1 mmol/L Chloride Level 97 98-107 mmol/L Carbon Dioxide Level 22 21-32 mmol/L Anion Gap 13.0 3-11 mmol/L Blood Urea Nitrogen 19 7-18 mg/dl Creatinine 2.70 0.60-1.20 mg/dl Est Creatinine Clear Calc Drug Dose 16.4 ml/min Estimated GFR () 20.6 Estimated GFR (Non- 17.8 BUN/Creatinine Ratio 7.1 10-20 Random Glucose 88 70-99 mg/dl Calcium Level 8.5 8.5-10.1 mg/dl
[2016-12-06] MEDS ORDERED: NURSING VERBAL MED ORDER ONE ×2 (13:15)
[2016-12-06 13:23] LABS: HEPATITIS B AB NEG
[2016-12-06] MEDS: ASPIRIN 81 MG ECTAB PO SCH (13:54)
--- NOTE | 2016-12-06 14:01 | Clinical Documentation Query ---
CLINICAL DOCUMENTATION QUERY Dr. SIMPSON, In your clinical opinion is this patient being managed for: (+ ) Acute blood loss anemia ( ) Other explanation of clinical findings (Please Explain) ( ) Unable to determine (Please Define) ( ) Need to Discuss ( ) Not Agree The medical record reflects the following clinical findings, treatment, and risk factors. Clinical Indicators:66 yo female presenting with a R hip fracture. Initial Hgb 9.9, Hct 31.8, which has trended down to 7.9/25.6. EBL 350 cc Treatment: IV fluids, transfuse 2 U PRBC, monitor CBC's Risk Factors: age, fall, surgical blood loss Please clarify and document your clinical opinion in the progress notes and discharge summary. Terms such as "probable", "suspected", "likely", "questionable", "possible", or "still to be ruled out" are acceptable. IF IN AGREEMENT, YOU MUST DOCUMENT ABOVE DIAGNOSTIC STATEMENT IN DAILY PROGRESS NOTES AND DISCHARGE SUMMARY. This document is not part of the patient's record. Thank You, Anne Marie Lord, JOSE RAMON [phone]
--- NOTE | 2016-12-06 14:57 | PROGRESS NOTE ---
DATE: 12/06/2016 She is alert, oriented. Pain is controlled. Vital signs stable. 25.6 hematocrit. Hemoglobin 7.9. CARDIAC: Normal rate and rhythm. ABDOMEN: Soft, nontender. ASSESSMENT: Status post IM rodding of the right femur for right femur fracture along with renal failure, edema. DISPOSITION: Right now we will try to get her up and out of bed, chair with physical therapy standing. She will be touch weightbearing on the right lower extremity for about 4 weeks. Her hemoglobin is 7.9; I think she will need a transfusion and we will put an order in for that. It will be a little tedious with the anticoagulants. I have realized she is in renal failure, have renal problems so sometimes the Lovenox is not indicated. In the short run, I would recommend some subQ heparin along switching to aspirin. She will also be a good candidate for rehab type placement.
[2016-12-06] MEDS: OXYCODONE/ACETAMINOPHEN 5-325 TAB PO PRN ×2 (17:22→22:46)
[2016-12-06] MEDS ORDERED: FUROSEMIDE INJ 40 MG in SYRINGE 0 ML IV ONE (19:00)
[2016-12-06] MEDS: ATORVASTATIN 20 MG TAB PO SCH (20:08)
[2016-12-06] MEDS: MONTELUKAST SOD 10 MG TAB PO SCH (20:09)
[2016-12-07] VITALS (11 sets, daily range): BP systolic 87–100; BP diastolic 54–61; PULSE 85–102; TEMP 36.7–37.8; O2SAT 96–100
[2016-12-07] MEDS: LEVALBUTEROL 0.63MG/3 ML NEB INH SCH ×4 (02:25→19:24)
[2016-12-07] MEDS: IPRATROPIUM BROMIDE NEB SOLN 0.02% 2.5 ML VIAL INH SCH ×4 (02:25→19:24)
[2016-12-07 06:17] LABS: MEAN CELL VOLUME 92.3 fL (80-100); MEAN CORPUSCULAR HEMOGLOBIN 29.5 pg (25-34); PLATELET COUNT 182 K/uL (130-400); RED BLOOD COUNT 3.25 M/uL (4.2-5.4); WHITE BLOOD COUNT 7.92 K/uL (4.8-10.8)
[2016-12-07 06:50] LABS: BUN/CREATININE RATIO 7.7 (10-20); CALCIUM 8.5 mg/dl (8.5-10.1); POTASSIUM 4.2 mmol/L (3.5-5.1)
[2016-12-07] MEDS: INSULIN ASPART 100 UNITS/ML 3 ML PEN SC SCH ×4 (08:22→21:00)
[2016-12-07] MEDS: HEPARIN SOD 5000 UNIT/0.5 ML CARP SQ SCH ×3 (08:23→23:28)
[2016-12-07] MEDS: INSULIN GLARGINE SOLOSTAR 100 UNITS/ML 3 ML PEN SC SCH ×2 (08:23→21:42)
[2016-12-07] MEDS: LACTOBACILLUS ACIDOPHILUS (FLORANEX) TAB PO SCH ×2 (08:25→21:40)
[2016-12-07] MEDS: LACTULOSE SYRUP 20 GM/30 ML UDC PO SCH ×2 (08:25→21:40)
[2016-12-07] MEDS: ASPIRIN 81 MG ECTAB PO SCH (08:25)
[2016-12-07] MEDS: PANTOprazole SOD 40 MG TAB PO SCH (08:26)
[2016-12-07] MEDS: NEPHROCAPS PO SCH (08:26)
[2016-12-07] MEDS: GABAPENTIN 300 MG CAP PO SCH ×2 (08:26→21:40)
[2016-12-07] MEDS ORDERED: ENOXAPARIN 30 MG/0.3 ML SYR SQ SCH (09:00)
--- NOTE | 2016-12-07 09:03 | Discharge Instructions ---
Discharge Instructions Date of Service Dec 07, 2016. Admission Reason for Admission: Hip Fracture Discharge Discharge Diagnosis / Problem: hip fracture, multiple medical problems Discharge Goals Goal(s): Improve function Activity Recommendations Activity Limitations: as noted below Lifting Limitations: no more than 5 pounds, until after follow-up appointment Exercise/Sports Limitations: gradually increase as tolerated, until after follow-up appointment May Resume Sexual Activity: after follow-up appointment Shower/Bathe: keep incision dry Driving or Machine Use: Weightbearing Status: Right toe touch use walker, touch wt. on right . Instructions / Follow-Up Instructions / Follow-Up rehab/ nursing facility mandatory. Follow with Dr. Santoyo in 2 weeks after discharge. Current Hospital Diet Patient's current hospital diet: Renal Diet, Diabetes Type 2 Diet, AHA Diet ( Heart Healthy) Discharge Diet Recommended Diet: Diabetes Type 2 Diet Fluid Restriction: None Procedures Procedures Performed: RIGHT INTRAMEDULLARY LONG THIERRY ORIF Pending Studies Studies pending at discharge: no Laboratory Results Hemoglobin A1c Test 10/08/16 06:39 Range/Units Estimated Average Glucose 140 mg/dl Hemoglobin A1c 6.5 H 4.5-5.6 % Medical Emergencies . Who to Call and When: Medical Emergencies: If at any time you feel your situation is an emergency, please call 911 immediately. . Non-Emergent Contact Non-Emergency issues call your: Surgeon, Specialist Call Non-Emergent contact if: your pain is not controlled, you have any medication questions . "Provider Documentation" section prepared by Freddie Santoyo. VTE Core Measure Inpt VTE Proph given/why not?: Unfractionated heparin SQ, Other Anticoagulation
--- NOTE | 2016-12-07 09:37 | PROGRESS NOTE ---
DATE: 12/07/2016 DATE: 12/07/2016. SUBJECTIVE: She is alert, oriented this morning, has minimal complaints of pain. OBJECTIVE: Vital signs stable. Her anemia has been corrected. She has a hemoglobin this morning at 9.6. She is afebrile. Sodium is low at 129. Creatinine is still highly elevated at 4.0. ASSESSMENT: Status post IM rodding of her right femur fracture that I performed on 12/05/2016, less than 2 days ago. She also has significant renal disease, chronic congestive heart failure, Afib, hypoxia. According to family, she is almost wheelchair bound so to speak, is able to get up and ambulate with a walker. DISPOSITION: At this point in time, we will get her dressing changed today. Hopefully, out of bed to chair, maybe stand with a walker, that might be all we can accomplish. I recommend a fci or rehab type placement. She will probably be stabilized for that within the next 48-72 hours, which will be Friday or Friday of next week. I would stick with touch weightbearing on the right which would be appropriate rather than full weight bearing. If she does go home in the interim I should see her back in the office in approximately 2 weeks.
--- NOTE | 2016-12-07 10:51 | PULMONARY PROGRESS NOTE ---
DATE: 12/07/2016 DATE: 12/07/2016. TIME: 10:35 a.m. SUBJECTIVE: The patient is not having any shortness of breath. She has had no cough or sputum production. She is somewhat uncomfortable when turning. Saturations have remained good. OBJECTIVE: GENERAL: The patient appeared comfortable. She did have a fever last evening of 37.4. Most recent temperature is 36.7. EARS, NOSE, THROAT: Unremarkable. HEART: Heart rate was 100 per minute. The rhythm was regular. Blood pressure 96/60. CHEST: Respiratory rate is 20 breaths per minute. Fine rales were heard posteriorly bilaterally. Saturation was 97% on 3 liters. ABDOMEN: Soft and nontender. Trace edema was noted in both lower extremities. LABORATORY DATA: White count today is 7.92. Hemoglobin is 9.6. Platelets are 182,000. Electrolytes show sodium 129, potassium 4.2, chloride 93, bicarbonate 25. BUN was 31 with a creatinine of 4.0. The patient is to have dialysis today apparently. IMPRESSIONS: 1. Status post repair of right hip fracture. 2. Asthma by history. 3. Obstructive sleep apnea. 4. Coronary artery disease. 5. End-stage renal disease. COMMENTS AND RECOMMENDATIONS: The patient seemingly is doing well from a respiratory perspective. She denies symptoms. She does have a low grade fever in the last 12 hours. The etiology is not clear. For now, I would just continue with her breathing treatments as ordered. I will sign off for now, but would be happy to see her again any time if it was felt to be indicated.
[2016-12-07] MEDS: OXYCODONE/ACETAMINOPHEN 5-325 TAB PO PRN ×3 (12:29→23:35)
--- NOTE | 2016-12-07 12:50 | Progress Note ---
Internal Med Progress Note Date of Service: Dec 07, 2016. Provider Documentation: SUBJECTIVE: Patient is status post hip fracture repair. C/o pain at surgical site Denies any worsening of SOB from baseline, leg swelling, chest pain, cough, fever, chills, nausea, vomiting, diarrhea No recent sickness. OBJECTIVE: Vital Signs-as noted below Exam: General-AAOX3, no distress Eyes-No icterus Neck-Supple, No JVD Lungs-AEBE decreased, no wheezing, crackles Heart-S1, S2 normal, Murmur + Abdomen-Soft, non tender, non distended, BS present Extremities-S/P Hip fracture repair Neuro-No focal deficits Lab data as noted below. ASSESSMENT & PLAN: Assessment and Plan : RIGHT HIP INTERTROCHANTERIC FRACTURE S/P MECHANICAL FALL : Transferred from [facility] for further management S/P Hip fracture repair - IM [facility] on 12/05/16 -Risk factors : Multiple medical comorbidities, poor functional status. Chronic CHF with no signs of acute exacerbation, S/P Bioprosthetic aortic valve replacement, ESRD on HD, CAD S/P CABG, Atrial fibrillation, Chronic hypoxic respiratory failure on 3 L oxygen at home, Asthma with no signs of exacerbation , LIZZ, Hx of CVA, DM, ALLEN Cirrhosis Functional status- Mainly wheel chair bound, hardly goes out of home, capable of activities of daily living,. -Cardiology/Pulmonary evaluated patient- cleared for surgery with a high risk of cardiopulmonary complications. Did well post operatively. Caution with pain medications/sedation post operatively -Orthopedics on board. ACUTE BLOOD LOSS ANEMIA WITH CHRONIC ANEMIA -Hg stable from baseline -S/P 2 units of PRBCs transfusion on 12/07/16 -Monitor H & H ESRD ON DIALYSIS Dialysis [facility] -Follows with Dr. Flannery -Nephrology consulted- receiving dialysis per schedule CHRONIC HYPONATREMIA, Mild- Resolved -Near baseline ASTHMA/ CHRONIC HYPOXIC RESPIRATORY FAILURE On 3 liters NC continuous at home -Not in exacerbation -Continue home inhalers-scheduled per pulmonary recommendations, supplemental O2 PAROXYSMAL AFIB, HEART BLOCK S/P PACEMAKER -Not on rate controlling meds due to hx of hypotension -Not on Coumadin due to fall risk CHRONIC SYSTOLIC CHF HX BIOPROSTHETIC AORTIC VALVE REPLACEMENT Appears compensated, no signs of exacerbation Echo 09/2016- EF 45-50%, Prosthetic aortic valve, Moderate MR CAD S/P CABG X 2 Denies chest pain; no signs of angina -Metoprolol and imdur d/c in the past due to syncope from hypotension -Held ASA till okay with surgery -Continue statin DM TYPE 2 -On Lantus 30 units HS and novolog sliding scale at home -Consult pharmacy for glycemic control HISTORY OF CVA -Hold aspirin till okay with surgery ALLEN CIRRHOSIS Ammonia - 35 -Continue Lactulose LIZZ -Continue CPAP HX GASTRIC ULCER -EGD Oct 2016 showed ulcer healed. No signs of active bleeding -Continue PPI S/P METABOLIC ENCEPHALOPATHY- Resolved Secondary to multiple pain medications received in ED -Resolved and back to baseline -Cautious about pain meds/sedation S/P HYPERKALEMIA- Resolved K= 5.6 on presentation without EKG changes S/P Dialysis today -Nephrology on board. DVT PROPHYLAXIS Per ortho team DISPOSITION -Continue with tele monitoring Vital Signs: Date Time Temp Pulse Resp B/P Pulse Ox O2 Delivery O2 Flow Rate FiO2 12/07/16 11:53 36.7 95 20 100/60 99 3.0 12/07/16 08:53 92 16 97 Nasal Cannula 3.0 12/07/16 08:00 Nasal Cannula 3.0 12/07/16 07:50 36.7 102 22 96/60 100 3.0 12/07/16 04:34 Nasal Cannula 3.0 12/07/16 04:34 37.3 97 20 91/59 96 CPAP 12/07/16 02:25 99 16 100 BiPAP/CPAP 2.0 12/07/16 00:01 Nasal Cannula 3.0 12/06/16 23:05 37.4 98 22 98/68 97 Nasal Cannula 3.0 12/06/16 22:55 36.8 99 20 89/55 97 3.0 12/06/16 21:55 37.0 97 18 89/61 98 3.0 12/06/16 20:55 36.9 99 20 84/57 97 3.0 12/06/16 20:25 36.9 99 18 94/58 96 3.0 12/06/16 20:10 36.8 101 18 85/58 97 3.0 12/06/16 20:05 101 20 89/52 96 3.0 12/06/16 20:05 36.9 12/06/16 20:00 Nasal Cannula 3.0 12/06/16 19:30 82 18 100 Nasal Cannula 3.0 12/06/16 19:20 36.8 100 24 97/64 98 Nasal Cannula 2.0 12/06/16 18:00 37.0 101 23 92/53 12/06/16 17:30 36.9 101 22 91/54 12/06/16 17:00 37.0 99 22 92/59 12/06/16 16:30 37.0 105 23 93/58 100 12/06/16 16:15 36.7 101 23 94/57 12/06/16 16:00 Nasal Cannula 3.0 12/06/16 16:00 37.1 100 20 97/62 100 3.0 12/06/16 15:35 37.1 113 20 101/57 97 Nasal Cannula 2.0 12/06/16 14:10 78 18 100 Nasal Cannula 3.0 Lab Results: Results Past 24 Hours Test 12/06/16 16:10 12/06/16 19:47 12/07/16 05:49 12/07/16 06:33 Range/Units Bedside Glucose 144 174 121 70-90 mg/dl White Blood Count 7.92 4.8-10.8 K/uL Red Blood Count 3.25 4.2-5.4 M/uL Hemoglobin 9.6 12.0-16.0 g/dL Hematocrit 30.0 37-47 % Mean Corpuscular Volume 92.3 80-100 fL Mean Corpuscular Hemoglobin 29.5 25-34 pg Mean Corpuscular Hemoglobin Concent 32.0 32-36 g/dl RDW Standard Deviation 63.1 36.4-46.3 fL RDW Coefficient of Variation 19.1 11.5-14.5 % Platelet Count 182 130-400 K/uL Mean Platelet Volume 9.0 7.4-10.4 fL Nucleated RBC Absolute Count (auto) 0.02 0-0 K/uL Nucleated Red Blood Cells % 0.2 % Sodium Level 129 136-145 mmol/L Potassium Level 4.2 3.5-5.1 mmol/L Chloride Level 93 98-107 mmol/L Carbon Dioxide Level 25 21-32 mmol/L Anion Gap 11.0 3-11 mmol/L Blood Urea Nitrogen 31 7-18 mg/dl Creatinine 4.00 0.60-1.20 mg/dl Est Creatinine Clear Calc Drug Dose 11.3 ml/min Estimated GFR () 12.8 Estimated GFR (Non- 11.1 BUN/Creatinine Ratio 7.7 10-20 Random Glucose 127 70-99 mg/dl Calcium Level 8.5 8.5-10.1 mg/dl Test 12/07/16 11:23 Range/Units Bedside Glucose 143 70-90 mg/dl
--- NOTE | 2016-12-07 14:12 | Pharmacy Progress Note ---
Glycemic Control: Progress Nt Date of Service Dec 07, 2016. Scope Glycemic Pharmacist consulted by Aurora Laureano PA-C on 12/04/16 for glycemic control and to write orders per [facility] inpatient glycemic control protocol. Objective Accuchecks BSG (last 24hrs): Test 12/06/16 16:10 12/06/16 19:47 12/07/16 05:49 12/07/16 06:33 Bedside Glucose 144 mg/dl (70-90) 174 mg/dl (70-90) 121 mg/dl (70-90) Random Glucose 127 mg/dl (70-99) Test 12/07/16 11:23 Bedside Glucose 143 mg/dl (70-90) Laboratory Data (last 24hrs) Test 12/07/16 05:49 Anion Gap 11.0 mmol/L BUN/Creatinine Ratio 7.7 Blood Urea Nitrogen 31 mg/dl Creatinine 4.00 mg/dl Potassium Level 4.2 mmol/L Sodium Level 129 mmol/L White Blood Count 7.92 K/uL Recent Pertinent Medications Outpatient Anti-diabetic Regimen: * Lantus 30 units HS * Novolog - 25 units with breakfast and dinner; 20 units with lunch (if eaten) * A1c - not accurate, HD pt Risk Factors for Insulin Resistance: * Recent surgery: POD#2 - IM rodding Right Femur * Diet: Renal/Type 2 DM/ AHA Assessment & Plan ASSESSMENT: 12/04/16 * 66 year old type 2 diabetic known to pharmacy glycemic service admitted with hip fracture, pt on HD. * I will begin patient on similar CF and CR from past admission and a much smaller Lantus dose than home dose, as patient does not require near as much insulin when inpatient vs her outpatient regimen. * ADA & AACE recommend a goal blood sugar range 140-180 mg/dl for the majority of critically ill & non-critically ill patients. However, more stringent targets may be selected in individual cases. I will begin with this range for patient on HD. 12/05/16 * s/p IM rodding of R Femur today. * Blood sugars at goal, patient had 8 units of insulin yesterday, all Lantus, NPO after midnight last night. * Hold Lantus this morning for NPO status and resume with tonight's dose, based on BSG to prevent hypoglycemia. 3/11/17 * POD2, BSGs at goal, no changes needed from glycemic standpoint. * Patient to likely to discharge Friday or Friday to rehab/nursing facility. PLAN FOR INPATIENT GLYCEMIC CONTROL: * LANTUS SQ BID - based on BSG * BSG < 120mg/dL - 0 units * BSG 120-180mg/dL - 8 units * BSG > 180mg/dL - 12 units * Correctional Insulin with NOVOLOG per scale ACHS or Q6hrs while NPO * Goal Range: Low 140 mg/dL - High 180 mg/dL * Correction Factor: 30 mg/dL/unit * Nutritional / Prandial insulin per Carb ratio of 1 unit per 12 grams CHO consumed * Please note that the plan above was derived based on current level of insulin resistance and hospital stress. These recommendations are appropriate for inpatient admission only. Plan of care upon discharge will need to be reassessed to avoid potential outpatient hypo/hyperglycemia. Thank you.
[2016-12-07] MEDS: MONTELUKAST SOD 10 MG TAB PO SCH (21:40)
[2016-12-07] MEDS: ATORVASTATIN 20 MG TAB PO SCH (21:40)
[2016-12-08] VITALS (25 sets, daily range): BP systolic 65–94; BP diastolic 40–72; PULSE 85–103; TEMP 36.7–37.4; O2SAT 96–100
[2016-12-08] MEDS: HYDROCODONE/ACETAMOPHEN 5/325MG TAB PO PRN (01:31)
[2016-12-08] MEDS: IPRATROPIUM BROMIDE NEB SOLN 0.02% 2.5 ML VIAL INH SCH ×4 (01:48→19:15)
[2016-12-08] MEDS: LEVALBUTEROL 0.63MG/3 ML NEB INH SCH ×4 (01:48→19:15)
[2016-12-08] MEDS: HEPARIN SOD 5000 UNIT/0.5 ML CARP SQ SCH ×3 (05:37→21:27)
[2016-12-08 07:23] LABS: BUN/CREATININE RATIO 8.7 (10-20); CALCIUM 8.6 mg/dl (8.5-10.1); CREATININE 4.9 mg/dl (0.60-1.20); POTASSIUM 4.5 mmol/L (3.5-5.1)
[2016-12-08] MEDS: LACTULOSE SYRUP 20 GM/30 ML UDC PO SCH ×2 (08:08→21:00)
[2016-12-08] MEDS: OXYCODONE/ACETAMINOPHEN 5-325 TAB PO PRN ×2 (08:08→23:52)
[2016-12-08] MEDS: LACTOBACILLUS ACIDOPHILUS (FLORANEX) TAB PO SCH ×2 (08:09→21:15)
[2016-12-08] MEDS: PANTOprazole SOD 40 MG TAB PO SCH (08:09)
[2016-12-08] MEDS: GABAPENTIN 300 MG CAP PO SCH ×2 (08:09→21:19)
[2016-12-08] MEDS: NEPHROCAPS PO SCH (08:09)
[2016-12-08] MEDS: ASPIRIN 81 MG ECTAB PO SCH (08:09)
[2016-12-08] MEDS: INSULIN ASPART 100 UNITS/ML 3 ML PEN SC SCH ×4 (08:13→21:00)
[2016-12-08] MEDS: INSULIN GLARGINE SOLOSTAR 100 UNITS/ML 3 ML PEN SC SCH ×2 (08:14→21:00)
--- NOTE | 2016-12-08 11:52 | Progress Note ---
Internal Med Progress Note Date of Service: Dec 08, 2016. Provider Documentation: SUBJECTIVE: Patient is status post hip fracture repair. Pain at surgical site is better. Denies any worsening of SOB from baseline, leg swelling, chest pain, cough, fever, chills, nausea, vomiting, diarrhea No recent sickness. OBJECTIVE: Vital Signs - as noted below Exam: General - AAOX3, no distress. Eyes-No Icterus Neck-Supple, No JVD Lungs-AEBE decreased, no wheezing, crackles Heart-S1, S2 normal, Murmur + Abdomen-Soft, non tender, non distended, BS present Extremities-S/P Hip fracture repair Neuro-No focal deficits Lab data as noted below. ASSESSMENT & PLAN: Assessment and Plan : RIGHT HIP INTERTROCHANTERIC FRACTURE S/P MECHANICAL FALL : Transferred from [facility] for further management S/P Hip fracture repair - IM [facility] on 12/05/16 -Risk factors : Multiple medical comorbidities, poor functional status. Chronic CHF with no signs of acute exacerbation, S/P Bioprosthetic aortic valve replacement, ESRD on HD, CAD S/P CABG, Atrial fibrillation, Chronic hypoxic respiratory failure on 3 L oxygen at home, Asthma with no signs of exacerbation , LIZZ, Hx of CVA, DM, ALLEN Cirrhosis Functional status- Mainly wheel chair bound, hardly goes out of home, capable of activities of daily living,. -Cardiology/Pulmonary evaluated patient- cleared for surgery with a high risk of cardiopulmonary complications. Did well post operatively. Caution with pain medications/sedation post operatively -Orthopedics on board. ACUTE BLOOD LOSS ANEMIA WITH CHRONIC ANEMIA -Hb dropped to 7.9 -S/P 2 units of PRBCs transfusion on 12/07/16 -Monitor H & H ESRD ON DIALYSIS Dialysis - Sat -Follows with Dr. Flannery -Nephrology consulted - receiving dialysis per schedule CHRONIC HYPONATREMIA: -Na is 125 today, asymptomatic -On dialysis, will monitor closely ASTHMA/ CHRONIC HYPOXIC RESPIRATORY FAILURE On 3 liters NC continuous at home -Not in exacerbation -Continue home inhalers-scheduled per pulmonary recommendations, supplemental O2 PAROXYSMAL AFIB, HEART BLOCK S/P PACEMAKER -Not on rate controlling meds due to hx of hypotension -Not on Coumadin due to fall risk CHRONIC SYSTOLIC CHF HX BIOPROSTHETIC AORTIC VALVE REPLACEMENT Appears compensated, no signs of exacerbation Echo 09/2016- EF 45-50%, Prosthetic aortic valve, Moderate MR CAD S/P CABG X 2 Denies chest pain; no signs of angina -Metoprolol and imdur d/c in the past due to syncope from hypotension -Restarted ASA -Continue statin DM TYPE 2 -On Lantus 30 units HS and novolog sliding scale at home -Consult pharmacy for glycemic control HISTORY OF CVA -Hold aspirin till okay with surgery ALLEN CIRRHOSIS Ammonia - 35 -Continue Lactulose LIZZ -Continue CPAP HX GASTRIC ULCER -EGD Oct 2016 showed ulcer healed. No signs of active bleeding -Continue PPI S/P METABOLIC ENCEPHALOPATHY- Resolved Secondary to multiple pain medications received in ED -Resolved and back to baseline -Cautious about pain meds/sedation S/P HYPERKALEMIA- Resolved K= 5.6 on presentation without EKG changes S/P Dialysis today -Nephrology on board. DVT PROPHYLAXIS Per ortho team- Heparin SQ DISPOSITION -Probable discharge to SNF/Rehab in 1-2 days Vital Signs: Date Time Temp Pulse Resp B/P Pulse Ox O2 Delivery O2 Flow Rate FiO2 12/08/16 11:41 36.7 88 20 92/64 99 3.0 12/08/16 08:00 Nasal Cannula 3.0 12/08/16 07:51 37.0 90 16 94/63 100 3.0 12/08/16 07:05 90 16 99 Nasal Cannula 3.0 12/08/16 04:55 37.4 93 18 94/58 96 Nasal Cannula 3.0 12/08/16 01:49 90 16 98 Nasal Cannula 3.0 12/07/16 23:35 Nasal Cannula 12/07/16 23:25 37.8 92 18 87/56 98 Nasal Cannula 3.0 12/07/16 20:04 37.2 90 16 96/55 100 Nasal Cannula 3.0 12/07/16 20:00 Nasal Cannula 3.0 12/07/16 19:28 91 16 98 Nasal Cannula 3.0 12/07/16 16:16 37.1 93 23 100/54 97 Nasal Cannula 3.0 12/07/16 16:02 93 16 99 Nasal Cannula 3.0 12/07/16 16:00 Nasal Cannula 3.0 12/07/16 12:00 Nasal Cannula 3.0 12/07/16 11:53 36.7 95 20 100/60 99 3.0 Lab Results: Results Past 24 Hours Test 12/07/16 16:20 12/07/16 20:19 12/08/16 05:40 12/08/16 06:36 Range/Units Bedside Glucose 140 153 133 70-90 mg/dl Sodium Level 125 136-145 mmol/L Potassium Level 4.5 3.5-5.1 mmol/L Chloride Level 90 98-107 mmol/L Carbon Dioxide Level 20 21-32 mmol/L Anion Gap 15.0 3-11 mmol/L Blood Urea Nitrogen 43 7-18 mg/dl Creatinine 4.90 0.60-1.20 mg/dl Est Creatinine Clear Calc Drug Dose 9.2 ml/min Estimated GFR () 10.0 Estimated GFR (Non- 8.6 BUN/Creatinine Ratio 8.7 10-20 Random Glucose 124 70-99 mg/dl Calcium Level 8.6 8.5-10.1 mg/dl Test 12/08/16 11:11 Range/Units Bedside Glucose 121 70-90 mg/dl
[2016-12-08] MEDS ORDERED: ALBUMIN HUMAN 25% 12.5 GM/50 ML VIAL IV SCH (15:30)
[2016-12-08] MEDS ORDERED: EPOETIN ALFA 10,000 UNITS/ML VIAL IV. SCH (15:30)
--- NOTE | 2016-12-08 16:34 | Dialysis Progress Note ---
Nephrology Dialysis Note Date of Service: Dec 08, 2016. Subjective 66 yo female with esrd with right hip fracture. evaluated by pulmonary and cardiology preop and underwent operative procedure on . pt doing well. no complaints. pain is well controlled. Objective Date Time Temp Pulse Resp B/P Pulse Ox O2 Delivery O2 Flow Rate FiO2 12/08/16 15:45 37.0 88 10 88/45 99 Nasal Cannula 3.0 12/08/16 14:08 90 16 99 Nasal Cannula 3.0 12/08/16 12:00 Nasal Cannula 3.0 12/08/16 11:41 36.7 88 20 92/64 99 3.0 12/08/16 08:00 Nasal Cannula 3.0 12/08/16 07:51 37.0 90 16 94/63 100 3.0 12/08/16 07:05 90 16 99 Nasal Cannula 3.0 12/08/16 04:55 37.4 93 18 94/58 96 Nasal Cannula 3.0 12/08/16 01:49 90 16 98 Nasal Cannula 3.0 12/07/16 23:35 Nasal Cannula 12/07/16 23:25 37.8 92 18 87/56 98 Nasal Cannula 3.0 12/07/16 20:04 37.2 90 16 96/55 100 Nasal Cannula 3.0 12/07/16 20:00 Nasal Cannula 3.0 12/07/16 19:28 91 16 98 Nasal Cannula 3.0 Physical Exam: General-aaox3 Eyes-no scleral icterus ENT-mmm Neck-supple Lungs-cta anteriorly Heart-rrr Abdomen-bs+ s/nt/nd Extremities-right hip wrapped Neuro-nonfocal Current Inpatient Medications Medications (Trade) Dose Ordered Sig/Dalton Route Start Time Stop Time Status Last Admin Dose Admin Ondansetron HCl (Zofran Inj) 4 mg Q6H PRN IV 12/04/16 14:00 01/03/17 13:59 12/05/16 02:40 4 MG Glucose (Glucose 40% Gel) 15-30 GRAMS 15 GRAMS... UD PRN PO 12/04/16 15:00 01/03/17 14:59 Glucose (Glucose Chew Tab) 4-8 Tablets 4 Tabl... UD PRN PO 12/04/16 15:00 01/03/17 14:59 Dextrose (Dextrose 50% 50ML Syringe) 25-50ML OF 50% DW IV FOR... UD PRN IV 12/04/16 15:00 01/03/17 14:59 Glucagon (Glucagon Inj) 1 mg UD PRN SQ 12/04/16 15:00 01/03/17 14:59 Miscellaneous Information (Consult Glycemic Management Pharmacy) 1 ea UD N/A 12/04/16 14:59 01/03/17 14:58 Atorvastatin Calcium (Lipitor Tab) 80 mg HS PO 12/04/16 21:00 01/03/17 20:59 12/07/16 21:40 80 MG Gabapentin (Neurontin Cap) 300 mg BID PO 12/04/16 21:00 01/03/17 20:59 12/08/16 08:09 300 MG Albuterol/ Ipratropium (Combivent Respimat Inh) 1 puffs QID PRN INH 12/04/16 15:00 01/03/17 14:59 Lactobacillus Acidophilus (Floranex Tab) 2 tab BID PO 12/04/16 21:00 01/03/17 20:59 12/08/16 08:09 2 TAB Lactulose (Chronulac Syrup) 20 gm BID PO 12/04/16 21:00 01/03/17 20:59 12/08/16 08:08 20 GM Montelukast Sodium (Singulair Tab) 10 mg HS PO 12/04/16 21:00 01/03/17 20:59 12/07/16 21:40 10 MG Nitroglycerin (Nitrostat Tab) 0.4 mg PRN PRN UT 12/04/16 15:00 01/03/17 14:59 Vitamin B Complex/ Vit C/Folic Acid (Nephrocaps) 1 cap QAM PO 12/05/16 09:00 01/04/17 08:59 12/08/16 08:09 1 CAP Pantoprazole Sodium (Protonix Tab) 40 mg QAM PO 12/05/16 09:00 01/04/17 08:59 12/08/16 08:09 40 MG Insulin Glargine (Lantus Solostar Pen) PER SCALE BID SC 12/04/16 21:00 01/03/17 20:59 Future hold 12/08/16 08:14 8 UNIT Insulin Aspart (novoLOG ASPART) SLIDING SCALE ACHS SC 12/04/16 16:15 01/03/17 16:14 12/08/16 12:13 4 UNITS Acetaminophen/ Hydrocodone Bitart ([place] 5/325 Tab) 1 tab Q4H PRN PO 12/04/16 18:00 12/18/16 17:59 12/08/16 01:31 1 TAB Ipratropium [place] (Atrovent 0.02% 0.5MG/2.5ML Neb) 0.5 mg Q6R INH 12/05/16 09:00 01/04/17 08:59 12/08/16 14:08 0.5 MG Levalbuterol (Xopenex 0.63 Mg/ 3 Ml Neb) 0.63 mg Q6R INH 12/05/16 09:00 01/04/17 08:59 12/08/16 14:08 0.63 MG Morphine Sulfate (MoRPHine SULFATE INJ) 2 mg Q1H PRN IV 12/05/16 18:00 12/19/16 17:59 Morphine Sulfate 4 mg 4 mg Q1H PRN IV 12/05/16 18:00 12/19/16 17:59 12/06/16 19:35 4 MG Acetaminophen/ Empty Bag (Ofirmev IV/ Empty Iv Bag 100ml) 65 ml @ 260 mls/hr Q6H PRN IV 12/05/16 18:00 01/04/17 17:59 12/06/16 07:47 260 MLS/HR Oxycodone/ Acetaminophen (Percocet 5-325mg Tab) 1 tab Q4H PRN PO 12/05/16 18:00 12/19/16 17:59 12/08/16 08:08 1 TAB Aspirin (Ecotrin Tab) 81 mg QAM PO 12/06/16 13:30 01/05/17 08:59 12/08/16 08:09 81 MG Heparin Sodium (Porcine) (Heparin Sq 5000 Unit/0.5ml) 5,000 unit Q8 SQ 12/07/16 09:00 01/06/17 08:59 12/08/16 08:17 5,000 UNIT Epoetin Renato (Procrit Inj) 10,000 units 1530 IV. 12/08/16 15:30 12/08/16 23:59 Albumin Human (Albumin 25%) 12.5 gm 1530 IV 12/08/16 15:30 12/08/16 23:59 Last 24 Hours Test 12/07/16 20:19 12/08/16 05:40 12/08/16 06:36 12/08/16 11:11 Bedside Glucose 153 mg/dl 133 mg/dl 121 mg/dl Sodium Level 125 mmol/L Potassium Level 4.5 mmol/L Chloride Level 90 mmol/L Carbon Dioxide Level 20 mmol/L Anion Gap 15.0 mmol/L Blood Urea Nitrogen 43 mg/dl Creatinine 4.90 mg/dl Est Creatinine Clear Calc Drug Dose 9.2 ml/min Estimated GFR () 10.0 Estimated GFR (Non- 8.6 BUN/Creatinine Ratio 8.7 Random Glucose 124 mg/dl Calcium Level 8.6 mg/dl Test 12/08/16 15:53 Bedside Glucose 116 mg/dl Assessment & Plan ESRD-seen on dialysis today. sodium levels are trending down and will dialyze on a 140 sodium bath and try to remove fluid to help correct the hyponatremia. will continue on a - dialysis schedule. sodium went from 129 to 132 to 125. Anemia of renal failure-goal hg of 10 to 11, dosing procrit again today. hypotension-bp is chronically low and will give a dose of albumin to help support the bp while on dialysis. THIERRY-to check phos levels tomorrow. pt can't remember if she takes binders chronically or not.
[2016-12-08] MEDS: ATORVASTATIN 20 MG TAB PO SCH (21:15)
[2016-12-08] MEDS: MONTELUKAST SOD 10 MG TAB PO SCH (21:18)
[2016-12-09] VITALS (16 sets, daily range): BP systolic 83–158; BP diastolic 47–61; PULSE 73–98; TEMP 36.7–38.3; O2SAT 93–100
[2016-12-09] MEDS: IPRATROPIUM BROMIDE NEB SOLN 0.02% 2.5 ML VIAL INH SCH ×2 (01:54→07:17)
[2016-12-09] MEDS: LEVALBUTEROL 0.63MG/3 ML NEB INH SCH ×4 (01:54→19:17)
[2016-12-09] MEDS: HEPARIN SOD 5000 UNIT/0.5 ML CARP SQ SCH ×3 (05:38→20:59)
[2016-12-09] MEDS: INSULIN ASPART 100 UNITS/ML 3 ML PEN SC SCH ×4 (07:00→20:12)
[2016-12-09 07:12] LABS: BUN/CREATININE RATIO 7.7 (10-20); CALCIUM 7.9 mg/dl (8.5-10.1); CREATININE 3.2 mg/dl (0.60-1.20); POTASSIUM 4.1 mmol/L (3.5-5.1)
[2016-12-09] MEDS: LACTULOSE SYRUP 20 GM/30 ML UDC PO SCH ×2 (08:27→20:10)
[2016-12-09] MEDS: GABAPENTIN 300 MG CAP PO SCH ×2 (08:28→20:11)
[2016-12-09] MEDS: LACTOBACILLUS ACIDOPHILUS (FLORANEX) TAB PO SCH ×2 (08:28→20:10)
[2016-12-09] MEDS: ASPIRIN 81 MG ECTAB PO SCH (08:28)
[2016-12-09] MEDS: NEPHROCAPS PO SCH (08:28)
[2016-12-09] MEDS: INSULIN GLARGINE SOLOSTAR 100 UNITS/ML 3 ML PEN SC SCH ×2 (08:29→20:59)
[2016-12-09] MEDS: PANTOprazole SOD 40 MG TAB PO SCH (08:29)
[2016-12-09] MEDS: HYDROCODONE/ACETAMOPHEN 5/325MG TAB PO PRN ×2 (08:30→16:34)
--- NOTE | 2016-12-09 09:30 | DIAGNOSTIC IMAGING REPORT ---
CHEST 2 VIEWS ROUTINE CLINICAL HISTORY: Post operative fever, r/o pneumonia COMPARISON STUDY: 12/05/2016 FINDINGS: PermCath in the right atrium. Mild stable cardiomegaly. Permanent bipolar cardiac pacemaker. Pulmonary vascular congestion. IMPRESSION: Mild congestive failure. No change from the prior study. No focal infiltrate. Electronically signed by: Severiano Cross M.D. 12/09/2016 9:29 AM Dictated Date/Time: 12/09/2016 9:28 AM
--- NOTE | 2016-12-09 12:06 | Progress Note ---
Internal Med Progress Note Date of Service: Dec 09, 2016. Provider Documentation: SUBJECTIVE: Patient is status post hip fracture repair. Fever -38.2 C x 2 yesterday evening. C/o nausea + Pain at surgical site controlled Denies any worsening of SOB from baseline, leg swelling, chest pain, cough, fever, chills, nausea, vomiting, diarrhea No recent sickness. OBJECTIVE: Vital Signs - as noted below Exam: General - AAOX3, no distress. Eyes-No Icterus Neck-Supple, No JVD Lungs-AEBE decreased, no wheezing, crackles Heart-S1, S2 normal, Murmur + Abdomen-Soft, non tender, non distended, BS present Extremities-S/P Hip fracture repair Neuro-No focal deficits Lab data as noted below. ASSESSMENT & PLAN: Assessment and Plan : FEVER SPIKE Two spikes high as 38.3 C yesterday evening Clinically no signs of infection -Work up ordered today- CXR, Blood cx- no acute findings on CXR, follow up -Monitor closely temperatures RIGHT HIP INTERTROCHANTERIC FRACTURE S/P MECHANICAL FALL : Transferred from [facility] for further management S/P Hip fracture repair - IM [facility] on 12/05/16 -Risk factors : Multiple medical comorbidities, poor functional status. Chronic CHF with no signs of acute exacerbation, S/P Bioprosthetic aortic valve replacement, ESRD on HD, CAD S/P CABG, Atrial fibrillation, Chronic hypoxic respiratory failure on 3 L oxygen at home, Asthma with no signs of exacerbation , LIZZ, Hx of CVA, DM, ALLEN Cirrhosis Functional status- Mainly wheel chair bound, hardly goes out of home, capable of activities of daily living,. -Cardiology/Pulmonary evaluated patient- cleared for surgery with a high risk of cardiopulmonary complications. Did well post operatively. Caution with pain medications/sedation post operatively -Orthopedics on board. ACUTE BLOOD LOSS ANEMIA WITH CHRONIC ANEMIA -Hb dropped to 7.9 --> 9.6 -S/P 2 units of PRBCs transfusion on 12/07/16 -Monitor H & H ESRD ON DIALYSIS Dialysis - - Sat -Follows with Dr. Flannery -Nephrology consulted - receiving dialysis per nephrology CHRONIC HYPONATREMIA: -Na is back to 131 after dialysis yesterday -On dialysis, will monitor closely ASTHMA/ CHRONIC HYPOXIC RESPIRATORY FAILURE On 3 liters NC continuous at home -Not in exacerbation -Continue home inhalers-scheduled per pulmonary recommendations--> now will change to PRN, supplemental O2 PAROXYSMAL AFIB, HEART BLOCK S/P PACEMAKER -Not on rate controlling meds due to hx of hypotension -Not on Coumadin due to fall risk CHRONIC SYSTOLIC CHF HX BIOPROSTHETIC AORTIC VALVE REPLACEMENT Appears compensated, no signs of exacerbation Echo 09/2016- EF 45-50%, Prosthetic aortic valve, Moderate MR CAD S/P CABG X 2 Denies chest pain; no signs of angina -Metoprolol and imdur d/c in the past due to syncope from hypotension -Restarted ASA as okay with surgery -Continue statin DM TYPE 2 -On Lantus 30 units HS and novolog sliding scale at home -Consulted pharmacy for glycemic control HISTORY OF CVA -ASA restarted per surgery ALLEN CIRRHOSIS Ammonia - 35 on presentation -Continue Lactulose LIZZ -Continue CPAP HX GASTRIC ULCER -EGD Oct 2016 showed ulcer healed. No signs of active bleeding -Continue PPI S/P METABOLIC ENCEPHALOPATHY- Resolved Secondary to multiple pain medications received in ED -Resolved and back to baseline -Cautious about pain meds/sedation S/P HYPERKALEMIA- Resolved K= 5.6 on presentation without EKG changes S/P Dialysis today -Nephrology on board. DVT PROPHYLAXIS Per ortho team- Heparin SQ DISPOSITION -Probable discharge to SNF/Rehab in 1-2 days if no more fever spikes & cultures are negative Vital Signs: Date Time Temp Pulse Resp B/P Pulse Ox O2 Delivery O2 Flow Rate FiO2 12/09/16 10:28 36.9 95 18 99/61 94 2.0 12/09/16 07:17 90 12 99 Nasal Cannula 3.0 12/09/16 07:03 36.9 92 16 85/56 96 3.0 12/09/16 04:59 37.6 12/09/16 04:00 38.3 93 16 83/47 98 Nasal Cannula 3.0 12/09/16 04:00 Nasal Cannula 3.0 12/09/16 01:54 95 16 98 Nasal Cannula 3.0 12/09/16 00:00 38.2 97 17 84/50 96 Nasal Cannula 3.0 12/08/16 23:59 Nasal Cannula 3.0 12/08/16 20:00 Nasal Cannula 3.0 12/08/16 19:39 37.3 94 12 73/42 100 Nasal Cannula 3.0 12/08/16 19:20 97 16 98 Nasal Cannula 3.0 12/08/16 19:00 93 73/72 12/08/16 18:45 93 74/40 12/08/16 18:30 92 76/47 12/08/16 18:15 93 73/47 12/08/16 18:03 94 81/55 12/08/16 17:50 103 82/64 12/08/16 17:45 92 70/45 12/08/16 17:30 89 72/44 12/08/16 17:15 89 82/45 12/08/16 17:05 70/48 12/08/16 17:00 87 65/45 12/08/16 16:45 88 72/43 12/08/16 16:30 86 92/52 12/08/16 16:23 36.8 85 83/52 12/08/16 16:00 Nasal Cannula 3.0 12/08/16 15:45 37.0 88 10 88/45 99 Nasal Cannula 3.0 12/08/16 14:08 90 16 99 Nasal Cannula 3.0 Lab Results: Results Past 24 Hours Test 12/08/16 15:53 12/08/16 19:45 12/09/16 06:05 12/09/16 06:41 Range/Units Bedside Glucose 116 93 116 70-90 mg/dl Sodium Level 131 136-145 mmol/L Potassium Level 4.1 3.5-5.1 mmol/L Chloride Level 95 98-107 mmol/L Carbon Dioxide Level 25 21-32 mmol/L Anion Gap 11.0 3-11 mmol/L Blood Urea Nitrogen 25 7-18 mg/dl Creatinine 3.20 0.60-1.20 mg/dl Est Creatinine Clear Calc Drug Dose 14.4 ml/min Estimated GFR () 16.8 Estimated GFR (Non- 14.5 BUN/Creatinine Ratio 7.7 10-20 Random Glucose 113 70-99 mg/dl Calcium Level 7.9 8.5-10.1 mg/dl Phosphorus Level 4.0 2.5-4.9 mg/dl Test 12/09/16 11:05 Range/Units Bedside Glucose 139 70-90 mg/dl Microbiology Results 12/09/16 Blood Culture, Received Pending 12/09/16 Blood Culture, Received Pending
[2016-12-09] MEDS ORDERED: IPRATROPIUM BROMIDE NEB SOLN 0.02% 2.5 ML VIAL INH PRN ×2 (12:30→15:00)
--- NOTE | 2016-12-09 16:47 | Discharge Instructions ---
Discharge Instructions Date of Service Dec 09, 2016. Admission Reason for Admission: Hip Fracture Discharge Discharge Diagnosis / Problem: hip fracture Discharge Goals Goal(s): Improve function Activity Recommendations Activity Limitations: as noted below Lifting Limitations: no more than 5 pounds Exercise/Sports Limitations: until after follow-up appointment May Resume Sexual Activity: after follow-up appointment Shower/Bathe: keep incision dry Driving or Machine Use: Weightbearing Status: Right toe touch . Current Hospital Diet Patient's current hospital diet: Renal Diet, Diabetes Type 2 Diet, AHA Diet ( Heart Healthy) Discharge Diet Recommended Diet: Renal Diet Fluid Restriction: 1800 ml (7 cups) Procedures Procedures Performed: RIGHT INTRAMEDULLARY LONG THIERRY ORIF Pending Studies Studies pending at discharge: no Laboratory Results Hemoglobin A1c Test 10/08/16 06:39 Range/Units Estimated Average Glucose 140 mg/dl Hemoglobin A1c 6.5 H 4.5-5.6 % Medical Emergencies . Who to Call and When: Medical Emergencies: If at any time you feel your situation is an emergency, please call 911 immediately. . Non-Emergent Contact Non-Emergency issues call your: Surgeon Call Non-Emergent contact if: wound has increased pain . "Provider Documentation" section prepared by Freddie Santoyo. VTE Core Measure Inpt VTE Proph given/why not?: Unfractionated heparin SQ, Other Anticoagulation , T.E.D. Stockings
--- NOTE | 2016-12-09 17:17 | Discharge Instructions ---
Discharge Instructions Date of Service Dec 09, 2016. Admission Reason for Admission: Hip Fracture Discharge Discharge Diagnosis / Problem: hip fracture Discharge Goals Goal(s): Improve function Activity Recommendations Activity Limitations: as noted below Lifting Limitations: gradually increase as tolerated Exercise/Sports Limitations: until after follow-up appointment . Current Hospital Diet Patient's current hospital diet: Renal Diet, Diabetes Type 2 Diet, AHA Diet ( Heart Healthy) Discharge Diet Recommended Diet: Regular Diet Fluid Restriction: None Procedures Procedures Performed: RIGHT INTRAMEDULLARY LONG THIERRY ORIF Pending Studies Studies pending at discharge: no Laboratory Results Hemoglobin A1c Test 10/08/16 06:39 Range/Units Estimated Average Glucose 140 mg/dl Hemoglobin A1c 6.5 H 4.5-5.6 % Medical Emergencies . Who to Call and When: Medical Emergencies: If at any time you feel your situation is an emergency, please call 911 immediately. . Non-Emergent Contact Non-Emergency issues call your: Specialist Call Non-Emergent contact if: you have any medication questions . "Provider Documentation" section prepared by Freddie Santoyo. VTE Core Measure Inpt VTE Proph given/why not?: Unfractionated heparin SQ, Other Anticoagulation (aspirin), T.E.D. Stockings
[2016-12-09] MEDS: MONTELUKAST SOD 10 MG TAB PO SCH (20:11)
[2016-12-09] MEDS: ATORVASTATIN 20 MG TAB PO SCH (20:11)
[2016-12-10] VITALS (31 sets, daily range): BP systolic 76–112; BP diastolic 41–66; PULSE 52–102; TEMP 36.4–37.4; O2SAT 90–100
[2016-12-10] MEDS: HYDROCODONE/ACETAMOPHEN 5/325MG TAB PO PRN ×5 (00:04→17:15)
--- NOTE | 2016-12-10 01:11 | PROGRESS NOTE ---
DATE: 12/09/2016 SUBJECTIVE: Pain is controlled. Alert, oriented, answers questions well. Denies chest pain, shortness of breath. OBJECTIVE: Vital signs stable. Wounds are clean. LABORATORY DATA: 30.0 hematocrit. ASSESSMENT: Status post intramedullary rodding, right femur, right hip fracture. DISPOSITION: We will get her up and ambulatory again today and tomorrow, anticipate discharge from the hospital on the or 11 of December.
[2016-12-10] MEDS: LEVALBUTEROL 0.63MG/3 ML NEB INH SCH ×4 (02:17→20:57)
[2016-12-10 05:55] LABS: MEAN CELL VOLUME 95.6 fL (80-100); MEAN CORPUSCULAR HEMOGLOBIN 30.4 pg (25-34); MEAN CORPUSCULAR HGB CONC 31.8 g/dl (32-36); MEAN PLATELET VOLUME 9.4 fL (7.4-10.4); PLATELET COUNT 208 K/uL (130-400); RED BLOOD COUNT 2.93 M/uL (4.2-5.4); WHITE BLOOD COUNT 6.78 K/uL (4.8-10.8)
[2016-12-10] MEDS: HEPARIN SOD 5000 UNIT/0.5 ML CARP SQ SCH ×3 (06:13→21:12)
[2016-12-10 06:41] LABS: BUN/CREATININE RATIO 8.8 (10-20); CALCIUM 8.3 mg/dl (8.5-10.1); CREATININE 4.2 mg/dl (0.60-1.20); POTASSIUM 4.2 mmol/L (3.5-5.1)
[2016-12-10] MEDS: INSULIN GLARGINE SOLOSTAR 100 UNITS/ML 3 ML PEN SC SCH ×2 (08:00→21:12)
[2016-12-10] MEDS ORDERED: EPOETIN ALFA 10,000 UNITS/ML VIAL IV. SCH (08:00)
[2016-12-10] MEDS ORDERED: HEPARIN SOD (PORCINE) 1000 UNIT/ML 10 ML VIAL IV SCH (08:00)
[2016-12-10] MEDS: INSULIN ASPART 100 UNITS/ML 3 ML PEN SC SCH ×4 (08:06→21:00)
[2016-12-10] MEDS: LACTULOSE SYRUP 20 GM/30 ML UDC PO SCH ×2 (08:23→19:44)
[2016-12-10] MEDS: LACTOBACILLUS ACIDOPHILUS (FLORANEX) TAB PO SCH ×2 (08:23→19:45)
[2016-12-10] MEDS: ASPIRIN 81 MG ECTAB PO SCH (08:23)
[2016-12-10] MEDS: NEPHROCAPS PO SCH (08:23)
[2016-12-10] MEDS: PANTOprazole SOD 40 MG TAB PO SCH (08:24)
[2016-12-10] MEDS: GABAPENTIN 300 MG CAP PO SCH ×2 (08:24→19:44)
--- NOTE | 2016-12-10 09:09 | Nephrology Progress Note ---
Nephrology Progress Note Date of Service: Dec 10, 2016. Subjective c/o back pain, some discomfort; had F to 38.3 on 12/09 early am; had blood cxs which remain ngtd; c/o back pain. no change in chronic dyspnea or poor appetite. Objective Date Time Temp Pulse Resp B/P Pulse Ox O2 Delivery O2 Flow Rate FiO2 12/10/16 07:33 36.7 83 20 78/44 99 Nasal Cannula 3.0 12/10/16 07:03 85 16 99 Nasal Cannula 3.0 12/10/16 04:25 36.6 94 19 105/65 98 CPAP 12/10/16 04:00 Nasal Cannula 3.0 12/10/16 02:17 96 16 94 BiPAP/CPAP 3.0 12/10/16 00:32 36.7 102 20 82/52 90 CPAP 12/10/16 00:00 Nasal Cannula 3.0 12/09/16 20:05 37.0 73 19 158/57 93 Room Air 12/09/16 20:00 36.7 84 13 89/53 100 Nasal Cannula 3.0 12/09/16 20:00 Nasal Cannula 3.0 12/09/16 19:20 86 14 99 Nasal Cannula 3.0 12/09/16 16:00 93 Nasal Cannula 3.0 12/09/16 15:35 36.7 98 21 95/58 100 Nasal Cannula 4.0 12/09/16 14:03 96 16 98 Nasal Cannula 3.0 12/09/16 12:00 95 Nasal Cannula 3.0 12/09/16 10:28 36.9 95 18 99/61 94 2.0 12/09/16 10:01 96 96 Physical Exam: General-aaox3, on 02NC Eyes-no scleral icterus ENT-mmm Neck-supple Lungs-diminished air entry throughout Heart-RRR Abdomen-bs+ s/nt/nd Extremities-right hip incision bandaged; trace BLE edema; R prox AVF + t/b Neuro-romano, fluent speech Current Inpatient Medications Medications (Trade) Dose Ordered Sig/Dalton Route Start Time Stop Time Status Last Admin Dose Admin Ondansetron HCl (Zofran Inj) 4 mg Q6H PRN IV 12/04/16 14:00 01/03/17 13:59 12/05/16 02:40 4 MG Glucose (Glucose 40% Gel) 15-30 GRAMS 15 GRAMS... UD PRN PO 12/04/16 15:00 01/03/17 14:59 Glucose (Glucose Chew Tab) 4-8 Tablets 4 Tabl... UD PRN PO 12/04/16 15:00 01/03/17 14:59 Dextrose (Dextrose 50% 50ML Syringe) 25-50ML OF 50% DW IV FOR... UD PRN IV 12/04/16 15:00 01/03/17 14:59 Glucagon (Glucagon Inj) 1 mg UD PRN SQ 12/04/16 15:00 01/03/17 14:59 Miscellaneous Information (Consult Glycemic Management Pharmacy) 1 ea UD N/A 12/04/16 14:59 01/03/17 14:58 Atorvastatin Calcium (Lipitor Tab) 80 mg HS PO 12/04/16 21:00 01/03/17 20:59 12/09/16 20:11 80 MG Gabapentin (Neurontin Cap) 300 mg BID PO 12/04/16 21:00 01/03/17 20:59 12/10/16 08:24 300 MG Albuterol/ Ipratropium (Combivent Respimat Inh) 1 puffs QID PRN INH 12/04/16 15:00 01/03/17 14:59 Lactobacillus Acidophilus (Floranex Tab) 2 tab BID PO 12/04/16 21:00 01/03/17 20:59 12/10/16 08:23 2 TAB Lactulose (Chronulac Syrup) 20 gm BID PO 12/04/16 21:00 01/03/17 20:59 12/10/16 08:23 20 GM Montelukast Sodium (Singulair Tab) 10 mg HS PO 12/04/16 21:00 01/03/17 20:59 12/09/16 20:11 10 MG Nitroglycerin (Nitrostat Tab) 0.4 mg PRN PRN [place] 12/04/16 15:00 01/03/17 14:59 Vitamin B Complex/ Vit C/Folic Acid (Nephrocaps) 1 cap QAM PO 12/05/16 09:00 01/04/17 08:59 12/10/16 08:23 1 CAP Pantoprazole Sodium (Protonix Tab) 40 mg QAM PO 12/05/16 09:00 01/04/17 08:59 12/10/16 08:24 40 MG Insulin Glargine (Lantus Solostar Pen) PER SCALE BID SC 12/04/16 21:00 01/03/17 20:59 Future hold 12/09/16 20:59 8 UNIT Insulin Aspart (novoLOG ASPART) SLIDING SCALE ACHS SC 12/04/16 16:15 01/03/17 16:14 12/10/16 08:06 2 UNITS Acetaminophen/ Hydrocodone Bitart ([place] 5/325 Tab) 1 tab Q4H PRN PO 12/04/16 18:00 12/18/16 17:59 12/10/16 04:00 1 TAB Levalbuterol (Xopenex 0.63 Mg/ 3 Ml Neb) 0.63 mg Q6R INH 12/05/16 09:00 01/04/17 08:59 12/10/16 07:03 0.63 MG Morphine Sulfate (MoRPHine SULFATE INJ) 2 mg Q1H PRN IV 12/05/16 18:00 12/19/16 17:59 Morphine Sulfate 4 mg 4 mg Q1H PRN IV 12/05/16 18:00 12/19/16 17:59 12/06/16 19:35 4 MG Acetaminophen/ Empty Bag (Ofirmev IV/ Empty Iv Bag 100ml) 65 ml @ 260 mls/hr Q6H PRN IV 12/05/16 18:00 01/04/17 17:59 12/06/16 07:47 260 MLS/HR Oxycodone/ Acetaminophen (Percocet 5-325mg Tab) 1 tab Q4H PRN PO 12/05/16 18:00 12/19/16 17:59 12/08/16 23:52 1 TAB Aspirin (Ecotrin Tab) 81 mg QAM PO 12/06/16 13:30 01/05/17 08:59 12/10/16 08:23 81 MG Heparin Sodium (Porcine) (Heparin Sq 5000 Unit/0.5ml) 5,000 unit Q8 SQ 12/07/16 09:00 01/06/17 08:59 12/10/16 06:13 5,000 UNIT Heparin Sodium (Porcine) (Heparin Iv Bolus) 1,000 unit 0800 IV 12/10/16 08:00 12/10/16 18:00 Heparin Sodium (Porcine) (Heparin Iv Bolus) 400 unit Q1H IV 12/10/16 08:00 12/10/16 18:00 Epoetin Renato (Procrit Inj) 10,000 units 0800 IV. 12/10/16 08:00 12/10/16 18:00 Albumin Human (Albumin 25%) 12.5 gm 0800,0930 IV 12/10/16 08:00 12/10/16 18:00 Ipratropium [place] (Atrovent 0.02% 0.5MG/2.5ML Neb) 0.5 mg Q6H PRN INH 12/09/16 12:30 01/08/17 12:29 Last 24 Hours Test 12/09/16 11:05 12/09/16 16:02 12/09/16 20:05 12/10/16 05:30 Bedside Glucose 139 mg/dl 211 mg/dl 142 mg/dl White Blood Count 6.78 K/uL Red Blood Count 2.93 M/uL Hemoglobin 8.9 g/dL Hematocrit 28.0 % Mean Corpuscular Volume 95.6 fL Mean Corpuscular Hemoglobin 30.4 pg Mean Corpuscular Hemoglobin Concent 31.8 g/dl RDW Standard Deviation 62.3 fL RDW Coefficient of Variation 18.0 % Platelet Count 208 K/uL Mean Platelet Volume 9.4 fL Nucleated RBC Absolute Count (auto) 0.02 K/uL Nucleated Red Blood Cells % 0.3 % Sodium Level 129 mmol/L Potassium Level 4.2 mmol/L Chloride Level 94 mmol/L Carbon Dioxide Level 25 mmol/L Anion Gap 10.0 mmol/L Blood Urea Nitrogen 37 mg/dl Creatinine 4.20 mg/dl Est Creatinine Clear Calc Drug Dose 11.2 ml/min Estimated GFR () 12.1 Estimated GFR (Non- 10.4 BUN/Creatinine Ratio 8.8 Random Glucose 117 mg/dl Calcium Level 8.3 mg/dl Test 12/10/16 06:56 Bedside Glucose 107 mg/dl Assessment & Plan 66 yo female with esrd with right hip fracture s/p uneventful surgical repair 12/05. also hx of PAF, CAD s/p CABG and bioprosth AVR, LIZZ on CPAP, ALLEN cirrhosis , chronic resp failure on 0221/04, recurrent syncope. ESRD-pt usually dialyzes t-h-s. her tends to run low> will use albumin during tx to optimize UF in this setting. next HD tentatively for 12/12 or as clinical sitn dictates Anemia of renal failure-goal hg of 10 to 11, dosing procrit accordingly appreciate c/s; will follow with you
[2016-12-10] MEDS: ALBUMIN HUMAN 25% 12.5 GM/50 ML VIAL IV SCH ×4 (11:15→22:04)
[2016-12-10] MEDS: TRAMADOL HCL 50 MG TAB PO PRN (13:45)
[2016-12-10] MEDS ORDERED: LEVETIRACETAM IV 500 MG in DEXTROSE 5% 100ML 100 ML IV ONE (14:00)
--- NOTE | 2016-12-10 15:07 | Pharmacy Progress Note ---
Glycemic: Assessment & Plan Date of Service Dec 10, 2016. Assessment & Plan The patient received 14 units of insulin on 12/08, 10 units on 12/09. BSGs ranging 107 - 211 mg/dl over the past 24hrs. PO intake still variable. Hemodialysis today. * Basal insulin: Lantus per protocol every 12 hours if BSG is less than 120, hold dose if BSG is 120-180, give 8 units if BSG is over 180, give 12 units * Correctional Insulin: Novolog Correction per scale ACHS Goal Range: Low 140 mg/dL - High 180 mg/dL Correction Factor: 30 mg/dL/unit * Prandial insulin: Per carb ratio of 1 unit per 12 grams CHO consumed BSGs continue to improve, no changes needed to inpatient regimen at this time. Pharmacy will continue to monitor patient daily and write orders per [facility] inpatient glycemic control protocol. Thanks. * Please note that the plan above was derived based on current level of insulin resistance and hospital stress. These recommendations are appropriate for inpatient admission only. Plan of care upon discharge will need to be reassessed to avoid potential outpatient hypo/hyperglycemia.
--- NOTE | 2016-12-10 19:05 | Progress Note ---
Medicine Progress Note Date & Time of Visit: Dec 10, 2016 at 18:59. Subjective patient seen resting in bed, comfortable denies chest pain, dyspnea, dizziness, palpitations no cough, sputum,abdominal pain, diarrhea, urinary symptoms pain controlled no other symptoms Objective Last 8 Hrs Date Time Temp Pulse Resp B/P Pulse Ox O2 Delivery O2 Flow Rate FiO2 12/10/16 16:00 Nasal Cannula 3.0 12/10/16 15:56 36.4 98 20 97/66 100 Nasal Cannula 3.0 12/10/16 14:28 85 16 99 Nasal Cannula 3.0 12/10/16 14:15 59 106/56 12/10/16 14:00 68 112/65 12/10/16 13:45 52 110/62 12/10/16 13:30 59 102/66 12/10/16 13:15 88 107/65 12/10/16 13:00 67 95/50 12/10/16 12:45 71 89/42 12/10/16 12:30 65 95/45 12/10/16 12:15 69 106/52 12/10/16 12:00 81 102/41 12/10/16 11:45 79 93/43 12/10/16 11:30 83 99/46 12/10/16 11:15 Nasal Cannula 3.0 12/10/16 11:15 81 81/44 12/10/16 11:00 36.5 83 89/45 Physical Exam: General- oriented x 3, not in distress, speaks in sentences with no effort Head- atraumatic Eyes- EOMI, anicteric ENT- oropharynx clear Neck- supple, no JVD Lungs- clear to auscultation b/l Heart- regular rhythm; no murmur Abdomen- normal bowel sounds, soft, nontender Extremities- right leg: dressing in place, no bleeding/discharge; (+) grade 1-2 leg edema with mild warmth, tenderness left leg: mild edema Neuro- alert, oriented x 3; no gross focal deficits Skin- warm & dry Laboratory Results: Last 24 Hours Test 12/09/16 20:05 12/10/16 05:30 12/10/16 06:56 12/10/16 11:16 Bedside Glucose 142 mg/dl 107 mg/dl 136 mg/dl White Blood Count 6.78 K/uL Red Blood Count 2.93 M/uL Hemoglobin 8.9 g/dL Hematocrit 28.0 % Mean Corpuscular Volume 95.6 fL Mean Corpuscular Hemoglobin 30.4 pg Mean Corpuscular Hemoglobin Concent 31.8 g/dl RDW Standard Deviation 62.3 fL RDW Coefficient of Variation 18.0 % Platelet Count 208 K/uL Mean Platelet Volume 9.4 fL Nucleated RBC Absolute Count (auto) 0.02 K/uL Nucleated Red Blood Cells % 0.3 % Sodium Level 129 mmol/L Potassium Level 4.2 mmol/L Chloride Level 94 mmol/L Carbon Dioxide Level 25 mmol/L Anion Gap 10.0 mmol/L Blood Urea Nitrogen 37 mg/dl Creatinine 4.20 mg/dl Est Creatinine Clear Calc Drug Dose 11.2 ml/min Estimated GFR () 12.1 Estimated GFR (Non- 10.4 BUN/Creatinine Ratio 8.8 Random Glucose 117 mg/dl Calcium Level 8.3 mg/dl Test 12/10/16 16:05 Bedside Glucose 113 mg/dl Assessment & Plan FEBRILE EPISODE - none since yesterday morning - blood cultures: pending cxr: no acute process - will order Leg US to r/o DVT - ff up blood culture and Leg US RIGHT HIP INTERTROCHANTERIC FRACTURE S/P MECHANICAL FALL : S/P Hip fracture repair - IM [facility] on 12/05/16 - management of fever as noted above - anticipate transfer to [facility] when medically stable - appreciate Dr. Santoyo's recommendations ACUTE BLOOD LOSS ANEMIA WITH CHRONIC ANEMIA -Hb dropped to 7.9 --> 9.6 -S/P 2 units of PRBCs transfusion on 12/07/16 - hg 8.9 on procrit as well monitor ESRD ON DIALYSIS Dialysis - - Fri -Follows with Dr. Flannery - HD per Nephro, appreciate the recommendations CHRONIC HYPONATREMIA: - Na 129 on HD ASTHMA/ CHRONIC HYPOXIC RESPIRATORY FAILURE On 3 liters NC continuous at home -Not in exacerbation PAROXYSMAL AFIB, HEART BLOCK S/P PACEMAKER -Not on rate controlling meds due to hx of hypotension -Not on Coumadin due to fall risk CHRONIC SYSTOLIC CHF HX BIOPROSTHETIC AORTIC VALVE REPLACEMENT Echo 09/2016- EF 45-50%, Prosthetic aortic valve, Moderate MR - euvolemic CAD S/P CABG X 2 -Metoprolol and imdur d/c in the past due to syncope from hypotension - stable - on Aspirin, Statin DM TYPE 2 -Consulted pharmacy for glycemic control HISTORY OF CVA -ASA restarted per surgery ALLEN CIRRHOSIS Ammonia - 35 on presentation -Continue Lactulose LIZZ -Continue CPAP HX GASTRIC ULCER -EGD Oct 2016 showed ulcer healed. No signs of active bleeding -Continue PPI S/P METABOLIC ENCEPHALOPATHY- Resolved Secondary to multiple pain medications received in ED -Resolved and back to baseline S/P HYPERKALEMIA- Resolved K= 5.6 on presentation without EKG changes -Nephrology on board. DVT PROPHYLAXIS Per ortho team- Heparin SQ DISPOSITION -Probable discharge to SNF/Rehab in 1-2 days if no more fever spikes & cultures are negative Current Inpatient Medications: Current Inpatient Medications Medications (Trade) Dose Ordered Sig/Dalton Route Start Time Stop Time Status Last Admin Dose Admin Ondansetron HCl (Zofran Inj) 4 mg Q6H PRN IV 12/04/16 14:00 01/03/17 13:59 12/05/16 02:40 4 MG Glucose (Glucose 40% Gel) 15-30 GRAMS 15 GRAMS... UD PRN PO 12/04/16 15:00 01/03/17 14:59 Glucose (Glucose Chew Tab) 4-8 Tablets 4 Tabl... UD PRN PO 12/04/16 15:00 01/03/17 14:59 Dextrose (Dextrose 50% 50ML Syringe) 25-50ML OF 50% DW IV FOR... UD PRN IV 12/04/16 15:00 01/03/17 14:59 Glucagon (Glucagon Inj) 1 mg UD PRN SQ 12/04/16 15:00 01/03/17 14:59 Miscellaneous Information (Consult Glycemic Management Pharmacy) 1 ea UD N/A 12/04/16 14:59 01/03/17 14:58 Atorvastatin Calcium (Lipitor Tab) 80 mg HS PO 12/04/16 21:00 01/03/17 20:59 12/09/16 20:11 80 MG Gabapentin (Neurontin Cap) 300 mg BID PO 12/04/16 21:00 01/03/17 20:59 12/10/16 08:24 300 MG Albuterol/ Ipratropium (Combivent Respimat Inh) 1 puffs QID PRN INH 12/04/16 15:00 01/03/17 14:59 Lactobacillus Acidophilus (Floranex Tab) 2 tab BID PO 12/04/16 21:00 01/03/17 20:59 12/10/16 08:23 2 TAB Lactulose (Chronulac Syrup) 20 gm BID PO 12/04/16 21:00 01/03/17 20:59 12/10/16 08:23 20 GM Montelukast Sodium (Singulair Tab) 10 mg HS PO 12/04/16 21:00 01/03/17 20:59 12/09/16 20:11 10 MG Nitroglycerin (Nitrostat Tab) 0.4 mg PRN PRN [place] 12/04/16 15:00 01/03/17 14:59 Vitamin B Complex/ Vit C/Folic Acid (Nephrocaps) 1 cap QAM PO 12/05/16 09:00 01/04/17 08:59 12/10/16 08:23 1 CAP Pantoprazole Sodium (Protonix Tab) 40 mg QAM PO 12/05/16 09:00 01/04/17 08:59 12/10/16 08:24 40 MG Insulin Glargine (Lantus Solostar Pen) PER SCALE BID SC 12/04/16 21:00 01/03/17 20:59 Future hold 12/09/16 20:59 8 UNIT Insulin Aspart (novoLOG ASPART) SLIDING SCALE ACHS SC 12/04/16 16:15 01/03/17 16:14 12/10/16 08:06 2 UNITS Acetaminophen/ Hydrocodone Bitart ([place] 5/325 Tab) 1 tab Q4H PRN PO 12/04/16 18:00 12/18/16 17:59 12/10/16 16:28 1 TAB Levalbuterol (Xopenex 0.63 Mg/ 3 Ml Neb) 0.63 mg Q6R INH 12/05/16 09:00 01/04/17 08:59 12/10/16 07:03 0.63 MG Morphine Sulfate (MoRPHine SULFATE INJ) 2 mg Q1H PRN IV 12/05/16 18:00 12/19/16 17:59 Morphine Sulfate 4 mg 4 mg Q1H PRN IV 12/05/16 18:00 12/19/16 17:59 12/06/16 19:35 4 MG Acetaminophen/ Empty Bag (Ofirmev IV/ Empty Iv Bag 100ml) 65 ml @ 260 mls/hr Q6H PRN IV 12/05/16 18:00 01/04/17 17:59 12/06/16 07:47 260 MLS/HR Oxycodone/ Acetaminophen (Percocet 5-325mg Tab) 1 tab Q4H PRN PO 12/05/16 18:00 12/19/16 17:59 12/08/16 23:52 1 TAB Aspirin (Ecotrin Tab) 81 mg QAM PO 12/06/16 13:30 01/05/17 08:59 12/10/16 08:23 81 MG Heparin Sodium (Porcine) (Heparin Sq 5000 Unit/0.5ml) 5,000 unit Q8 SQ 12/07/16 09:00 01/06/17 08:59 12/10/16 16:28 5,000 UNIT Ipratropium [place] (Atrovent 0.02% 0.5MG/2.5ML Neb) 0.5 mg Q6H PRN INH 12/09/16 12:30 01/08/17 12:29 Tramadol HCl ([place]am Tab) 50 mg Q8H PRN PO 12/10/16 12:45 01/09/17 12:44 12/10/16 13:45 50 MG
[2016-12-10] MEDS: HEPARIN SOD (PORCINE) 1000 UNIT/ML 10 ML VIAL IV SCH ×2 (19:23→19:24)
[2016-12-10] MEDS ORDERED: SODIUM CHLORIDE 0.9% 1000ML 250 ML IV SCH (19:30)
[2016-12-10] MEDS: ATORVASTATIN 20 MG TAB PO SCH (19:44)
[2016-12-10] MEDS: MONTELUKAST SOD 10 MG TAB PO SCH (19:45)
[2016-12-10 21:28] LABS: HEMATOCRIT 27.9 % (37-47)
[2016-12-10 21:51] LABS: CALCIUM 8.1 mg/dl (8.5-10.1); POTASSIUM 3.6 mmol/L (3.5-5.1)
[2016-12-10] MEDS ORDERED: LEVETIRACETAM IV 500 MG in DEXTROSE 5% 100ML 100 ML IV SCH (22:00)
[2016-12-10 22:06] LABS: BUN/CREATININE RATIO 6.2 (10-20)
[2016-12-10 22:07] LABS: CREATININE 2.6 mg/dl (0.60-1.20)
--- NOTE | 2016-12-10 22:57 | DIAGNOSTIC IMAGING REPORT ---
ULTRASOUND BILATERAL LOWER EXTREMITY VENOUS CLINICAL HISTORY: Immobilized patient. Hip fracture. Lower extremity edema. COMPARISON STUDY: Bilateral lower extremity venous ultrasound dated 08/10/2010. TECHNIQUE: Real-time, grayscale, and color Doppler sonography of the deep veins of the right and left lower extremity was performed from the inguinal crease to the calf. Compression and augmentation were utilized. FINDINGS: There is no sonographic evidence of deep venous thrombosis identified in the right or left lower extremity. The common femoral, superficial femoral, and popliteal veins are patent and normally compressible bilaterally. The greater saphenous vein and the profunda femoris vein at the junction with the common femoral vein are clear in both legs. The visualized calf veins are patent bilaterally. Soft tissue edema is present in the calves. IMPRESSION: There is no sonographic evidence of deep venous thrombosis identified in the right or left lower extremity. Electronically signed by: Iván Browne M.D. 12/10/2016 10:56 PM Dictated Date/Time: 12/10/2016 10:56 PM
[2016-12-11] VITALS (13 sets, daily range): BP systolic 85–102; BP diastolic 46–62; PULSE 90–103; TEMP 36.3–37.8; O2SAT 93–98
[2016-12-11 00:50] LABS: ARTERIAL BLD GAS O2 SATURATION 95.4 % (90-95); ARTERIAL BLOOD GAS BASE EXCESS 0.8 mEq/L (-9-1.8); ARTERIAL BLOOD GAS HCO3 26 mmol/L (19-24); ARTERIAL BLOOD GAS PO2 94 mm/Hg (80-95); ARTERIAL BLOOD GAS pH 7.37 (7.35-7.45)
[2016-12-11 00:51] LABS: ALLEN TEST POS (POS); O2 ADMINISTRATION 3 L
[2016-12-11] MEDS ORDERED: HYDROmorphone INJ 0.5 MG/0.5 ML SYR IV PRN (01:00)
[2016-12-11] MEDS: LEVALBUTEROL 0.63MG/3 ML NEB INH SCH ×4 (01:33→19:19)
[2016-12-11] MEDS: HEPARIN SOD 5000 UNIT/0.5 ML CARP SQ SCH ×3 (06:18→21:46)
[2016-12-11 07:14] LABS: BUN/CREATININE RATIO 6.4 (10-20); CALCIUM 8.5 mg/dl (8.5-10.1); POTASSIUM 3.8 mmol/L (3.5-5.1)
[2016-12-11] MEDS: INSULIN ASPART 100 UNITS/ML 3 ML PEN SC SCH ×4 (08:28→20:26)
[2016-12-11] MEDS: INSULIN GLARGINE SOLOSTAR 100 UNITS/ML 3 ML PEN SC SCH ×2 (08:29→20:32)
[2016-12-11] MEDS: LACTOBACILLUS ACIDOPHILUS (FLORANEX) TAB PO SCH ×2 (08:31→20:30)
[2016-12-11] MEDS: NEPHROCAPS PO SCH (08:31)
[2016-12-11] MEDS: PANTOprazole SOD 40 MG TAB PO SCH (08:31)
[2016-12-11] MEDS: GABAPENTIN 300 MG CAP PO SCH ×2 (08:31→20:30)
[2016-12-11] MEDS: ASPIRIN 81 MG ECTAB PO SCH (08:31)
[2016-12-11] MEDS: LACTULOSE SYRUP 20 GM/30 ML UDC PO SCH (09:49)
[2016-12-11] MEDS ORDERED: NALOXONE HCL 0.4 MG/1 ML VIAL/CARP IV STA (11:36)
[2016-12-11] MEDS ORDERED: BISACODYL 10 MG SUPP PR PRN (11:45)
--- NOTE | 2016-12-11 11:51 | Progress Note ---
Medicine Progress Note Date & Time of Visit: Dec 11, 2016 at 11:44. Subjective noted to be more sleepy, somewhat confused since last night BM irregular for the past few days pain controlled with Tramadol denies chest pain, dyspnea, cough, chest pain, abdominal pain, changes with urination or BMs no other symptoms Objective Last 8 Hrs Date Time Temp Pulse Resp B/P Pulse Ox O2 Delivery O2 Flow Rate FiO2 12/11/16 09:34 90 96 12/11/16 08:00 Nasal Cannula 3.0 12/11/16 07:47 36.9 98 18 101/58 97 Nasal Cannula 3.0 12/11/16 07:35 94 16 95 Nasal Cannula 3.0 12/11/16 04:18 36.3 103 17 95/53 95 Nasal Cannula 3.0 12/11/16 04:00 Nasal Cannula 3.0 Physical Exam: General- oriented x 3, not in distress, speaks in sentences with no effort Head- atraumatic Eyes- anicteric Neck-no JVD Lungs- clear to auscultation bilaterally, no rales/wheezes Heart- normal rate, regular rhythm; no murmur Abdomen- normal bowel sounds, soft, nontender Extremities- right leg: dressing in place, no bleeding/discharge; (+) grade 1 leg edema with mild warmth, tenderness left leg: mild edema Neuro- alert, oriented x 3; no gross focal deficits Skin- warm & dry Laboratory Results: Last 24 Hours Test 12/10/16 16:05 12/10/16 20:58 12/10/16 21:18 12/11/16 00:38 Bedside Glucose 113 mg/dl 127 mg/dl Hemoglobin 8.9 g/dL Hematocrit 27.9 % Sodium Level 133 mmol/L Potassium Level 3.6 mmol/L Chloride Level 97 mmol/L Carbon Dioxide Level 27 mmol/L Anion Gap 9.0 mmol/L Blood Urea Nitrogen 16 mg/dl Creatinine 2.60 mg/dl Est Creatinine Clear Calc Drug Dose 17.9 ml/min Estimated GFR () 21.6 Estimated GFR (Non- 18.6 BUN/Creatinine Ratio 6.2 Random Glucose 132 mg/dl Lactic Acid Level 1.0 mmol/L Calcium Level 8.1 mg/dl Magnesium Level 2.0 mg/dl Ammonia 25.0 umol/L Arterial Blood pH 7.37 Arterial Blood Partial Pressure CO2 46 mmHg Arterial Blood Partial Pressure O2 94 mm/Hg Arterial Blood HCO3 26 mmol/L Arterial Blood Oxygen Saturation 95.4 % Arterial Blood Base Excess 0.8 mEq/L Arterial Blood Gas Delivery 3 L Conrad Test POS Test 12/11/16 06:23 12/11/16 06:42 12/11/16 10:49 Sodium Level 133 mmol/L Potassium Level 3.8 mmol/L Chloride Level 98 mmol/L Carbon Dioxide Level 27 mmol/L Anion Gap 8.0 mmol/L Blood Urea Nitrogen 19 mg/dl Creatinine 3.00 mg/dl Est Creatinine Clear Calc Drug Dose 15.4 ml/min Estimated GFR () 18.1 Estimated GFR (Non- 15.7 BUN/Creatinine Ratio 6.4 Random Glucose 108 mg/dl Calcium Level 8.5 mg/dl Bedside Glucose 125 mg/dl 157 mg/dl Assessment & Plan FEBRILE EPISODE - had 1 low grade temp last night - blood cultures: negative cxr: no acute process Leg US to r/o DVT: negative CONFUSION, LETHARGY likely Multifactorial from Narcotics- stop Dilaudid, Percocet--> Narcan 1 dose now, continue Tramadol PRN Has history of ALLEN- NH4 25, irregular BMs, increase to Lactulose 30mg TID for now RIGHT HIP INTERTROCHANTERIC FRACTURE S/P MECHANICAL FALL : S/P Hip fracture repair - IM [facility] on 12/05/16 - management of fever as noted above - anticipate transfer to [facility] when medically stable - appreciate Dr. Santoyo's recommendations ACUTE BLOOD LOSS ANEMIA WITH CHRONIC ANEMIA -Hb dropped to 7.9 --> 9.6 -S/P 2 units of PRBCs transfusion on 12/07/16 - hg 8.9 on procrit as well monitor ESRD ON DIALYSIS Dialysis - Fri -Follows with Dr. Flannery - HD per Nephro, appreciate the recommendations CHRONIC HYPONATREMIA: - Na 129 on HD ASTHMA/ CHRONIC HYPOXIC RESPIRATORY FAILURE On 3 liters NC continuous at home -Not in exacerbation PAROXYSMAL AFIB, HEART BLOCK S/P PACEMAKER -Not on rate controlling meds due to hx of hypotension -Not on Coumadin due to fall risk CHRONIC SYSTOLIC CHF HX BIOPROSTHETIC AORTIC VALVE REPLACEMENT Echo 09/2016- EF 45-50%, Prosthetic aortic valve, Moderate MR - euvolemic CAD S/P CABG X 2 - Metoprolol and imdur d/c in the past due to syncope from hypotension - stable - on Aspirin, Statin DM TYPE 2 -Consulted pharmacy for glycemic control HISTORY OF CVA -ASA restarted per surgery ALLEN CIRRHOSIS Ammonia - 35 on presentation -Continue Lactulose LIZZ -Continue CPAP HX GASTRIC ULCER -EGD Oct 2016 showed ulcer healed. No signs of active bleeding -Continue PPI S/P METABOLIC ENCEPHALOPATHY- Resolved Secondary to multiple pain medications received in ED -Resolved and back to baseline S/P HYPERKALEMIA- Resolved K= 5.6 on presentation without EKG changes -Nephrology on board. DVT PROPHYLAXIS Per ortho team- Heparin SQ DISPOSITION -Probable discharge to SNF/Rehab in 1-2 days if no more fever spikes, confusion /lethargy improves Current Inpatient Medications: Current Inpatient Medications Medications (Trade) Dose Ordered Sig/Dalton Route Start Time Stop Time Status Last Admin Dose Admin Ondansetron HCl (Zofran Inj) 4 mg Q6H PRN IV 12/04/16 14:00 01/03/17 13:59 12/05/16 02:40 4 MG Glucose (Glucose 40% Gel) 15-30 GRAMS 15 GRAMS... UD PRN PO 12/04/16 15:00 01/03/17 14:59 Glucose (Glucose Chew Tab) 4-8 Tablets 4 Tabl... UD PRN PO 12/04/16 15:00 01/03/17 14:59 Dextrose (Dextrose 50% 50ML Syringe) 25-50ML OF 50% DW IV FOR... UD PRN IV 12/04/16 15:00 01/03/17 14:59 Glucagon (Glucagon Inj) 1 mg UD PRN SQ 12/04/16 15:00 01/03/17 14:59 Miscellaneous Information (Consult Glycemic Management Pharmacy) 1 ea UD N/A 12/04/16 14:59 01/03/17 14:58 Atorvastatin Calcium (Lipitor Tab) 80 mg HS PO 12/04/16 21:00 01/03/17 20:59 12/10/16 19:44 80 MG Gabapentin (Neurontin Cap) 300 mg BID PO 12/04/16 21:00 01/03/17 20:59 12/11/16 08:31 300 MG Albuterol/ Ipratropium (Combivent Respimat Inh) 1 puffs QID PRN INH 12/04/16 15:00 01/03/17 14:59 Lactobacillus Acidophilus (Floranex Tab) 2 tab BID PO 12/04/16 21:00 01/03/17 20:59 12/11/16 08:31 2 TAB Lactulose (Chronulac Syrup) 20 gm BID PO 12/04/16 21:00 12/11/16 21:00 12/11/16 09:49 20 GM Montelukast Sodium (Singulair Tab) 10 mg HS PO 12/04/16 21:00 01/03/17 20:59 12/10/16 19:45 10 MG Nitroglycerin (Nitrostat Tab) 0.4 mg PRN PRN [place] 12/04/16 15:00 01/03/17 14:59 Vitamin B Complex/ Vit C/Folic Acid (Nephrocaps) 1 cap QAM PO 12/05/16 09:00 01/04/17 08:59 12/11/16 08:31 1 CAP Pantoprazole Sodium (Protonix Tab) 40 mg QAM PO 12/05/16 09:00 01/04/17 08:59 12/11/16 08:31 40 MG Insulin Glargine (Lantus Solostar Pen) PER SCALE BID SC 12/04/16 21:00 01/03/17 20:59 Future hold 12/11/16 08:29 8 UNIT Insulin Aspart (novoLOG ASPART) SLIDING SCALE ACHS SC 12/04/16 16:15 01/03/17 16:14 12/11/16 08:28 4 UNITS Levalbuterol 0.63 mg 0.63 mg Q6R INH 12/05/16 09:00 01/04/17 08:59 12/11/16 07:02 0.63 MG Acetaminophen/ Empty Bag (Ofirmev IV/ Empty Iv Bag 100ml) 65 ml @ 260 mls/hr Q6H PRN IV 12/05/16 18:00 01/04/17 17:59 12/06/16 07:47 260 MLS/HR Aspirin (Ecotrin Tab) 81 mg QAM PO 12/06/16 13:30 01/05/17 08:59 12/11/16 08:31 81 MG Heparin Sodium (Porcine) (Heparin Sq 5000 Unit/0.5ml) 5,000 unit Q8 SQ 12/07/16 09:00 01/06/17 08:59 12/11/16 06:18 5,000 UNIT Ipratropium [place] (Atrovent 0.02% 0.5MG/2.5ML Neb) 0.5 mg Q6H PRN INH 12/09/16 12:30 01/08/17 12:29 Tramadol HCl (Ultram Tab) 50 mg Q8H PRN PO 12/10/16 12:45 01/09/17 12:44 12/10/16 13:45 50 MG Lactulose (Chronulac Syrup) 30 gm TID PO 12/11/16 14:00 01/10/17 13:59 UNV Bisacodyl (Dulcolax Supp) 10 mg DAILY PRN [place] 12/11/16 11:45 01/10/17 11:44 UNV Naloxone HCl (Narcan Inj) 0.4 mg NOW STAT IV 12/11/16 11:36 12/11/16 11:37 UNV
[2016-12-11] MEDS: LACTULOSE SYRUP 30 GM/45 ML UDP PO SCH ×2 (14:38→20:26)
[2016-12-11] MEDS: MONTELUKAST SOD 10 MG TAB PO SCH (20:29)
[2016-12-11] MEDS: ATORVASTATIN 20 MG TAB PO SCH (20:30)
[2016-12-11] MEDS: ACETAMINOPHEN IV 650 MG in EMPTY BAG 0 ML IV PRN (21:43)
[2016-12-12] VITALS (33 sets, daily range): BP systolic 79–111; BP diastolic 46–71; PULSE 67–101; TEMP 36.1–37.4; O2SAT 94–100
[2016-12-12] MEDS: LEVALBUTEROL 0.63MG/3 ML NEB INH SCH ×5 (02:02→19:31)
[2016-12-12] MEDS: HEPARIN SOD 5000 UNIT/0.5 ML CARP SQ SCH ×3 (06:02→21:04)
[2016-12-12 07:44] LABS: HEMATOCRIT 29.9 % (37-47); MEAN CELL VOLUME 96.1 fL (80-100); MEAN CORPUSCULAR HEMOGLOBIN 29.6 pg (25-34); MEAN CORPUSCULAR HGB CONC 30.8 g/dl (32-36); MEAN PLATELET VOLUME 9.5 fL (7.4-10.4); PLATELET COUNT 225 K/uL (130-400); RED BLOOD COUNT 3.11 M/uL (4.2-5.4); WHITE BLOOD COUNT 6.81 K/uL (4.8-10.8)
[2016-12-12] MEDS ORDERED: EPOETIN ALFA 10,000 UNITS/ML VIAL IV. ONE (08:00)
[2016-12-12] MEDS ORDERED: HEPARIN SOD (PORCINE) 1000 UNIT/ML 10 ML VIAL IV SCH (08:00)
[2016-12-12] MEDS ORDERED: EPOETIN ALFA INJ 8,000 UNITS in SYRINGE 0 ML IV. SCH (08:00)
[2016-12-12 08:15] LABS: BUN/CREATININE RATIO 7.2 (10-20); CALCIUM 8.9 mg/dl (8.5-10.1); CREATININE 3.8 mg/dl (0.60-1.20); POTASSIUM 3.6 mmol/L (3.5-5.1)
[2016-12-12] MEDS: INSULIN ASPART 100 UNITS/ML 3 ML PEN SC SCH ×4 (08:48→20:57)
[2016-12-12] MEDS: TRAMADOL HCL 50 MG TAB PO PRN ×2 (08:49→17:18)
[2016-12-12] MEDS: LACTULOSE SYRUP 30 GM/45 ML UDP PO SCH ×3 (09:00→21:01)
[2016-12-12] MEDS: INSULIN GLARGINE SOLOSTAR 100 UNITS/ML 3 ML PEN SC SCH ×2 (09:00→21:03)
[2016-12-12] MEDS: ASPIRIN 81 MG ECTAB PO SCH (09:13)
[2016-12-12] MEDS: LACTOBACILLUS ACIDOPHILUS (FLORANEX) TAB PO SCH ×2 (09:14→21:03)
[2016-12-12] MEDS: NEPHROCAPS PO SCH (09:14)
[2016-12-12] MEDS: GABAPENTIN 300 MG CAP PO SCH ×2 (09:15→21:02)
[2016-12-12] MEDS: PANTOprazole SOD 40 MG TAB PO SCH (09:16)
[2016-12-12] MEDS: HEPARIN SOD (PORCINE) 1000 UNIT/ML 10 ML VIAL IV SCH ×2 (10:00→12:00)
[2016-12-12] MEDS: ALBUMIN HUMAN 25% 12.5 GM/50 ML VIAL IV SCH ×2 (12:00→13:01)
--- NOTE | 2016-12-12 12:46 | Dialysis Progress Note ---
Nephrology Dialysis Note Date of Service: Dec 12, 2016. Subjective c/o some R hip discomfort still; doing PT; not sure where she will go post d/c; had F to 38.3 on 12/09 early am; had blood cxs which remain ngtd still; no change in chronic dyspnea or poor appetite or edema. Objective Date Time Temp Pulse Resp B/P Pulse Ox O2 Delivery O2 Flow Rate FiO2 12/12/16 11:45 84 104/62 12/12/16 11:30 70 102/59 12/12/16 11:15 69 105/66 12/12/16 11:00 69 99/71 12/12/16 10:45 74 100/64 12/12/16 10:30 76 102/50 12/12/16 10:15 74 99/46 12/12/16 10:00 67 101/51 12/12/16 09:45 74 89/65 12/12/16 09:30 36.1 83 88/51 12/12/16 08:00 100 Nasal Cannula 3.0 12/12/16 07:40 36.6 86 18 80/51 100 Nasal Cannula 3.0 12/12/16 07:09 83 16 98 BiPAP/CPAP 3.0 12/12/16 04:27 36.3 85 18 84/49 97 BiPAP 12/12/16 04:15 97 CPAP 3.0 12/12/16 02:02 70 16 98 BiPAP/CPAP 3.0 12/12/16 00:30 97 CPAP 3.0 12/12/16 00:10 36.9 94 18 102/65 97 Nasal Cannula 3.0 12/11/16 20:10 94 Nasal Cannula 3.0 12/11/16 19:20 93 16 94 Nasal Cannula 3.0 12/11/16 19:15 36.9 96 18 96/61 96 Nasal Cannula 3.0 12/11/16 16:00 Nasal Cannula 3.0 12/11/16 15:25 36.6 101 19 85/56 97 Nasal Cannula 3.0 12/11/16 14:37 94 16 93 Nasal Cannula 3.0 Physical Exam: General-aaox3, on 02NC Eyes-no scleral icterus ENT-mmm Neck-supple Lungs-diminished air entry throughout Heart-RRR Abdomen-bs+ s/nt/nd Extremities-right hip incision bandaged; trace BLE edema; R prox AVF + t/b Neuro-romano, fluent speech, limited insight but this is baseline Current Inpatient Medications Medications (Trade) Dose Ordered Sig/Dalton Route Start Time Stop Time Status Last Admin Dose Admin Ondansetron HCl (Zofran Inj) 4 mg Q6H PRN IV 12/04/16 14:00 01/03/17 13:59 12/05/16 02:40 4 MG Glucose (Glucose 40% Gel) 15-30 GRAMS 15 GRAMS... UD PRN PO 12/04/16 15:00 01/03/17 14:59 Glucose (Glucose Chew Tab) 4-8 Tablets 4 Tabl... UD PRN PO 12/04/16 15:00 01/03/17 14:59 Dextrose (Dextrose 50% 50ML Syringe) 25-50ML OF 50% DW IV FOR... UD PRN IV 12/04/16 15:00 01/03/17 14:59 Glucagon (Glucagon Inj) 1 mg UD PRN SQ 12/04/16 15:00 01/03/17 14:59 Miscellaneous Information (Consult Glycemic Management Pharmacy) 1 ea UD N/A 12/04/16 14:59 01/03/17 14:58 Atorvastatin Calcium (Lipitor Tab) 80 mg HS PO 12/04/16 21:00 01/03/17 20:59 12/11/16 20:30 80 MG Gabapentin (Neurontin Cap) 300 mg BID PO 12/04/16 21:00 01/03/17 20:59 12/12/16 09:15 300 MG Albuterol/ Ipratropium (Combivent Respimat Inh) 1 puffs QID PRN INH 12/04/16 15:00 01/03/17 14:59 Lactobacillus Acidophilus (Floranex Tab) 2 tab BID PO 12/04/16 21:00 01/03/17 20:59 12/12/16 09:14 2 TAB Montelukast Sodium (Singulair Tab) 10 mg HS PO 12/04/16 21:00 01/03/17 20:59 12/11/16 20:29 10 MG Nitroglycerin (Nitrostat Tab) 0.4 mg PRN PRN [place] 12/04/16 15:00 01/03/17 14:59 Vitamin B Complex/ Vit C/Folic Acid (Nephrocaps) 1 cap QAM PO 12/05/16 09:00 01/04/17 08:59 12/12/16 09:14 1 CAP Pantoprazole Sodium (Protonix Tab) 40 mg QAM PO 12/05/16 09:00 01/04/17 08:59 12/12/16 09:16 40 MG Insulin Glargine (Lantus Solostar Pen) PER SCALE BID SC 12/04/16 21:00 01/03/17 20:59 Future hold 12/11/16 20:32 8 UNIT Insulin Aspart (novoLOG ASPART) SLIDING SCALE ACHS SC 12/04/16 16:15 01/03/17 16:14 12/11/16 17:03 6 UNITS Levalbuterol 0.63 mg 0.63 mg Q6R INH 12/05/16 09:00 01/04/17 08:59 12/12/16 07:09 0.63 MG Acetaminophen/ Empty Bag (Ofirmev IV/ Empty Iv Bag 100ml) 65 ml @ 260 mls/hr Q6H PRN IV 12/05/16 18:00 01/04/17 17:59 12/11/16 21:43 260 MLS/HR Aspirin (Ecotrin Tab) 81 mg QAM PO 12/06/16 13:30 01/05/17 08:59 12/12/16 09:13 81 MG Heparin Sodium (Porcine) (Heparin Sq 5000 Unit/0.5ml) 5,000 unit Q8 SQ 12/07/16 09:00 01/06/17 08:59 12/12/16 06:02 5,000 UNIT Ipratropium [place] (Atrovent 0.02% 0.5MG/2.5ML Neb) 0.5 mg Q6H PRN INH 12/09/16 12:30 01/08/17 12:29 Tramadol HCl (Ultram Tab) 50 mg Q8H PRN PO 12/10/16 12:45 01/09/17 12:44 12/12/16 08:49 50 MG Lactulose (Chronulac Syrup) 30 gm TID PO 12/11/16 14:00 01/10/17 13:59 12/11/16 14:38 30 GM Bisacodyl (Dulcolax Supp) 10 mg DAILY PRN [place] 12/11/16 11:45 01/10/17 11:44 12/11/16 12:02 10 MG Heparin Sodium (Porcine) (Heparin Iv Bolus) 1,000 unit TODAY@0800 IV 12/12/16 08:00 12/12/16 23:59 Heparin Sodium (Porcine) (Heparin Iv Bolus) 400 unit TODAY@0800,0900,1000 IV 12/12/16 08:00 12/12/16 23:59 Albumin Human 12.5 gm 12.5 gm TODAY@0700,0900 IV 12/12/16 07:00 12/12/16 23:59 Epoetin Renato/ Syringe (Procrit Inj/ Syringe) 0.4 ml @ 1 mls/min TODAY@0800 IV. 12/12/16 08:00 12/12/16 23:59 Last 24 Hours Test 12/11/16 16:07 12/11/16 19:51 12/12/16 06:37 12/12/16 06:54 Bedside Glucose 199 mg/dl 159 mg/dl 109 mg/dl White Blood Count 6.81 K/uL Red Blood Count 3.11 M/uL Hemoglobin 9.2 g/dL Hematocrit 29.9 % Mean Corpuscular Volume 96.1 fL Mean Corpuscular Hemoglobin 29.6 pg Mean Corpuscular Hemoglobin Concent 30.8 g/dl RDW Standard Deviation 62.1 fL RDW Coefficient of Variation 17.8 % Platelet Count 225 K/uL Mean Platelet Volume 9.5 fL Nucleated RBC Absolute Count (auto) 0.02 K/uL Nucleated Red Blood Cells % 0.3 % Sodium Level 131 mmol/L Potassium Level 3.6 mmol/L Chloride Level 96 mmol/L Carbon Dioxide Level 25 mmol/L Anion Gap 10.0 mmol/L Blood Urea Nitrogen 27 mg/dl Creatinine 3.80 mg/dl Est Creatinine Clear Calc Drug Dose 12.1 ml/min Estimated GFR () 13.6 Estimated GFR (Non- 11.8 BUN/Creatinine Ratio 7.2 Random Glucose 97 mg/dl Calcium Level 8.9 mg/dl Iron Level 24 mcg/dl Total Iron Binding Capacity 144 mcg/dl Transferrin 118 mg/dl Transferrin % Saturation 15 % Test 12/12/16 07:26 Bedside Glucose 102 mg/dl Assessment & Plan 66 yo female with esrd with right hip fracture s/p uneventful surgical repair 12/05. also hx of PAF, CAD s/p CABG and bioprosth AVR, LIZZ on CPAP, ALLEN cirrhosis , chronic resp failure on NC 21/04, recurrent syncope. ESRD-pt usually dialyzes t-h-s. her bp tends to run low> will use albumin during tx to optimize UF in this setting. next HD tentatively for 12/14 after today's tx or as clinical sitn dictates Anemia of renal failure-goal hg of 10 to 11, dosing procrit accordingly appreciate c/s; will follow with you
--- NOTE | 2016-12-12 15:45 | PROGRESS NOTE ---
DATE: 12/12/2016 SUBJECTIVE: Pain controlled. OBJECTIVE: Vital signs stable, alert, oriented. Tolerating dialysis. Wound clean, dry. ASSESSMENT: Status post hip fracture repair with multiple other medical issues. DISPOSITION: We will continue with therapy. Hopefully, get Ms. Salcedo discharge from the hospital in the next 2-3 days.
--- NOTE | 2016-12-12 17:28 | Pharmacy Progress Note ---
Glycemic: Assessment & Plan Date of Service Dec 12, 2016. Assessment & Plan The patient received 10 units of insulin on 12/10, 31 units on 12/11. BSGs ranging 88-179 mg/dl over the past 24hrs. Low BSG today because lunch delayed by hemodialysis. PO intake good yesterday but still variable. Will decrease goal range a bit. * Basal insulin: Lantus per protocol every 12 hours if BSG is less than 120, hold dose if BSG is 120-180, give 8 units if BSG is over 180, give 12 units * Correctional Insulin: Novolog Correction per scale ACHS Goal Range: Low 120 mg/dL - High 160 mg/dL Correction Factor: 30 mg/dL/unit * Prandial insulin: Per carb ratio of 1 unit per 12 grams CHO consumed BSGs continue to improve, no other changes needed to inpatient regimen at this time. Pharmacy will continue to monitor patient daily and write orders per [facility] inpatient glycemic control protocol. Thanks. * Please note that the plan above was derived based on current level of insulin resistance and hospital stress. These recommendations are appropriate for inpatient admission only. Plan of care upon discharge will need to be reassessed to avoid potential outpatient hypo/hyperglycemia.
--- NOTE | 2016-12-12 20:16 | Progress Note ---
Medicine Progress Note Date & Time of Visit: Dec 12, 2016 at 20:12. Subjective more alert, conversant no confusion states she feels improved today (+) BMs no dyspnea, chest pain, dizziness, nausea right hip pain improving no other symptoms Objective Last 8 Hrs Date Time Temp Pulse Resp B/P Pulse Ox O2 Delivery O2 Flow Rate FiO2 12/12/16 19:35 96 16 95 Nasal Cannula 2.0 12/12/16 19:30 37.4 100 16 79/54 95 Nasal Cannula 2.0 12/12/16 16:52 Nasal Cannula 3.0 12/12/16 16:00 100 Nasal Cannula 3.0 12/12/16 15:40 37.1 101 16 89/50 100 Nasal Cannula 3.0 12/12/16 15:29 93 16 94 Nasal Cannula 3.0 12/12/16 13:50 36.6 100 18 92/56 98 Nasal Cannula 3.0 12/12/16 13:32 36.6 71 111/64 12/12/16 13:15 69 100/49 12/12/16 13:00 72 104/50 12/12/16 12:45 76 111/49 12/12/16 12:30 81 106/55 12/12/16 12:15 84 110/59 Physical Exam: General- oriented x 3, not in distress, speaks in sentences with no effort Eyes- anicteric Neck-no JVD Lungs- clear breath sounds bilaterally, no rales/wheezes Heart- normal rate, irregularly irregular rhythm; no murmur Abdomen- normal bowel sounds, soft, nontender Extremities- right leg: dressing in place, no bleeding/discharge; (+) grade 1 leg edema with mild warmth, tenderness left leg: mild edema Neuro- alert, oriented x 3; no gross focal deficits Skin- warm & dry Laboratory Results: Last 24 Hours Test 12/12/16 06:37 12/12/16 06:54 12/12/16 07:26 12/12/16 13:46 Bedside Glucose 109 mg/dl 102 mg/dl 88 mg/dl White Blood Count 6.81 K/uL Red Blood Count 3.11 M/uL Hemoglobin 9.2 g/dL Hematocrit 29.9 % Mean Corpuscular Volume 96.1 fL Mean Corpuscular Hemoglobin 29.6 pg Mean Corpuscular Hemoglobin Concent 30.8 g/dl RDW Standard Deviation 62.1 fL RDW Coefficient of Variation 17.8 % Platelet Count 225 K/uL Mean Platelet Volume 9.5 fL Nucleated RBC Absolute Count (auto) 0.02 K/uL Nucleated Red Blood Cells % 0.3 % Sodium Level 131 mmol/L Potassium Level 3.6 mmol/L Chloride Level 96 mmol/L Carbon Dioxide Level 25 mmol/L Anion Gap 10.0 mmol/L Blood Urea Nitrogen 27 mg/dl Creatinine 3.80 mg/dl Est Creatinine Clear Calc Drug Dose 12.1 ml/min Estimated GFR () 13.6 Estimated GFR (Non- 11.8 BUN/Creatinine Ratio 7.2 Random Glucose 97 mg/dl Calcium Level 8.9 mg/dl Iron Level 24 mcg/dl Total Iron Binding Capacity 144 mcg/dl Transferrin 118 mg/dl Transferrin % Saturation 15 % Test 12/12/16 16:14 Bedside Glucose 179 mg/dl Assessment & Plan FEBRILE EPISODE - no recurrence so far - blood cultures: negative cxr: no acute process Leg US to r/o DVT: negative CONFUSION, LETHARGY, Resolved likely Multifactorial from Narcotics- stopped Dilaudid, Percocet--> Narcan 1 dose, continue Tramadol PRN Has history of ALLEN- NH4 25, irregular BMs, increase Lactulose 30mg TID for now- -> (+) BMs RIGHT HIP INTERTROCHANTERIC FRACTURE S/P MECHANICAL FALL : S/P Hip fracture repair - IM [facility] on 12/05/16 - management of fever as noted above - anticipate transfer to [facility] when medically stable - appreciate Dr. Santoyo's recommendations ACUTE BLOOD LOSS ANEMIA WITH CHRONIC ANEMIA -Hb dropped to 7.9 --> 9.6 -S/P 2 units of PRBCs transfusion on 12/07/16 - hg 9 on procrit as well monitor ESRD ON DIALYSIS Dialysis - - Fri -Follows with Dr. Flannery - HD per Nephro, appreciate the recommendations CHRONIC HYPONATREMIA: on HD ASTHMA/ CHRONIC HYPOXIC RESPIRATORY FAILURE On 3 liters NC continuous at home -Not in exacerbation PAROXYSMAL AFIB, HEART BLOCK S/P PACEMAKER -Not on rate controlling meds due to hx of hypotension -Not on Coumadin due to fall risk CHRONIC SYSTOLIC CHF HX BIOPROSTHETIC AORTIC VALVE REPLACEMENT Echo 09/2016- EF 45-50%, Prosthetic aortic valve, Moderate MR - euvolemic CAD S/P CABG X 2 - Metoprolol and imdur d/c in the past due to syncope from hypotension - stable - on Aspirin, Statin DM TYPE 2 -Consulted pharmacy for glycemic control HISTORY OF CVA -ASA restarted per surgery ALLEN CIRRHOSIS Ammonia - 35 on presentation -Continue Lactulose LIZZ -Continue CPAP HX GASTRIC ULCER -EGD Oct 2016 showed ulcer healed. No signs of active bleeding -Continue PPI S/P HYPERKALEMIA- Resolved K= 5.6 on presentation without EKG changes -Nephrology on board. DVT PROPHYLAXIS Per ortho team- Heparin SQ DISPOSITION -Probable discharge to SNF/Rehab in 1-2 days if no more fever spikes, confusion /lethargy improves Current Inpatient Medications: Current Inpatient Medications Medications (Trade) Dose Ordered Sig/Dalton Route Start Time Stop Time Status Last Admin Dose Admin Ondansetron HCl (Zofran Inj) 4 mg Q6H PRN IV 12/04/16 14:00 01/03/17 13:59 12/05/16 02:40 4 MG Glucose (Glucose 40% Gel) 15-30 GRAMS 15 GRAMS... UD PRN PO 12/04/16 15:00 01/03/17 14:59 Glucose (Glucose Chew Tab) 4-8 Tablets 4 Tabl... UD PRN PO 12/04/16 15:00 01/03/17 14:59 Dextrose (Dextrose 50% 50ML Syringe) 25-50ML OF 50% DW IV FOR... UD PRN IV 12/04/16 15:00 01/03/17 14:59 Glucagon (Glucagon Inj) 1 mg UD PRN SQ 12/04/16 15:00 01/03/17 14:59 Miscellaneous Information (Consult Glycemic Management Pharmacy) 1 ea UD N/A 12/04/16 14:59 01/03/17 14:58 Atorvastatin Calcium (Lipitor Tab) 80 mg HS PO 12/04/16 21:00 01/03/17 20:59 12/11/16 20:30 80 MG Gabapentin (Neurontin Cap) 300 mg BID PO 12/04/16 21:00 01/03/17 20:59 12/12/16 09:15 300 MG Albuterol/ Ipratropium (Combivent Respimat Inh) 1 puffs QID PRN INH 12/04/16 15:00 01/03/17 14:59 Lactobacillus Acidophilus (Floranex Tab) 2 tab BID PO 12/04/16 21:00 01/03/17 20:59 12/12/16 09:14 2 TAB Montelukast Sodium (Singulair Tab) 10 mg HS PO 12/04/16 21:00 01/03/17 20:59 12/11/16 20:29 10 MG Nitroglycerin (Nitrostat Tab) 0.4 mg PRN PRN [place] 12/04/16 15:00 01/03/17 14:59 Vitamin B Complex/ Vit C/Folic Acid (Nephrocaps) 1 cap QAM PO 12/05/16 09:00 01/04/17 08:59 12/12/16 09:14 1 CAP Pantoprazole Sodium (Protonix Tab) 40 mg QAM PO 12/05/16 09:00 01/04/17 08:59 12/12/16 09:16 40 MG Insulin Glargine (Lantus Solostar Pen) PER SCALE BID SC 12/04/16 21:00 01/03/17 20:59 Future hold 12/11/16 20:32 8 UNIT Insulin Aspart (novoLOG ASPART) SLIDING SCALE ACHS SC 12/04/16 16:15 01/03/17 16:14 12/12/16 17:23 4 UNITS Levalbuterol 0.63 mg 0.63 mg Q6R INH 12/05/16 09:00 01/04/17 08:59 12/12/16 19:31 0.63 MG Acetaminophen/ Empty Bag (Ofirmev IV/ Empty Iv Bag 100ml) 65 ml @ 260 mls/hr Q6H PRN IV 12/05/16 18:00 01/04/17 17:59 12/11/16 21:43 260 MLS/HR Aspirin (Ecotrin Tab) 81 mg QAM PO 12/06/16 13:30 01/05/17 08:59 12/12/16 09:13 81 MG Heparin Sodium (Porcine) (Heparin Sq 5000 Unit/0.5ml) 5,000 unit Q8 SQ 12/07/16 09:00 01/06/17 08:59 12/12/16 14:15 5,000 UNIT Ipratropium [place] (Atrovent 0.02% 0.5MG/2.5ML Neb) 0.5 mg Q6H PRN INH 12/09/16 12:30 01/08/17 12:29 Tramadol HCl (Ultram Tab) 50 mg Q8H PRN PO 12/10/16 12:45 01/09/17 12:44 12/12/16 17:18 50 MG Lactulose (Chronulac Syrup) 30 gm TID PO 12/11/16 14:00 01/10/17 13:59 12/12/16 14:16 30 GM Bisacodyl (Dulcolax Supp) 10 mg DAILY PRN VA 12/11/16 11:45 01/10/17 11:44 12/11/16 12:02 10 MG Heparin Sodium (Porcine) (Heparin Iv Bolus) 1,000 unit TODAY@0800 IV 12/12/16 08:00 12/12/16 23:59 Heparin Sodium (Porcine) (Heparin Iv Bolus) 400 unit TODAY@0800,0900,1000 IV 12/12/16 08:00 12/12/16 23:59 Albumin Human 12.5 gm 12.5 gm TODAY@0700,0900 IV 12/12/16 07:00 12/12/16 23:59 12/12/16 13:01 12.5 GM Epoetin Renato/ Syringe (Procrit Inj/ Syringe) 0.4 ml @ 1 mls/min TODAY@0800 IV. 12/12/16 08:00 12/12/16 23:59 12/12/16 13:02 1 MLS/MIN
[2016-12-12] MEDS: ATORVASTATIN 20 MG TAB PO SCH (21:02)
[2016-12-12] MEDS: MONTELUKAST SOD 10 MG TAB PO SCH (21:03)
[2016-12-12] MEDS: ACETAMINOPHEN IV 650 MG in EMPTY BAG 0 ML IV PRN (21:14)
[2016-12-13] VITALS (10 sets, daily range): BP systolic 85–107; BP diastolic 51–62; PULSE 85–98; TEMP 36.5–36.8; O2SAT 94–100
[2016-12-13] MEDS: LEVALBUTEROL 0.63MG/3 ML NEB INH SCH ×3 (01:25→14:07)
[2016-12-13] MEDS: HEPARIN SOD 5000 UNIT/0.5 ML CARP SQ SCH ×2 (05:33→13:32)
[2016-12-13] MEDS: INSULIN GLARGINE SOLOSTAR 100 UNITS/ML 3 ML PEN SC SCH (07:39)
[2016-12-13] MEDS: INSULIN ASPART 100 UNITS/ML 3 ML PEN SC SCH ×3 (08:09→16:58)
[2016-12-13] MEDS: LACTOBACILLUS ACIDOPHILUS (FLORANEX) TAB PO SCH (08:13)
[2016-12-13] MEDS: PANTOprazole SOD 40 MG TAB PO SCH (08:13)
[2016-12-13] MEDS: NEPHROCAPS PO SCH (08:13)
[2016-12-13] MEDS: LACTULOSE SYRUP 30 GM/45 ML UDP PO SCH ×2 (08:13→13:25)
[2016-12-13] MEDS: GABAPENTIN 300 MG CAP PO SCH (08:13)
[2016-12-13] MEDS: ASPIRIN 81 MG ECTAB PO SCH (08:13)
--- NOTE | 2016-12-13 14:28 | Progress Note ---
Medicine Progress Note Date & Time of Visit: Dec 13, 2016 at 14:19. Subjective patient states she feels much better today in good spirits pain adequately controlled mental status back to baseline as per (+) BMs denies chest pain, dyspnea, cough, abdominal pain no other symptoms states she is ready and would like to be discharged today Objective Last 8 Hrs Date Time Temp Pulse Resp B/P Pulse Ox O2 Delivery O2 Flow Rate FiO2 12/13/16 14:07 89 14 95 Nasal Cannula 2.0 12/13/16 12:00 Nasal Cannula 3.0 12/13/16 10:47 36.7 93 20 99/57 99 Nasal Cannula 3.0 Humidified Oxygen 12/13/16 08:00 Nasal Cannula 3.0 12/13/16 07:43 36.7 96 16 107/62 100 Nasal Cannula 3.0 Humidified Oxygen 12/13/16 07:18 85 14 96 Nasal Cannula 2.0 Physical Exam: General- oriented x 3, not in distress, speaks in sentences with no effort Neck-no JVD Lungs- clear breath sounds bilaterally, no rales/wheezes Heart- normal rate, irregularly irregular rhythm; no murmur Abdomen- normal bowel sounds, soft, nontender Extremities- right leg: dressing in place, no bleeding/discharge; mild leg edema no tenderness/warmth left leg: no edema Neuro- alert, oriented x 3; no gross focal deficits Skin- warm & dry Laboratory Results: Last 24 Hours Test 12/12/16 16:14 12/12/16 20:06 12/13/16 06:43 12/13/16 10:39 Bedside Glucose 179 mg/dl 128 mg/dl 116 mg/dl 150 mg/dl Assessment & Plan RIGHT HIP INTERTROCHANTERIC FRACTURE S/P MECHANICAL FALL : S/P Hip fracture repair - IM [place] on 12/05/[address] Freddie Santoyo - on Heparin q8h for dvt prophylaxis, duration as per Dr. Santoyo - transfer to [facility] - ff up with Dr. Santoyo in 1 week ACUTE BLOOD LOSS ANEMIA WITH CHRONIC ANEMIA -Hb dropped to 7.9 --> 9.6 -S/P 2 units of PRBCs transfusion on 12/07/16 - hg ~9 on procrit monitor FEBRILE EPISODES - no recurrence so far - no clear focus of infection - blood cultures: negative cxr: no acute process Leg US to r/o DVT: negative - monitor CONFUSION, LETHARGY, Resolved likely Multifactorial from Narcotics- stopped Dilaudid, Percocet--> continue Tramadol PRN Has history of ALLEN- NH4 25, irregular BMs, increased Lactulose 30mg TID --> (+ ) BMs -- monitor mental status ESRD ON DIALYSIS Dialysis - - Sat -Follows with Dr. Flannery - underwent HD inpatient c/o Dr. Lao- Nephrology CHRONIC HYPONATREMIA - on HD ASTHMA/ CHRONIC HYPOXIC RESPIRATORY FAILURE On 3 liters NC continuous at home -Not in exacerbation PAROXYSMAL AFIB, HEART BLOCK S/P PACEMAKER -Not on rate controlling meds due to hx of hypotension -Not on Coumadin due to fall risk CHRONIC SYSTOLIC CHF HX BIOPROSTHETIC AORTIC VALVE REPLACEMENT Echo 09/2016- EF 45-50%, Prosthetic aortic valve, Moderate MR - euvolemic - monitor volume status CAD S/P CABG X 2 - Metoprolol and imdur d/c in the past due to syncope from hypotension - stable - on Aspirin, Statin DM TYPE 2 - continue Insulin regimen HISTORY OF CVA -on Aspirin ALLEN CIRRHOSIS Ammonia - 35 on presentation -Continue Lactulose - maintain 3-4 BM/day LIZZ -Continue CPAP HISTORY OF GASTRIC ULCER -EGD Oct 2016 showed ulcer healed. No signs of active bleeding -Continue PPI S/P HYPERKALEMIA- Resolved K= 5.6 on presentation without EKG changes DVT PROPHYLAXIS on Heparin q8h, duration of DVT prophylaxis as per Ortho Surgeon Dr. Santoyo DISPOSITION -Probable discharge to SNF/Rehab in 1-2 days if no more fever spikes, confusion /lethargy improves Current Inpatient Medications: Current Inpatient Medications Medications (Trade) Dose Ordered Sig/Dalton Route Start Time Stop Time Status Last Admin Dose Admin Ondansetron HCl (Zofran Inj) 4 mg Q6H PRN IV 12/04/16 14:00 01/03/17 13:59 12/05/16 02:40 4 MG Glucose (Glucose 40% Gel) 15-30 GRAMS 15 GRAMS... UD PRN PO 12/04/16 15:00 01/03/17 14:59 Glucose (Glucose Chew Tab) 4-8 Tablets 4 Tabl... UD PRN PO 12/04/16 15:00 01/03/17 14:59 Dextrose (Dextrose 50% 50ML Syringe) 25-50ML OF 50% DW IV FOR... UD PRN IV 12/04/16 15:00 01/03/17 14:59 Glucagon (Glucagon Inj) 1 mg UD PRN SQ 12/04/16 15:00 01/03/17 14:59 Miscellaneous Information (Consult Glycemic Management Pharmacy) 1 ea UD N/A 12/04/16 14:59 01/03/17 14:58 Atorvastatin Calcium (Lipitor Tab) 80 mg HS PO 12/04/16 21:00 01/03/17 20:59 12/12/16 21:02 80 MG Gabapentin (Neurontin Cap) 300 mg BID PO 12/04/16 21:00 01/03/17 20:59 12/13/16 08:13 300 MG Albuterol/ Ipratropium (Combivent Respimat Inh) 1 puffs QID PRN INH 12/04/16 15:00 01/03/17 14:59 Lactobacillus Acidophilus (Floranex Tab) 2 tab BID PO 12/04/16 21:00 01/03/17 20:59 12/13/16 08:13 2 TAB Montelukast Sodium (Singulair Tab) 10 mg HS PO 12/04/16 21:00 01/03/17 20:59 12/12/16 21:03 10 MG Nitroglycerin (Nitrostat Tab) 0.4 mg PRN PRN UT 12/04/16 15:00 01/03/17 14:59 Vitamin B Complex/ Vit C/Folic Acid (Nephrocaps) 1 cap QAM PO 12/05/16 09:00 01/04/17 08:59 12/13/16 08:13 1 CAP Pantoprazole Sodium (Protonix Tab) 40 mg QAM PO 12/05/16 09:00 01/04/17 08:59 12/13/16 08:13 40 MG Insulin Aspart (novoLOG ASPART) SLIDING SCALE ACHS SC 12/04/16 16:15 01/03/17 16:14 12/13/16 11:53 4 UNITS Levalbuterol 0.63 mg 0.63 mg Q6R INH 12/05/16 09:00 01/04/17 08:59 12/13/16 14:07 0.63 MG Acetaminophen/ Empty Bag (Ofirmev IV/ Empty Iv Bag 100ml) 65 ml @ 260 mls/hr Q6H PRN IV 12/05/16 18:00 01/04/17 17:59 12/12/16 21:14 260 MLS/HR Aspirin (Ecotrin Tab) 81 mg QAM PO 12/06/16 13:30 01/05/17 08:59 12/13/16 08:13 81 MG Heparin Sodium (Porcine) (Heparin Sq 5000 Unit/0.5ml) 5,000 unit Q8 SQ 12/07/16 09:00 01/06/17 08:59 12/13/16 13:32 5,000 UNIT Ipratropium [place] (Atrovent 0.02% 0.5MG/2.5ML Neb) 0.5 mg Q6H PRN INH 12/09/16 12:30 01/08/17 12:29 Tramadol HCl (Ultram Tab) 50 mg Q8H PRN PO 12/10/16 12:45 01/09/17 12:44 12/12/16 17:18 50 MG Lactulose (Chronulac Syrup) 30 gm TID PO 12/11/16 14:00 01/10/17 13:59 12/13/16 13:25 30 GM Bisacodyl (Dulcolax Supp) 10 mg DAILY PRN TN 12/11/16 11:45 01/10/17 11:44 12/11/16 12:02 10 MG Insulin Glargine (Lantus Solostar Pen) 8 unit HS SC 12/13/16 21:00 01/12/17 20:59
[2016-12-13] MEDS ORDERED: NVLGIPEN SC (14:36)
[2016-12-13] MEDS ORDERED: INSDGIPEN SC (14:36)
--- NOTE | 2016-12-13 14:45 | Pharmacy Progress Note ---
Glycemic: Assessment & Plan Date of Service Dec 13, 2016. Assessment & Plan The patient is currently receiving ~10 units of insulin per day. BSGs ranging 88 - 179 mg/dl over the past 24hrs. * Basal insulin: Lantus 8 units every 24 hours given at bedtime * Correctional Insulin: Novolog Correction per scale ACHS Goal Range: Low 120 mg/dL - High 160 mg/dL Correction Factor: 30 mg/dL/unit * Prandial insulin: Per carb ratio of 1 unit per 12 grams CHO consumed BSGs continue to improve, no changes needed to inpatient regimen at this time. Recommend continuing this reduced insulin regimen at the time of discharge. Outpatient regimen is 100+ units of insulin per day and patient has not been requiring this much during this admission or past admissions. Pharmacy will continue to monitor patient daily and write orders per [facility] inpatient glycemic control protocol. Thanks.
--- NOTE | 2016-12-13 14:53 | Discharge Instructions ---
Discharge Instructions Date of Service Dec 13, 2016. Admission Reason for Admission: Hip Fracture Discharge Discharge Diagnosis / Problem: RIGHT HIP INTERTROCHANTERIC FRACTURE S/P MECHANICAL FALL Discharge Goals Goal(s): Diagnostic testing, Therapeutic intervention Activity Recommendations Activity Level: Assistance Required Therapies: Physical Therapy, Occupational Therapy Weightbearing Status: Right toe touch . Additional Information Patient informed of condition: Yes Advance Directives: No (unknown) DNR: No (Patient is FULL CODE) Level of Care: Acute Rehab Communicable Disease: No Prognosis: Stable Oxygen at (LPM): 3 liters via Nasal Cannula Sandra Catheter: No Instructions / Follow-Up Instructions / Follow-Up PLEASE MONITOR MENTAL STATUS, PATIENT SENSITIVE TO NARCOTICS. MONITOR BSG'S AC AND HS, ADJUST INSULIN ACCORDINGLY. MONITOR AND MAINTAIN AT LEAST 3 BM'S PER DAY. CPAP AT NIGHT. FOLLOW UP WITH DR. SLOAN (ORTHOPEDIC) IN 1 WEEK. PLEASE REFER TO ACCOMPANYING HOSPITAL DISCHARGE SUMMARY FOR FURTHER DETAILS. Current Hospital Diet Patient's current hospital diet: Renal Diet, Diabetes Type 2 Diet, AHA Diet ( Heart Healthy) Discharge Diet Recommended Diet: AHA Diet (Heart Healthy), Diabetes Type 2 Diet, Renal Diet Procedures Procedures Performed: RIGHT INTRAMEDULLARY LONG THIERRY ORIF 12/05/[address] SLOAN; 2 UNITS PRBC TRANSFUSION Pending Studies Studies pending at discharge: yes List of pending studies: FOLLOW UP WITH ORTHO IN 1 WEEK Physician Orders On Transfer Special Precautions: PLEASE MONITOR MENTAL STATUS, PATIENT SENSITIVE TO NARCOTICS. MONITOR BSG'S AC AND HS, ADJUST INSULIN ACCORDINGLY. MONITOR AND MAINTAIN AT LEAST 3 BM'S PER DAY. CPAP AT NIGHT. FOLLOW UP WITH DR. SLOAN (ORTHOPEDIC) IN 1 WEEK. PLEASE REFER TO ACCOMPANYING HOSPITAL DISCHARGE SUMMARY FOR FURTHER DETAILS. Laboratory Results Hemoglobin A1c Test 10/08/16 06:39 Range/Units Estimated Average Glucose 140 mg/dl Hemoglobin A1c 6.5 H 4.5-5.6 % Medical Emergencies . Who to Call and When: Medical Emergencies: If at any time you feel your situation is an emergency, please call 911 immediately. . Non-Emergent Contact Non-Emergency issues call your: Primary Care Provider Call Non-Emergent contact if: you have a fever, your pain is not controlled, wound has increased drainage, wound has increased redness, wound has increased pain, you have any medication questions . Past History Medical & Surgical History: (1) Fracture of right hip (2) Pacemaker (3) Diabetes mellitus (4) CAD (coronary artery disease) (5) HTN (hypertension) (6) Asthma (7) Osteoarthritis (8) History of stroke (9) Dyslipidemia (10) PAF (paroxysmal atrial fibrillation) (11) Cirrhosis of liver (12) CKD (chronic kidney disease), stage III (13) Depression (14) Sleep apnea (15) Aortic valve replaced (16) S/P CABG x 2 (17) S/P placement of cardiac pacemaker (18) S/P tonsillectomy (19) Status post left heart catheterization . "Provider Documentation" section prepared by Jeromy Javier. Core Measure Problem Core Measures: None [place] Drug Monitoring Program Search Results: patient reviewed within database, no issues identified
--- NOTE | 2016-12-13 14:58 | Discharge Summary ---
Discharge Summary Date of Service Dec 13, 2016. Discharge Summary Admission Date: Dec 04, 2016 at 12:45 Discharge Date: Dec 13, 2016 Discharge Disposition: Home Principal Diagnosis: RIGHT HIP INTERTROCHANTERIC FRACTURE S/P MECHANICAL FALL : S/P Hip fracture repair - IM [facility] on 12/05/[address] Freddie Santoyo Secondary Diagnoses/Problems: PLEASE REFER TO HOSPITAL COURSE BELOW. Procedures: S/P Hip fracture repair - IM [facility] on 12/05/[address] Freddie Santoyo Consultations: ORTHO DR. SANTOYO, NEPHRO DR. MELLO Pending Studies/Follow-Up: PLEASE MONITOR MENTAL STATUS, PATIENT SENSITIVE TO NARCOTICS. MONITOR BSG'S AC AND HS, ADJUST INSULIN ACCORDINGLY. MONITOR AND MAINTAIN AT LEAST 3 BM'S PER DAY. CPAP AT NIGHT. FOLLOW UP WITH DR. SANTOYO (ORTHOPEDIC) IN 1 WEEK. PLEASE REFER TO HOSPITAL COURSE BELOW FOR FURTHER DETAILS. Medication Reconciliation New Medications: Insulin Aspart (Novolog Flexpen) 100 Units/Ml Inj 0 UNITS SC ACHS for 30 Days Correctional Insulin: Novolog Correction per scale ACHS Goal Range: Low 120 mg/dL - High 160 mg/dL Correction Factor: 30 mg/dL/unit Prandial insulin: Per carb ratio of 1 unit per 12 grams CHO consumed Insulin Glargine (Lantus Solostar) 100 Unit/Ml Inj 8 UNIT SC HS for 30 Days Continued Medications: Aspirin (Aspirin Chewable) 81 Mg Chew 81 MG PO QAM Atorvastatin (Lipitor) 80 Mg Tab 1 TAB PO HS for 30 Days, TAB 5 Refills Escitalopram Oxalate (Lexapro) 5 Mg Tab 5 MG PO DAILY, TAB Gabapentin (Neurontin) 300 Mg Cap 300 MG PO BID Ipratropium-Albuterol (Combivent Respimat) 1 Aer Aer 1 PUFFS INH QID PRN for SOB,OR PRIOR TO EXERTION Lactobacillus Acidophilus (Lactinex) Tab 2 TAB PO BID, TAB Lactulose (Chronulac) 10 Gm/15 Ml Syrp 20 ML PO BID Montelukast Sod (Montelukast Sodium) 10 Mg Tab 10 MG PO HS Nitroglycerin (Nitrostat) 0.4 Mg Sub 0.4 MG UT PRN PRN for Chest Pain, BTL Omeprazole (Prilosec) 40 Mg Cap 1 CAP PO DAILY for 30 Days, #30 CAP 3 Refills Tramadol (Ultram) 50 Mg Tab 50 MG PO Q8H PRN for Pain, TAB Trazodone Hcl (Trazodone) 50 Mg Tab 50 MG PO HS, TAB Vitamin B Cmplx/Vitc/Folic Ac (Nephrocaps) Cap 1 CAP PO QAM, CAP Discontinued Medications: Acetaminophen W/ Codeine (Tylenol W/Codeine #3) 1 Tab Tab 1 TAB PO HS, TAB Insulin Aspart (Novolog) 100 Units/Ml Inj 1 DOSE SC UD 25 units SC at breakfast and dinner, 20 units with lunch if eaten Insulin Glargine (Lantus) 100 Unit/Ml Inj 30 UNITS SC QPM, VIAL Admission Information HPI (per Admitting provider): This is a 66 y/o female with PMH of ESRD on dialysis, systolic CHF, PAF, complete heart block s/p pacemaker, asthma on chronic oxygen, hx CVA, hx bioprosthetic aortic valve replacement, CAD, DM type 2, LIZZ, ALLEN cirrhosis, hx gastric ulcer, and other problems listed below who presents as a direct admission from [place] [facility] for right hip fracture. She was sent to [facility]. Pt follows with Dr. Mayorga for primary care. She dialysis [id number] at [facility] in [place] and f/w Dr. Flannery for nephro. Last dialysis tx yesterday. Hx supplemented from at bedside due to patient's lethargy. Pt was recently admitted to [facility] Oct 30- for hyperkalemia. After that she was at baseline except for generalized weakness x 1 week. As per patient fell 2 days ago in the bathroom after tripping on a scale while he was in the next room. He found her lying on her side with an abrasion to her right knee and was c/o right hip pain after that time. Then this morning in the bathroom she fell again around 7 am due to her legs giving out (witnessed by ) and landed on her buttocks. He was unable to get her up so called 911 and was brought to ER by ambulance. denies head trauma or LOC. X-ray of right hip showed intertrochanteric fracture of right hip. Pt received Fentanyl 50 mcg and Dilaudid 0.5 mg at [place] [facility]. states pt's mental status was normal/ oriented x 3 this morning but became lethargic/ confused after the pain meds were administered. Pt falls asleep easily during conversation. She is oriented to person (recognizes ) and to hospital at [place] but is unable to tell the date. She admits to pain and points to right hip. Pain rated 10/10. She denies dizziness, chest pain, SOB, abdominal pain. reports chronic FONSECA and states pt is only able to walk 10 feet before becoming SOB. He reports recent cough attributed to GERD which has improved. Physical Exam (per Admitting): General Appearance: + obese, + pertinent finding (lethargic chronically ill 66 year old female, awakens to verbal stimulation) Head: normocephalic, atraumatic Eyes: normal inspection, PERRL, EOMI ENT: hearing grossly normal, pharynx normal Neck: supple, trachea midline Respiratory/Chest: lungs clear (on anterior exam), normal breath sounds, no respiratory distress, + pertinent finding (tunneled dialysis catheter right chest) Cardiovascular: regular rate, rhythm, no murmur Abdomen/GI: normal bowel sounds, non tender, + pertinent finding (slightly distended/ firm. nontender. ) Extremities/Musculoskelatal: no calf tenderness, no pedal edema, + pertinent finding (bilateral feet dusky and cool to touch with hair loss on the BLLE. DP pulses 1+ bilaterally.) Neurologic/Psych: + pertinent finding (lethargic, falls asleep during exam, difficult to keep her attention, oriented to person and place only, regional clinical director strenth 5/5 bilat. right hip tender to palpation. right hip ROM limited by pain. able to lift LLE off the bed and move the toes bilaterally. sensation to light touch intact bilateral feet. ) Skin: warm/dry, + pertinent finding (dusky discoloration to bilateral feet.) Hospital Course RIGHT HIP INTERTROCHANTERIC FRACTURE S/P MECHANICAL FALL : S/P Hip fracture repair - IM [facility] on 12/05/[address] Freddie Santoyo - Aspirin for DVT prophylaxis per Ortho - transfer to [facility] - ff up with Dr. Santoyo in 1 week ACUTE BLOOD LOSS ANEMIA WITH CHRONIC ANEMIA -Hb dropped to 7.9 --> 9.6 -S/P 2 units of PRBCs transfusion on 12/07/16 - hg ~9 on procrit monitor FEBRILE EPISODES - no recurrence so far - no clear focus of infection - blood cultures: negative cxr: no acute process Leg US to r/o DVT: negative - monitor CONFUSION, LETHARGY, Resolved likely Multifactorial from Narcotics- stopped Dilaudid, Percocet--> continue Tramadol PRN Has history of ALLEN- NH4 25, irregular BMs, increased Lactulose 30mg TID --> (+ ) BMs -- monitor mental status ESRD ON DIALYSIS Dialysis - Sat -Follows with Dr. Flannery - underwent HD inpatient c/o Dr. Mello- Nephrology CHRONIC HYPONATREMIA - on HD ASTHMA/ CHRONIC HYPOXIC RESPIRATORY FAILURE On 3 liters NC continuous at home -Not in exacerbation PAROXYSMAL AFIB, HEART BLOCK S/P PACEMAKER -Not on rate controlling meds due to hx of hypotension -Not on Coumadin due to fall risk CHRONIC SYSTOLIC CHF HX BIOPROSTHETIC AORTIC VALVE REPLACEMENT Echo 09/2016- EF 45-50%, Prosthetic aortic valve, Moderate MR - euvolemic - monitor volume status CAD S/P CABG X 2 - Metoprolol and imdur d/c in the past due to syncope from hypotension - stable - on Aspirin, Statin DM TYPE 2 - continue Insulin regimen HISTORY OF CVA -on Aspirin ALLEN CIRRHOSIS Ammonia - 35 on presentation -Continue Lactulose - maintain 3-4 BM/day LIZZ -Continue CPAP HISTORY OF GASTRIC ULCER -EGD Oct 2016 showed ulcer healed. No signs of active bleeding -Continue PPI S/P HYPERKALEMIA- Resolved K= 5.6 on presentation without EKG changes DVT PROPHYLAXIS - Aspirin for DVT prophylaxis per Ortho DISPOSITION -Probable discharge to SNF/Rehab in 1-2 days if no more fever spikes, confusion /lethargy improves Total time spent on discharge = 45 minutes This includes examination of the patient, discharge planning, medication reconciliation, and communication with other providers. Discharge Instructions Discharge Instructions Date of Service Dec 13, 2016. Admission Reason for Admission: Hip Fracture Discharge Discharge Diagnosis / Problem: RIGHT HIP INTERTROCHANTERIC FRACTURE S/P MECHANICAL FALL Discharge Goals Goal(s): Diagnostic testing, Therapeutic intervention Activity Recommendations Activity Level: Assistance Required Therapies: Physical Therapy, Occupational Therapy Weightbearing Status: Right toe touch . Additional Information Patient informed of condition: Yes Advance Directives: No (unknown) DNR: No (Patient is FULL CODE) Level of Care: Acute Rehab Communicable Disease: No Prognosis: Stable Oxygen at (LPM): 3 liters via Nasal Cannula Sandra Catheter: No Instructions / Follow-Up Instructions / Follow-Up PLEASE MONITOR MENTAL STATUS, PATIENT SENSITIVE TO NARCOTICS. MONITOR BSG'S AC AND HS, ADJUST INSULIN ACCORDINGLY. MONITOR AND MAINTAIN AT LEAST 3 BM'S PER DAY. CPAP AT NIGHT. FOLLOW UP WITH DR. SANTOYO (ORTHOPEDIC) IN 1 WEEK. PLEASE REFER TO ACCOMPANYING HOSPITAL DISCHARGE SUMMARY FOR FURTHER DETAILS. Current Hospital Diet Patient's current hospital diet: Renal Diet, Diabetes Type 2 Diet, AHA Diet ( Heart Healthy) Discharge Diet Recommended Diet: AHA Diet (Heart Healthy), Diabetes Type 2 Diet, Renal Diet Procedures Procedures Performed: RIGHT INTRAMEDULLARY LONG THIERRY ORIF 12/05/[address] SANTOYO; 2 UNITS PRBC TRANSFUSION Pending Studies Studies pending at discharge: yes List of pending studies: FOLLOW UP WITH ORTHO IN 1 WEEK Physician Orders On Transfer Special Precautions: PLEASE MONITOR MENTAL STATUS, PATIENT SENSITIVE TO NARCOTICS. MONITOR BSG'S AC AND HS, ADJUST INSULIN ACCORDINGLY. MONITOR AND MAINTAIN AT LEAST 3 BM'S PER DAY. CPAP AT NIGHT. FOLLOW UP WITH DR. SANTOYO (ORTHOPEDIC) IN 1 WEEK. PLEASE REFER TO ACCOMPANYING HOSPITAL DISCHARGE SUMMARY FOR FURTHER DETAILS. Laboratory Results Hemoglobin A1c Test 10/08/16 06:39 Range/Units Estimated Average Glucose 140 mg/dl Hemoglobin A1c 6.5 H 4.5-5.6 % Medical Emergencies . Who to Call and When: Medical Emergencies: If at any time you feel your situation is an emergency, please call 911 immediately. . Non-Emergent Contact Non-Emergency issues call your: Primary Care Provider Call Non-Emergent contact if: you have a fever, your pain is not controlled, wound has increased drainage, wound has increased redness, wound has increased pain, you have any medication questions . Past History Medical & Surgical History: (1) Fracture of right hip (2) Pacemaker (3) Diabetes mellitus (4) CAD (coronary artery disease) (5) HTN (hypertension) (6) Asthma (7) Osteoarthritis (8) History of stroke (9) Dyslipidemia (10) PAF (paroxysmal atrial fibrillation) (11) Cirrhosis of liver (12) CKD (chronic kidney disease), stage III (13) Depression (14) Sleep apnea (15) Aortic valve replaced (16) S/P CABG x 2 (17) S/P placement of cardiac pacemaker (18) S/P tonsillectomy (19) Status post left heart catheterization . "Provider Documentation" section prepared by Jeromy Javier. Core Measure Problem Core Measures: None [place] Drug Monitoring [place] Search Results: patient reviewed within database, no issues identified
[2016-12-13] MEDS ORDERED: TRAM-10 PO (14:59)
[2016-12-13] MEDS ORDERED: INSULIN GLARGINE SOLOSTAR 100 UNITS/ML 3 ML PEN SC SCH (21:00)
== END 2016-12-13 17:45 | DRG 480 ==
LOC: C.2E 12:45
PROVIDERS: ADMIT Hospitalist; ATTEND Internal Medicine
PROC: 0QS636Z Reposition Right Upper Femur with Intramedullary Internal Fixation Device, Percutaneous Approach (ICD-10-PCS; principal; 2016-12-05 07:30)
DX: S72.141A Displaced intertrochanteric fracture of right femur, initial encounter for closed fracture (principal); N18.6 End stage renal disease; J96.11 Chronic respiratory failure with hypoxia; I13.2 Hypertensive heart and chronic kidney disease with heart failure and with stage 5 chronic kidney disease, or end stage renal disease; I50.22 Chronic systolic (congestive) heart failure; D62 Acute posthemorrhagic anemia; Z99.2 Dependence on renal dialysis; K75.81 Nonalcoholic steatohepatitis (NASH); J45.909 Unspecified asthma, uncomplicated; Z95.0 Presence of cardiac pacemaker; Z95.3 Presence of xenogenic heart valve; Z91.81 History of falling; Z86.73 Personal history of transient ischemic attack (TIA), and cerebral infarction without residual deficits; E87.5 Hyperkalemia; E78.5 Hyperlipidemia, unspecified; I48.0 Paroxysmal atrial fibrillation; K74.60 Unspecified cirrhosis of liver; Z95.1 Presence of aortocoronary bypass graft; E11.9 Type 2 diabetes mellitus without complications; G47.33 Obstructive sleep apnea (adult) (pediatric); F32.9 Major depressive disorder, single episode, unspecified; Z79.899 Other long term (current) drug therapy; Z79.82 Long term (current) use of aspirin; Z79.4 Long term (current) use of insulin; W18.09XA Striking against other object with subsequent fall, initial encounter; Y92.002 Bathroom of unspecified non-institutional (private) residence as the place of occurrence of the external cause